=== PATIENT | female | born 1940 | race Caucasian/White ===

== ENCOUNTER 2016-07-30 11:33 | Inpatient (IN) | payer OTHER ==
--- NOTE | 2016-07-30 12:12 | PDOC ---
History of Present Illness - General History Source: Patient Exam Limitations: No Limitations - History of Present Illness Initial Comments: 07/30/16 12:20 The patient is a 76 year old female, who lives at home with grandson, with a significant past history of depression, hypertension, hyperlipidemia, AFib (on coumadin), CHF, COPD(on 3 L of O2 at home), breast cancer (s/p lumpectomy), who presents to the emergency department sent from urgent care for evaluation of shortness of breath and hypoxia for several days. However, as per patient, the shortness of breath is part of her baseline. Patient reports she is increasingly short of breath recently due to worsening depression. Patient reports she has been depressed due to concerns with her health. She states increasingly worries about and what it would mean for her children. Patient reports she has had suicidal ideations in the past, but no recent suicidal or homicidal ideations. The patient reports she is not taking any medications for her depression. She reports decreased appetite and sleep secondary to depression and SOB. The patient reports she has had shortness of breath with exertion, especially when she goes to sit in the bathroom. The patient reports chronic discoloration in the lower extremities, but denies any new swelling, chest pain, diaphoresis, or palpitations. She denies any fever, chills, cough, headache, or dizziness. Allergies: None reported Past Surgical History: Mitral Valve replacement, Cholecystectomy Social History: Non smoker. No ETOH or drug use. PCP: Dr. Wilfred Juarez <Nina Scott - Last Filed: 07/30/16 14:59> <Madian Jackson - Last Filed: 07/30/16 15:29> - General Chief Complaint: Shortness of Breath Stated Complaint: SOB Time Seen by Provider: 07/30/16 11:37 Past History <Nina Scott - Last Filed: 07/30/16 14:59> - Past Medical History Cardiac Disorders: Yes (a fib, mechanical mitral valve replacement) COPD: Yes CHF: Yes HTN: Yes Thyroid Disease: Yes - Surgical History Cardiac Surgery: Yes Cholecystectomy: Yes - Immunization History Immunization Up to Date: Yes - Psycho/Social/Smoking Cessation Hx Anxiety: No Suicidal Ideation: No Smoking Status: No Smoking History: Former smoker Have you smoked in the past 12 months: No Number of Cigarettes Smoked Daily: 0 Hx Alcohol Use: No Drug/Substance Use Hx: No Substance Use Type: None Hx Substance Use Treatment: No <Madina Jackson - Last Filed: 07/30/16 15:29> - Past Medical History Allergies/Adverse Reactions: Allergies Allergy/AdvReac Type Severity Reaction Status Date / Time No Known Allergies Allergy Verified 09/12/15 16:14 Home Medications: Ambulatory Orders Escitalopram Oxalate [Lexapro -] 5 mg PO DAILY #30 tablet 02/09/15 Anastrozole [Arimidex -] 1 mg PO DAILY 08/02/15 Calcium Carbonate/Vitamin D3 [Oyster Shell 500-Vit D3 200 Tb] 1 each PO DAILY Furosemide [Lasix -] 40 mg PO BID@0600,1400 08/02/15 Potassium Chloride [K-Dur -] 20 meq PO DAILY 08/02/15 Acetaminophen [Tylenol .Regular Strength -] 650 mg PO Q4H PRN #0 tablet Aspirin Coated [Ecotrin -] 81 mg PO DAILY tablet.ec 08/08/15 Digoxin [Lanoxin -] 0.125 mg PO Q2D@1000 #30 tablet 08/08/15 Levothyroxine [Synthroid -] 75 mcg PO DAILY@0700 #30 tablet 08/08/15 Quetiapine Fumarate [Seroquel -] 25 mg PO HS #30 tablet 08/08/15 Salmeterol Xinafoate [Serevent Diskus] 50 mcg IH ASDIR #1 disk.w.dev 08/08/15 Warfarin Na [Coumadin -] 4 mg PO DAILY@1800 tablet 08/09/15 Cephalexin [Keflex] 500 mg PO Q6H #32 capsule 09/18/15 Silver Sulfadiazine 1% Top Cr [Silvadene -] 1 applic TP BID #1 jar 09/18/15 Review of Systems - Review of Systems Comments:: 07/30/16 12:20 GENERAL/CONSTITUTIONAL: Yes: +decreased sleep. No fever or chills. No weakness. HEAD, EYES, EARS, NOSE AND THROAT: No change in vision. No ear pain or discharge. No sore throat. CARDIOVASCULAR: Yes: +shortness of breath. No chest pain. RESPIRATORY: Yes: +dyspnea, +dyspnea on exertion. No cough, wheezing, or hemoptysis. GASTROINTESTINAL: No nausea, vomiting, diarrhea or constipation. GENITOURINARY: No dysuria, frequency, or change in urination. MUSCULOSKELETAL: No joint or muscle swelling or pain. No neck or back pain. SKIN: No rash NEUROLOGIC: No headache, vertigo, loss of consciousness, or change in strength/ sensation. ENDOCRINE: Yes: +decreased appetite. No increased thirst. No abnormal weight change. HEMATOLOGIC/LYMPHATIC: No anemia, easy bleeding, or history of blood clots. ALLERGIC/IMMUNOLOGIC: No hives or skin allergy. PSYCHIATRIC:Yes: +Anxiety, +depression <Nina Scott - Last Filed: 07/30/16 14:59> *Physical Exam - Vital Signs Last Vital Signs Temp Pulse Resp BP Pulse Ox 98.1 F 76 18 128/67 100 07/30/16 12:01 07/30/16 12:01 07/30/16 12:01 07/30/16 12:01 07/30/16 12:01 - Physical Exam Comments: 07/30/16 12:20 GENERAL: Awake, alert, and fully oriented, in no acute distress HEAD: No signs of trauma EYES: PERRLA, EOMI, sclera anicteric, conjunctiva clear ENT: Auricles normal inspection, hearing grossly normal, nares patent. Moist mucosa NECK: Normal ROM, supple, no lymphadenopathy, JVD, or masses LUNGS: Crackles bilaterally and faint wheezes at the bases. HEART: Irregularly irregular, but no tachycardia. Normal S1 and S2, no murmurs, rubs or gallops ABDOMEN: Soft, nontender, normoactive bowel sounds. No guarding, no rebound. No masses EXTREMITIES: No pitting edema at the legs bilaterally. Normal range of motion. No clubbing or cyanosis. No cords, erythema, or tenderness. DP/PT pulses 2+ and symmetric. NEUROLOGICAL: Moves all extremities. Normal speech, normal gait SKIN: Warm, Dry, normal turgor, no rashes or lesions noted. PSYCH: Depressed affect. Normal speech. <Nina Scott - Last Filed: 07/30/16 14:59> Heart Score/ECG Review - ECG Intrepretation Comment:: 07/30/16 12:26 comparison to old EKG 09/13/15 no acute changes <Madina Jackson - Last Filed: 07/30/16 15:29> ED Treatment Course - LABORATORY CBC & Chemistry Diagram: 07/30/16 12:12 07/30/16 12:12 - RADIOLOGY Radiograph Interpretation: 07/30/16 14:59 EXAM: CXR INTERPRETED BY: Dr. Brock REVIEWED BY: Dr. Jackson IMPRESSION: Cardiomegaly with congestive heart failure and right pleural effusion. Status post mitral valvular replacement. Continuing clinical and radiographic evaluation suggested. <Nina Scott - Last Filed: 07/30/16 14:59> - LABORATORY CBC & Chemistry Diagram: 07/30/16 12:12 07/30/16 12:12 - RADIOLOGY Radiology Studies Ordered: Category Date Time Status CXRPORT [CHEST X-RAY PORTABLE*] [RAD] Stat Radiology 07/30/16 11:40 Ordered <Madina Jackson - Last Filed: 07/30/16 15:29> Medical Decision Making - Medical Decision Making 07/30/16 13:40 First call placed to Dr. Juarez at 13:40. Case discussed at this time. First call placed to Dr. Morales at 14:07. Awaiting call back. Second call placed to Dr. Morales at 14:41. Awaiting call back. <Nina Scott - Last Filed: 07/30/16 14:59> - Medical Decision Making 07/30/16 12:05 76 yo F with h/o breast ca ( s/p lumpectomy), chf copd pulm htn, afib on coumadin hLD, on home oxygen 3L, Htn , HLD and depression here today from urgent care for concerns for sob and hypoxia. but per patient, shes states her sob is baseline. has been having worsening depression . states she lives with her grandson, who is always busy working and studying. she cant identify any triggers. states she had suicidal ideation in the past, recently has been having thoughts about , no specific plan. not currently taking any medication for her depression. no f/c no cough. no new swelling, chronic discoloration and swelling to bilat lower ext. no f/c no ingestions, decreased appetitie and sleep from her constant anxiety and depression. only eating small bits. pcp dr juarez on exam awake alert lungs crackles bilaterally and faint wheezing at the base, heart irreg no tachy no murmurs. legs bilat nonpitting edema. wwp. psych: depressed affect, speech clear. . plan: r/o causes sob worsening chf, effusion, infection such as pna, labs ekg and ekg, psych consult for depression. 07/30/16 12:22 07/30/16 13:52 psychiatry called, awaiting call back from DR Elise. d/w dr. juarez states pt was hypoxic in his office. would like to observe. pt given duoneb in ed and lasix 40 mg. will observe on tele for chf, copd and depression pending psychiatry evaluation. req admit to dr. morales, and Andrea Galvan <Madina Jackson - Last Filed: 07/30/16 15:29> *DC/Admit/Observation/Transfer - Attestations Scribe Attestion: 07/30/16 12:21 Documentation prepared by Nina Scott, acting as medical staff services coordinator for Madina Jackson MD. <Nina Scott - Last Filed: 07/30/16 14:59> - Discharge Dispostion Admit: Yes <Madina Jackson - Last Filed: 07/30/16 15:29> Diagnosis at time of Disposition: CHF exacerbation, COPD (chronic obstructive pulmonary disease) - Referrals Referrals: Wilfred Juarez MD [Primary Care Provider] -
[2016-07-30 12:33] LABS: BASOPHIL 0.3 % (0-2.0); EOSINOPHIL 0.6 % (0-4.5); MCH 31.7 pg (25.7-33.7); MCHC 32.9 g/dl (32.0-36.0); MEAN CELL VOLUME 96.2 fl (80-96); MEAN PLT VOLUME 8.7 fl (7.5-11.1); NEUTROPHILS 79.8 % (42.8-82.8); PLATELET COUNT 158 K/MM3 (134-434); RDW 14.4 % (11.6-15.6); WHITE BLOOD COUNT 7.7 K/mm3 (4.0-10.0)
[2016-07-30 13:02] LABS: ALBUMIN 3.7 g/dl (3.4-5.0); BILIRUBIN,TOTAL 1.1 mg/dL (0.2-1.0); CALCIUM 8.8 mg/dL (8.5-10.1); CREATININE 0.7 mg/dL (0.55-1.02); GLUCOSE,RANDOM 101 mg/dL (74-106); SGOT/AST 30 U/L (15-37); SGPT/ALT 26 U/L (12-78)
[2016-07-30 13:05] LABS: ALK PHOS 206 U/L (45-117); TOT PROT 7.6 g/dl (6.4-8.2); TROPONIN I < 0.02 ng/ml (0.00-0.05)
[2016-07-30 13:22] LABS: ANION GAP -2 (8-16); CO2 52 mmol/L (21-32)
[2016-07-30] MEDS ORDERED: ALBUTEROL SO4 2.5/IPRATROPIUM 0.5 INH SOL 3 ML VIAL.NEB. NEB ONE ×2 (13:39→13:43)
[2016-07-30] MEDS ORDERED: FUROSEMIDE 40 MG/4 ML INJECTABLE VIAL IVPUSH ONE (13:45)
[2016-07-30 14:19] LABS: THYROID STIMULATING HORMONE 1.99 uIU/ml (0.358-3.74)
[2016-07-30] MEDS ORDERED: FUROSEMIDE 40 MG/4 ML INJECTABLE VIAL ONE (15:18)
[2016-07-30] MEDS ORDERED: PATIENT'S OWN MEDICATION (NON-FORMULARY) (Salmeterol Xinafoate [Serevent Diskus] 50 MCG) IH SCH (20:15)
[2016-07-30] MEDS: QUEtiapine FUMARATE 25 MG TABLET (FP) PO SCH (22:48)
[2016-07-30 23:05] VITALS: BMI 25.8
[2016-07-31] MEDS: LEVOTHYROXINE NA 75 MCG TABLET (FP) PO SCH (06:28)
[2016-07-31 07:25] LABS: BASOPHIL 0.2 % (0-2.0); EOSINOPHIL 0.7 % (0-4.5); MCH 31.3 pg (25.7-33.7); MCHC 32.4 g/dl (32.0-36.0); MEAN CELL VOLUME 96.6 fl (80-96); MEAN PLT VOLUME 9.2 fl (7.5-11.1); NEUTROPHILS 78.5 % (42.8-82.8); PLATELET COUNT 160 K/MM3 (134-434); RDW 14.1 % (11.6-15.6); WHITE BLOOD COUNT 7.2 K/mm3 (4.0-10.0)
[2016-07-31 07:53] LABS: INR 1.69 (0.82-1.09); PROTHROMBIN TIME (PATIENT) 18.8 SEC (9.98-11.88)
[2016-07-31 07:58] LABS: ALBUMIN 3.4 g/dl (3.4-5.0); ALK PHOS 193 U/L (45-117); BILIRUBIN,TOTAL 1.5 mg/dL (0.2-1.0); CREATININE 0.7 mg/dL (0.55-1.02); GLUCOSE,RANDOM 96 mg/dL (74-106); SGOT/AST 29 U/L (15-37); SGPT/ALT 27 U/L (12-78); TOT PROT 7.1 g/dl (6.4-8.2)
[2016-07-31 08:58] LABS: TROPONIN I < 0.02 ng/ml (0.00-0.05)
--- NOTE | 2016-07-31 09:22 | PN ---
Progress Note, Physician Chief Complaint: SOB and hypoxia History of Present Illness: Well known to our group: Permanent AF Mechanical MVR Chronic diastolic CHF PHTN COPD Breast CA Depression Sent to ER by PMD for increased SOB and hypoxia in office. CXR shows congestion, effusions and changes c/w decompensated diastolic CHF She denies CP. + Increased b/l LE edema over the last 7 days. No fevers or chills. No palps. Of note, INR was subtherapeutic. - Current Medication List Current Medications: Active Medications Anastrozole (Arimidex -) 1 mg PO DAILY [facility] Aspirin (Ecotrin -) 81 mg PO DAILY [facility] Calcium Carbonate/Cholecalciferol (Os-Nura 500+D -) 1 tab PO DAILY [facility] Digoxin (Lanoxin -) 0.125 mg PO Q2D@1000 [facility] Escitalopram Oxalate (Lexapro -) 5 mg PO DAILY [facility] Furosemide (Lasix Injection -) 40 mg IVPUSH DAILY [facility] Levothyroxine Sodium (Synthroid -) 75 mcg PO DAILY@0700 [facility] Last Admin: 07/31/16 06:28 Dose: 75 mcg Non-Formulary Medication (Salmeterol Xinafoate [Serevent Diskus]) 50 mcg IH ASDIR [facility] Potassium Chloride (K-Dur -) 20 meq PO DAILY [facility] Quetiapine Fumarate (Seroquel -) 25 mg PO HS [facility] Last Admin: 07/30/16 22:48 Dose: Not Given Warfarin Sodium (Coumadin -) 4 mg PO DAILY@1800 [facility] - Objective Vital Signs: Vital Signs Temperature 98.1 F 07/31/16 06:00 Pulse Rate 69 07/31/16 06:00 Respiratory Rate 18 07/31/16 06:00 Blood Pressure 132/61 07/31/16 06:00 O2 Sat by Pulse Oximetry (%) 96 07/30/16 22:53 Constitutional: Yes: No Distress Cardiovascular: Yes: Pulse Irregular Respiratory: Yes: Other (decreased basilar breath sounds) Gastrointestinal: Yes: Soft Edema: Yes Edema: LLE: 2+ (venous stasis), RLE: 2+ (venous stasis) Neurological: Yes: Alert, Oriented Labs: CBC, BMP 07/31/16 06:00 07/31/16 06:00 INR, PTT INR 1.69 (0.82-1.09) H D 07/31/16 06:00 Laboratory Tests 07/30/16 07/31/16 07/31/16 12:12 06:00 06:00 WBC 7.2 Hgb 11.2 Plt Count 160 INR Sodium 146 H Potassium 4.2 Creatinine 0.7 Troponin I < 0.02 < 0.02 B-Natriuretic Peptide 1570.60 H 07/31/16 06:00 WBC Hgb Plt Count INR 1.69 H D Sodium Potassium Creatinine Troponin I B-Natriuretic Peptide - ....Imaging EKG: Pending (today) Problem List - Problems (1) Acute CHF Code(s): I50.9 - HEART FAILURE, UNSPECIFIED Qualifiers: Congestive heart failure type: diastolic Qualified Code(s): I50.31 - Acute diastolic (congestive) heart failure (2) History of mitral valve replacement with mechanical valve Code(s): Z95.2 - PRESENCE OF PROSTHETIC HEART VALVE (3) Chronic diastolic (congestive) heart failure Code(s): I50.32 - CHRONIC DIASTOLIC (CONGESTIVE) HEART FAILURE (4) Afib Code(s): I48.91 - UNSPECIFIED ATRIAL FIBRILLATION (5) Pulmonary HTN Code(s): I27.2 - OTHER SECONDARY PULMONARY HYPERTENSION (6) Breast cancer Code(s): C50.919 - MALIGNANT NEOPLASM OF UNSP SITE OF UNSPECIFIED FEMALE BREAST Qualifiers: Laterality: unspecified laterality (7) COPD (chronic obstructive pulmonary disease) with chronic bronchitis Code(s): J44.9 - CHRONIC OBSTRUCTIVE PULMONARY DISEASE, UNSPECIFIED (8) Depression determined by examination Code(s): F32.9 - MAJOR DEPRESSIVE DISORDER, SINGLE EPISODE, UNSPECIFIED Assessment/Plan IMP: Permanent AF Mechanical MVR with subtherapeutic INR Acute on chronic diastolic CHF PHTN COPD, chronic Breast CA REC: 1. IV Lasix with daily electrolytes 2. Start UFH gtts as bridge until INR > 2.5, continue and adjust coumadin 3. F/U Echo 4. Supplimental O2 5. ECG today 6. Continue home rate control meds
[2016-07-31 09:23] LABS: ANION GAP 5 (8-16); CO2 46 mmol/L (21-32)
[2016-07-31] MEDS ORDERED: HEPARIN NA (PORCINE) 5,000 UNITS/ML 1ML VIAL IVPUSH PRN ×2 (09:23)
--- NOTE | 2016-07-31 10:31 | CON.PULM ---
Consult Consult Specialty:: PULMONARY Referred by:: Dr. Morales Reason for Consultation:: shortness of breath - History of Present Illness Chief Complaint: shortness of breath History of Present Illness: 76yo female with h/o HTN, hyperlipidemia, atrial fibrillation on anticoagulation , LV diastolic dysfunction, severe pulmonary HTN, s/p mechanical mitral valve replacement, COPD, chronic hypoxic respiratory failure on home O2, depression who presents with worsening shortness of breath. Denies chest pain or palpitations. No fevers, chills or sweats. +nonproductive cough without wheezing. CXR showing increasing congestion, given lasix with mild improvement in symptoms but still feels very nervous/anxious. - History Source History Provided By: Patient, Medical Record Limitations to Obtaining History: Language Barrier - Past Medical History Cardio/Vascular: Yes: AFIB, Pulmonary Hypertension, CHF, HTN, Hyperlipdemia, Other Pulmonary: Yes: COPD, O2 Dependent, Other (pulmonary hypertension on O-2) Psych: Yes: Depression Endocrine: Yes: Hypothyroidism - Past Surgical History Past Surgical History: Yes: Cholecystectomy, Valve Replacement (mechanical mitral) - Alcohol/Substance Use Hx Alcohol Use: No - Smoking History Smoking history: Former smoker Have you smoked in the past 12 months: No Aproximately how many cigarettes per day: 0 - Social History Usual Living Arrangement: Alone ADL: Independent History of Recent Travel: No Home Medications - Allergies Allergies/Adverse Reactions: Allergies Allergy/AdvReac Type Severity Reaction Status Date / Time No Known Allergies Allergy Verified 09/12/15 16:14 - Home Medications Home Medications: Ambulatory Orders Escitalopram Oxalate [Lexapro -] 5 mg PO DAILY #30 tablet 02/09/15 Anastrozole [Arimidex -] 1 mg PO DAILY 08/02/15 Calcium Carbonate/Vitamin D3 [Oyster Shell 500-Vit D3 200 Tb] 1 each PO DAILY Furosemide [Lasix -] 40 mg PO BID@0600,1400 08/02/15 Acetaminophen [Tylenol .Regular Strength -] 650 mg PO Q4H PRN #0 tablet Digoxin [Lanoxin -] 0.125 mg PO Q2D@1000 #30 tablet 08/08/15 Levothyroxine [Synthroid -] 75 mcg PO DAILY@0700 #30 tablet 08/08/15 Quetiapine Fumarate [Seroquel -] 25 mg PO HS #30 tablet 08/08/15 Warfarin Na [Coumadin -] 4 mg PO DAILY@1800 tablet 08/09/15 Family Disease History - Family Disease History Family Disease History: Other: Father (HTN, HLD) Review of Systems - Review of Systems Constitutional: denies: Chills, Fever Eyes: denies: Recent Change in Vision HENT: denies: Nasal Congestion, Throat Pain Neck: denies: Stiffness, Tenderness Cardiovascular: reports: Edema, Shortness of Breath. denies: Chest Pain, Palpitations Respiratory: reports: Cough, SOB, SOB on Exertion. denies: Hemoptysis, Wheezing Gastrointestinal: denies: Abdominal Pain, Nausea, Vomiting Genitourinary: denies: Dysuria, Hematuria Neurological: denies: Dizziness, Headache Physical Exam Vital Sings: Vital Signs Temperature 98.1 F 07/31/16 06:00 Pulse Rate 69 07/31/16 06:00 Respiratory Rate 18 07/31/16 06:00 Blood Pressure 132/61 07/31/16 06:00 O2 Sat by Pulse Oximetry (%) 96 07/30/16 22:53 Constitutional: Yes: Anxious Eyes: Yes: Conjunctiva Clear, EOM Intact HENT: Yes: Atraumatic, Normocephalic Neck: Yes: Supple, Trachea Midline Cardiovascular: Yes: Pulse Irregular, Murmur (systolic), Other (mechanical click ) Respiratory: Yes: Rales (bibasilar), Rhonchi ...Clubbing: No Gastrointestinal: Yes: Normal Bowel Sounds, Soft. No: Tenderness Edema: Yes Neurological: Yes: Alert, Oriented Labs: CBC, BMP 07/31/16 06:00 07/31/16 06:00 Imaging - Results Chest X-ray: Report Reviewed, Image Reviewed (cardiomegaly, pulmonary vascular congestion, bilateral effusions) Problem List - Problems (1) Acute on chronic diastolic (congestive) heart failure Code(s): I50.33 - ACUTE ON CHRONIC DIASTOLIC (CONGESTIVE) HEART FAILURE (2) Afib Code(s): I48.91 - UNSPECIFIED ATRIAL FIBRILLATION (3) COPD (chronic obstructive pulmonary disease) Code(s): J44.9 - CHRONIC OBSTRUCTIVE PULMONARY DISEASE, UNSPECIFIED (4) Pulmonary HTN Code(s): I27.2 - OTHER SECONDARY PULMONARY HYPERTENSION (5) History of mitral valve replacement with mechanical valve Code(s): Z95.2 - PRESENCE OF PROSTHETIC HEART VALVE (6) Chronic respiratory failure with hypoxia Code(s): J96.11 - CHRONIC RESPIRATORY FAILURE WITH HYPOXIA Assessment/Plan Acute on Chronic Diastolic Heart Failure Atrial Fibrillation s/p mechanical MVR Severe Pulmonary HTN Pleural Effusions COPD Chronic Hypoxic Respiratory Failure HTN - IV lasix - monitor urine output, creatinine - daily weights, I/Os - echocardiogram - monitor CXR with diuresis - rate controlled - continue anticoagulation - O2 to keep Spo2 >90% - inhaled bronchodilators Thank you for this consult Asher Hicks MD
[2016-07-31] MEDS ORDERED: PT OWN MED DRAWER 7, Y5N ONE ×2 (11:06→11:39)
[2016-07-31] MEDS: CALCIUM 500MG/VIT-D 200 UNITS COMBO TABLET (FP) PO SCH (11:32)
[2016-07-31] MEDS: ASPIRIN COATED 81 MG TABLET.EC PO SCH (11:32)
[2016-07-31] MEDS: FUROSEMIDE 40 MG/4 ML INJECTABLE VIAL IVPUSH SCH (11:32)
[2016-07-31] MEDS: ESCITALOPRAM OXALATE 10 MG TABLET (FP) PO SCH (11:32)
[2016-07-31] MEDS: POTASSIUM CHLORIDE TABS 20 MEQ TABLET.ER (FP) PO SCH (11:53)
[2016-07-31] MEDS ORDERED: INSULIN (NOVOLOG) ASPART 100 UNITS/ML 10ML VIAL ONE (12:19)
[2016-07-31] MEDS: ANASTROZOLE 1 MG TABLET PO SCH (12:22)
--- NOTE | 2016-07-31 12:23 | EKG ---
Test Reason : Blood Pressure : / mmHG Vent. Rate : 075 BPM Atrial Rate : 416 BPM P-R Int : 000 ms QRS Dur : 080 ms QT Int : 372 ms P-R-T Axes : 000 117 -39 degrees QTc Int : 415 ms ATRIAL FIBRILLATION RIGHT AXIS DEVIATION ABNORMAL ECG WHEN COMPARED WITH ECG OF 30-JUL-2016 12:14, NO SIGNIFICANT CHANGE WAS FOUND Confirmed by ROSA ELENA HERNANDEZ MD ([id number]) on 07/31/2016 12:23:16 PM Referred By: NAIDA ALSTON Confirmed By:ROSA ELENA HERNANDEZ MD
--- NOTE | 2016-07-31 12:28 | EKG ---
Test Reason : Blood Pressure : / mmHG Vent. Rate : 067 BPM Atrial Rate : 052 BPM P-R Int : 000 ms QRS Dur : 078 ms QT Int : 378 ms P-R-T Axes : 000 113 003 degrees QTc Int : 399 ms POOR DATA QUALITY, INTERPRETATION MAY BE ADVERSELY AFFECTED ATRIAL FIBRILLATION RIGHT AXIS DEVIATION ABNORMAL ECG WHEN COMPARED WITH ECG OF 13-SEP-2015 09:11, NONSPECIFIC T WAVE ABNORMALITY HAS REPLACED INVERTED T WAVES IN LATERAL LEADS Confirmed by ROSA ELENA HERNANDEZ MD ([id number]) on 07/31/2016 12:28:42 PM Referred By: Confirmed By:ROSA ELENA HERNANDEZ MD
[2016-07-31] MEDS: HEPARIN - 25,000 UNIT in SODIUM CHLORIDE 495 ML IV SCH (12:49)
--- NOTE | 2016-07-31 15:24 | HP ---
Admitting History and Physical - Admission History of Present Illness: The patient is a 76 year old female, who lives at home with grandson, with a significant past history of depression, hypertension, hyperlipidemia, AFib (on coumadin), CHF, COPD(on 3 L of O2 at home), breast cancer (s/p lumpectomy), who presents to the emergency department sent from urgent care for evaluation of shortness of breath and hypoxia for several days. However, as per patient, the shortness of breath is part of her baseline. Patient reports she is increasingly short of breath recently due to worsening depression. Patient reports she has been depressed due to concerns with her health. She states increasingly worries about and what it would mean for her children. Patient reports she has had suicidal ideations in the past, but no recent suicidal or homicidal ideations. The patient reports she is not taking any medications for her depression. She reports decreased appetite and sleep secondary to depression and SOB. The patient reports she has had shortness of breath with exertion, especially when she goes to sit in the bathroom. The patient reports chronic discoloration in the lower extremities, but denies any new swelling, chest pain, diaphoresis, or palpitations. She denies any fever, chills, cough, headache, or dizziness. History Source: Patient, Medical Record - Past Medical History Cardiovascular: Yes: AFIB, Pulmonary Hypertension, CHF, HTN, Hyperlipdemia, Other Pulmonary: Yes: COPD, O2 Dependent, Other (pulmonary hypertension on O-2) Heme/Onc: Yes: Cancer (breast) Psych: Yes: Depression Endocrine: Yes: Hypothyroidism - Past Surgical History Past Surgical History: Yes: Cholecystectomy, Valve Replacement (mechanical mitral) - Smoking History Smoking history: Former smoker Have you smoked in the past 12 months: No Aproximately how many cigarettes per day: 0 - Alcohol/Substance Use Hx Alcohol Use: No - Social History ADL: Independent History of Recent Travel: No Home Medications - Allergies Allergies/Adverse Reactions: Allergies Allergy/AdvReac Type Severity Reaction Status Date / Time No Known Allergies Allergy Verified 09/12/15 16:14 - Home Medications Home Medications: Ambulatory Orders Escitalopram Oxalate [Lexapro -] 5 mg PO DAILY #30 tablet 02/09/15 Anastrozole [Arimidex -] 1 mg PO DAILY 08/02/15 Calcium Carbonate/Vitamin D3 [Oyster Shell 500-Vit D3 200 Tb] 1 each PO DAILY Furosemide [Lasix -] 40 mg PO BID@0600,1400 08/02/15 Acetaminophen [Tylenol .Regular Strength -] 650 mg PO Q4H PRN #0 tablet Digoxin [Lanoxin -] 0.125 mg PO Q2D@1000 #30 tablet 08/08/15 Levothyroxine [Synthroid -] 75 mcg PO DAILY@0700 #30 tablet 08/08/15 Quetiapine Fumarate [Seroquel -] 25 mg PO HS #30 tablet 08/08/15 Warfarin Na [Coumadin -] 4 mg PO DAILY@1800 tablet 08/09/15 Family Disease History - Family Disease History Family History: Unremarkable Family Disease History: Other: Father (HTN, HLD) Review of Systems - Review of Systems Constitutional: reports: Lethargy, Weakness Eyes: reports: No Symptoms HENT: reports: No Symptoms Neck: reports: No Symptoms Cardiovascular: reports: Shortness of Breath Respiratory: reports: SOB Gastrointestinal: reports: No Symptoms Genitourinary: reports: No Symptoms Physical Examination Vital Signs: Vital Signs Temperature 98.1 F 07/31/16 06:00 Pulse Rate 69 07/31/16 06:00 Respiratory Rate 18 07/31/16 06:00 Blood Pressure 132/61 07/31/16 06:00 O2 Sat by Pulse Oximetry (%) 96 07/30/16 22:53 Constitutional: Yes: No Distress Eyes: Yes: WNL HENT: Yes: WNL Neck: Yes: WNL, Supple Cardiovascular: Yes: Pulse Irregular Respiratory: Yes: Rales Gastrointestinal: Yes: WNL, Normal Bowel Sounds, Soft ...Rectal Exam: No: Guaiac Negative Musculoskeletal: Yes: WNL Edema: LLE: 1+, RLE: 1+ Neurological: Yes: WNL, Alert, Oriented ...Motor Strength: WNL Labs: CBC, BMP 07/31/16 06:00 07/31/16 06:00 Problem List - Problems (1) Acute on chronic diastolic (congestive) heart failure Assessment/Plan: Cont IV lasix CXR showed congestion Monitor electrolytes Code(s): I50.33 - ACUTE ON CHRONIC DIASTOLIC (CONGESTIVE) HEART FAILURE (2) COPD (chronic obstructive pulmonary disease) Assessment/Plan: Stable Code(s): J44.9 - CHRONIC OBSTRUCTIVE PULMONARY DISEASE, UNSPECIFIED (3) Hypertension Code(s): I10 - ESSENTIAL (PRIMARY) HYPERTENSION (4) Afib Assessment/Plan: Bridge coumadin w/ IV heparin drip Monitor pt/inr Code(s): I48.91 - UNSPECIFIED ATRIAL FIBRILLATION (5) Depression Code(s): F32.9 - MAJOR DEPRESSIVE DISORDER, SINGLE EPISODE, UNSPECIFIED (6) Hypothyroid Code(s): E03.9 - HYPOTHYROIDISM, UNSPECIFIED Qualifiers: Hypothyroidism type: acquired Qualified Code(s): E03.9 - Hypothyroidism, unspecified (7) Mitral valve replaced Code(s): Z95.2 - PRESENCE OF PROSTHETIC HEART VALVE
[2016-07-31 17:03] LABS: TROPONIN I 0.02 ng/ml (0.00-0.05)
[2016-07-31] MEDS: WARFARIN NA 2 MG TABLET (UD) PO SCH (17:21)
[2016-07-31] MEDS: QUEtiapine FUMARATE 25 MG TABLET (FP) PO SCH (21:47)
[2016-07-31 23:36] LABS: TROPONIN I 0.02 ng/ml (0.00-0.05)
[2016-08-01] MEDS: LEVOTHYROXINE NA 75 MCG TABLET (FP) PO SCH (06:27)
[2016-08-01 07:59] LABS: BASOPHIL 0.3 % (0-2.0); EOSINOPHIL 1.5 % (0-4.5); MCH 31.6 pg (25.7-33.7); MCHC 32.9 g/dl (32.0-36.0); MEAN CELL VOLUME 96.2 fl (80-96); MEAN PLT VOLUME 9.2 fl (7.5-11.1); NEUTROPHILS 74.8 % (42.8-82.8); PLATELET COUNT 150 K/MM3 (134-434); RDW 14.4 % (11.6-15.6); WHITE BLOOD COUNT 6.5 K/mm3 (4.0-10.0)
[2016-08-01 08:08] LABS: INR 1.6 (0.82-1.09); PROTHROMBIN TIME (PATIENT) 17.8 SEC (9.98-11.88)
[2016-08-01 08:44] LABS: ANION GAP 3 (8-16); CALCIUM 8.6 mg/dL (8.5-10.1); CO2 44 mmol/L (21-32); GLUCOSE,RANDOM 98 mg/dL (74-106)
[2016-08-01 08:48] LABS: CREATININE 0.9 mg/dL (0.55-1.02)
[2016-08-01 09:01] LABS: DIGOXIN LEVEL 0.7026 ng/ml (0.8-2.0)
--- NOTE | 2016-08-01 09:34 | PN ---
Progress Note, Physician History of Present Illness: seen and examined today in nad. no overnight events. no new complaints. states she is feeling slightly better today. - Current Medication List Current Medications: Active Medications Anastrozole (Arimidex -) 1 mg PO DAILY [facility] Last Admin: 07/31/16 12:22 Dose: 1 mg Aspirin (Ecotrin -) 81 mg PO DAILY [facility] Last Admin: 07/31/16 11:32 Dose: 81 mg Calcium Carbonate/Cholecalciferol (Os-Nura 500+D -) 1 tab PO DAILY [facility] Last Admin: 07/31/16 11:32 Dose: 1 tab Digoxin (Lanoxin -) 0.125 mg PO Q2D@1000 [facility] Escitalopram Oxalate (Lexapro -) 5 mg PO DAILY [facility] Last Admin: 07/31/16 11:32 Dose: 5 mg Furosemide (Lasix Injection -) 40 mg IVPUSH DAILY [facility] Last Admin: 07/31/16 11:32 Dose: 40 mg Heparin Sodium (Porcine) (Heparin -) 1,000 unit IVPUSH PRN PRN PRN Reason: Heparin Heparin Sodium (Porcine) (Heparin -) 5,000 unit IVPUSH PRN PRN PRN Reason: Heparin Heparin Sodium (Porcine) 25, (000 unit/ Sodium Chloride) 500 mls @ 16 mls/hr IV TITR MIA; 800 UNIT/HR PRN Reason: Protocol Last Admin: 07/31/16 12:49 Dose: 16 mls/hr Levothyroxine Sodium (Synthroid -) 75 mcg PO DAILY@0700 [facility] Last Admin: 08/01/16 06:27 Dose: 75 mcg Non-Formulary Medication (Salmeterol Xinafoate [Serevent Diskus]) 50 mcg IH ASDIR [facility] Potassium Chloride (K-Dur -) 20 meq PO DAILY [facility] Last Admin: 07/31/16 11:53 Dose: 20 meq Quetiapine Fumarate (Seroquel -) 25 mg PO HS [facility] Last Admin: 07/31/16 21:47 Dose: 25 mg Warfarin Sodium (Coumadin -) 4 mg PO DAILY@1800 [facility] Last Admin: 07/31/16 17:21 Dose: 4 mg - Objective Vital Signs: Vital Signs Temperature 97.8 F 08/01/16 06:00 Pulse Rate 83 08/01/16 06:00 Respiratory Rate 20 08/01/16 06:00 Blood Pressure 122/89 08/01/16 06:00 O2 Sat by Pulse Oximetry (%) 98 07/31/16 21:00 Constitutional: Yes: No Distress, Calm Eyes: Yes: Conjunctiva Clear, EOM Intact, PERRL HENT: Yes: Atraumatic, Normocephalic Neck: Yes: Supple, Trachea Midline Cardiovascular: Yes: Pulse Irregular, Murmur, S1, S2. No: Bradycardia, Tachycardia, Bruit, JVD, Gallop, Rub, S3, S4, Varicosities Respiratory: Yes: Regular, Diminished, On Nasal O2, Rales. No: Rhonchi, SOB, Wheezes Gastrointestinal: Yes: Normal Bowel Sounds, Soft. No: Distention, Tenderness Musculoskeletal: Yes: Muscle Weakness Edema: Yes Edema: LLE: 2+, RLE: 2+ Peripheral Pulses WNL: Yes Peripheral Pulses: Left Doralis Pedis: 2+, Right Dorsalis Pedis: 2+ Neurological: Yes: Alert, Oriented Psychiatric: Yes: Alert, Oriented Labs: CBC, BMP 08/01/16 06:00 08/01/16 06:00 INR, PTT INR 1.60 (0.82-1.09) H 08/01/16 06:00 - ....Imaging Chest X-ray: Report Reviewed, Image Reviewed EKG: Report Reviewed, Image Reviewed Other: Report Reviewed, Image Reviewed Assessment/Plan IMP: Afib Mechanical MVR with subtherapeutic INR Acute on chronic diastolic CHF PHTN COPD, chronic Breast CA Pleural effusion REC: Cont IV Lasix at current dose Monitor daily labs, bun/creat, electrolytes and replete as needed Cont hep gtt bridge to coumadin for goal INR 2.5-3.5 (mechanical MVR) Echo showed normal LV and RV systolic function, normal functioning MVR, Mod-sev PAH, TR, no pericardial effusion HR adequately controlled, cont Digoxin Pt with chronic/recurrent pleural effusions, not clearly all due to CHF, will ask pulmonary to review results of past Thoracentesis, given h/o breast CA, confirm this is not malignant pleural effusions
[2016-08-01] MEDS: ANASTROZOLE 1 MG TABLET PO SCH (12:01)
[2016-08-01] MEDS: ASPIRIN COATED 81 MG TABLET.EC PO SCH (12:02)
[2016-08-01] MEDS: POTASSIUM CHLORIDE TABS 20 MEQ TABLET.ER (FP) PO SCH (12:03)
[2016-08-01] MEDS: DIGOXIN 0.125 MG TABLET (FP) PO SCH (12:03)
[2016-08-01] MEDS: FUROSEMIDE 40 MG/4 ML INJECTABLE VIAL IVPUSH SCH (12:03)
[2016-08-01] MEDS: CALCIUM 500MG/VIT-D 200 UNITS COMBO TABLET (FP) PO SCH (12:04)
[2016-08-01] MEDS: ESCITALOPRAM OXALATE 10 MG TABLET (FP) PO SCH (12:04)
[2016-08-01] MEDS: HEPARIN - 25,000 UNIT in SODIUM CHLORIDE 495 ML IV SCH (13:02)
--- NOTE | 2016-08-01 15:08 | PN ---
Progress Note (short form) - Note Progress Note: PULMONARY KNOWN BY OUR SERVICE FROM PREVIOUS CONSULTATIVE OPPORTUNITIES OOB TO CHAIR SUBJECTIVE IMPROVEMENT ANICTERIC DISTANT BUT CLEAR S1S2 MECHANICAL VALVE BS+ LESS EDEMA LABS/MEDS/NOTES/IMAGING/ECHO/REVIEWED Acute on Chronic Diastolic Heart Failure Atrial Fibrillation s/p mechanical MVR Severe Pulmonary HTN Pleural Effusions COPD Chronic Hypoxic Respiratory Failure HTN - IV lasix - monitor urine output, creatinine - daily weights, I/Os - rate controlled - continue anticoagulation - O2 to keep Spo2 >90% - inhaled bronchodilators Alis SAUL MD
[2016-08-01] MEDS: WARFARIN NA 2 MG TABLET (UD) PO SCH (18:34)
[2016-08-01] MEDS: QUEtiapine FUMARATE 25 MG TABLET (FP) PO SCH (21:54)
--- NOTE | 2016-08-01 23:49 | PN ---
Progress Note, Physician History of Present Illness: Pt w/ SOB - Current Medication List Current Medications: Active Medications Anastrozole (Arimidex -) 1 mg PO DAILY [facility] Last Admin: 08/01/16 12:01 Dose: 1 mg Aspirin (Ecotrin -) 81 mg PO DAILY [facility] Last Admin: 08/01/16 12:02 Dose: 81 mg Calcium Carbonate/Cholecalciferol (Os-Nura 500+D -) 1 tab PO DAILY [facility] Last Admin: 08/01/16 12:04 Dose: 1 tab Digoxin (Lanoxin -) 0.125 mg PO Q2D@1000 [facility] Last Admin: 08/01/16 12:03 Dose: 0.125 mg Escitalopram Oxalate (Lexapro -) 5 mg PO DAILY [facility] Last Admin: 08/01/16 12:04 Dose: 5 mg Furosemide (Lasix Injection -) 40 mg IVPUSH DAILY [facility] Last Admin: 08/01/16 12:03 Dose: 40 mg Heparin Sodium (Porcine) (Heparin -) 1,000 unit IVPUSH PRN PRN PRN Reason: Heparin Heparin Sodium (Porcine) (Heparin -) 5,000 unit IVPUSH PRN PRN PRN Reason: Heparin Heparin Sodium (Porcine) 25, (000 unit/ Sodium Chloride) 500 mls @ 16 mls/hr IV TITR MIA; 800 UNIT/HR PRN Reason: Protocol Last Titration: 08/01/16 21:58 Dose: 500 unit/hr Levothyroxine Sodium (Synthroid -) 75 mcg PO DAILY@0700 [facility] Last Admin: 08/01/16 06:27 Dose: 75 mcg Non-Formulary Medication (Salmeterol Xinafoate [Serevent Diskus]) 50 mcg [facility] Potassium Chloride (K-Dur -) 20 meq PO DAILY [facility] Last Admin: 08/01/16 12:03 Dose: 20 meq Quetiapine Fumarate (Seroquel -) 25 mg PO HS [facility] Last Admin: 08/01/16 21:54 Dose: 25 mg Warfarin Sodium (Coumadin -) 4 mg PO DAILY@1800 [facility] Last Admin: 08/01/16 18:34 Dose: 4 mg - Objective Vital Signs: Vital Signs Temperature 98.9 F 08/01/16 21:44 Pulse Rate 93 H 08/01/16 21:44 Respiratory Rate 20 08/01/16 21:44 Blood Pressure 135/55 08/01/16 21:44 O2 Sat by Pulse Oximetry (%) 98 08/01/16 13:00 Constitutional: Yes: No Distress Eyes: Yes: WNL HENT: Yes: WNL Neck: Yes: WNL, Supple Cardiovascular: Yes: Pulse Irregular Respiratory: Yes: Rales Gastrointestinal: Yes: WNL, Normal Bowel Sounds, Soft Labs: INR, PTT INR 1.60 (0.82-1.09) H 08/01/16 06:00 Problem List - Problems (1) Acute CHF Code(s): I50.9 - HEART FAILURE, UNSPECIFIED Qualifiers: Congestive heart failure type: diastolic Qualified Code(s): I50.31 - Acute diastolic (congestive) heart failure (2) COPD (chronic obstructive pulmonary disease) Code(s): J44.9 - CHRONIC OBSTRUCTIVE PULMONARY DISEASE, UNSPECIFIED (3) Hypertension Code(s): I10 - ESSENTIAL (PRIMARY) HYPERTENSION (4) Breast cancer Code(s): C50.919 - MALIGNANT NEOPLASM OF UNSP SITE OF UNSPECIFIED FEMALE BREAST Qualifiers: Laterality: unspecified laterality (5) Depression Code(s): F32.9 - MAJOR DEPRESSIVE DISORDER, SINGLE EPISODE, UNSPECIFIED (6) History of mitral valve replacement with mechanical valve Code(s): Z95.2 - PRESENCE OF PROSTHETIC HEART VALVE
[2016-08-02] MEDS: LEVOTHYROXINE NA 75 MCG TABLET (FP) PO SCH (06:24)
[2016-08-02 07:26] LABS: MCH 31.8 pg (25.7-33.7); MCHC 32.8 g/dl (32.0-36.0); MEAN CELL VOLUME 96.9 fl (80-96); MEAN PLT VOLUME 9.3 fl (7.5-11.1); PLATELET COUNT 150 K/MM3 (134-434); RDW 14.5 % (11.6-15.6); WHITE BLOOD COUNT 6.2 K/mm3 (4.0-10.0)
[2016-08-02 09:07] LABS: INR 1.66 (0.82-1.09); PROTHROMBIN TIME (PATIENT) 18.4 SEC (9.98-11.88)
[2016-08-02] MEDS: FUROSEMIDE 40 MG/4 ML INJECTABLE VIAL IVPUSH SCH (10:20)
[2016-08-02] MEDS: ESCITALOPRAM OXALATE 10 MG TABLET (FP) PO SCH (10:20)
[2016-08-02] MEDS: CALCIUM 500MG/VIT-D 200 UNITS COMBO TABLET (FP) PO SCH (10:20)
[2016-08-02] MEDS: ASPIRIN COATED 81 MG TABLET.EC PO SCH (10:20)
[2016-08-02] MEDS: POTASSIUM CHLORIDE TABS 20 MEQ TABLET.ER (FP) PO SCH (10:21)
[2016-08-02] MEDS ORDERED: PT OWN MED DRAWER 7, Y5N ONE (10:23)
[2016-08-02] MEDS: ANASTROZOLE 1 MG TABLET PO SCH (10:24)
--- NOTE | 2016-08-02 11:45 | PN ---
Progress Note (short form) - Note Progress Note: OOB to chair. Reports breathing is better today. Less SOB. Intake & Output 07/30/16 07/31/16 08/01/16 08/02/16 23:59 23:59 23:59 23:59 Intake Total 0 450 1420 332 Balance 0 450 1420 332 Weight 141 lb 7 oz 140 lb 6.4 oz 140 lb 141 lb 8 oz Last Vital Signs Temp Pulse Resp BP Pulse Ox 98.3 F 74 18 133/55 98 08/02/16 10:32 08/02/16 10:32 08/02/16 10:32 08/02/16 10:32 08/01/16 13:00 Active Medications Anastrozole (Arimidex -) 1 mg PO DAILY [facility] Last Admin: 08/02/16 10:24 Dose: 1 mg Aspirin (Ecotrin -) 81 mg PO DAILY [facility] Last Admin: 08/02/16 10:20 Dose: 81 mg Calcium Carbonate/Cholecalciferol (Os-Nura 500+D -) 1 tab PO DAILY [facility] Last Admin: 08/02/16 10:20 Dose: 1 tab Digoxin (Lanoxin -) 0.125 mg PO Q2D@1000 [facility] Last Admin: 08/01/16 12:03 Dose: 0.125 mg Escitalopram Oxalate (Lexapro -) 5 mg PO DAILY [facility] Last Admin: 08/02/16 10:20 Dose: 5 mg Furosemide (Lasix Injection -) 40 mg IVPUSH DAILY [facility] Last Admin: 08/02/16 10:20 Dose: 40 mg Heparin Sodium (Porcine) (Heparin -) 1,000 unit IVPUSH PRN PRN PRN Reason: Heparin Heparin Sodium (Porcine) (Heparin -) 5,000 unit IVPUSH PRN PRN PRN Reason: Heparin Heparin Sodium (Porcine) 25, (000 unit/ Sodium Chloride) 500 mls @ 16 mls/hr IV TITR MIA; 800 UNIT/HR PRN Reason: Protocol Last Titration: 08/02/16 09:20 Dose: 350 unit/hr Levothyroxine Sodium (Synthroid -) 75 mcg PO DAILY@0700 [facility] Last Admin: 08/02/16 06:24 Dose: 75 mcg Non-Formulary Medication (Salmeterol Xinafoate [Serevent Diskus]) 50 mcg IH ASDIR [facility] Potassium Chloride (K-Dur -) 20 meq PO DAILY [facility] Last Admin: 08/02/16 10:21 Dose: 20 meq Quetiapine Fumarate (Seroquel -) 25 mg PO HS [facility] Last Admin: 08/01/16 21:54 Dose: 25 mg Warfarin Sodium (Coumadin -) 4 mg PO DAILY@1800 [facility] Last Admin: 08/01/16 18:34 Dose: 4 mg Constitutional: Yes: NAD Eyes: Yes: Conjunctiva Clear, EOM Intact HENT: Yes: Atraumatic, Normocephalic Neck: Yes: Supple, Trachea Midline Cardiovascular: Yes: Pulse Irregular, Murmur (systolic), Other (mechanical click ) Respiratory: Yes: Bibasilar Rales / Rhonchi ...Clubbing: No Gastrointestinal: Yes: Normal Bowel Sounds, Soft. No: Tenderness Edema: Yes Neurological: Yes: Alert, Oriented Labs: Laboratory Results - last 24 hr 08/01/16 08/02/16 08/02/16 18:30 06:00 06:00 WBC 6.2 RBC 3.47 L Hgb 11.0 Hct 33.6 MCV 96.9 H MCHC 32.8 RDW 14.5 Plt Count 150 MPV 9.3 INR PTT (Actin FS) 74.1 H D 137.6 H D 08/02/16 08:54 WBC RBC Hgb Hct MCV MCHC RDW Plt Count MPV INR 1.66 H PTT (Actin FS) Problem List - Problems (1) Acute on chronic diastolic (congestive) heart failure Code(s): I50.33 - ACUTE ON CHRONIC DIASTOLIC (CONGESTIVE) HEART FAILURE (2) Afib Code(s): I48.91 - UNSPECIFIED ATRIAL FIBRILLATION (3) COPD (chronic obstructive pulmonary disease) Code(s): J44.9 - CHRONIC OBSTRUCTIVE PULMONARY DISEASE, UNSPECIFIED (4) Pulmonary HTN Code(s): I27.2 - OTHER SECONDARY PULMONARY HYPERTENSION (5) History of mitral valve replacement with mechanical valve Code(s): Z95.2 - PRESENCE OF PROSTHETIC HEART VALVE (6) Chronic respiratory failure with hypoxia Code(s): J96.11 - CHRONIC RESPIRATORY FAILURE WITH HYPOXIA Assessment/Plan Acute on Chronic Diastolic Heart Failure Atrial Fibrillation s/p mechanical MVR Severe Pulmonary HTN Pleural Effusions COPD Chronic Hypoxic Respiratory Failure HTN - IV lasix - monitor urine output, creatinine - daily weights, I/Os - rate controlled - AC - O2 to keep Spo2 >90% - inhaled bronchodilators Dr Gill
[2016-08-02] MEDS: HEPARIN - 25,000 UNIT in SODIUM CHLORIDE 495 ML IV SCH (17:01)
[2016-08-02] MEDS: WARFARIN NA 2 MG TABLET (UD) PO SCH (17:59)
[2016-08-02] MEDS: QUEtiapine FUMARATE 25 MG TABLET (FP) PO SCH (21:36)
--- NOTE | 2016-08-03 01:24 | PN ---
Progress Note, Physician History of Present Illness: Pt seen and examined 08/02/16 however note was entered late - Current Medication List Current Medications: Active Medications Anastrozole (Arimidex -) 1 mg PO DAILY [facility] Last Admin: 08/02/16 10:24 Dose: 1 mg Aspirin (Ecotrin -) 81 mg PO DAILY [facility] Last Admin: 08/02/16 10:20 Dose: 81 mg Calcium Carbonate/Cholecalciferol (Os-Nura 500+D -) 1 tab PO DAILY [facility] Last Admin: 08/02/16 10:20 Dose: 1 tab Digoxin (Lanoxin -) 0.125 mg PO Q2D@1000 [facility] Last Admin: 08/01/16 12:03 Dose: 0.125 mg Escitalopram Oxalate (Lexapro -) 5 mg PO DAILY [facility] Last Admin: 08/02/16 10:20 Dose: 5 mg Furosemide (Lasix Injection -) 40 mg IVPUSH DAILY [facility] Last Admin: 08/02/16 10:20 Dose: 40 mg Heparin Sodium (Porcine) (Heparin -) 1,000 unit IVPUSH PRN PRN PRN Reason: Heparin Last Admin: 08/02/16 18:00 Dose: 1,000 unit Heparin Sodium (Porcine) (Heparin -) 5,000 unit IVPUSH PRN PRN PRN Reason: Heparin Heparin Sodium (Porcine) 25, (000 unit/ Sodium Chloride) 500 mls @ 16 mls/hr IV TITR MIA; 800 UNIT/HR PRN Reason: Protocol Last Titration: 08/02/16 17:02 Dose: 450 unit/hr Levothyroxine Sodium (Synthroid -) 75 mcg PO DAILY@0700 [facility] Last Admin: 08/02/16 06:24 Dose: 75 mcg Non-Formulary Medication (Salmeterol Xinafoate [Serevent Diskus]) 50 mcg IH ASDIR [facility] Potassium Chloride (K-Dur -) 20 meq PO DAILY [facility] Last Admin: 08/02/16 10:21 Dose: 20 meq Quetiapine Fumarate (Seroquel -) 25 mg PO HS [facility] Last Admin: 08/02/16 21:36 Dose: 25 mg Warfarin Sodium (Coumadin -) 4 mg PO DAILY@1800 [facility] Last Admin: 08/02/16 17:59 Dose: 4 mg - Objective Vital Signs: Vital Signs Temperature 98.4 F 08/02/16 22:00 Pulse Rate 74 08/02/16 22:00 Respiratory Rate 18 08/02/16 22:00 Blood Pressure 118/58 08/02/16 22:00 O2 Sat by Pulse Oximetry (%) 99 08/02/16 21:00 Constitutional: Yes: No Distress Eyes: Yes: WNL HENT: Yes: WNL Neck: Yes: WNL, Supple Cardiovascular: Yes: Pulse Irregular Respiratory: Yes: Rales Gastrointestinal: Yes: WNL, Normal Bowel Sounds, Soft Labs: CBC, BMP 08/02/16 06:00 INR, PTT INR 1.66 (0.82-1.09) H 08/02/16 08:54 Problem List - Problems (1) COPD (chronic obstructive pulmonary disease) Code(s): J44.9 - CHRONIC OBSTRUCTIVE PULMONARY DISEASE, UNSPECIFIED (2) Hypertension Code(s): I10 - ESSENTIAL (PRIMARY) HYPERTENSION (3) Pleural effusion Code(s): J90 - PLEURAL EFFUSION, NOT ELSEWHERE CLASSIFIED (4) Acute on chronic diastolic (congestive) heart failure Code(s): I50.33 - ACUTE ON CHRONIC DIASTOLIC (CONGESTIVE) HEART FAILURE (5) Afib Code(s): I48.91 - UNSPECIFIED ATRIAL FIBRILLATION (6) Breast cancer Code(s): C50.919 - MALIGNANT NEOPLASM OF UNSP SITE OF UNSPECIFIED FEMALE BREAST Qualifiers: Laterality: unspecified laterality (7) Depression Code(s): F32.9 - MAJOR DEPRESSIVE DISORDER, SINGLE EPISODE, UNSPECIFIED (8) History of mitral valve replacement with mechanical valve Code(s): Z95.2 - PRESENCE OF PROSTHETIC HEART VALVE
[2016-08-03] MEDS: LEVOTHYROXINE NA 75 MCG TABLET (FP) PO SCH (06:22)
[2016-08-03 08:06] LABS: MCH 31.4 pg (25.7-33.7); MCHC 32.6 g/dl (32.0-36.0); MEAN CELL VOLUME 96.2 fl (80-96); MEAN PLT VOLUME 9.3 fl (7.5-11.1); PLATELET COUNT 173 K/MM3 (134-434); RDW 14.3 % (11.6-15.6)
[2016-08-03] MEDS ORDERED: PT OWN MED DRAWER 7, Y5N ONE (09:01)
[2016-08-03] MEDS: ANASTROZOLE 1 MG TABLET PO SCH (10:53)
[2016-08-03] MEDS: POTASSIUM CHLORIDE TABS 20 MEQ TABLET.ER (FP) PO SCH (10:53)
[2016-08-03] MEDS: DIGOXIN 0.125 MG TABLET (FP) PO SCH (10:53)
[2016-08-03] MEDS: ESCITALOPRAM OXALATE 10 MG TABLET (FP) PO SCH (10:53)
[2016-08-03] MEDS: FUROSEMIDE 40 MG/4 ML INJECTABLE VIAL IVPUSH SCH (10:53)
[2016-08-03] MEDS: CALCIUM 500MG/VIT-D 200 UNITS COMBO TABLET (FP) PO SCH (10:53)
[2016-08-03] MEDS: ASPIRIN COATED 81 MG TABLET.EC PO SCH (10:53)
[2016-08-03] MEDS: HEPARIN - 25,000 UNIT in SODIUM CHLORIDE 495 ML IV SCH (10:54)
--- NOTE | 2016-08-03 12:44 | PN ---
Progress Note (short form) - Note Progress Note: OOB to chair. Reports breathing is much better today. Less SOB. Intake & Output 07/31/16 08/01/16 08/02/16 08/03/16 23:59 23:59 23:59 23:59 Intake Total 450 1420 552 Balance 450 1420 552 Weight 140 lb 6.4 oz 140 lb 141 lb 8 oz 141 lb 3.2 oz Last Vital Signs Temp Pulse Resp BP Pulse Ox 99 F 81 20 101/78 97 08/03/16 10:00 08/03/16 10:53 08/03/16 10:00 08/03/16 10:00 08/03/16 09:00 Active Medications Anastrozole (Arimidex -) 1 mg PO DAILY [facility] Last Admin: 08/03/16 10:53 Dose: 1 mg Aspirin (Ecotrin -) 81 mg PO DAILY [facility] Last Admin: 08/03/16 10:53 Dose: 81 mg Calcium Carbonate/Cholecalciferol (Os-Nura 500+D -) 1 tab PO DAILY [facility] Last Admin: 08/03/16 10:53 Dose: 1 tab Digoxin (Lanoxin -) 0.125 mg PO Q2D@1000 [facility] Last Admin: 08/03/16 10:53 Dose: 0.125 mg Escitalopram Oxalate (Lexapro -) 5 mg PO DAILY [facility] Last Admin: 08/03/16 10:53 Dose: 5 mg Furosemide (Lasix Injection -) 40 mg IVPUSH DAILY [facility] Last Admin: 08/03/16 10:53 Dose: 40 mg Heparin Sodium (Porcine) (Heparin -) 1,000 unit IVPUSH PRN PRN PRN Reason: Heparin Last Admin: 08/02/16 18:00 Dose: 1,000 unit Heparin Sodium (Porcine) (Heparin -) 5,000 unit IVPUSH PRN PRN PRN Reason: Heparin Heparin Sodium (Porcine) 25, (000 unit/ Sodium Chloride) 500 mls @ 16 mls/hr IV TITR MIA; 800 UNIT/HR PRN Reason: Protocol Last Titration: 08/03/16 10:55 Dose: 450 unit/hr Levothyroxine Sodium (Synthroid -) 75 mcg PO DAILY@0700 [facility] Last Admin: 08/03/16 06:22 Dose: 75 mcg Non-Formulary Medication (Salmeterol Xinafoate [Serevent Diskus]) 50 mcg IH ASDIR [facility] Potassium Chloride (K-Dur -) 20 meq PO DAILY [facility] Last Admin: 08/03/16 10:53 Dose: 20 meq Quetiapine Fumarate (Seroquel -) 25 mg PO HS [facility] Last Admin: 08/02/16 21:36 Dose: 25 mg Warfarin Sodium (Coumadin -) 4 mg PO DAILY@1800 [facility] Last Admin: 08/02/16 17:59 Dose: 4 mg Constitutional: Yes: NAD Eyes: Yes: Conjunctiva Clear, EOM Intact HENT: Yes: Atraumatic, Normocephalic Neck: Yes: Supple, Trachea Midline Cardiovascular: Yes: Pulse Irregular, Murmur (systolic), Other (mechanical click ) Respiratory: Yes: Bibasilar Rales / Rhonchi ...Clubbing: No Gastrointestinal: Yes: Normal Bowel Sounds, Soft. No: Tenderness Edema: Yes Neurological: Yes: Alert, Oriented Labs: Laboratory Results - last 24 hr 08/02/16 08/03/16 08/03/16 15:10 00:01 01:28 WBC RBC Hgb Hct MCV MCHC RDW Plt Count MPV PTT (Actin FS) 49.5 H D Cancelled 60.0 H 08/03/16 08/03/16 07:00 07:00 WBC 8.0 RBC 3.75 Hgb 11.8 Hct 36.1 MCV 96.2 H MCHC 32.6 RDW 14.3 Plt Count 173 MPV 9.3 PTT (Actin FS) 59.8 H Problem List - Problems (1) Acute on chronic diastolic (congestive) heart failure Code(s): I50.33 - ACUTE ON CHRONIC DIASTOLIC (CONGESTIVE) HEART FAILURE (2) Afib Code(s): I48.91 - UNSPECIFIED ATRIAL FIBRILLATION (3) COPD (chronic obstructive pulmonary disease) Code(s): J44.9 - CHRONIC OBSTRUCTIVE PULMONARY DISEASE, UNSPECIFIED (4) Pulmonary HTN Code(s): I27.2 - OTHER SECONDARY PULMONARY HYPERTENSION (5) History of mitral valve replacement with mechanical valve Code(s): Z95.2 - PRESENCE OF PROSTHETIC HEART VALVE (6) Chronic respiratory failure with hypoxia Code(s): J96.11 - CHRONIC RESPIRATORY FAILURE WITH HYPOXIA Assessment/Plan Acute on Chronic Diastolic Heart Failure Atrial Fibrillation s/p mechanical MVR Severe Pulmonary HTN Pleural Effusions COPD Chronic Hypoxic Respiratory Failure HTN - IV lasix - monitor urine output, creatinine - daily weights, I/Os - rate controlled - AC - O2 to keep Spo2 >90% - inhaled bronchodilators Dr Gill
[2016-08-03] MEDS: WARFARIN NA 2 MG TABLET (UD) PO SCH (18:04)
[2016-08-03] MEDS: QUEtiapine FUMARATE 25 MG TABLET (FP) PO SCH (21:42)
--- NOTE | 2016-08-03 22:12 | PN ---
Progress Note, Physician History of Present Illness: Pt still w/ SOB - Current Medication List Current Medications: Active Medications Anastrozole (Arimidex -) 1 mg PO DAILY [facility] Last Admin: 08/03/16 10:53 Dose: 1 mg Aspirin (Ecotrin -) 81 mg PO DAILY [facility] Last Admin: 08/03/16 10:53 Dose: 81 mg Calcium Carbonate/Cholecalciferol (Os-Nura 500+D -) 1 tab PO DAILY [facility] Last Admin: 08/03/16 10:53 Dose: 1 tab Digoxin (Lanoxin -) 0.125 mg PO Q2D@1000 [facility] Last Admin: 08/03/16 10:53 Dose: 0.125 mg Escitalopram Oxalate (Lexapro -) 5 mg PO DAILY [facility] Last Admin: 08/03/16 10:53 Dose: 5 mg Furosemide (Lasix Injection -) 40 mg IVPUSH DAILY [facility] Last Admin: 08/03/16 10:53 Dose: 40 mg Heparin Sodium (Porcine) (Heparin -) 1,000 unit IVPUSH PRN PRN PRN Reason: Heparin Last Admin: 08/02/16 18:00 Dose: 1,000 unit Heparin Sodium (Porcine) (Heparin -) 5,000 unit IVPUSH PRN PRN PRN Reason: Heparin Heparin Sodium (Porcine) 25, (000 unit/ Sodium Chloride) 500 mls @ 16 mls/hr IV TITR MIA; 800 UNIT/HR PRN Reason: Protocol Last Titration: 08/03/16 21:42 Dose: 450 unit/hr Levothyroxine Sodium (Synthroid -) 75 mcg PO DAILY@0700 [facility] Last Admin: 08/03/16 06:22 Dose: 75 mcg Non-Formulary Medication (Salmeterol Xinafoate [Serevent Diskus]) 50 mcg [facility] Potassium Chloride (K-Dur -) 20 meq PO DAILY [facility] Last Admin: 08/03/16 10:53 Dose: 20 meq Quetiapine Fumarate (Seroquel -) 25 mg PO HS [facility] Last Admin: 08/03/16 21:42 Dose: Not Given Warfarin Sodium (Coumadin -) 4 mg PO DAILY@1800 [facility] Last Admin: 08/03/16 18:04 Dose: 4 mg - Objective Vital Signs: Vital Signs Temperature 99.0 F 08/03/16 18:21 Pulse Rate 75 08/03/16 18:21 Respiratory Rate 16 08/03/16 18:21 Blood Pressure 122/69 08/03/16 18:21 O2 Sat by Pulse Oximetry (%) 97 08/03/16 09:00 Constitutional: Yes: No Distress Eyes: Yes: WNL HENT: Yes: WNL Neck: Yes: WNL, Supple Cardiovascular: Yes: Pulse Irregular Respiratory: Yes: Dullness Gastrointestinal: Yes: WNL, Normal Bowel Sounds, Soft Edema: LLE: Trace, RLE: Trace Labs: CBC, BMP 08/03/16 07:00 INR, PTT INR 1.66 (0.82-1.09) H 08/02/16 08:54 Problem List - Problems (1) Acute on chronic diastolic (congestive) heart failure Assessment/Plan: Cont IV lasix CXR showed congestion Monitor electrolytes Code(s): I50.33 - ACUTE ON CHRONIC DIASTOLIC (CONGESTIVE) HEART FAILURE (2) Afib Assessment/Plan: Heart rate controlled Cont dig Bridge coumadin w/ IV heparin drip Monitor pt/inr Code(s): I48.91 - UNSPECIFIED ATRIAL FIBRILLATION (3) COPD (chronic obstructive pulmonary disease) Assessment/Plan: Will check ct scan chest due to h/o pleural effusions and breast cancer Code(s): J44.9 - CHRONIC OBSTRUCTIVE PULMONARY DISEASE, UNSPECIFIED (4) Hypertension Assessment/Plan: BP stable Code(s): I10 - ESSENTIAL (PRIMARY) HYPERTENSION (5) Depression Assessment/Plan: Cont lexapro Code(s): F32.9 - MAJOR DEPRESSIVE DISORDER, SINGLE EPISODE, UNSPECIFIED (6) Hypothyroid Assessment/Plan: Cont levothyroxine Code(s): E03.9 - HYPOTHYROIDISM, UNSPECIFIED Qualifiers: Hypothyroidism type: acquired Qualified Code(s): E03.9 - Hypothyroidism, unspecified (7) Mitral valve replaced Code(s): Z95.2 - PRESENCE OF PROSTHETIC HEART VALVE (8) Breast cancer Assessment/Plan: Cont arimidex Code(s): C50.919 - MALIGNANT NEOPLASM OF UNSP SITE OF UNSPECIFIED FEMALE BREAST Qualifiers: Laterality: unspecified laterality
[2016-08-03 23:20] LABS: INR 2.07 (0.82-1.09); PROTHROMBIN TIME (PATIENT) 23.1 SEC (9.98-11.88)
[2016-08-04] MEDS: LEVOTHYROXINE NA 75 MCG TABLET (FP) PO SCH (06:33)
[2016-08-04 07:30] LABS: BASOPHIL 0.3 % (0-2.0); EOSINOPHIL 1.3 % (0-4.5); MCH 31.9 pg (25.7-33.7); MCHC 33.1 g/dl (32.0-36.0); MEAN CELL VOLUME 96.2 fl (80-96); MEAN PLT VOLUME 9.6 fl (7.5-11.1); NEUTROPHILS 75.4 % (42.8-82.8); PLATELET COUNT 149 K/MM3 (134-434); RDW 14.5 % (11.6-15.6); WHITE BLOOD COUNT 6.5 K/mm3 (4.0-10.0)
[2016-08-04 08:06] LABS: INR 2.17 (0.82-1.09); PROTHROMBIN TIME (PATIENT) 24.3 SEC (9.98-11.88)
[2016-08-04] MEDS ORDERED: PT OWN MED DRAWER 7, Y5N ONE (09:42)
[2016-08-04] MEDS: ANASTROZOLE 1 MG TABLET PO SCH (09:49)
[2016-08-04] MEDS: CALCIUM 500MG/VIT-D 200 UNITS COMBO TABLET (FP) PO SCH (09:49)
[2016-08-04] MEDS: FUROSEMIDE 40 MG/4 ML INJECTABLE VIAL IVPUSH SCH (09:51)
[2016-08-04] MEDS: ESCITALOPRAM OXALATE 10 MG TABLET (FP) PO SCH (09:52)
[2016-08-04] MEDS: ASPIRIN COATED 81 MG TABLET.EC PO SCH (09:53)
[2016-08-04] MEDS: POTASSIUM CHLORIDE TABS 20 MEQ TABLET.ER (FP) PO SCH (09:53)
[2016-08-04 11:04] LABS: ALBUMIN 3.2 g/dl (3.4-5.0); ALK PHOS 173 U/L (45-117); CALCIUM 8.7 mg/dL (8.5-10.1); CREATININE 0.8 mg/dL (0.55-1.02); GLUCOSE,RANDOM 95 mg/dL (74-106); SGOT/AST 28 U/L (15-37); SGPT/ALT 26 U/L (12-78); TOT PROT 6.9 g/dl (6.4-8.2)
[2016-08-04] MEDS: HEPARIN - 25,000 UNIT in SODIUM CHLORIDE 495 ML IV SCH (11:15)
--- NOTE | 2016-08-04 11:21 | PN ---
Progress Note (short form) - Note Progress Note: OOB to chair. Reports breathing continues to improve. Less SOB. Intake & Output 08/01/16 08/02/16 08/03/16 08/04/16 23:59 23:59 23:59 23:59 Intake Total 1420 552 364 Balance 1420 552 364 Weight 140 lb 141 lb 8 oz 141 lb 3.2 oz 141 lb 4.8 oz Last Vital Signs Temp Pulse Resp BP Pulse Ox 98.9 F 67 20 116/54 95 08/04/16 05:38 08/04/16 05:38 08/04/16 05:38 08/04/16 05:38 08/03/16 21:00 Active Medications Anastrozole (Arimidex -) 1 mg PO DAILY [facility] Last Admin: 08/04/16 09:49 Dose: 1 mg Aspirin (Ecotrin -) 81 mg PO DAILY [facility] Last Admin: 08/04/16 09:53 Dose: 81 mg Calcium Carbonate/Cholecalciferol (Os-Nura 500+D -) 1 tab PO DAILY [facility] Last Admin: 08/04/16 09:49 Dose: 1 tab Digoxin (Lanoxin -) 0.125 mg PO Q2D@1000 [facility] Last Admin: 08/03/16 10:53 Dose: 0.125 mg Escitalopram Oxalate (Lexapro -) 5 mg PO DAILY [facility] Last Admin: 08/04/16 09:52 Dose: 5 mg Furosemide (Lasix Injection -) 40 mg IVPUSH DAILY [facility] Last Admin: 08/04/16 09:51 Dose: 40 mg Heparin Sodium (Porcine) (Heparin -) 1,000 unit IVPUSH PRN PRN PRN Reason: Heparin Last Admin: 08/02/16 18:00 Dose: 1,000 unit Heparin Sodium (Porcine) (Heparin -) 5,000 unit IVPUSH PRN PRN PRN Reason: Heparin Heparin Sodium (Porcine) 25, (000 unit/ Sodium Chloride) 500 mls @ 16 mls/hr IV TITR MIA; 800 UNIT/HR PRN Reason: Protocol Last Titration: 08/03/16 21:42 Dose: 450 unit/hr Levothyroxine Sodium (Synthroid -) 75 mcg PO DAILY@0700 [facility] Last Admin: 08/04/16 06:33 Dose: 75 mcg Non-Formulary Medication (Salmeterol Xinafoate [Serevent Diskus]) 50 mcg IH ASDIR [facility] Potassium Chloride (K-Dur -) 20 meq PO DAILY [facility] Last Admin: 08/04/16 09:53 Dose: 20 meq Quetiapine Fumarate (Seroquel -) 25 mg PO HS [facility] Last Admin: 08/03/16 21:42 Dose: Not Given Warfarin Sodium (Coumadin -) 4 mg PO DAILY@1800 [facility] Last Admin: 08/03/16 18:04 Dose: 4 mg Constitutional: Yes: NAD Eyes: Yes: Conjunctiva Clear, EOM Intact HENT: Yes: Atraumatic, Normocephalic Neck: Yes: Supple, Trachea Midline Cardiovascular: Yes: Pulse Irregular, Murmur (systolic), Other (mechanical click ) Respiratory: Yes: Bibasilar Rales / Rhonchi ...Clubbing: No Gastrointestinal: Yes: Normal Bowel Sounds, Soft. No: Tenderness Edema: Yes Neurological: Yes: Alert, Oriented Labs: Laboratory Results - last 24 hr 08/03/16 08/04/16 08/04/16 22:40 06:00 06:00 WBC 6.5 RBC 3.35 L Hgb 10.7 Hct 32.2 L MCV 96.2 H MCHC 33.1 RDW 14.5 Plt Count 149 MPV 9.6 Neutrophils % 75.4 Lymphocytes % 12.5 Monocytes % 10.5 H Eosinophils % 1.3 Basophils % 0.3 INR 2.07 H PTT (Actin FS) 89.4 H D Sodium Potassium Chloride BUN Creatinine Creat Clearance w eGFR Random Glucose Calcium Total Bilirubin AST ALT Alkaline Phosphatase Total Protein Albumin 08/04/16 08/04/16 06:00 06:00 WBC RBC Hgb Hct MCV MCHC RDW Plt Count MPV Neutrophils % Lymphocytes % Monocytes % Eosinophils % Basophils % INR 2.17 H PTT (Actin FS) Sodium 144 Potassium 3.9 Chloride 94 L BUN 26 H Creatinine 0.8 Creat Clearance w eGFR > 60 Random Glucose 95 Calcium 8.7 Total Bilirubin 1.0 D AST 28 ALT 26 Alkaline Phosphatase 173 H Total Protein 6.9 Albumin 3.2 L Problem List - Problems (1) Acute on chronic diastolic (congestive) heart failure Code(s): I50.33 - ACUTE ON CHRONIC DIASTOLIC (CONGESTIVE) HEART FAILURE (2) Afib Code(s): I48.91 - UNSPECIFIED ATRIAL FIBRILLATION (3) COPD (chronic obstructive pulmonary disease) Code(s): J44.9 - CHRONIC OBSTRUCTIVE PULMONARY DISEASE, UNSPECIFIED (4) Pulmonary HTN Code(s): I27.2 - OTHER SECONDARY PULMONARY HYPERTENSION (5) History of mitral valve replacement with mechanical valve Code(s): Z95.2 - PRESENCE OF PROSTHETIC HEART VALVE (6) Chronic respiratory failure with hypoxia Code(s): J96.11 - CHRONIC RESPIRATORY FAILURE WITH HYPOXIA Assessment/Plan Acute on Chronic Diastolic Heart Failure Atrial Fibrillation s/p mechanical MVR Severe Pulmonary HTN Pleural Effusions COPD Chronic Hypoxic Respiratory Failure HTN - IV lasix - monitor urine output, creatinine - daily weights, I/Os - rate controlled - AC - O2 to keep Spo2 >90% - inhaled bronchodilators Dr Gill
[2016-08-04 12:14] LABS: ANION GAP 0 (8-16); CO2 50 mmol/L (21-32)
[2016-08-04] MEDS ORDERED: FUROSEMIDE 40 MG/4 ML INJECTABLE VIAL IVPUSH ONE (14:17)
--- NOTE | 2016-08-04 14:19 | PN ---
Progress Note, Physician History of Present Illness: seen and examined today in nad. states she is feeling better. no new complaints. - Current Medication List Current Medications: Active Medications Anastrozole (Arimidex -) 1 mg PO DAILY [facility] Last Admin: 08/04/16 09:49 Dose: 1 mg Aspirin (Ecotrin -) 81 mg PO DAILY [facility] Last Admin: 08/04/16 09:53 Dose: 81 mg Calcium Carbonate/Cholecalciferol (Os-Nura 500+D -) 1 tab PO DAILY [facility] Last Admin: 08/04/16 09:49 Dose: 1 tab Digoxin (Lanoxin -) 0.125 mg PO Q2D@1000 [facility] Last Admin: 08/03/16 10:53 Dose: 0.125 mg Escitalopram Oxalate (Lexapro -) 5 mg PO DAILY [facility] Last Admin: 08/04/16 09:52 Dose: 5 mg Furosemide (Lasix Injection -) 60 mg IVPUSH BID [facility] Heparin Sodium (Porcine) (Heparin -) 1,000 unit IVPUSH PRN PRN PRN Reason: Heparin Last Admin: 08/02/16 18:00 Dose: 1,000 unit Heparin Sodium (Porcine) (Heparin -) 5,000 unit IVPUSH PRN PRN PRN Reason: Heparin Heparin Sodium (Porcine) 25, (000 unit/ Sodium Chloride) 500 mls @ 16 mls/hr IV TITR MIA; 800 UNIT/HR PRN Reason: Protocol Last Titration: 08/03/16 21:42 Dose: 450 unit/hr Levothyroxine Sodium (Synthroid -) 75 mcg PO DAILY@0700 [facility] Last Admin: 08/04/16 06:33 Dose: 75 mcg Non-Formulary Medication (Salmeterol Xinafoate [Serevent Diskus]) 50 mcg IH ASDIR [facility] Potassium Chloride (K-Dur -) 20 meq PO DAILY [facility] Last Admin: 08/04/16 09:53 Dose: 20 meq Quetiapine Fumarate (Seroquel -) 25 mg PO HS [facility] Last Admin: 08/03/16 21:42 Dose: Not Given Warfarin Sodium (Coumadin -) 4 mg PO DAILY@1800 [facility] Last Admin: 08/03/16 18:04 Dose: 4 mg - Objective Vital Signs: Vital Signs Temperature 98.9 F 08/04/16 05:38 Pulse Rate 67 08/04/16 05:38 Respiratory Rate 20 08/04/16 05:38 Blood Pressure 116/54 08/04/16 05:38 O2 Sat by Pulse Oximetry (%) 95 08/03/16 21:00 Constitutional: Yes: No Distress, Calm Eyes: Yes: Conjunctiva Clear, EOM Intact, PERRL HENT: Yes: Atraumatic, Normocephalic Neck: Yes: Supple, Trachea Midline Cardiovascular: Yes: Pulse Irregular, Murmur, S1, S2, Other (mechanical MVR heard). No: Bradycardia, Tachycardia, Bruit, JVD, Gallop, Rub, S3, S4, Varicosities Respiratory: Yes: Regular, Diminished, Rales, Rhonchi. No: SOB, Wheezes Gastrointestinal: Yes: Normal Bowel Sounds, Soft. No: Distention, Tenderness Edema: Yes Edema: LLE: 2+, RLE: 2+ Peripheral Pulses WNL: Yes Peripheral Pulses: Left Doralis Pedis: 2+, Right Dorsalis Pedis: 2+ Neurological: Yes: Alert, Oriented Psychiatric: Yes: Alert, Oriented Labs: CBC, BMP 08/04/16 06:00 08/04/16 06:00 INR, PTT INR 2.17 (0.82-1.09) H 08/04/16 06:00 - ....Imaging Chest X-ray: Report Reviewed, Image Reviewed EKG: Report Reviewed, Image Reviewed Other: Report Reviewed, Image Reviewed Assessment/Plan IMP: Afib Mechanical MVR with subtherapeutic INR Acute on chronic diastolic CHF PHTN COPD, chronic Breast CA Pleural effusion REC: Still volume overloaded, not significantly improved Increase Lasix to 60mg IV BID Monitor daily labs, bun/creat, electrolytes and replete as needed Cont hep gtt bridge to coumadin for goal INR 2.5-3.5 (mechanical MVR) Echo showed normal LV and RV systolic function, normal functioning MVR, Mod-sev PAH, TR, no pericardial effusion HR adequately controlled, cont Digoxin Pt with chronic/recurrent pleural effusions, not clearly all due to CHF, pulmonary f/up
[2016-08-04 16:01] LABS: INR 2.13 (0.82-1.09); PROTHROMBIN TIME (PATIENT) 23.8 SEC (9.98-11.88)
[2016-08-04 16:03] LABS: ACTIVATED PTT 53.4 SECONDS (26.9-34.4)
[2016-08-04] MEDS: WARFARIN NA 2 MG TABLET (UD) PO SCH (17:50)
--- NOTE | 2016-08-04 18:08 | CON.PSY ---
Psychiatry Consult Chief Complaint: Spoke to patient thru her daughter. Symptoms: reports: Depressed Mood, Anxiety - Previous Psychiatric Treatment Outpatient: None Inpatient: None - Previous Substance Abuse Treatment Outpatient: None Inpatient: None - Reason for Previous Treatment Reason for Previous Treatment: Major Depression - Current Medications Current Medications: Active Medications Anastrozole (Arimidex -) 1 mg PO DAILY [facility] Last Admin: 08/04/16 09:49 Dose: 1 mg Aspirin (Ecotrin -) 81 mg PO DAILY [facility] Last Admin: 08/04/16 09:53 Dose: 81 mg Calcium Carbonate/Cholecalciferol (Os-Nura 500+D -) 1 tab PO DAILY [facility] Last Admin: 08/04/16 09:49 Dose: 1 tab Digoxin (Lanoxin -) 0.125 mg PO Q2D@1000 [facility] Last Admin: 08/03/16 10:53 Dose: 0.125 mg Furosemide (Lasix Injection -) 60 mg IVPUSH BIDLASIX [facility] Heparin Sodium (Porcine) (Heparin -) 1,000 unit IVPUSH PRN PRN PRN Reason: Heparin Last Admin: 08/02/16 18:00 Dose: 1,000 unit Heparin Sodium (Porcine) (Heparin -) 5,000 unit IVPUSH PRN PRN PRN Reason: Heparin Heparin Sodium (Porcine) 25, (000 unit/ Sodium Chloride) 500 mls @ 16 mls/hr IV TITR MIA; 800 UNIT/HR PRN Reason: Protocol Last Admin: 08/04/16 11:15 Dose: 9 mls/hr Levothyroxine Sodium (Synthroid -) 75 mcg PO DAILY@0700 [facility] Last Admin: 08/04/16 06:33 Dose: 75 mcg Non-Formulary Medication (Salmeterol Xinafoate [Serevent Diskus]) 50 mcg IH ASDIR [facility] Potassium Chloride (K-Dur -) 20 meq PO DAILY [facility] Last Admin: 08/04/16 09:53 Dose: 20 meq Quetiapine Fumarate (Seroquel -) 25 mg PO HS [facility] Last Admin: 08/03/16 21:42 Dose: Not Given Warfarin Sodium (Coumadin -) 4 mg PO DAILY@1800 [facility] Last Admin: 08/04/16 17:50 Dose: 4 mg - Allergies Allergies: Allergies Allergy/AdvReac Type Severity Reaction Status Date / Time No Known Allergies Allergy Verified 09/12/15 16:14 - Current Living Status Usual Living Arrangement: With Significant Other - Current Mental Status Evaluation Appearance: Well Groomed Attitude: Guarded - Affect Affect: Constrictive Appropriateness: Appropriate to Content - Mood Mood: Depressed - Speech/Language Expressive: Coherent Receptive: Age Appropriate Comprehension of Spoken Words - Psychomotor Activity Psychomotor Activity: Normal - Thought Process Thought Process: Intact - Thought Content Hallucinations: Absent Delusions: Absent - Self Perception Self Perception: No Impairment - Cognition Attention: Alert Orientation: Time Memory, Short Term: 2/3 Memory, Remote with Promptin/3 - Concentration Serial Sevens Intact: No Simple Calculations Intact: No - Abstraction Proverb Interpretation: Intact Judgement: Intact - Insight Insight: Intact - Impulse Control Impulse Control: Good Control - Suicidal Ideation Suicidal Ideation: No - Homicidal Ideation Homicidal Ideation: No Assessment/Plan 1) increase Lexapro to 10mg po od.
--- NOTE | 2016-08-04 20:43 | PN ---
Progress Note, Physician History of Present Illness: Pt w/ anxiety - Current Medication List Current Medications: Active Medications Anastrozole (Arimidex -) 1 mg PO DAILY [facility] Last Admin: 08/04/16 09:49 Dose: 1 mg Aspirin (Ecotrin -) 81 mg PO DAILY [facility] Last Admin: 08/04/16 09:53 Dose: 81 mg Calcium Carbonate/Cholecalciferol (Os-Nura 500+D -) 1 tab PO DAILY [facility] Last Admin: 08/04/16 09:49 Dose: 1 tab Digoxin (Lanoxin -) 0.125 mg PO Q2D@1000 [facility] Last Admin: 08/03/16 10:53 Dose: 0.125 mg Escitalopram Oxalate (Lexapro -) 10 mg PO DAILY [facility] Furosemide (Lasix Injection -) 60 mg IVPUSH BIDLASIX [facility] Heparin Sodium (Porcine) (Heparin -) 1,000 unit IVPUSH PRN PRN PRN Reason: Heparin Last Admin: 08/02/16 18:00 Dose: 1,000 unit Heparin Sodium (Porcine) (Heparin -) 5,000 unit IVPUSH PRN PRN PRN Reason: Heparin Heparin Sodium (Porcine) 25, (000 unit/ Sodium Chloride) 500 mls @ 16 mls/hr IV TITR MIA; 800 UNIT/HR PRN Reason: Protocol Last Admin: 08/04/16 11:15 Dose: 9 mls/hr Levothyroxine Sodium (Synthroid -) 75 mcg PO DAILY@0700 [facility] Last Admin: 08/04/16 06:33 Dose: 75 mcg Non-Formulary Medication (Salmeterol Xinafoate [Serevent Diskus]) 50 mcg IH ASDIR [facility] Potassium Chloride (K-Dur -) 20 meq PO DAILY [facility] Last Admin: 08/04/16 09:53 Dose: 20 meq Quetiapine Fumarate (Seroquel -) 25 mg PO HS [facility] Last Admin: 08/03/16 21:42 Dose: Not Given Warfarin Sodium (Coumadin -) 4 mg PO DAILY@1800 [facility] Last Admin: 08/04/16 17:50 Dose: 4 mg - Objective Vital Signs: Vital Signs Temperature 98.2 F 08/04/16 14:37 Pulse Rate 75 08/04/16 14:37 Respiratory Rate 20 08/04/16 14:37 Blood Pressure 142/59 08/04/16 14:37 O2 Sat by Pulse Oximetry (%) 95 06/26/17 09:00 Constitutional: Yes: No Distress Eyes: Yes: WNL HENT: Yes: WNL Neck: Yes: WNL, Supple Cardiovascular: Yes: Pulse Irregular Respiratory: Yes: Rales Gastrointestinal: Yes: WNL, Normal Bowel Sounds, Soft Edema: LLE: 1+, RLE: 1+ Labs: CBC, BMP 08/04/16 06:00 08/04/16 06:00 INR, PTT INR 2.13 (0.82-1.09) H 08/04/16 14:45 Problem List - Problems (1) Acute CHF Assessment/Plan: Acute on chronic diastolc heart failure Cont IV lasix Monitor electrolytes CT scan chest showed vascular congestion Code(s): I50.9 - HEART FAILURE, UNSPECIFIED Qualifiers: Congestive heart failure type: diastolic Qualified Code(s): I50.31 - Acute diastolic (congestive) heart failure (2) Afib Assessment/Plan: Heart rate controlled Cont dig Bridge coumadin w/ IV heparin drip Monitor pt/inr Code(s): I48.91 - UNSPECIFIED ATRIAL FIBRILLATION (3) Pleural effusion Assessment/Plan: CT scan chest showed moderate rt pleural effusion/vascular congestion/b/l flank subcutaneous edema Code(s): J90 - PLEURAL EFFUSION, NOT ELSEWHERE CLASSIFIED (4) Hypothyroid Assessment/Plan: Cont levothyroxine TSH within normal range Code(s): E03.9 - HYPOTHYROIDISM, UNSPECIFIED Qualifiers: Hypothyroidism type: acquired Qualified Code(s): E03.9 - Hypothyroidism, unspecified (5) Hypertension Assessment/Plan: BP stable Code(s): I10 - ESSENTIAL (PRIMARY) HYPERTENSION (6) COPD (chronic obstructive pulmonary disease) Assessment/Plan: Cont inhaler Code(s): J44.9 - CHRONIC OBSTRUCTIVE PULMONARY DISEASE, UNSPECIFIED (7) Breast cancer Assessment/Plan: Cont arimidex Code(s): C50.919 - MALIGNANT NEOPLASM OF UNSP SITE OF UNSPECIFIED FEMALE BREAST Qualifiers: Laterality: unspecified laterality (8) Depression Assessment/Plan: Cont lexapro As per psych Code(s): F32.9 - MAJOR DEPRESSIVE DISORDER, SINGLE EPISODE, UNSPECIFIED (9) History of mitral valve replacement with mechanical valve Code(s): Z95.2 - PRESENCE OF PROSTHETIC HEART VALVE
[2016-08-04] MEDS ORDERED: ALPRAZolam 0.25 MG TABLET PO ONE (20:45)
[2016-08-04] MEDS: QUEtiapine FUMARATE 25 MG TABLET (FP) PO SCH (21:52)
[2016-08-05] MEDS ORDERED: LORAZEPAM CARPU-JECT 2 MG/ML DISP.SYRIN ONE (01:31)
[2016-08-05] MEDS ORDERED: LORAZEPAM CARPU-JECT 2 MG/ML DISP.SYRIN IVPUSH ONE (01:36)
--- NOTE | 2016-08-05 01:43 | RAPID ---
Physical Examination Vital Signs: Vital Signs Temperature 98.9 F 08/04/16 22:00 Pulse Rate 82 08/04/16 22:00 Respiratory Rate 22 08/04/16 22:00 Blood Pressure 139/81 08/04/16 22:00 O2 Sat by Pulse Oximetry (%) 95 08/04/16 09:00 Findings/Remarks: Rapid Response Called for hypoxia Pt. was sitting outside of room and 02 tank had ran out 02 sat dropped to 80's as per nurse Pt. yelling in Wallisian upon arrival in [facility] placed on NRB 100% Bp 144/81, rr 20 GEN: Elderly lady in [facility] HEENT: NCAT, PERRL CARD: RRR S1, S2 RESP: Decreased BS EXT: +2 Pitting edema, bilateral and equal CBCD WBC 6.5 K/mm3 (4.0-10.0) 08/04/16 06:00 RBC 3.35 M/mm3 (3.60-5.2) L 08/04/16 06:00 Hgb 10.7 GM/dL (10.7-15.3) 08/04/16 06:00 Hct 32.2 % (32.4-45.2) L 08/04/16 06:00 MCV 96.2 fl (80-96) H 08/04/16 06:00 MCHC 33.1 g/dl (32.0-36.0) 08/04/16 06:00 RDW 14.5 % (11.6-15.6) 08/04/16 06:00 Plt Count 149 K/MM3 (134-434) 08/04/16 06:00 MPV 9.6 fl (7.5-11.1) 08/04/16 06:00 CMP Sodium 144 mmol/L (136-145) 08/04/16 06:00 Potassium 3.9 mmol/L (3.5-5.1) 08/04/16 06:00 Chloride 94 mmol/L (98-107) L 08/04/16 06:00 Carbon Dioxide 50 mmol/L (21-32) H 08/04/16 06:00 Anion Gap 0 (8-16) L 08/04/16 06:00 BUN 26 mg/dL (7-18) H 08/04/16 06:00 Creatinine 0.8 mg/dL (0.55-1.02) 08/04/16 06:00 Creat Clearance w eGFR > 60 (>60) 08/04/16 06:00 Random Glucose 95 mg/dL (74-106) 08/04/16 06:00 Calcium 8.7 mg/dL (8.5-10.1) 08/04/16 06:00 Total Bilirubin 1.0 mg/dL (0.2-1.0) D 08/04/16 06:00 AST 28 U/L (15-37) 08/04/16 06:00 ALT 26 U/L (12-78) 08/04/16 06:00 Alkaline Phosphatase 173 U/L (45-117) H 08/04/16 06:00 Total Protein 6.9 g/dl (6.4-8.2) 08/04/16 06:00 Albumin 3.2 g/dl (3.4-5.0) L 08/04/16 06:00 CARDIAC ENZYMES Creatine Kinase 112 IU/L (26-192) 07/31/16 22:45 Troponin I 0.02 ng/ml (0.00-0.05) 07/31/16 22:45 A/P.) Hypoxia - Resolved once pt. placed back on 02 - c/w 3L 02 - Kepp 02 88-93% - Anxiety - Ativan Labs: CBC, BMP 08/04/16 06:00 08/04/16 06:00
[2016-08-05] MEDS ORDERED: ALPRAZolam 0.25 MG TABLET PO ONE (05:15)
[2016-08-05] MEDS: FUROSEMIDE 40 MG/4 ML INJECTABLE VIAL IVPUSH SCH ×2 (06:39→14:52)
[2016-08-05] MEDS: LEVOTHYROXINE NA 75 MCG TABLET (FP) PO SCH (06:49)
[2016-08-05 07:37] LABS: MCH 31.7 pg (25.7-33.7); MEAN CELL VOLUME 96.2 fl (80-96); PLATELET COUNT 145 K/MM3 (134-434); RDW 14.6 % (11.6-15.6); WHITE BLOOD COUNT 5.9 K/mm3 (4.0-10.0)
[2016-08-05 07:46] LABS: CALCIUM 8.6 mg/dL (8.5-10.1); GLUCOSE,RANDOM 90 mg/dL (74-106)
[2016-08-05 07:49] LABS: CREATININE 0.8 mg/dL (0.55-1.02)
[2016-08-05] MEDS ORDERED: WARFARIN NA 2 MG TABLET (UD) PO SCH (08:38)
[2016-08-05 09:34] LABS: ANION GAP -5 (8-16); CO2 60 mmol/L (21-32)
[2016-08-05] MEDS ORDERED: PT OWN MED DRAWER 7, Y5N ONE ×2 (09:56→17:47)
--- NOTE | 2016-08-05 10:24 | PN ---
Progress Note (short form) - Note Progress Note: Sleeping in NAD. Noted that a [employer] CL[employer] was called overnight as she took her O2 off and desaturated to the 80's. Stabilized once she was placed back on [place] O2. CT : Pulmonary vascular congestion / decrease in size of a partially loculated right effusion / decrease in size in enlarged lymph nodes / no nodules or masses Intake & Output 08/02/16 08/03/16 08/04/16 08/05/16 23:59 23:59 23:59 23:59 Intake Total 552 364 535 49 Balance 552 364 535 49 Weight 141 lb 8 oz 141 lb 3.2 oz 141 lb 4.8 oz 138 lb 12.8 oz Last Vital Signs Temp Pulse Resp BP Pulse Ox 98.5 F 73 22 116/68 96 08/05/16 05:46 08/05/16 05:46 08/05/16 05:46 08/05/16 05:46 08/04/16 21:00 Active Medications Anastrozole (Arimidex -) 1 mg PO DAILY [facility] Last Admin: 08/04/16 09:49 Dose: 1 mg Aspirin (Ecotrin -) 81 mg PO DAILY [facility] Last Admin: 08/04/16 09:53 Dose: 81 mg Calcium Carbonate/Cholecalciferol (Os-Nura 500+D -) 1 tab PO DAILY [facility] Last Admin: 08/04/16 09:49 Dose: 1 tab Digoxin (Lanoxin -) 0.125 mg PO Q2D@1000 [facility] Last Admin: 08/03/16 10:53 Dose: 0.125 mg Escitalopram Oxalate (Lexapro -) 10 mg PO DAILY [facility] Furosemide (Lasix Injection -) 60 mg IVPUSH BIDLASIX [facility] Last Admin: 08/05/16 06:39 Dose: 60 mg Heparin Sodium (Porcine) (Heparin -) 1,000 unit IVPUSH PRN PRN PRN Reason: Heparin Last Admin: 08/02/16 18:00 Dose: 1,000 unit Heparin Sodium (Porcine) (Heparin -) 5,000 unit IVPUSH PRN PRN PRN Reason: Heparin Heparin Sodium (Porcine) 25, (000 unit/ Sodium Chloride) 500 mls @ 16 mls/hr IV TITR [facility]; 800 UNIT/HR PRN Reason: Protocol Last Admin: 08/04/16 11:15 Dose: 9 mls/hr Levothyroxine Sodium (Synthroid -) 75 mcg PO DAILY@0700 [facility] Last Admin: 08/05/16 06:49 Dose: 75 mcg Non-Formulary Medication (Salmeterol Xinafoate [Serevent Diskus]) 50 mcg ASDIR [facility] Potassium Chloride (K-Dur -) 20 meq PO DAILY [facility] Last Admin: 08/04/16 09:53 Dose: 20 meq Quetiapine Fumarate (Seroquel -) 25 mg PO HS [facility] Last Admin: 08/04/16 21:52 Dose: 25 mg Warfarin Sodium 2.5 mg/ (Warfarin Sodium 2 mg) 4.5 mg PO DAILY@1800 [facility] Constitutional: Yes: NAD Eyes: Yes: Conjunctiva Clear, EOM Intact HENT: Yes: Atraumatic, Normocephalic Neck: Yes: Supple, Trachea Midline Cardiovascular: Yes: Pulse Irregular, Murmur (systolic), Other (mechanical click ) Respiratory: Yes: Bibasilar Rales / Rhonchi ...Clubbing: No Gastrointestinal: Yes: Normal Bowel Sounds, Soft. No: Tenderness Edema: Yes Neurological: Yes: Alert, Oriented Labs: Laboratory Results - last 24 hr 08/04/16 08/04/16 08/05/16 06:00 14:45 06:00 WBC 5.9 RBC 3.38 L Hgb 10.7 Hct 32.5 MCV 96.2 H MCHC 33.0 RDW 14.6 Plt Count 145 MPV 9.0 INR 2.13 H PTT (Actin FS) 53.4 H D Sodium 144 Potassium 3.9 Chloride 94 L Carbon Dioxide 50 H Anion Gap 0 L BUN 26 H Creatinine 0.8 Creat Clearance w eGFR > 60 Random Glucose 95 Calcium 8.7 Total Bilirubin 1.0 D AST 28 ALT 26 Alkaline Phosphatase 173 H Total Protein 6.9 Albumin 3.2 L 08/05/16 08/05/16 08/05/16 06:00 06:00 06:00 WBC RBC Hgb Hct MCV MCHC RDW Plt Count MPV INR PTT (Actin FS) 53.3 H Sodium 144 Cancelled Potassium 3.6 Cancelled Chloride 89 L Cancelled Carbon Dioxide 60 H Cancelled Anion Gap -5 L Cancelled BUN 31 H Cancelled Creatinine 0.8 Cancelled Creat Clearance w eGFR Cancelled Random Glucose 90 Cancelled Calcium 8.6 Cancelled Total Bilirubin Cancelled AST Cancelled ALT Cancelled Alkaline Phosphatase Cancelled Total Protein Cancelled Albumin Cancelled Problem List - Problems (1) Acute on chronic diastolic (congestive) heart failure Code(s): I50.33 - ACUTE ON CHRONIC DIASTOLIC (CONGESTIVE) HEART FAILURE (2) Afib Code(s): I48.91 - UNSPECIFIED ATRIAL FIBRILLATION (3) COPD (chronic obstructive pulmonary disease) Code(s): J44.9 - CHRONIC OBSTRUCTIVE PULMONARY DISEASE, UNSPECIFIED (4) Pulmonary HTN Code(s): I27.2 - OTHER SECONDARY PULMONARY HYPERTENSION (5) History of mitral valve replacement with mechanical valve Code(s): Z95.2 - PRESENCE OF PROSTHETIC HEART VALVE (6) Chronic respiratory failure with hypoxia Code(s): J96.11 - CHRONIC RESPIRATORY FAILURE WITH HYPOXIA Assessment/Plan Acute on Chronic Diastolic Heart Failure Atrial Fibrillation s/p mechanical MVR Severe Pulmonary HTN Pleural Effusions COPD Chronic Hypoxic Respiratory Failure HTN - IV lasix - monitor urine output, creatinine - daily weights, I/Os - rate controlled - AC - O2 to keep Spo2 >90% - inhaled bronchodilators Dr Glil
[2016-08-05] MEDS: ANASTROZOLE 1 MG TABLET PO SCH (10:58)
[2016-08-05] MEDS: DIGOXIN 0.125 MG TABLET (FP) PO SCH (10:58)
[2016-08-05] MEDS: ESCITALOPRAM OXALATE 10 MG TABLET (FP) PO SCH (10:58)
[2016-08-05] MEDS: POTASSIUM CHLORIDE TABS 20 MEQ TABLET.ER (FP) PO SCH (10:58)
[2016-08-05] MEDS: CALCIUM 500MG/VIT-D 200 UNITS COMBO TABLET (FP) PO SCH (10:58)
[2016-08-05] MEDS: ASPIRIN COATED 81 MG TABLET.EC PO SCH (10:58)
[2016-08-05 11:46] LABS: ALBUMIN 3.3 g/dl (3.4-5.0); ALK PHOS 172 U/L (45-117); BILIRUBIN,DIRECT 0.4 mg/dL (0.0-0.2); SGOT/AST 28 U/L (15-37); SGPT/ALT 28 U/L (12-78)
[2016-08-05 11:48] LABS: TOT PROT 6.9 g/dl (6.4-8.2)
--- NOTE | 2016-08-05 14:08 | PN ---
Progress Note, Physician History of Present Illness: seen and examined today in nad. states she is feeling better today. again states she wishes to go home. no overnight events. no new complaints. - Current Medication List Current Medications: Active Medications Anastrozole (Arimidex -) 1 mg PO DAILY [facility] Last Admin: 08/05/16 10:58 Dose: 1 mg Aspirin (Ecotrin -) 81 mg PO DAILY [facility] Last Admin: 08/05/16 10:58 Dose: 81 mg Calcium Carbonate/Cholecalciferol (Os-Nura 500+D -) 1 tab PO DAILY [facility] Last Admin: 08/05/16 10:58 Dose: 1 tab Digoxin (Lanoxin -) 0.125 mg PO Q2D@1000 [facility] Last Admin: 08/05/16 10:58 Dose: 0.125 mg Escitalopram Oxalate (Lexapro -) 10 mg PO DAILY [facility] Last Admin: 08/05/16 10:58 Dose: 10 mg Furosemide (Lasix Injection -) 60 mg IVPUSH BIDLASIX [facility] Last Admin: 08/05/16 06:39 Dose: 60 mg Heparin Sodium (Porcine) (Heparin -) 1,000 unit IVPUSH PRN PRN PRN Reason: Heparin Last Admin: 08/02/16 18:00 Dose: 1,000 unit Heparin Sodium (Porcine) (Heparin -) 5,000 unit IVPUSH PRN PRN PRN Reason: Heparin Heparin Sodium (Porcine) 25, (000 unit/ Sodium Chloride) 500 mls @ 16 mls/hr IV TITR MIA; 800 UNIT/HR PRN Reason: Protocol Last Admin: 08/04/16 11:15 Dose: 9 mls/hr Levothyroxine Sodium (Synthroid -) 75 mcg PO DAILY@0700 [facility] Last Admin: 08/05/16 06:49 Dose: 75 mcg Non-Formulary Medication (Salmeterol Xinafoate [Serevent Diskus]) 50 mcg IH ASDIR [facility] Potassium Chloride (K-Dur -) 20 meq PO DAILY [facility] Last Admin: 08/05/16 10:58 Dose: 20 meq Quetiapine Fumarate (Seroquel -) 25 mg PO HS [facility] Last Admin: 08/04/16 21:52 Dose: 25 mg Warfarin Sodium 2.5 mg/ (Warfarin Sodium 2 mg) 4.5 mg PO DAILY@1800 [facility] - Objective Vital Signs: Vital Signs Temperature 98.5 F 08/05/16 05:46 Pulse Rate 84 08/05/16 10:58 Respiratory Rate 22 08/05/16 05:46 Blood Pressure 116/68 08/05/16 05:46 O2 Sat by Pulse Oximetry (%) 96 08/04/16 21:00 Constitutional: Yes: No Distress, Calm Eyes: Yes: Conjunctiva Clear, EOM Intact, PERRL HENT: Yes: Atraumatic, Normocephalic Neck: Yes: Supple, Trachea Midline Cardiovascular: Yes: Pulse Irregular, Murmur, S1, S2, Other (mechanical MVR heard). No: Regular Rate and Rhythm, Bradycardia, Tachycardia, Bruit, JVD, Gallop, Rub, S3, S4, Varicosities Respiratory: Yes: Regular, Diminished, On Nasal O2, Rales. No: Rhonchi, SOB, Wheezes Gastrointestinal: Yes: Normal Bowel Sounds, Soft. No: Distention, Tenderness Edema: Yes Edema: LLE: 2+, RLE: 2+ Peripheral Pulses WNL: Yes Peripheral Pulses: Left Doralis Pedis: 2+, Right Dorsalis Pedis: 2+ Neurological: Yes: Alert, Oriented Psychiatric: Yes: Alert, Oriented Labs: CBC, BMP 08/05/16 06:00 08/05/16 06:00 INR, PTT INR 2.13 (0.82-1.09) H 08/04/16 14:45 - ....Imaging Chest X-ray: Report Reviewed, Image Reviewed EKG: Report Reviewed, Image Reviewed Other: Report Reviewed, Image Reviewed Assessment/Plan IMP: Afib Mechanical MVR with subtherapeutic INR Acute on chronic diastolic CHF PHTN COPD, chronic Breast CA Pleural effusion REC: Still volume overloaded, slightly improved since yesterday Cont Lasix 60mg IV BID Monitor daily labs, bun/creat, electrolytes and replete as needed Cont hep gtt bridge to coumadin for goal INR 2.5-3.5 (mechanical MVR) Will increase coumadin to 4.5mg daily Echo showed normal LV and RV systolic function, normal functioning MVR, Mod-sev PAH, TR, no pericardial effusion HR adequately controlled, cont Digoxin Pt with chronic/recurrent pleural effusions, not clearly all due to CHF, pulmonary following
[2016-08-05] MEDS ORDERED: WARFARIN NA 2 MG TABLET (UD) ONE (17:25)
[2016-08-05] MEDS ORDERED: WARFARIN NA 2.5 MG TABLET (FP) ONE (17:25)
[2016-08-05] MEDS: WARFARIN NA 2.5 MG, WARFARIN NA 2 MG PO SCH (17:33)
[2016-08-05] MEDS: HEPARIN - 25,000 UNIT in SODIUM CHLORIDE 495 ML IV SCH (17:51)
[2016-08-05] MEDS: QUEtiapine FUMARATE 25 MG TABLET (FP) PO SCH (21:49)
--- NOTE | 2016-08-05 22:51 | PN ---
Progress Note, Physician History of Present Illness: Pt w/ sundowning Pt getting confused at night - Current Medication List Current Medications: Active Medications Anastrozole (Arimidex -) 1 mg PO DAILY [facility] Last Admin: 08/05/16 10:58 Dose: 1 mg Aspirin (Ecotrin -) 81 mg PO DAILY [facility] Last Admin: 08/05/16 10:58 Dose: 81 mg Calcium Carbonate/Cholecalciferol (Os-Nura 500+D -) 1 tab PO DAILY [facility] Last Admin: 08/05/16 10:58 Dose: 1 tab Digoxin (Lanoxin -) 0.125 mg PO Q2D@1000 [facility] Last Admin: 08/05/16 10:58 Dose: 0.125 mg Escitalopram Oxalate (Lexapro -) 10 mg PO DAILY [facility] Last Admin: 08/05/16 10:58 Dose: 10 mg Furosemide (Lasix Injection -) 60 mg IVPUSH BIDLASIX [facility] Last Admin: 08/05/16 14:52 Dose: 60 mg Heparin Sodium (Porcine) (Heparin -) 1,000 unit IVPUSH PRN PRN PRN Reason: Heparin Last Admin: 08/02/16 18:00 Dose: 1,000 unit Heparin Sodium (Porcine) (Heparin -) 5,000 unit IVPUSH PRN PRN PRN Reason: Heparin Heparin Sodium (Porcine) 25, (000 unit/ Sodium Chloride) 500 mls @ 16 mls/hr IV TITR MIA; 800 UNIT/HR PRN Reason: Protocol Last Admin: 08/05/16 17:51 Dose: 7 mls/hr Levothyroxine Sodium (Synthroid -) 75 mcg PO DAILY@0700 [facility] Last Admin: 08/05/16 06:49 Dose: 75 mcg Non-Formulary Medication (Salmeterol Xinafoate [Serevent Diskus]) 50 mcg IH ASDIR [facility] Potassium Chloride (K-Dur -) 20 meq PO DAILY [facility] Last Admin: 08/05/16 10:58 Dose: 20 meq Quetiapine Fumarate (Seroquel -) 25 mg PO HS [facility] Last Admin: 08/05/16 21:49 Dose: 25 mg Warfarin Sodium 2.5 mg/ (Warfarin Sodium 2 mg) 4.5 mg PO DAILY@1800 [facility] Last Admin: 08/05/16 17:33 Dose: 4.5 mg - Objective Vital Signs: Vital Signs Temperature 98.4 F 08/05/16 19:01 Pulse Rate 81 08/05/16 19:01 Respiratory Rate 20 08/05/16 19:01 Blood Pressure 136/61 08/05/16 19:01 O2 Sat by Pulse Oximetry (%) 97 08/05/16 09:00 Constitutional: Yes: No Distress Eyes: Yes: WNL HENT: Yes: WNL Neck: Yes: WNL, Supple Cardiovascular: Yes: Pulse Irregular Respiratory: Yes: Diminished Gastrointestinal: Yes: WNL, Normal Bowel Sounds, Soft Labs: CBC, BMP 08/05/16 06:00 08/05/16 06:00 INR, PTT INR 2.13 (0.82-1.09) H 08/04/16 14:45 Problem List - Problems (1) Acute CHF Assessment/Plan: Acute on chronic diastolc heart failure Cont IV lasix Monitor electrolytes CT scan chest showed vascular congestion/pleural effusions Code(s): I50.9 - HEART FAILURE, UNSPECIFIED Qualifiers: Congestive heart failure type: diastolic Qualified Code(s): I50.31 - Acute diastolic (congestive) heart failure (2) Pleural effusion Assessment/Plan: CT scan chest showed moderate rt pleural effusion/vascular congestion/b/l flank subcutaneous edema Unclear if this is all cardiac ?diagnostic thoracentesis Will d/w pulmonary due to h/o breast cancer Code(s): J90 - PLEURAL EFFUSION, NOT ELSEWHERE CLASSIFIED (3) Afib Assessment/Plan: Heart rate controlled Cont dig Coumadin dose increased Bridge coumadin w/ IV heparin drip Monitor pt/inr Code(s): I48.91 - UNSPECIFIED ATRIAL FIBRILLATION (4) Dementia Assessment/Plan: Cont seroquel Neuro consult Code(s): F03.90 - UNSPECIFIED DEMENTIA WITHOUT BEHAVIORAL DISTURBANCE (5) Hypothyroid Assessment/Plan: Cont levothyroxine TSH within normal range Code(s): E03.9 - HYPOTHYROIDISM, UNSPECIFIED Qualifiers: Hypothyroidism type: acquired Qualified Code(s): E03.9 - Hypothyroidism, unspecified (6) Hypertension Assessment/Plan: BP stable Code(s): I10 - ESSENTIAL (PRIMARY) HYPERTENSION (7) COPD (chronic obstructive pulmonary disease) Code(s): J44.9 - CHRONIC OBSTRUCTIVE PULMONARY DISEASE, UNSPECIFIED (8) Breast cancer Assessment/Plan: Cont arimidex Code(s): C50.919 - MALIGNANT NEOPLASM OF UNSP SITE OF UNSPECIFIED FEMALE BREAST Qualifiers: Laterality: unspecified laterality (9) Depression Assessment/Plan: Cont lexapro As per psych Code(s): F32.9 - MAJOR DEPRESSIVE DISORDER, SINGLE EPISODE, UNSPECIFIED (10) History of mitral valve replacement with mechanical valve Code(s): Z95.2 - PRESENCE OF PROSTHETIC HEART VALVE
[2016-08-05] MEDS ORDERED: QUEtiapine FUMARATE 25 MG TABLET (FP) PO ONE (23:00)
[2016-08-06] MEDS: FUROSEMIDE 40 MG/4 ML INJECTABLE VIAL IVPUSH SCH ×2 (05:44→15:29)
[2016-08-06] MEDS: LEVOTHYROXINE NA 75 MCG TABLET (FP) PO SCH (06:01)
[2016-08-06 07:33] LABS: MCH 31.5 pg (25.7-33.7); MCHC 32.7 g/dl (32.0-36.0); MEAN CELL VOLUME 96.3 fl (80-96); MEAN PLT VOLUME 9.1 fl (7.5-11.1); PLATELET COUNT 159 K/MM3 (134-434); RDW 14.5 % (11.6-15.6); WHITE BLOOD COUNT 6.5 K/mm3 (4.0-10.0)
[2016-08-06 07:53] LABS: INR 2.04 (0.82-1.09); PROTHROMBIN TIME (PATIENT) 22.8 SEC (9.98-11.88)
[2016-08-06 08:09] LABS: ALBUMIN 3.5 g/dl (3.4-5.0); ALK PHOS 190 U/L (45-117); BILIRUBIN,TOTAL 1.1 mg/dL (0.2-1.0); CALCIUM 8.8 mg/dL (8.5-10.1); CREATININE 0.9 mg/dL (0.55-1.02); GLUCOSE,RANDOM 96 mg/dL (74-106); SGOT/AST 29 U/L (15-37); SGPT/ALT 30 U/L (12-78); TOT PROT 7.7 g/dl (6.4-8.2)
--- NOTE | 2016-08-06 08:16 | PN ---
Progress Note, Physician History of Present Illness: seen and examined today in nad. awake, alert, oriented. pt states she is feeling much better today and again states she wants to go home. - Current Medication List Current Medications: Active Medications Anastrozole (Arimidex -) 1 mg PO DAILY [facility] Last Admin: 08/05/16 10:58 Dose: 1 mg Aspirin (Ecotrin -) 81 mg PO DAILY [facility] Last Admin: 08/05/16 10:58 Dose: 81 mg Calcium Carbonate/Cholecalciferol (Os-Nura 500+D -) 1 tab PO DAILY [facility] Last Admin: 08/05/16 10:58 Dose: 1 tab Digoxin (Lanoxin -) 0.125 mg PO Q2D@1000 [facility] Last Admin: 08/05/16 10:58 Dose: 0.125 mg Escitalopram Oxalate (Lexapro -) 10 mg PO DAILY [facility] Last Admin: 08/05/16 10:58 Dose: 10 mg Furosemide (Lasix Injection -) 60 mg IVPUSH BIDLASIX [facility] Last Admin: 08/06/16 05:44 Dose: 60 mg Heparin Sodium (Porcine) (Heparin -) 1,000 unit IVPUSH PRN PRN PRN Reason: Heparin Last Admin: 08/02/16 18:00 Dose: 1,000 unit Heparin Sodium (Porcine) (Heparin -) 5,000 unit IVPUSH PRN PRN PRN Reason: Heparin Heparin Sodium (Porcine) 25, (000 unit/ Sodium Chloride) 500 mls @ 16 mls/hr IV TITR MIA; 800 UNIT/HR PRN Reason: Protocol Last Admin: 08/05/16 17:51 Dose: 7 mls/hr Levothyroxine Sodium (Synthroid -) 75 mcg PO DAILY@0700 [facility] Last Admin: 08/06/16 06:01 Dose: 75 mcg Non-Formulary Medication (Salmeterol Xinafoate [Serevent Diskus]) 50 mcg IH ASDIR [facility] Potassium Chloride (K-Dur -) 20 meq PO DAILY [facility] Last Admin: 08/05/16 10:58 Dose: 20 meq Quetiapine Fumarate (Seroquel -) 25 mg PO HS [facility] Last Admin: 08/05/16 21:49 Dose: 25 mg Warfarin Sodium 2.5 mg/ (Warfarin Sodium 2 mg) 4.5 mg PO DAILY@1800 [facility] Last Admin: 08/05/16 17:33 Dose: 4.5 mg - Objective Vital Signs: Vital Signs Temperature 97.9 F 08/06/16 07:06 Pulse Rate 79 08/06/16 07:06 Respiratory Rate 20 08/06/16 07:06 Blood Pressure 126/63 08/06/16 07:06 O2 Sat by Pulse Oximetry (%) 94 L 08/05/16 21:00 Constitutional: Yes: No Distress, Calm Eyes: Yes: Conjunctiva Clear, EOM Intact, PERRL HENT: Yes: Atraumatic, Normocephalic Neck: Yes: Supple, Trachea Midline Cardiovascular: Yes: Pulse Irregular, Murmur, S1, S2, Other (mechanical MVR heard). No: Regular Rate and Rhythm, Bradycardia, Tachycardia, Bruit, JVD, Gallop, Rub, S3, S4, Varicosities Respiratory: Yes: Regular, Diminished (b/l to mid lung cantu), On Nasal O2, Rales. No: Rhonchi, SOB, Wheezes Gastrointestinal: Yes: Normal Bowel Sounds, Soft. No: Distention, Tenderness Edema: Yes Edema: LLE: 2+, RLE: 2+ Peripheral Pulses WNL: Yes Peripheral Pulses: Left Doralis Pedis: 2+, Right Dorsalis Pedis: 2+ Neurological: Yes: Alert, Oriented Psychiatric: Yes: Alert, Oriented Labs: CBC, BMP 08/06/16 06:00 INR, PTT INR 2.13 (0.82-1.09) H 08/04/16 14:45 - ....Imaging Chest X-ray: Report Reviewed, Image Reviewed EKG: Report Reviewed, Image Reviewed Other: Report Reviewed, Image Reviewed Assessment/Plan IMP: Afib Mechanical MVR with subtherapeutic INR Acute on chronic diastolic CHF PHTN COPD, chronic Breast CA Pleural effusion REC: Again volume status slightly improved since yesterday I/Os not recorded Weight same as yesterday Cont Lasix 60mg IV BID Monitor daily labs, bun/creat, electrolytes and replete as needed, labs pending today Cont hep gtt bridge to coumadin for goal INR 2.5-3.5 (mechanical MVR) Cont coumadin 4.5mg daily and slowly uptitrate as needed Echo showed normal LV and RV systolic function, normal functioning MVR, Mod-sev PAH, TR, no pericardial effusion HR adequately controlled, cont Digoxin
[2016-08-06 09:54] LABS: ANION GAP -3 (8-16); CO2 58 mmol/L (21-32)
[2016-08-06] MEDS: ASPIRIN COATED 81 MG TABLET.EC PO SCH (10:21)
[2016-08-06] MEDS: ESCITALOPRAM OXALATE 10 MG TABLET (FP) PO SCH (10:21)
[2016-08-06] MEDS: POTASSIUM CHLORIDE TABS 20 MEQ TABLET.ER (FP) PO SCH (10:21)
[2016-08-06] MEDS: CALCIUM 500MG/VIT-D 200 UNITS COMBO TABLET (FP) PO SCH (10:21)
[2016-08-06] MEDS: ANASTROZOLE 1 MG TABLET PO SCH (10:22)
[2016-08-06] MEDS: HEPARIN - 25,000 UNIT in SODIUM CHLORIDE 495 ML IV SCH (13:59)
--- NOTE | 2016-08-06 14:38 | PN ---
Progress Note (short form) - Note Progress Note: PULMONARY spo2 98% on o2 4L/M OOB TO CHAIR SUBJECTIVE IMPROVEMENT ANICTERIC DISTANT BUT CLEAR S1S2 MECHANICAL VALVE BS+ LESS EDEMA LABS/MEDS/NOTES/IMAGING/ECHO/REVIEWED Acute on Chronic Diastolic Heart Failure Atrial Fibrillation s/p mechanical MVR Severe Pulmonary HTN Pleural Effusions COPD Chronic Hypoxic Respiratory Failure HTN - IV lasix - monitor urine output, creatinine - daily weights, I/Os - rate controlled - continue anticoagulation - O2 to keep Spo2 >90% - inhaled bronchodilators Alis SAUL MD
[2016-08-06] MEDS ORDERED: WARFARIN NA 2.5 MG TABLET (FP) ONE (18:18)
[2016-08-06] MEDS ORDERED: WARFARIN NA 2 MG TABLET (UD) ONE (18:18)
[2016-08-06] MEDS: WARFARIN NA 2.5 MG, WARFARIN NA 2 MG PO SCH (18:19)
[2016-08-06] MEDS: QUEtiapine FUMARATE 25 MG TABLET (FP) PO SCH (21:49)
--- NOTE | 2016-08-06 22:30 | PN ---
Progress Note, Physician - Current Medication List Current Medications: Active Medications Anastrozole (Arimidex -) 1 mg PO DAILY [facility] Last Admin: 08/06/16 10:22 Dose: 1 mg Aspirin (Ecotrin -) 81 mg PO DAILY [facility] Last Admin: 08/06/16 10:21 Dose: 81 mg Calcium Carbonate/Cholecalciferol (Os-Nura 500+D -) 1 tab PO DAILY [facility] Last Admin: 08/06/16 10:21 Dose: 1 tab Digoxin (Lanoxin -) 0.125 mg PO Q2D@1000 [facility] Last Admin: 08/05/16 10:58 Dose: 0.125 mg Escitalopram Oxalate (Lexapro -) 10 mg PO DAILY [facility] Last Admin: 08/06/16 10:21 Dose: 10 mg Furosemide (Lasix Injection -) 60 mg IVPUSH BIDLASIX [facility] Last Admin: 08/06/16 15:29 Dose: 60 mg Heparin Sodium (Porcine) (Heparin -) 1,000 unit IVPUSH PRN PRN PRN Reason: Heparin Last Admin: 08/02/16 18:00 Dose: 1,000 unit Heparin Sodium (Porcine) (Heparin -) 5,000 unit IVPUSH PRN PRN PRN Reason: Heparin Heparin Sodium (Porcine) 25, (000 unit/ Sodium Chloride) 500 mls @ 16 mls/hr IV TITR MIA; 800 UNIT/HR PRN Reason: Protocol Last Admin: 08/06/16 13:59 Dose: 7 mls/hr Levothyroxine Sodium (Synthroid -) 75 mcg PO DAILY@0700 [facility] Last Admin: 08/06/16 06:01 Dose: 75 mcg Non-Formulary Medication (Salmeterol Xinafoate [Serevent Diskus]) 50 mcg IH ASDIR [facility] Potassium Chloride (K-Dur -) 20 meq PO DAILY [facility] Last Admin: 08/06/16 10:21 Dose: 20 meq Quetiapine Fumarate (Seroquel -) 25 mg PO HS [facility] Last Admin: 08/06/16 21:49 Dose: 25 mg Warfarin Sodium 2.5 mg/ (Warfarin Sodium 2 mg) 4.5 mg PO DAILY@1800 [facility] Last Admin: 08/06/16 18:19 Dose: 4.5 mg - Objective Vital Signs: Vital Signs Temperature 99.1 F 08/06/16 22:00 Pulse Rate 83 08/06/16 22:00 Respiratory Rate 20 06/28/17 22:00 Blood Pressure 119/76 08/06/16 22:00 O2 Sat by Pulse Oximetry (%) 99 08/06/16 21:00 Labs: CBC, BMP 08/06/16 06:00 08/06/16 06:00 INR, PTT INR 2.04 (0.82-1.09) H 08/06/16 06:00 Problem List - Problems (1) Acute CHF Code(s): I50.9 - HEART FAILURE, UNSPECIFIED Qualifiers: Congestive heart failure type: diastolic Qualified Code(s): I50.31 - Acute diastolic (congestive) heart failure (2) Pleural effusion Code(s): J90 - PLEURAL EFFUSION, NOT ELSEWHERE CLASSIFIED (3) Afib Code(s): I48.91 - UNSPECIFIED ATRIAL FIBRILLATION (4) Dementia Code(s): F03.90 - UNSPECIFIED DEMENTIA WITHOUT BEHAVIORAL DISTURBANCE (5) Hypothyroid Code(s): E03.9 - HYPOTHYROIDISM, UNSPECIFIED Qualifiers: Hypothyroidism type: acquired Qualified Code(s): E03.9 - Hypothyroidism, unspecified (6) Hypertension Code(s): I10 - ESSENTIAL (PRIMARY) HYPERTENSION (7) COPD (chronic obstructive pulmonary disease) Code(s): J44.9 - CHRONIC OBSTRUCTIVE PULMONARY DISEASE, UNSPECIFIED (8) Breast cancer Code(s): C50.919 - MALIGNANT NEOPLASM OF UNSP SITE OF UNSPECIFIED FEMALE BREAST Qualifiers: Laterality: unspecified laterality (9) Depression Code(s): F32.9 - MAJOR DEPRESSIVE DISORDER, SINGLE EPISODE, UNSPECIFIED (10) History of mitral valve replacement with mechanical valve Code(s): Z95.2 - PRESENCE OF PROSTHETIC HEART VALVE
[2016-08-07] MEDS: FUROSEMIDE 40 MG/4 ML INJECTABLE VIAL IVPUSH SCH ×2 (06:36→14:18)
[2016-08-07] MEDS: LEVOTHYROXINE NA 75 MCG TABLET (FP) PO SCH (06:37)
[2016-08-07 08:42] LABS: INR 1.98 (0.82-1.09); PROTHROMBIN TIME (PATIENT) 22.1 SEC (9.98-11.88)
[2016-08-07 09:21] LABS: THYROID STIMULATING HORMONE 0.87 uIU/ml (0.358-3.74); THYROXINE (T4) 12.1 ug/dl (4.8-13.9)
--- NOTE | 2016-08-07 09:28 | PN ---
Progress Note (short form) - Note Progress Note: Resting in NAD. Overall feels better. No CP or SOB. Intake & Output 08/04/16 08/05/16 08/06/16 08/07/16 23:59 23:59 23:59 23:59 Intake Total 535 133 188 324 Balance 535 133 188 324 Weight 141 lb 4.8 oz 138 lb 12.8 oz 138 lb 14.4 oz 138 lb 14.4 oz Last Vital Signs Temp Pulse Resp BP Pulse Ox 97.9 F 73 20 116/64 99 08/07/16 06:00 08/07/16 06:00 08/07/16 06:00 08/07/16 06:00 08/06/16 21:00 Active Medications Anastrozole (Arimidex -) 1 mg PO DAILY [facility] Last Admin: 08/06/16 10:22 Dose: 1 mg Aspirin (Ecotrin -) 81 mg PO DAILY [facility] Last Admin: 08/06/16 10:21 Dose: 81 mg Calcium Carbonate/Cholecalciferol (Os-Nura 500+D -) 1 tab PO DAILY [facility] Last Admin: 08/06/16 10:21 Dose: 1 tab Digoxin (Lanoxin -) 0.125 mg PO Q2D@1000 [facility] Last Admin: 08/05/16 10:58 Dose: 0.125 mg Escitalopram Oxalate (Lexapro -) 10 mg PO DAILY [facility] Last Admin: 08/06/16 10:21 Dose: 10 mg Furosemide (Lasix Injection -) 60 mg IVPUSH BIDLASIX [facility] Last Admin: 08/07/16 06:36 Dose: 60 mg Heparin Sodium (Porcine) (Heparin -) 1,000 unit IVPUSH PRN PRN PRN Reason: Heparin Last Admin: 08/02/16 18:00 Dose: 1,000 unit Heparin Sodium (Porcine) (Heparin -) 5,000 unit IVPUSH PRN PRN PRN Reason: Heparin Heparin Sodium (Porcine) 25, (000 unit/ Sodium Chloride) 500 mls @ 16 mls/hr IV TITR MAI; 800 UNIT/HR PRN Reason: Protocol Last Admin: 08/06/16 13:59 Dose: 7 mls/hr Levothyroxine Sodium (Synthroid -) 75 mcg PO DAILY@0700 [facility] Last Admin: 08/07/16 06:37 Dose: 75 mcg Non-Formulary Medication (Salmeterol Xinafoate [Serevent Diskus]) 50 mcg IH ASDIR [facility] Potassium Chloride (K-Dur -) 20 meq PO DAILY [facility] Last Admin: 08/06/16 10:21 Dose: 20 meq Quetiapine Fumarate (Seroquel -) 25 mg PO HS [facility] Last Admin: 08/06/16 21:49 Dose: 25 mg Warfarin Sodium 2.5 mg/ (Warfarin Sodium 2 mg) 4.5 mg PO DAILY@1800 [facility] Last Admin: 08/06/16 18:19 Dose: 4.5 mg Constitutional: Yes: NAD Eyes: Yes: Conjunctiva Clear, EOM Intact HENT: Yes: Atraumatic, Normocephalic Neck: Yes: Supple, Trachea Midline Cardiovascular: Yes: Pulse Irregular, Murmur (systolic), Other (mechanical click ) Respiratory: Yes: Decrease in Bibasilar Rales / Rhonchi ...Clubbing: No Gastrointestinal: Yes: Normal Bowel Sounds, Soft. No: Tenderness Edema: Yes Neurological: Yes: Alert, Oriented Labs: Laboratory Results - last 24 hr 08/06/16 08/07/16 08/07/16 06:00 07:59 07:59 INR 1.98 H PTT (Actin FS) 66.0 H Sodium 141 Potassium 3.6 Chloride 86 L Carbon Dioxide 58 H Anion Gap -3 L BUN 33 H Creatinine 0.9 Creat Clearance w eGFR > 60 Random Glucose 96 Calcium 8.8 Total Bilirubin 1.1 H AST 29 ALT 30 Alkaline Phosphatase 190 H Total Protein 7.7 Albumin 3.5 TSH 0.87 D Problem List - Problems (1) Acute on chronic diastolic (congestive) heart failure Code(s): I50.33 - ACUTE ON CHRONIC DIASTOLIC (CONGESTIVE) HEART FAILURE (2) Afib Code(s): I48.91 - UNSPECIFIED ATRIAL FIBRILLATION (3) COPD (chronic obstructive pulmonary disease) Code(s): J44.9 - CHRONIC OBSTRUCTIVE PULMONARY DISEASE, UNSPECIFIED (4) Pulmonary HTN Code(s): I27.2 - OTHER SECONDARY PULMONARY HYPERTENSION (5) History of mitral valve replacement with mechanical valve Code(s): Z95.2 - PRESENCE OF PROSTHETIC HEART VALVE (6) Chronic respiratory failure with hypoxia Code(s): J96.11 - CHRONIC RESPIRATORY FAILURE WITH HYPOXIA Assessment/Plan Acute on Chronic Diastolic Heart Failure Atrial Fibrillation s/p mechanical MVR Severe Pulmonary HTN Pleural Effusions COPD Chronic Hypoxic Respiratory Failure HTN - Lasix - monitor urine output, creatinine - daily weights, I/Os - rate controlled - AC - O2 to keep Spo2 >90% - inhaled bronchodilators - No Pulmonary contraindication for D/C planning Dr Gill
[2016-08-07] MEDS ORDERED: PT OWN MED DRAWER 7, Y5N ONE (09:46)
[2016-08-07] MEDS: ASPIRIN COATED 81 MG TABLET.EC PO SCH (10:07)
[2016-08-07] MEDS: POTASSIUM CHLORIDE TABS 20 MEQ TABLET.ER (FP) PO SCH (10:07)
[2016-08-07] MEDS: ANASTROZOLE 1 MG TABLET PO SCH (10:07)
[2016-08-07] MEDS: ESCITALOPRAM OXALATE 10 MG TABLET (FP) PO SCH (10:07)
[2016-08-07] MEDS: DIGOXIN 0.125 MG TABLET (FP) PO SCH (10:07)
[2016-08-07] MEDS: CALCIUM 500MG/VIT-D 200 UNITS COMBO TABLET (FP) PO SCH (10:08)
[2016-08-07] MEDS: HEPARIN - 25,000 UNIT in SODIUM CHLORIDE 495 ML IV SCH (11:15)
--- NOTE | 2016-08-07 12:41 | PN ---
Progress Note, Physician History of Present Illness: seen and examined today in nad. states she is feeling much better today. no overnight events. no new complaints. - Current Medication List Current Medications: Active Medications Anastrozole (Arimidex -) 1 mg PO DAILY [facility] Last Admin: 08/07/16 10:07 Dose: 1 mg Aspirin (Ecotrin -) 81 mg PO DAILY [facility] Last Admin: 08/07/16 10:07 Dose: 81 mg Calcium Carbonate/Cholecalciferol (Os-Nura 500+D -) 1 tab PO DAILY [facility] Last Admin: 08/07/16 10:08 Dose: 1 tab Digoxin (Lanoxin -) 0.125 mg PO Q2D@1000 [facility] Last Admin: 08/07/16 10:07 Dose: 0.125 mg Escitalopram Oxalate (Lexapro -) 10 mg PO DAILY [facility] Last Admin: 08/07/16 10:07 Dose: 10 mg Furosemide (Lasix Injection -) 60 mg IVPUSH BIDLASIX [facility] Last Admin: 08/07/16 06:36 Dose: 60 mg Heparin Sodium (Porcine) (Heparin -) 1,000 unit IVPUSH PRN PRN PRN Reason: Heparin Last Admin: 08/02/16 18:00 Dose: 1,000 unit Heparin Sodium (Porcine) (Heparin -) 5,000 unit IVPUSH PRN PRN PRN Reason: Heparin Heparin Sodium (Porcine) 25, (000 unit/ Sodium Chloride) 500 mls @ 16 mls/hr IV TITR MIA; 800 UNIT/HR PRN Reason: Protocol Last Admin: 08/06/16 13:59 Dose: 7 mls/hr Levothyroxine Sodium (Synthroid -) 75 mcg PO DAILY@0700 [facility] Last Admin: 08/07/16 06:37 Dose: 75 mcg Non-Formulary Medication (Salmeterol Xinafoate [Serevent Diskus]) 50 mcg IH ASDIR [facility] Potassium Chloride (K-Dur -) 20 meq PO DAILY [facility] Last Admin: 08/07/16 10:07 Dose: 20 meq Quetiapine Fumarate (Seroquel -) 25 mg PO HS [facility] Last Admin: 08/06/16 21:49 Dose: 25 mg Warfarin Sodium (Coumadin -) 5 mg PO DAILY@1800 [facility] - Objective Vital Signs: Vital Signs Temperature 99.1 F 08/07/16 10:00 Pulse Rate 81 08/07/16 10:07 Respiratory Rate 20 08/07/16 10:00 Blood Pressure 116/52 08/07/16 10:00 O2 Sat by Pulse Oximetry (%) 97 08/07/16 09:00 Constitutional: Yes: No Distress, Calm Eyes: Yes: Conjunctiva Clear, EOM Intact, PERRL HENT: Yes: Atraumatic, Normocephalic Neck: Yes: Supple, Trachea Midline Cardiovascular: Yes: Pulse Irregular, Murmur, S1, S2, Other (mechanical MVR heard). No: Regular Rate and Rhythm, Bradycardia, Tachycardia, Bruit, JVD, Gallop, Rub, S3, S4, Varicosities Respiratory: Yes: Regular, Diminished, On Nasal O2, Rales. No: Rhonchi, SOB, Wheezes Gastrointestinal: Yes: Normal Bowel Sounds, Soft. No: Distention, Tenderness Edema: Yes Edema: LLE: 2+, RLE: 2+ Peripheral Pulses WNL: Yes Peripheral Pulses: Left Doralis Pedis: 2+, Right Dorsalis Pedis: 2+ Integumentary: Yes: Venous Stasis Changes Neurological: Yes: Alert, Oriented Psychiatric: Yes: Alert, Oriented Labs: CBC, BMP 08/06/16 06:00 08/06/16 06:00 INR, PTT INR 1.98 (0.82-1.09) H 08/07/16 07:59 - ....Imaging Chest X-ray: Report Reviewed, Image Reviewed EKG: Report Reviewed, Image Reviewed Other: Report Reviewed, Image Reviewed Assessment/Plan IMP: Afib Mechanical MVR with subtherapeutic INR Acute on chronic diastolic CHF PHTN COPD, chronic Breast CA Pleural effusion REC: Volume status slowly improving I/Os not recorded Weight same as yesterday Cont Lasix 60mg IV BID Monitor daily labs, bun/creat, electrolytes and replete as needed, labs pending today Cont hep gtt bridge to coumadin for goal INR 2.5-3.5 (mechanical MVR) Increase coumadin to 5mg daily with an extra dose now (in addition to 5mg she will receive tonight) Echo showed normal LV and RV systolic function, normal functioning MVR, Mod-sev PAH, TR, no pericardial effusion HR adequately controlled, cont Digoxin
[2016-08-07] MEDS ORDERED: WARFARIN NA 5 MG TABLET (UD) PO ONE (13:15)
[2016-08-07] MEDS: WARFARIN NA 5 MG TABLET (UD) PO SCH (17:43)
--- NOTE | 2016-08-07 21:13 | CONSULT ---
Consult - text type - Consultation Consultation Note: NEUROLOGY CONSULTATION is greatly appreciated: This 76 yo RH woman lives with her grandson. PMH sig for HTN, Chol, hypothyroidism, ASHD, CHF, AFib, COPD, S/P MVR, Breast CA s/p lumpectomy, depression. On Arimidex, coumadin, lexapro (5mg), lasix, digoxin, synthroid, seroquel (25 hs ). Admitted with SOB, leg swelling and deterioration of gait. Soon found to be confused. B12, RPR, TSH are normal or negative. TANJA: No bruits. s/p sternotomy. No external head trauma. 2 + Pretibial edema with brawny, atrophic changes NEURO: [facility]. No month, no year. Recall 1 of 3 @ 3 mins. Speech fluent in Vietnamese and Senegalese. +Glabella, snout and grasps. CN II-XII: Normal Motor: Intermittent tremor on Right. No drift. +Cogwheeling on Right with reinforcement. Brisk reflexes except absent AJ's. Toes downgoing Coord: No FTN dystaxia Sensory: Decreased vib both feet Gait: Unsteady, shuffling. Marche a petit pas. Retropulsive. IMP: 1. Moderately severe B/L cerebral dysfunction (OMS, Chronic features). Alzheimer's Disease (AD) vs. Multiinfarct. 2. Extrapyramidal features (R>L). 3. Peripheral neuropathy +/- LS spinal stenosis. SUGGEST: CT of head (C-) PT for gait with walker. Donepezil 5 mg PO after breakfast. Social service consultation. Neuro f/u as out patient. Thank you very much, Juan C Bee MD
[2016-08-07] MEDS: QUEtiapine FUMARATE 25 MG TABLET (FP) PO SCH (21:56)
--- NOTE | 2016-08-07 23:41 | PN ---
Progress Note, Physician - Current Medication List Current Medications: Active Medications Anastrozole (Arimidex -) 1 mg PO DAILY [facility] Last Admin: 08/07/16 10:07 Dose: 1 mg Aspirin (Ecotrin -) 81 mg PO DAILY [facility] Last Admin: 08/07/16 10:07 Dose: 81 mg Calcium Carbonate/Cholecalciferol (Os-Nura 500+D -) 1 tab PO DAILY [facility] Last Admin: 08/07/16 10:08 Dose: 1 tab Digoxin (Lanoxin -) 0.125 mg PO Q2D@1000 [facility] Last Admin: 08/07/16 10:07 Dose: 0.125 mg Donepezil HCl (Aricept -) 5 mg PO DAILY [facility] Escitalopram Oxalate (Lexapro -) 10 mg PO DAILY [facility] Last Admin: 08/07/16 10:07 Dose: 10 mg Furosemide (Lasix Injection -) 60 mg IVPUSH BIDLASIX [facility] Last Admin: 08/07/16 14:18 Dose: 60 mg Heparin Sodium (Porcine) (Heparin -) 1,000 unit IVPUSH PRN PRN PRN Reason: Heparin Last Admin: 08/02/16 18:00 Dose: 1,000 unit Heparin Sodium (Porcine) (Heparin -) 5,000 unit IVPUSH PRN PRN PRN Reason: Heparin Heparin Sodium (Porcine) 25, (000 unit/ Sodium Chloride) 500 mls @ 16 mls/hr IV TITR MIA; 800 UNIT/HR PRN Reason: Protocol Last Admin: 08/07/16 11:15 Dose: 7 mls/hr Levothyroxine Sodium (Synthroid -) 75 mcg PO DAILY@0700 [facility] Last Admin: 08/07/16 06:37 Dose: 75 mcg Non-Formulary Medication (Salmeterol Xinafoate [Serevent Diskus]) 50 mcg IH ASDIR [facility] Potassium Chloride (K-Dur -) 20 meq PO DAILY [facility] Last Admin: 08/07/16 10:07 Dose: 20 meq Quetiapine Fumarate (Seroquel -) 25 mg PO HS [facility] Last Admin: 08/07/16 21:56 Dose: 25 mg Warfarin Sodium (Coumadin -) 5 mg PO DAILY@1800 [facility] Last Admin: 08/07/16 17:43 Dose: 5 mg - Objective Vital Signs: Vital Signs Temperature 98.2 F 08/07/16 16:00 Pulse Rate 81 08/07/16 16:00 Respiratory Rate 20 08/07/16 16:00 Blood Pressure 113/55 08/07/16 16:00 O2 Sat by Pulse Oximetry (%) 97 08/07/16 09:00 Labs: CBC, BMP 08/06/16 06:00 08/06/16 06:00 INR, PTT INR 1.98 (0.82-1.09) H 08/07/16 07:59 Problem List - Problems (1) Acute CHF Code(s): I50.9 - HEART FAILURE, UNSPECIFIED Qualifiers: Congestive heart failure type: diastolic Qualified Code(s): I50.31 - Acute diastolic (congestive) heart failure (2) Pleural effusion Code(s): J90 - PLEURAL EFFUSION, NOT ELSEWHERE CLASSIFIED (3) Afib Code(s): I48.91 - UNSPECIFIED ATRIAL FIBRILLATION (4) Dementia Code(s): F03.90 - UNSPECIFIED DEMENTIA WITHOUT BEHAVIORAL DISTURBANCE (5) Hypothyroid Code(s): E03.9 - HYPOTHYROIDISM, UNSPECIFIED Qualifiers: Hypothyroidism type: acquired Qualified Code(s): E03.9 - Hypothyroidism, unspecified (6) Hypertension Code(s): I10 - ESSENTIAL (PRIMARY) HYPERTENSION (7) COPD (chronic obstructive pulmonary disease) Code(s): J44.9 - CHRONIC OBSTRUCTIVE PULMONARY DISEASE, UNSPECIFIED (8) Breast cancer Code(s): C50.919 - MALIGNANT NEOPLASM OF UNSP SITE OF UNSPECIFIED FEMALE BREAST Qualifiers: Laterality: unspecified laterality (9) Depression Code(s): F32.9 - MAJOR DEPRESSIVE DISORDER, SINGLE EPISODE, UNSPECIFIED (10) History of mitral valve replacement with mechanical valve Code(s): Z95.2 - PRESENCE OF PROSTHETIC HEART VALVE
[2016-08-08] MEDS: LEVOTHYROXINE NA 75 MCG TABLET (FP) PO SCH (06:04)
[2016-08-08] MEDS: FUROSEMIDE 40 MG/4 ML INJECTABLE VIAL IVPUSH SCH ×4 (06:05→20:10)
[2016-08-08 07:41] LABS: INR 2.42 (0.82-1.09); PROTHROMBIN TIME (PATIENT) 27.1 SEC (9.98-11.88)
[2016-08-08 07:43] LABS: ACTIVATED PTT 54.1 SECONDS (26.9-34.4)
[2016-08-08 07:45] LABS: MCH 31.9 pg (25.7-33.7); MCHC 33.2 g/dl (32.0-36.0); MEAN CELL VOLUME 96.3 fl (80-96); MEAN PLT VOLUME 9.3 fl (7.5-11.1); PLATELET COUNT 151 K/MM3 (134-434); RDW 14.6 % (11.6-15.6); WHITE BLOOD COUNT 6.3 K/mm3 (4.0-10.0)
[2016-08-08] MEDS ORDERED: PT OWN MED DRAWER 7, Y5N ONE (09:12)
--- NOTE | 2016-08-08 09:19 | PN ---
Progress Note, Physician History of Present Illness: seen and examined today in nad. states she is feeling much better, again states she wants to go home. no overnight events. no new complaints. - Current Medication List Current Medications: Active Medications Anastrozole (Arimidex -) 1 mg PO DAILY [facility] Last Admin: 08/07/16 10:07 Dose: 1 mg Aspirin (Ecotrin -) 81 mg PO DAILY [facility] Last Admin: 08/07/16 10:07 Dose: 81 mg Calcium Carbonate/Cholecalciferol (Os-Nura 500+D -) 1 tab PO DAILY [facility] Last Admin: 08/07/16 10:08 Dose: 1 tab Digoxin (Lanoxin -) 0.125 mg PO Q2D@1000 [facility] Last Admin: 08/07/16 10:07 Dose: 0.125 mg Donepezil HCl (Aricept -) 5 mg PO DAILY [facility] Escitalopram Oxalate (Lexapro -) 10 mg PO DAILY [facility] Last Admin: 08/07/16 10:07 Dose: 10 mg Furosemide (Lasix Injection -) 60 mg IVPUSH BIDLASIX [facility] Last Admin: 08/08/16 06:05 Dose: 60 mg Heparin Sodium (Porcine) (Heparin -) 1,000 unit IVPUSH PRN PRN PRN Reason: Heparin Last Admin: 08/02/16 18:00 Dose: 1,000 unit Heparin Sodium (Porcine) (Heparin -) 5,000 unit IVPUSH PRN PRN PRN Reason: Heparin Heparin Sodium (Porcine) 25, (000 unit/ Sodium Chloride) 500 mls @ 16 mls/hr IV TITR MIA; 800 UNIT/HR PRN Reason: Protocol Last Admin: 08/07/16 11:15 Dose: 7 mls/hr Levothyroxine Sodium (Synthroid -) 75 mcg PO DAILY@0700 [facility] Last Admin: 08/08/16 06:04 Dose: 75 mcg Non-Formulary Medication (Salmeterol Xinafoate [Serevent Diskus]) 50 mcg ASDIR [facility] Potassium Chloride (K-Dur -) 20 meq PO DAILY [facility] Last Admin: 08/07/16 10:07 Dose: 20 meq Quetiapine Fumarate (Seroquel -) 25 mg PO HS [facility] Last Admin: 08/07/16 21:56 Dose: 25 mg Warfarin Sodium (Coumadin -) 5 mg PO DAILY@1800 [facility] Last Admin: 08/07/16 17:43 Dose: 5 mg - Objective Vital Signs: Vital Signs Temperature 98.4 F 08/08/16 06:00 Pulse Rate 76 08/08/16 06:00 Respiratory Rate 20 08/08/16 06:00 Blood Pressure 131/61 08/08/16 06:00 O2 Sat by Pulse Oximetry (%) 98 08/07/16 21:00 Constitutional: Yes: No Distress, Calm Eyes: Yes: Conjunctiva Clear, EOM Intact, PERRL HENT: Yes: Atraumatic, Normocephalic Neck: Yes: Supple, Trachea Midline Cardiovascular: Yes: Pulse Irregular, Murmur, S1, S2, Other (mechanical MVR heard). No: Regular Rate and Rhythm, Bradycardia, Tachycardia, Bruit, JVD, Gallop, Rub, S3, S4, Varicosities Respiratory: Yes: Regular, Diminished, On Nasal O2, Rales. No: Rhonchi, SOB, Wheezes Gastrointestinal: Yes: Normal Bowel Sounds, Soft. No: Distention, Tenderness Musculoskeletal: Yes: Muscle Weakness Edema: Yes Edema: LLE: 1+, RLE: 1+ Peripheral Pulses WNL: Yes Peripheral Pulses: Left Doralis Pedis: 2+, Right Dorsalis Pedis: 2+ Integumentary: Yes: Venous Stasis Changes Neurological: Yes: Alert, Oriented Psychiatric: Yes: Alert, Oriented Labs: CBC, BMP 08/08/16 06:10 08/06/16 06:00 INR, PTT INR 2.42 (0.82-1.09) H 08/08/16 06:10 - ....Imaging Chest X-ray: Report Reviewed, Image Reviewed EKG: Report Reviewed, Image Reviewed Other: Report Reviewed, Image Reviewed Assessment/Plan IMP: Afib Mechanical MVR with subtherapeutic INR Acute on chronic diastolic CHF PHTN COPD, chronic Breast CA Pleural effusion REC: Volume status slowly improving, still volume overloaded but close to her baseline, unlikely to achieve complete euvolemic state during admission without risk of intravascular depletion I/Os not recorded Weight not recorded yet today Cont Lasix 60mg IV BID Monitor daily labs, bun/creat, electrolytes and replete as needed Cont hep gtt bridge to coumadin for goal INR 2.5-3.5 (mechanical MVR). INR finally increasing, slightly below target today Cont coumadin 5mg daily Echo showed normal LV and RV systolic function, normal functioning MVR, Mod-sev PAH, TR, no pericardial effusion HR adequately controlled, cont Digoxin From a cardiac standpoint can start discharge planning, ideally INR would be 2.5 -3.5 prior to discharge and volume status would improve a bit more with a plan for further diuresis as outpatient
[2016-08-08] MEDS: CALCIUM 500MG/VIT-D 200 UNITS COMBO TABLET (FP) PO SCH (09:23)
[2016-08-08] MEDS: POTASSIUM CHLORIDE TABS 20 MEQ TABLET.ER (FP) PO SCH (09:23)
[2016-08-08] MEDS: ESCITALOPRAM OXALATE 10 MG TABLET (FP) PO SCH (09:23)
[2016-08-08] MEDS: ANASTROZOLE 1 MG TABLET PO SCH (09:24)
[2016-08-08] MEDS: ASPIRIN COATED 81 MG TABLET.EC PO SCH (09:24)
[2016-08-08] MEDS: DONEPEZIL HCL 5 MG TABLET (FP) PO SCH (09:24)
[2016-08-08] MEDS: HEPARIN - 25,000 UNIT in SODIUM CHLORIDE 495 ML IV SCH ×2 (10:57→20:10)
--- NOTE | 2016-08-08 12:38 | PN ---
Progress Note (short form) - Note Progress Note: PULMONARY spo2 98% on o2 3L/M OOB TO CHAIR SUBJECTIVE IMPROVEMENT ANICTERIC DISTANT BUT CLEAR S1S2 MECHANICAL VALVE BS+ LESS EDEMA LABS/MEDS/NOTES/IMAGING/ECHO/REVIEWED Acute on Chronic Diastolic Heart Failure Atrial Fibrillation s/p mechanical MVR Severe Pulmonary HTN Pleural Effusions COPD Chronic Hypoxic Respiratory Failure HTN - diuretics - daily weights - rate controlled - continue anticoagulation - O2 to keep Spo2 >90% - inhaled bronchodilators - discharge planning Alis ASUL MD
[2016-08-08] MEDS ORDERED: QUEtiapine FUMARATE 25 MG TABLET (FP) PO ONE (16:00)
[2016-08-08] MEDS ORDERED: HALOPERIDOL LACTATE 5 MG/ML IM ONE (17:30)
[2016-08-08] MEDS ORDERED: HALOPERIDOL LACTATE 5 MG/ML ONE (17:32)
[2016-08-08] MEDS: WARFARIN NA 5 MG TABLET (UD) PO SCH ×2 (17:36→19:55)
[2016-08-08] MEDS: QUEtiapine FUMARATE 25 MG TABLET (FP) PO SCH ×2 (19:56→23:23)
--- NOTE | 2016-08-08 19:59 | PN ---
Progress Note, Physician - Current Medication List Current Medications: Active Medications Anastrozole (Arimidex -) 1 mg PO DAILY [facility] Last Admin: 08/08/16 09:24 Dose: 1 mg Aspirin (Ecotrin -) 81 mg PO DAILY [facility] Last Admin: 08/08/16 09:24 Dose: 81 mg Calcium Carbonate/Cholecalciferol (Os-Nura 500+D -) 1 tab PO DAILY [facility] Last Admin: 08/08/16 09:23 Dose: 1 tab Digoxin (Lanoxin -) 0.125 mg PO Q2D@1000 [facility] Last Admin: 08/07/16 10:07 Dose: 0.125 mg Donepezil HCl (Aricept -) 5 mg PO DAILY [facility] Last Admin: 08/08/16 09:24 Dose: 5 mg Escitalopram Oxalate (Lexapro -) 10 mg PO DAILY [facility] Last Admin: 08/08/16 09:23 Dose: 10 mg Furosemide (Lasix Injection -) 60 mg IVPUSH BIDLASIX [facility] Last Admin: 08/08/16 19:55 Dose: Not Given Heparin Sodium (Porcine) (Heparin -) 1,000 unit IVPUSH PRN PRN PRN Reason: Heparin Last Admin: 08/02/16 18:00 Dose: 1,000 unit Heparin Sodium (Porcine) (Heparin -) 5,000 unit IVPUSH PRN PRN PRN Reason: Heparin Heparin Sodium (Porcine) 25, (000 unit/ Sodium Chloride) 500 mls @ 16 mls/hr IV TITR MIA; 800 UNIT/HR PRN Reason: Protocol Last Admin: 08/08/16 10:57 Dose: 7 mls/hr Levothyroxine Sodium (Synthroid -) 75 mcg PO DAILY@0700 [facility] Last Admin: 08/08/16 06:04 Dose: 75 mcg Potassium Chloride (K-Dur -) 20 meq PO DAILY [facility] Last Admin: 08/08/16 09:23 Dose: 20 meq Quetiapine Fumarate (Seroquel -) 25 mg PO HS [facility] Last Admin: 08/07/16 21:56 Dose: 25 mg Warfarin Sodium (Coumadin -) 5 mg PO DAILY@1800 [facility] Last Admin: 08/08/16 17:36 Dose: Not Given - Objective Vital Signs: Vital Signs Temperature 98.3 F 08/08/16 18:00 Pulse Rate 88 08/08/16 18:00 Respiratory Rate 20 08/08/16 18:00 Blood Pressure 125/59 08/08/16 18:00 O2 Sat by Pulse Oximetry (%) 98 08/08/16 09:00 Labs: CBC, BMP 08/08/16 06:10 08/06/16 06:00 INR, PTT INR 2.42 (0.82-1.09) H 08/08/16 06:10 Problem List - Problems (1) Acute CHF Code(s): I50.9 - HEART FAILURE, UNSPECIFIED Qualifiers: Congestive heart failure type: diastolic Qualified Code(s): I50.31 - Acute diastolic (congestive) heart failure (2) Pleural effusion Code(s): J90 - PLEURAL EFFUSION, NOT ELSEWHERE CLASSIFIED (3) Afib Code(s): I48.91 - UNSPECIFIED ATRIAL FIBRILLATION (4) Dementia Code(s): F03.90 - UNSPECIFIED DEMENTIA WITHOUT BEHAVIORAL DISTURBANCE (5) Hypothyroid Code(s): E03.9 - HYPOTHYROIDISM, UNSPECIFIED Qualifiers: Hypothyroidism type: acquired Qualified Code(s): E03.9 - Hypothyroidism, unspecified (6) Hypertension Code(s): I10 - ESSENTIAL (PRIMARY) HYPERTENSION (7) COPD (chronic obstructive pulmonary disease) Code(s): J44.9 - CHRONIC OBSTRUCTIVE PULMONARY DISEASE, UNSPECIFIED (8) Breast cancer Code(s): C50.919 - MALIGNANT NEOPLASM OF UNSP SITE OF UNSPECIFIED FEMALE BREAST Qualifiers: Laterality: unspecified laterality (9) Depression Code(s): F32.9 - MAJOR DEPRESSIVE DISORDER, SINGLE EPISODE, UNSPECIFIED (10) History of mitral valve replacement with mechanical valve Code(s): Z95.2 - PRESENCE OF PROSTHETIC HEART VALVE
[2016-08-09] MEDS: LEVOTHYROXINE NA 75 MCG TABLET (FP) PO SCH (06:06)
[2016-08-09] MEDS: FUROSEMIDE 40 MG/4 ML INJECTABLE VIAL IVPUSH SCH ×2 (06:06→16:46)
[2016-08-09 08:04] LABS: INR 2.6 (0.82-1.09); PROTHROMBIN TIME (PATIENT) 29.2 SEC (9.98-11.88)
[2016-08-09 08:07] LABS: ACTIVATED PTT 57.4 SECONDS (26.9-34.4)
[2016-08-09] MEDS: DIGOXIN 0.125 MG TABLET (FP) PO SCH (10:54)
[2016-08-09] MEDS: DONEPEZIL HCL 5 MG TABLET (FP) PO SCH (10:54)
[2016-08-09] MEDS: ESCITALOPRAM OXALATE 10 MG TABLET (FP) PO SCH (10:55)
[2016-08-09] MEDS: ANASTROZOLE 1 MG TABLET PO SCH (10:56)
[2016-08-09] MEDS ORDERED: PT OWN MED DRAWER 7, Y5N ONE (11:03)
--- NOTE | 2016-08-09 11:25 | PN ---
Progress Note (short form) - Note Progress Note: PULMONARY OOB TO CHAIR AGITATED AND REFUSING MEDS AFEBRILE/VSS/SPO2 96% ON NASAL O2 ANICTERIC DISTANT BUT CLEAR S1S2 MECHANICAL VALVE BS+ LESS EDEMA LABS/MEDS/NOTES/IMAGING/ECHO/REVIEWED Acute on Chronic Diastolic Heart Failure Agitation etiology? Atrial Fibrillation s/p mechanical MVR Severe Pulmonary HTN Pleural Effusions COPD Chronic Hypoxic Respiratory Failure HTN - diuretics - daily weights - rate controlled - continue anticoagulation - O2 to keep Spo2 >90% - inhaled bronchodilators - check official report ct brain Alis SAUL MD
--- NOTE | 2016-08-09 12:41 | CON.PSY ---
Psychiatry Consult Chief Complaint: Patient spoken thru her daughter.Patient according to daughter she is very upset being here. Daughterv reports thst her mom's mental status has been ok. - Current Medications Current Medications: Active Medications Anastrozole (Arimidex -) 1 mg PO DAILY [facility] Last Admin: 08/08/16 09:24 Dose: 1 mg Aspirin (Ecotrin -) 81 mg PO DAILY [facility] Last Admin: 08/08/16 09:24 Dose: 81 mg Calcium Carbonate/Cholecalciferol (Os-Nura 500+D -) 1 tab PO DAILY [facility] Last Admin: 08/08/16 09:23 Dose: 1 tab Digoxin (Lanoxin -) 0.125 mg PO Q2D@1000 [facility] Last Admin: 08/07/16 10:07 Dose: 0.125 mg Donepezil HCl (Aricept -) 5 mg PO DAILY [facility] Last Admin: 08/08/16 09:24 Dose: 5 mg Escitalopram Oxalate (Lexapro -) 10 mg PO DAILY [facility] Last Admin: 08/08/16 09:23 Dose: 10 mg Furosemide (Lasix Injection -) 60 mg IVPUSH BIDLASIX [facility] Last Admin: 08/09/16 06:06 Dose: 60 mg Heparin Sodium (Porcine) (Heparin -) 1,000 unit IVPUSH PRN PRN PRN Reason: Heparin Last Admin: 08/02/16 18:00 Dose: 1,000 unit Heparin Sodium (Porcine) (Heparin -) 5,000 unit IVPUSH PRN PRN PRN Reason: Heparin Heparin Sodium (Porcine) 25, (000 unit/ Sodium Chloride) 500 mls @ 16 mls/hr IV TITR MIA; 800 UNIT/HR PRN Reason: Protocol Last Admin: 08/08/16 20:10 Dose: 7 mls/hr Levothyroxine Sodium (Synthroid -) 75 mcg PO DAILY@0700 [facility] Last Admin: 08/09/16 06:06 Dose: 75 mcg Potassium Chloride (K-Dur -) 20 meq PO DAILY [facility] Last Admin: 08/08/16 09:23 Dose: 20 meq Quetiapine Fumarate (Seroquel -) 25 mg PO HS [facility] Last Admin: 08/08/16 23:23 Dose: Not Given Warfarin Sodium (Coumadin -) 5 mg PO DAILY@1800 [facility] Last Admin: 08/08/16 19:55 Dose: 5 mg - Allergies Allergies: Allergies Allergy/AdvReac Type Severity Reaction Status Date / Time No Known Allergies Allergy Verified 09/12/15 16:14
--- NOTE | 2016-08-09 14:17 | PN ---
Progress Note, Physician - Current Medication List Current Medications: Active Medications Anastrozole (Arimidex -) 1 mg PO DAILY [facility] Last Admin: 08/08/16 09:24 Dose: 1 mg Aspirin (Ecotrin -) 81 mg PO DAILY [facility] Last Admin: 08/08/16 09:24 Dose: 81 mg Calcium Carbonate/Cholecalciferol (Os-Nura 500+D -) 1 tab PO DAILY [facility] Last Admin: 08/08/16 09:23 Dose: 1 tab Digoxin (Lanoxin -) 0.125 mg PO Q2D@1000 [facility] Last Admin: 08/07/16 10:07 Dose: 0.125 mg Donepezil HCl (Aricept -) 5 mg PO DAILY [facility] Last Admin: 08/08/16 09:24 Dose: 5 mg Escitalopram Oxalate (Lexapro -) 10 mg PO DAILY [facility] Last Admin: 08/08/16 09:23 Dose: 10 mg Furosemide (Lasix Injection -) 60 mg IVPUSH BIDLASIX [facility] Last Admin: 08/09/16 06:06 Dose: 60 mg Heparin Sodium (Porcine) (Heparin -) 1,000 unit IVPUSH PRN PRN PRN Reason: Heparin Last Admin: 08/02/16 18:00 Dose: 1,000 unit Heparin Sodium (Porcine) (Heparin -) 5,000 unit IVPUSH PRN PRN PRN Reason: Heparin Heparin Sodium (Porcine) 25, (000 unit/ Sodium Chloride) 500 mls @ 16 mls/hr IV TITR MIA; 800 UNIT/HR PRN Reason: Protocol Last Admin: 08/08/16 20:10 Dose: 7 mls/hr Levothyroxine Sodium (Synthroid -) 75 mcg PO DAILY@0700 [facility] Last Admin: 08/09/16 06:06 Dose: 75 mcg Potassium Chloride (K-Dur -) 20 meq PO DAILY [facility] Last Admin: 08/08/16 09:23 Dose: 20 meq Quetiapine Fumarate (Seroquel -) 25 mg PO HS [facility] Last Admin: 08/08/16 23:23 Dose: Not Given Warfarin Sodium (Coumadin -) 5 mg PO DAILY@1800 [facility] Last Admin: 08/08/16 19:55 Dose: 5 mg - Objective Vital Signs: Vital Signs Temperature 98.4 F 08/09/16 05:46 Pulse Rate 78 08/09/16 05:46 Respiratory Rate 20 08/09/16 05:46 Blood Pressure 115/65 08/09/16 05:46 O2 Sat by Pulse Oximetry (%) 96 08/08/16 21:00 Eyes: Yes: WNL, Conjunctiva Clear, EOM Intact HENT: Yes: WNL, Atraumatic, Normocephalic Neck: Yes: WNL, Supple, Trachea Midline Cardiovascular: Yes: WNL, Regular Rate and Rhythm Respiratory: Yes: WNL, Regular, CTA Bilaterally Gastrointestinal: Yes: WNL, Normal Bowel Sounds Genitourinary: Yes: WNL Musculoskeletal: Yes: WNL Extremities: Yes: WNL Edema: No Integumentary: Yes: WNL Neurological: Yes: WNL, Alert, Oriented ...Motor Strength: WNL Psychiatric: Yes: WNL Labs: CBC, BMP 08/08/16 06:10 08/06/16 06:00 INR, PTT INR 2.60 (0.82-1.09) H 08/09/16 06:00 Assessment/Plan (1) Lactic acid acidosis Code(s): E87.2 - ACIDOSIS (2) Pulmonary embolism Assessment/Plan: s/p TPa; AV thrombectomy. Changed IV heparin to PO apixaban. Normal LVEF; severely dilated RV, with severely reduced RVEF (f/u ECHO in 3-6 months as outpatient). Avoid dehydration. Code(s): I26.99 - OTHER PULMONARY EMBOLISM WITHOUT ACUTE COR PULMONALE (3) Sepsis Assessment/Plan: On antibiotics; f/u C/s. Dementia: on namenda and SSRI. Code(s): A41.9 - SEPSIS, UNSPECIFIED ORGANISM Qualifiers: Qualified Code(s): A41.9 - Sepsis, unspecified organism (4) Elevated LFTs Code(s): R79.89 - OTHER SPECIFIED ABNORMAL FINDINGS OF BLOOD CHEMISTRY (5) Elevated troponin Assessment/Plan: EKG: sinus tachycrdia; no acute ST-T changes. demand ischemia, with acute PE, CHF, and sepsis contributing factors to increase in TNI. f/u lipids. hypothyroid: f/u Free T3 and free T4. Code(s): R74.8 - ABNORMAL LEVELS OF OTHER SERUM ENZYMES (6) Diastolic CHF Assessment/Plan: CXR: RLL consolidation. Acute PE. F/u BNP. Code(s): I50.30 - UNSPECIFIED DIASTOLIC (CONGESTIVE) HEART FAILURE
[2016-08-09] MEDS: HEPARIN - 25,000 UNIT in SODIUM CHLORIDE 495 ML IV SCH (15:55)
[2016-08-09] MEDS: POTASSIUM CHLORIDE TABS 20 MEQ TABLET.ER (FP) PO SCH (15:56)
[2016-08-09] MEDS: ASPIRIN COATED 81 MG TABLET.EC PO SCH (15:56)
[2016-08-09] MEDS: CALCIUM 500MG/VIT-D 200 UNITS COMBO TABLET (FP) PO SCH (15:56)
[2016-08-09] MEDS ORDERED: FUROSEMIDE 100 MG/10 ML INJECTABLE VIAL ONE (15:58)
[2016-08-09] MEDS: WARFARIN NA 5 MG TABLET (UD) PO SCH (17:12)
--- NOTE | 2016-08-09 19:44 | PN ---
Progress Note, Physician - Current Medication List Current Medications: Active Medications Anastrozole (Arimidex -) 1 mg PO DAILY [facility] Last Admin: 08/09/16 10:56 Dose: 1 mg Aspirin (Ecotrin -) 81 mg PO DAILY [facility] Last Admin: 08/09/16 15:56 Dose: Not Given Calcium Carbonate/Cholecalciferol (Os-Nura 500+D -) 1 tab PO DAILY [facility] Last Admin: 08/09/16 15:56 Dose: Not Given Digoxin (Lanoxin -) 0.125 mg PO Q2D@1000 [facility] Last Admin: 08/09/16 10:54 Dose: 0.125 mg Donepezil HCl (Aricept -) 5 mg PO DAILY [facility] Last Admin: 08/09/16 10:54 Dose: 5 mg Escitalopram Oxalate (Lexapro -) 10 mg PO DAILY [facility] Last Admin: 08/09/16 10:55 Dose: 10 mg Furosemide (Lasix Injection -) 60 mg IVPUSH BIDLASIX [facility] Last Admin: 08/09/16 16:46 Dose: 60 mg Heparin Sodium (Porcine) (Heparin -) 1,000 unit IVPUSH PRN PRN PRN Reason: Heparin Last Admin: 08/02/16 18:00 Dose: 1,000 unit Heparin Sodium (Porcine) (Heparin -) 5,000 unit IVPUSH PRN PRN PRN Reason: Heparin Heparin Sodium (Porcine) 25, (000 unit/ Sodium Chloride) 500 mls @ 16 mls/hr IV TITR [facility]; 800 UNIT/HR PRN Reason: Protocol Last Admin: 08/09/16 15:55 Dose: Not Given Levothyroxine Sodium (Synthroid -) 75 mcg PO DAILY@0700 [facility] Last Admin: 08/09/16 06:06 Dose: 75 mcg Potassium Chloride (K-Dur -) 20 meq PO DAILY [facility] Last Admin: 08/09/16 15:56 Dose: Not Given Quetiapine Fumarate (Seroquel -) 25 mg PO HS [facility] Last Admin: 08/08/16 23:23 Dose: Not Given Warfarin Sodium (Coumadin -) 5 mg PO DAILY@1800 [facility] Last Admin: 08/09/16 17:12 Dose: 5 mg - Objective Vital Signs: Vital Signs Temperature 99.2 F 08/09/16 18:00 Pulse Rate 92 H 08/09/16 18:00 Respiratory Rate 20 08/09/16 18:00 Blood Pressure 125/64 08/09/16 18:00 O2 Sat by Pulse Oximetry (%) 97 08/09/16 09:00 Labs: CBC, BMP 08/08/16 06:10 08/06/16 06:00 INR, PTT INR 2.60 (0.82-1.09) H 08/09/16 06:00 Problem List - Problems (1) Acute CHF Code(s): I50.9 - HEART FAILURE, UNSPECIFIED Qualifiers: Congestive heart failure type: diastolic Qualified Code(s): I50.31 - Acute diastolic (congestive) heart failure (2) Pleural effusion Code(s): J90 - PLEURAL EFFUSION, NOT ELSEWHERE CLASSIFIED (3) Afib Code(s): I48.91 - UNSPECIFIED ATRIAL FIBRILLATION (4) Dementia Code(s): F03.90 - UNSPECIFIED DEMENTIA WITHOUT BEHAVIORAL DISTURBANCE (5) Hypothyroid Code(s): E03.9 - HYPOTHYROIDISM, UNSPECIFIED Qualifiers: Hypothyroidism type: acquired Qualified Code(s): E03.9 - Hypothyroidism, unspecified (6) Hypertension Code(s): I10 - ESSENTIAL (PRIMARY) HYPERTENSION (7) COPD (chronic obstructive pulmonary disease) Code(s): J44.9 - CHRONIC OBSTRUCTIVE PULMONARY DISEASE, UNSPECIFIED (8) Breast cancer Code(s): C50.919 - MALIGNANT NEOPLASM OF UNSP SITE OF UNSPECIFIED FEMALE BREAST Qualifiers: Laterality: unspecified laterality (9) Depression Code(s): F32.9 - MAJOR DEPRESSIVE DISORDER, SINGLE EPISODE, UNSPECIFIED (10) History of mitral valve replacement with mechanical valve Code(s): Z95.2 - PRESENCE OF PROSTHETIC HEART VALVE
[2016-08-09] MEDS: QUEtiapine FUMARATE 25 MG TABLET (FP) PO SCH (23:13)
[2016-08-10] MEDS: LEVOTHYROXINE NA 75 MCG TABLET (FP) PO SCH (06:34)
[2016-08-10] MEDS: FUROSEMIDE 40 MG/4 ML INJECTABLE VIAL IVPUSH SCH ×2 (06:34→16:34)
--- NOTE | 2016-08-10 10:48 | PN ---
Progress Note (short form) - Note Progress Note: PULMONARY OOB TO CHAIR SUBJECTIVE IMPROVEMENT/SMILING/COOPERATIVE AFEBRILE/VSS/SPO2 96% ON NASAL O2 ANICTERIC DISTANT BUT CLEAR S1S2 MECHANICAL VALVE BS+ LESS EDEMA LABS/MEDS/NOTES/IMAGING/ECHO/REVIEWED C5 BRAIN- Acute on Chronic Diastolic Heart Failure Agitation etiology? Atrial Fibrillation s/p mechanical MVR Severe Pulmonary HTN Pleural Effusions COPD Chronic Hypoxic Respiratory Failure HTN - diuretics - daily weights - rate controlled - continue anticoagulation - O2 to keep Spo2 >90% - inhaled bronchodilators Alis SAUL MD
[2016-08-10] MEDS: DONEPEZIL HCL 5 MG TABLET (FP) PO SCH (11:29)
[2016-08-10] MEDS: CALCIUM 500MG/VIT-D 200 UNITS COMBO TABLET (FP) PO SCH (11:30)
[2016-08-10] MEDS: POTASSIUM CHLORIDE TABS 20 MEQ TABLET.ER (FP) PO SCH (11:30)
[2016-08-10] MEDS: ESCITALOPRAM OXALATE 10 MG TABLET (FP) PO SCH (11:30)
[2016-08-10] MEDS: ANASTROZOLE 1 MG TABLET PO SCH (11:30)
[2016-08-10] MEDS: ASPIRIN COATED 81 MG TABLET.EC PO SCH (11:30)
--- NOTE | 2016-08-10 12:06 | PN ---
Progress Note, Physician - Current Medication List Current Medications: Active Medications Anastrozole (Arimidex -) 1 mg PO DAILY [facility] Last Admin: 08/10/16 11:30 Dose: 1 mg Aspirin (Ecotrin -) 81 mg PO DAILY [facility] Last Admin: 08/10/16 11:30 Dose: 81 mg Calcium Carbonate/Cholecalciferol (Os-Nura 500+D -) 1 tab PO DAILY [facility] Last Admin: 08/10/16 11:30 Dose: 1 tab Digoxin (Lanoxin -) 0.125 mg PO Q2D@1000 [facility] Last Admin: 08/09/16 10:54 Dose: 0.125 mg Donepezil HCl (Aricept -) 5 mg PO DAILY [facility] Last Admin: 08/10/16 11:29 Dose: 5 mg Escitalopram Oxalate (Lexapro -) 10 mg PO DAILY [facility] Last Admin: 08/10/16 11:30 Dose: 10 mg Furosemide (Lasix Injection -) 60 mg IVPUSH BIDLASIX [facility] Last Admin: 08/10/16 06:34 Dose: 60 mg Heparin Sodium (Porcine) (Heparin -) 1,000 unit IVPUSH PRN PRN PRN Reason: Heparin Last Admin: 08/02/16 18:00 Dose: 1,000 unit Heparin Sodium (Porcine) (Heparin -) 5,000 unit IVPUSH PRN PRN PRN Reason: Heparin Heparin Sodium (Porcine) 25, (000 unit/ Sodium Chloride) 500 mls @ 16 mls/hr IV TITR [facility]; 800 UNIT/HR PRN Reason: Protocol Last Admin: 08/09/16 15:55 Dose: Not Given Levothyroxine Sodium (Synthroid -) 75 mcg PO DAILY@0700 [facility] Last Admin: 08/10/16 06:34 Dose: 75 mcg Potassium Chloride (K-Dur -) 20 meq PO DAILY [facility] Last Admin: 08/10/16 11:30 Dose: 20 meq Quetiapine Fumarate (Seroquel -) 25 mg PO HS [facility] Last Admin: 08/09/16 23:13 Dose: 25 mg Warfarin Sodium (Coumadin -) 5 mg PO DAILY@1800 [facility] Last Admin: 08/09/16 17:12 Dose: 5 mg - Objective Vital Signs: Vital Signs Temperature 98.8 F 08/10/16 06:00 Pulse Rate 87 08/10/16 06:00 Respiratory Rate 20 08/10/16 06:00 Blood Pressure 133/72 08/10/16 06:00 O2 Sat by Pulse Oximetry (%) 97 08/09/16 21:00 Eyes: Yes: WNL, Conjunctiva Clear, EOM Intact HENT: Yes: WNL, Atraumatic, Normocephalic Neck: Yes: WNL, Supple, Trachea Midline Cardiovascular: Yes: WNL, Regular Rate and Rhythm Respiratory: Yes: WNL, Regular, CTA Bilaterally Gastrointestinal: Yes: WNL, Normal Bowel Sounds Genitourinary: Yes: WNL Musculoskeletal: Yes: WNL Extremities: Yes: WNL Edema: No Integumentary: Yes: WNL Neurological: Yes: WNL, Alert, Oriented ...Motor Strength: WNL Psychiatric: Yes: WNL Labs: CBC, BMP 08/08/16 06:10 08/06/16 06:00 INR, PTT INR 2.60 (0.82-1.09) H 08/09/16 06:00 Assessment/Plan (1) Lactic acid acidosis Code(s): E87.2 - ACIDOSIS (2) Pulmonary embolism Assessment/Plan: s/p TPa; AV thrombectomy. Changed IV heparin to PO apixaban. Normal LVEF; severely dilated RV, with severely reduced RVEF (f/u ECHO in 3-6 months as outpatient). Avoid dehydration. Code(s): I26.99 - OTHER PULMONARY EMBOLISM WITHOUT ACUTE COR PULMONALE (3) Sepsis Assessment/Plan: On antibiotics; f/u C/s. Dementia: on namenda and SSRI. Code(s): A41.9 - SEPSIS, UNSPECIFIED ORGANISM Qualifiers: Qualified Code(s): A41.9 - Sepsis, unspecified organism (4) Elevated LFTs Code(s): R79.89 - OTHER SPECIFIED ABNORMAL FINDINGS OF BLOOD CHEMISTRY (5) Elevated troponin Assessment/Plan: EKG: sinus tachycrdia; no acute ST-T changes. demand ischemia, with acute PE, CHF, and sepsis contributing factors to increase in TNI. f/u lipids. hypothyroid: f/u Free T3 and free T4. Code(s): R74.8 - ABNORMAL LEVELS OF OTHER SERUM ENZYMES (6) Diastolic CHF Assessment/Plan: CXR: RLL consolidation. Acute PE. F/u BNP. Code(s): I50.30 - UNSPECIFIED DIASTOLIC (CONGESTIVE) HEART FAILURE
[2016-08-10 15:25] LABS: BASOPHIL 0.3 % (0-2.0); EOSINOPHIL 0.9 % (0-4.5); MCH 30.7 pg (25.7-33.7); MCHC 32.2 g/dl (32.0-36.0); MEAN CELL VOLUME 95.6 fl (80-96); MEAN PLT VOLUME 9.3 fl (7.5-11.1); NEUTROPHILS 79.7 % (42.8-82.8); PLATELET COUNT 172 K/MM3 (134-434); RDW 14.3 % (11.6-15.6); WHITE BLOOD COUNT 8.2 K/mm3 (4.0-10.0)
[2016-08-10 15:47] LABS: ALBUMIN 3.8 g/dl (3.4-5.0); BILIRUBIN,TOTAL 0.9 mg/dL (0.2-1.0); CALCIUM 9.3 mg/dL (8.5-10.1); GLUCOSE,RANDOM 102 mg/dL (74-106); SGOT/AST 36 U/L (15-37); SGPT/ALT 34 U/L (12-78); TOT PROT 8.2 g/dl (6.4-8.2)
[2016-08-10 15:48] LABS: ALK PHOS 196 U/L (45-117)
[2016-08-10 15:55] LABS: INR 2.74 (0.82-1.09); PROTHROMBIN TIME (PATIENT) 30.8 SEC (9.98-11.88)
[2016-08-10 16:08] LABS: ANION GAP 2 (8-16); CO2 55 mmol/L (21-32)
[2016-08-10] MEDS ORDERED: FUROSEMIDE 100 MG/10 ML INJECTABLE VIAL ONE (16:25)
[2016-08-10] MEDS: WARFARIN NA 5 MG TABLET (UD) PO SCH (18:12)
--- NOTE | 2016-08-10 20:05 | PN ---
Progress Note, Physician History of Present Illness: No new complaints - Current Medication List Current Medications: Active Medications Anastrozole (Arimidex -) 1 mg PO DAILY [facility] Last Admin: 08/10/16 11:30 Dose: 1 mg Aspirin (Ecotrin -) 81 mg PO DAILY [facility] Last Admin: 08/10/16 11:30 Dose: 81 mg Calcium Carbonate/Cholecalciferol (Os-Nuar 500+D -) 1 tab PO DAILY [facility] Last Admin: 08/10/16 11:30 Dose: 1 tab Digoxin (Lanoxin -) 0.125 mg PO Q2D@1000 [facility] Last Admin: 08/09/16 10:54 Dose: 0.125 mg Donepezil HCl (Aricept -) 5 mg PO DAILY [facility] Last Admin: 08/10/16 11:29 Dose: 5 mg Escitalopram Oxalate (Lexapro -) 10 mg PO DAILY [facility] Last Admin: 08/10/16 11:30 Dose: 10 mg Furosemide (Lasix Injection -) 60 mg IVPUSH BIDLASIX [facility] Last Admin: 08/10/16 16:34 Dose: 60 mg Heparin Sodium (Porcine) (Heparin -) 5,000 unit IVPUSH PRN PRN PRN Reason: Heparin Levothyroxine Sodium (Synthroid -) 75 mcg PO DAILY@0700 [facility] Last Admin: 08/10/16 06:34 Dose: 75 mcg Potassium Chloride (K-Dur -) 20 meq PO DAILY [facility] Last Admin: 08/10/16 11:30 Dose: 20 meq Quetiapine Fumarate (Seroquel -) 25 mg PO HS [facility] Last Admin: 08/09/16 23:13 Dose: 25 mg Warfarin Sodium (Coumadin -) 5 mg PO DAILY@1800 [facility] Last Admin: 08/10/16 18:12 Dose: 5 mg - Objective Vital Signs: Vital Signs Temperature 98.9 F 08/10/16 15:13 Pulse Rate 77 08/10/16 15:13 Respiratory Rate 22 08/10/16 15:13 Blood Pressure 132/76 08/10/16 10:00 O2 Sat by Pulse Oximetry (%) 97 08/09/16 21:00 Constitutional: Yes: No Distress Eyes: Yes: WNL HENT: Yes: WNL Neck: Yes: WNL, Supple Cardiovascular: Yes: Pulse Irregular Respiratory: Yes: WNL, Other (defreased bs (+)) Gastrointestinal: Yes: WNL, Normal Bowel Sounds, Soft Edema: LLE: Trace, RLE: Trace Labs: CBC, BMP 08/10/16 15:15 08/10/16 15:15 INR, PTT INR 2.74 (0.82-1.09) H 08/10/16 15:15 Problem List - Problems (1) Acute CHF Assessment/Plan: Acute on chronic diastolc heart failure Pt still requiring IV lasix BID Monitor electrolytes CT scan chest showed vascular congestion/pleural effusions Code(s): I50.9 - HEART FAILURE, UNSPECIFIED Qualifiers: Congestive heart failure type: diastolic Qualified Code(s): I50.31 - Acute diastolic (congestive) heart failure (2) Afib Assessment/Plan: Heart rate controlled Cont dig Coumadin dose increased and pt/inr therapeutic therefore will dc iv heparin Monitor pt/inr Code(s): I48.91 - UNSPECIFIED ATRIAL FIBRILLATION (3) Hypertension Assessment/Plan: BP stable Code(s): I10 - ESSENTIAL (PRIMARY) HYPERTENSION (4) Pleural effusion Assessment/Plan: CT scan chest showed moderate rt pleural effusion/vascular congestion/b/l flank subcutaneous edema Unclear if this is all cardiac Code(s): J90 - PLEURAL EFFUSION, NOT ELSEWHERE CLASSIFIED (5) Dementia Assessment/Plan: Cont seroquel/aricept Code(s): F03.90 - UNSPECIFIED DEMENTIA WITHOUT BEHAVIORAL DISTURBANCE (6) Hypothyroid Assessment/Plan: Cont levothyroxine TSH within normal range Code(s): E03.9 - HYPOTHYROIDISM, UNSPECIFIED Qualifiers: Hypothyroidism type: acquired Qualified Code(s): E03.9 - Hypothyroidism, unspecified (7) COPD (chronic obstructive pulmonary disease) Code(s): J44.9 - CHRONIC OBSTRUCTIVE PULMONARY DISEASE, UNSPECIFIED (8) Breast cancer Code(s): C50.919 - MALIGNANT NEOPLASM OF UNSP SITE OF UNSPECIFIED FEMALE BREAST Qualifiers: Laterality: unspecified laterality (9) Depression Code(s): F32.9 - MAJOR DEPRESSIVE DISORDER, SINGLE EPISODE, UNSPECIFIED (10) History of mitral valve replacement with mechanical valve Code(s): Z95.2 - PRESENCE OF PROSTHETIC HEART VALVE
[2016-08-10] MEDS: QUEtiapine FUMARATE 25 MG TABLET (FP) PO SCH (21:40)
[2016-08-11] MEDS: LEVOTHYROXINE NA 75 MCG TABLET (FP) PO SCH (06:31)
[2016-08-11] MEDS: FUROSEMIDE 40 MG/4 ML INJECTABLE VIAL IVPUSH SCH (06:32)
[2016-08-11 08:32] LABS: INR 2.68 (0.82-1.09); PROTHROMBIN TIME (PATIENT) 30.1 SEC (9.98-11.88)
--- NOTE | 2016-08-11 09:55 | PN ---
Progress Note, Physician History of Present Illness: seen and examined today in nad. states she is feeling much better. wants to go home. - Current Medication List Current Medications: Active Medications Anastrozole (Arimidex -) 1 mg PO DAILY [facility] Last Admin: 08/10/16 11:30 Dose: 1 mg Aspirin (Ecotrin -) 81 mg PO DAILY [facility] Last Admin: 08/10/16 11:30 Dose: 81 mg Calcium Carbonate/Cholecalciferol (Os-Nura 500+D -) 1 tab PO DAILY [facility] Last Admin: 08/10/16 11:30 Dose: 1 tab Digoxin (Lanoxin -) 0.125 mg PO Q2D@1000 [facility] Last Admin: 08/09/16 10:54 Dose: 0.125 mg Donepezil HCl (Aricept -) 5 mg PO DAILY [facility] Last Admin: 08/10/16 11:29 Dose: 5 mg Escitalopram Oxalate (Lexapro -) 10 mg PO DAILY [facility] Last Admin: 08/10/16 11:30 Dose: 10 mg Furosemide (Lasix -) 60 mg PO BID@1000,1400 [facility] Heparin Sodium (Porcine) (Heparin -) 5,000 unit IVPUSH PRN PRN PRN Reason: Heparin Levothyroxine Sodium (Synthroid -) 75 mcg PO DAILY@0700 [facility] Last Admin: 08/11/16 06:31 Dose: 75 mcg Potassium Chloride (K-Dur -) 20 meq PO DAILY [facility] Last Admin: 08/10/16 11:30 Dose: 20 meq Quetiapine Fumarate (Seroquel -) 25 mg PO HS [facility] Last Admin: 08/10/16 21:40 Dose: 25 mg Warfarin Sodium (Coumadin -) 5 mg PO DAILY@1800 [facility] Last Admin: 08/10/16 18:12 Dose: 5 mg - Objective Vital Signs: Vital Signs Temperature 98.9 F 08/11/16 06:00 Pulse Rate 82 08/11/16 06:00 Respiratory Rate 20 08/11/16 06:00 Blood Pressure 127/60 08/11/16 06:00 O2 Sat by Pulse Oximetry (%) 98 08/10/16 21:00 Constitutional: Yes: No Distress, Calm Eyes: Yes: Conjunctiva Clear, EOM Intact, PERRL HENT: Yes: Atraumatic, Normocephalic Neck: Yes: Supple, Trachea Midline Cardiovascular: Yes: Pulse Irregular, Murmur, S1, S2, Other (mechanical MVR sound heard). No: Bradycardia, Tachycardia, Bruit, JVD, Gallop, Rub, S3, S4, Varicosities Respiratory: Yes: Regular, Diminished, On Nasal O2, Rales. No: Rhonchi, SOB, Wheezes Gastrointestinal: Yes: Normal Bowel Sounds, Soft. No: Distention, Tenderness Edema: Yes Edema: LLE: Trace, RLE: Trace Peripheral Pulses WNL: Yes Peripheral Pulses: Left Doralis Pedis: 2+, Right Dorsalis Pedis: 2+ Neurological: Yes: Alert, Oriented Psychiatric: Yes: Alert, Oriented Labs: CBC, BMP 08/10/16 15:15 08/10/16 15:15 INR, PTT INR 2.68 (0.82-1.09) H 08/11/16 06:30 - ....Imaging Chest X-ray: Report Reviewed, Image Reviewed EKG: Report Reviewed, Image Reviewed Other: Report Reviewed, Image Reviewed Assessment/Plan IMP: Afib Mechanical MVR with subtherapeutic INR Acute on chronic diastolic CHF PHTN COPD, chronic Breast CA Pleural effusion REC: Volume status improved, close to baseline, recorded weights are down Change IV lasix to po INR at goal (2.5-3.5 for mechanical MVR) Cont coumadin 5mg daily Echo showed normal LV and RV systolic function, normal functioning MVR, Mod-sev PAH, TR, no pericardial effusion HR adequately controlled, cont Digoxin Ok from a cardiac standpoint for discharge home with a plan for close outpatient follow up
--- NOTE | 2016-08-11 10:10 | PN ---
Progress Note (short form) - Note Progress Note: PULMONARY OOB TO CHAIR SUBJECTIVE IMPROVEMENT/SMILING/COOPERATIVE AFEBRILE/VSS/SPO2 96% ON NASAL O2 ANICTERIC DISTANT BUT CLEAR S1S2 MECHANICAL VALVE BS+ LESS EDEMA LABS/MEDS/NOTES/IMAGING/ECHO/REVIEWED C5 BRAIN- Acute on Chronic Diastolic Heart Failure Agitation etiology? Atrial Fibrillation s/p mechanical MVR Severe Pulmonary HTN Pleural Effusions COPD Chronic Hypoxic Respiratory Failure HTN - diuretics - daily weights - rate controlled - continue anticoagulation - O2 to keep Spo2 >90% - inhaled bronchodilators - discharge planning Alis SAUL MD
[2016-08-11] MEDS: POTASSIUM CHLORIDE TABS 20 MEQ TABLET.ER (FP) PO SCH (10:30)
[2016-08-11] MEDS: FUROSEMIDE 40 MG TABLET (FP) PO SCH ×2 (10:30→14:51)
[2016-08-11] MEDS: DONEPEZIL HCL 5 MG TABLET (FP) PO SCH (10:30)
[2016-08-11] MEDS: CALCIUM 500MG/VIT-D 200 UNITS COMBO TABLET (FP) PO SCH (10:31)
[2016-08-11] MEDS: DIGOXIN 0.125 MG TABLET (FP) PO SCH (10:31)
[2016-08-11] MEDS: ESCITALOPRAM OXALATE 10 MG TABLET (FP) PO SCH (10:31)
[2016-08-11] MEDS: ASPIRIN COATED 81 MG TABLET.EC PO SCH (10:31)
[2016-08-11] MEDS: ANASTROZOLE 1 MG TABLET PO SCH (10:33)
[2016-08-11] MEDS ORDERED: PT OWN MED DRAWER 7, Y5N ONE (10:33)
[2016-08-11] MEDS: WARFARIN NA 5 MG TABLET (UD) PO SCH (18:17)
[2016-08-11 18:46] VITALS: BP 126/46; PULSE 72; TEMP 98.2
== END 2016-08-11 19:23 | disposition home or self-care (01) | DRG 194 ==
LOC: JER 11:33 → JERBED 15:29 → J7W 22:44 → OBSVTOIN 08-01 09:50
PROVIDERS: ADMIT Internal Medicine; ATTEND Internal Medicine
DX: I11.0 Hypertensive heart disease with heart failure (principal); I50.33 Acute on chronic diastolic (congestive) heart failure; E03.9 Hypothyroidism, unspecified; F32.9 Major depressive disorder, single episode, unspecified; I27.2 Other secondary pulmonary hypertension; J44.9 Chronic obstructive pulmonary disease, unspecified; J96.11 Chronic respiratory failure with hypoxia; F03.90 Unspecified dementia, unspecified severity, without behavioral disturbance, psychotic disturbance, mood disturbance, and anxiety; Z95.2 Presence of prosthetic heart valve; E87.2 Acidosis; Z85.3 Personal history of malignant neoplasm of breast; G62.9 Polyneuropathy, unspecified; M48.06 Spinal stenosis, lumbar region; E78.5 Hyperlipidemia, unspecified; I48.2 Chronic atrial fibrillation; E87.70 Fluid overload, unspecified
CPT/HCPCS: 36415; 70450-TC; 71010-TC; 71260-TC; 80048; 80053; 80076; 80162; 82550; 82607; 83880; 84436; 84443; 84484; 85025; 85027; 85610; 85730; 86593; 87086; 93005; 93010; 93306-TC; 97116-GP; 97162-GP; 99283-25; G0378; J1644

== ENCOUNTER 2017-10-03 02:50 | Emergency (ER) | payer OTHER ==
[2017-10-03 03:26] VITALS: BP 159/77; PULSE 79; TEMP 98.3; BMI 23.3
--- NOTE | 2017-10-03 03:40 | PDOC ---
History of Present Illness <GeDaniela - Last Filed: 10/03/17 05:53> - General History Source: Patient, Other (grandson) Exam Limitations: No Limitations - History of Present Illness Initial Comments: 10/03/17 04:52 Best Contact: (son) [phone]/ (grandson) [phone] PCP:Dr. Juarez Pmhx: COPD, dementia, depression, heart condition, breast CVA, Anxiety Pshx: Open-heart surgery 30 years ago Allergies:NKDA as per grandson FH:0 Social Hx: Cigarettes/ 0 Alcohol/ 0 Drugs/0 LMP:N/A 77-year-old female presents to the ER with her grandson who states patient slipped and fell evening onto her left side. Witnessed by patient's son who denied any LOC. Patient denies headache, dizziness, lightheadedness, nausea/ vomiting, fever/chills, facial pains, pain, chest pain, shortness of breath, abdominal pains, urinary symptoms, bladder or bowel dysfunction. Patient states her low back hurts but she is able to ambulate. Patient's grandson states the patient is extremely anxious. <Eric Max - Last Filed: 10/03/17 06:13> - General Chief Complaint: Injury Stated Complaint: FALL Time Seen by Provider: 10/03/17 03:07 Past History <GeDaniela - Last Filed: 10/03/17 05:53> - Past Medical History Cardiac Disorders: Yes (a fib, mechanical mitral valve replacement) COPD: Yes (3L) CHF: Yes HTN: Yes Thyroid Disease: Yes - Surgical History Cardiac Surgery: Yes Cholecystectomy: Yes - Immunization History Immunization Up to Date: Yes - Suicide/Smoking/Psychosocial Hx Smoking Status: No Smoking History: Never smoked Have you smoked in the past 12 months: No Number of Cigarettes Smoked Daily: 0 If you are a former smoker, when did you quit?: 15YR Information on smoking cessation initiated: No Hx Alcohol Use: No Drug/Substance Use Hx: No Substance Use Type: None Hx Substance Use Treatment: No <Eric Max - Last Filed: 10/03/17 06:13> - Past Medical History Allergies/Adverse Reactions: Allergies Allergy/AdvReac Type Severity Reaction Status Date / Time No Known Allergies Allergy Verified 10/03/17 03:27 Home Medications: Ambulatory Orders Anastrozole [Arimidex -] 1 mg PO DAILY 08/02/15 Digoxin [Lanoxin -] 0.125 mg PO Q2D@1000 #30 tablet 08/08/15 Donepezil HCl [Aricept -] 5 mg PO DAILY #30 tablet 08/11/16 Escitalopram Oxalate [Lexapro -] 10 mg PO DAILY #30 tablet 08/11/16 Furosemide [Lasix -] 60 mg PO DAILY 08/06/17 Levothyroxine [Synthroid -] 50 mcg PO DAILY@0700 08/06/17 Potassium Chloride [K-Dur -] 20 meq PO BID 08/06/17 Warfarin Na [Coumadin -] 4 mg PO DAILY@1800 08/06/17 Digoxin [Lanoxin -] 0.125 mg PO DAILY #30 tablet 08/24/17 Furosemide [Lasix -] 40 mg PO BID@0600,1400 #60 tablet 08/24/17 Warfarin Na [Coumadin -] 5 mg PO DAILY@1800 #30 tablet 08/24/17 Review of Systems - Review of Systems Able to Perform ROS?: Yes Comments:: 10/03/17 04:53 CONSTITUTIONAL: Absent: fever, chills, diaphoresis, generalized weakness, malaise, loss of appetite HEENT: Absent: rhinorrhea, nasal congestion, throat pain, throat swelling, difficulty swallowing, mouth swelling, ear pain, eye pain, visual Changes CARDIOVASCULAR: Absent: chest pain, loss of consciousness, palpitations, irregular heart rate, peripheral edema RESPIRATORY: Absent: cough, shortness of breath, dyspnea with exertion, orthopnea, wheezing, stridor, hemoptysis GASTROINTESTINAL: Absent: abdominal pain, abdominal distension, nausea, vomiting, diarrhea, constipation, melena, hematochezia GENITOURINARY: Absent: dysuria, frequency, urgency, hesitancy, hematuria, flank pain, genital pain MUSCULOSKELETAL: +LS spine pain Absent: myalgia, arthralgia, joint swelling SKIN: Absent: rash, itching, pallor HEMATOLOGIC/IMMUNOLOGIC: Absent: easy bleeding, easy bruising, lymphadenopathy, frequent infections ENDOCRINE: Absent: unexplained weight gain, unexplained weight loss, heat intolerance, cold intolerance NEUROLOGIC: Absent: headache, focal weakness or paresthesias, dizziness, unsteady gait, seizure, mental status changes, bladder or bowel incontinence PSYCHIATRIC: Absent: anxiety, depression, suicidal or homicidal ideation, hallucinations. Is the patient limited Iranian proficient: No <Eric Max - Last Filed: 10/03/17 06:13> *Physical Exam - Vital Signs Last Vital Signs Temp Pulse Resp BP Pulse Ox 98.3 F 79 19 159/77 96 10/03/17 02:50 10/03/17 02:50 10/03/17 02:50 10/03/17 02:50 10/03/17 02:50 <GeDaniela - Last Filed: 10/03/17 05:53> - Vital Signs Last Vital Signs Temp Pulse Resp BP Pulse Ox 98.3 F 79 19 159/77 96 10/03/17 02:50 10/03/17 02:50 10/03/17 02:50 10/03/17 02:50 10/03/17 02:50 - Physical Exam Comments: 10/03/17 04:54 GENERAL: Well developed, well nourished. Awake and alert. No acute distress. HEENT: Normocephalic, atraumatic. PERRLA, EOMI. No conjunctival pallor. Sclera are non- icteric. Moist mucous membranes. Oropharynx is clear. NECK: Supple. Full ROM. No JVD. Carotid pulses 2+ and symmetric, without bruits. No thyromegaly. No lymphadenopathy. CARDIOVASCULAR: Regular rate and rhythm. No murmurs, rubs, or gallops. Distal pulses are 2+ and symmetric. PULMONARY: No evidence of respiratory distress. Lungs clear to auscultation bilaterally. No wheezing, rales or rhonchi. ABDOMINAL: Soft. Non-tender. Non-distended. No rebound or guarding. No organomegaly. Normoactive bowel sounds. MUSCULOSKELETAL Neg pain on percussion to emtire spine Normal range of motion at all joints. No bony deformities or tenderness. No CVA tenderness. EXTREMITIES: No cyanosis. No clubbing. No edema. No calf tenderness. SKIN: Warm and dry. Normal capillary refill. No rashes. No jaundice. NEUROLOGICAL: Alert, awake, appropriate. Cranial nerves 2-12 intact. No deficits to light touch and temperature in face, upper extremities and lower extremities. No motor deficits in the in face, upper extremities and lower extremities. Normoreflexic in the upper and lower extremities. Normal speech. Toes are down- going bilaterally. Gait is normal without ataxia. PSYCHIATRIC: Cooperative. Good eye contact. Appropriate mood and affect. <Eric Max - Last Filed: 10/03/17 06:13> ED Treatment Course - RADIOLOGY Radiograph Interpretation: 10/03/17 05:50 CAT scan thoracic spine: No acute fracture, alignment. Minimal spondylosis Lumbar spine without CAT scan: Acute compression fracture L1 vertebral body with intense 20% height loss. <Eric Max - Last Filed: 10/03/17 06:13> Medical Decision Making - Medical Decision Making 10/03/17 05:53 Patient Name: IVON JAIN THIS IS A PRELIMINARY REPORT FROM [facility] DATE OF SERVICE: 2017-10-03 04:33:00 IMAGES: 1100 EXAM: CT THORACIC SPINE WITHOUT CONTRAST and CT LUMBAR SPINE WITHOUT CONTRAST THORACIC No acute fracture or malalignment. Minimal spondylosis. No substantial canal or neural foraminal stenosis. Median sternotomy for mitral valve replacement. Enlarged main pulmonary artery, which can be seen with pulmonary hypertension. Small right pleural effusion. Blebs right greater than left lung bases. LUMBAR Acute compression fracture L1 vertebral body with 10-20% height loss. No substantial canal or neural foraminal stenosis. Individualized dose optimization techniques were used for this CT. THIS DOCUMENT HAS BEEN ELECTRONICALLY SIGNED <Daniela Ge - Last Filed: 10/03/17 05:53> *DC/Admit/Observation/Transfer <Daniela Ge - Last Filed: 10/03/17 05:53> - Discharge Dispostion Decision to Admit order: No <Eric Max - Last Filed: 10/03/17 06:13> Diagnosis at time of Disposition: Lumbar compression fracture Qualifiers: Encounter type: initial encounter Lumbar vertebra fracture level: L1 Fracture type: closed Qualified Code(s): S32.010A - Wedge compression fracture of first lumbar vertebra, initial encounter for closed fracture - Discharge Dispostion Disposition: HOME Condition at time of disposition: Fair - Referrals Referrals: Wilfred Juarez MD [Primary Care Provider] - Juan C Bee MD [Staff Physician] - - Patient Instructions Printed Discharge Instructions: Vertebral Compression Fracture, DI for Vertebral Fracture Additional Instructions: Tylenol alternating with Motrin every 6 hours as needed for pain Follow with your physician and a neurologist listed on your discharge Return back to the ER for severe/persistent or worsening symptoms Print Language: TURKMEN - Post Discharge Activity
== END 2017-10-03 06:20 | disposition home or self-care (01) ==
LOC: JER 02:50
DX: S32.010A Wedge compression fracture of first lumbar vertebra, initial encounter for closed fracture (principal); W01.0XXA Fall on same level from slipping, tripping and stumbling without subsequent striking against object, initial encounter; Y93.89 Activity, other specified; Y92.038 Other place in apartment as the place of occurrence of the external cause; Y99.8 Other external cause status; I10 Essential (primary) hypertension; I50.9 Heart failure, unspecified; I48.91 Unspecified atrial fibrillation; Z79.01 Long term (current) use of anticoagulants; Z95.2 Presence of prosthetic heart valve; F03.90 Unspecified dementia, unspecified severity, without behavioral disturbance, psychotic disturbance, mood disturbance, and anxiety; F41.9 Anxiety disorder, unspecified; F32.9 Major depressive disorder, single episode, unspecified; J44.9 Chronic obstructive pulmonary disease, unspecified
CPT/HCPCS: 72128-TC; 72131-TC; 99281-25

== ENCOUNTER 2018-07-28 06:56 | Day surgery (SDC) | payer OTHER ==
[2018-07-27 11:43] VITALS: BMI 24.1
[2018-07-28] MEDS ORDERED: CHONDROITIN SU A/HYALUR SOD 1 KIT ONE (07:17)
[2018-07-28] MEDS ORDERED: LIDOCAINE HCL/PF 1% SDV 5ML VIAL ONE (07:26)
[2018-07-28] MEDS ORDERED: WATER FOR INJ,STERILE 10 ML ONE (07:27)
[2018-07-28] MEDS ORDERED: TETRACAINE 0.5% OPHTH SOLN 2 ML BOTTLE ONE (07:27)
[2018-07-28] MEDS ORDERED: OFLOXACIN 0.3% OPHTHALMIC SOLUTION 5 ML BOTTLE ONE (07:44)
[2018-07-28] MEDS ORDERED: CYCLOPENTOLATE HCL 1% OPHTH SOLN 2 ML BOTTLE ONE (07:44)
[2018-07-28] MEDS ORDERED: PHENYLEPHRINE 2.5% OPHTH SOLN 15 ML BOTTLE ONE (07:45)
[2018-07-28] MEDS ORDERED: TROPICAMIDE 1% OPHTH SOLN 15 ML BOTTLE ONE (07:45)
[2018-07-28] MEDS ORDERED: KETOROLAC TROMETHAMINE 0.5% EYE DROP 1 DROP DROPS ONE (07:45)
[2018-07-28] MEDS: TROPICAMIDE 1% OPHTH SOLN 15 ML BOTTLE OP SCH ×3 (07:50→08:30)
[2018-07-28] MEDS: PHENYLEPHRINE 2.5% OPHTH SOLN 15 ML BOTTLE OP SCH ×3 (07:50→08:30)
[2018-07-28] MEDS: CYCLOPENTOLATE HCL 1% OPHTH SOLN 2 ML BOTTLE OP SCH ×3 (07:50→08:30)
[2018-07-28] MEDS: OFLOXACIN 0.3% OPHTHALMIC SOLUTION 5 ML BOTTLE OP SCH ×3 (07:50→08:30)
[2018-07-28] MEDS: KETOROLAC TROMETHAMINE 0.5% EYE DROP 1 DROP DROPS OP SCH ×3 (07:50→08:30)
[2018-07-28] MEDS ORDERED: ACETAMINOPHEN 325 MG TABLET (FP) PO PRN (08:22)
[2018-07-28] MEDS ORDERED: TETRACAINE 0.5% OPHTH SOLN 2 ML BOTTLE OS ONE (09:18)
[2018-07-28] MEDS ORDERED: MIDAZOLAM HCL 2 MG/2 ML SINGLE DOSE VIAL ONE (09:18)
[2018-07-28] MEDS ORDERED: POVIDONE-IODINE 5% OPHTHALMIC PREP 30 ML SOLUTION OS ONE (09:21)
[2018-07-28] MEDS ORDERED: BSS (NA/CA/MG/K) BALANCED SALT SOLUTION OPHTH SOLN 15 ML BOTTLE OS ONE (09:29)
[2018-07-28] MEDS ORDERED: CHONDROITIN SU A/HYALUR SOD 1 KIT IO ONE (09:29)
[2018-07-28] MEDS ORDERED: LIDOCAINE HCL 1% PRESERVATIVE FREE - 30ML VIAL IO ONE (09:29)
[2018-07-28] MEDS ORDERED: EPINEPHrine/PF 1 MG/1 ML (1:1,000) AMPULE SQ ONE (09:35)
[2018-07-28 12:17] VITALS: BP 136/66; PULSE 74; TEMP 97.9
--- NOTE | 2018-07-28 12:28 | SPEC ---
DATE OF OPERATION: DATE OF DICTATION: 07/28/2018 PREOPERATIVE DIAGNOSIS: Cataract, left eye. POSTOPERATIVE DIAGNOSIS: Cataract, left eye. PROCEDURE: Phacoemulsification of left eye with posterior chamber intraocular lens implantation. The lens used [id number], 24.0-diopter power, serial number [id number]. SURGEON: Carmencita Stokes MD ANESTHESIA: Topical MAC. COMPLICATIONS: None. PROCEDURE: The patient was brought to the operating room and correctly identified along with the operative site and the correct intraocular lens beaver. The patient was then prepped and draped in the usual sterile fashion including 5% Betadine solution in the conjunctival sac and an eyelid drape. An eyelid speculum was then placed in the eye. A paracentesis port was created and approximately 0.5 mL of preservative-free lidocaine was then injected into the eye. Viscoelastic was then injected to inflate the anterior chamber. A temporal clear corneal wound was created. A continuous circular capsulorrhexis was performed. The nucleus was then hydrodissected with BSS and removed with phacoemulsification. The remaining cortical material was irrigated and aspirated. Viscoelastic was injected to inflate the capsular bag and the intraocular lens was then implanted into the capsular bag. The remaining Viscoelastic was irrigated and aspirated from the eye. The IOL was noted to be well centered and completely covered by the anterior capsulorrhexis. Topical vancomycin was placed and the eye patched and shielded. All wounds were tested and found to be watertight. No suture was placed. The eye was then shielded. The patient was then discharged from the operating room in stable condition. CARMENCITA STOKES M.D. [id number]
== END 2018-07-28 11:30 | disposition home or self-care (01) ==
LOC: JASU-SURG 06:56
PROVIDERS: ATTEND Ophthalmology
PROC: 08RK3JZ Replacement of Left Lens with Synthetic Substitute, Percutaneous Approach (ICD-10-PCS; principal; 2018-07-28 09:00)
DX: H26.9 Unspecified cataract (principal); I10 Essential (primary) hypertension; J44.9 Chronic obstructive pulmonary disease, unspecified; I48.91 Unspecified atrial fibrillation; Z79.01 Long term (current) use of anticoagulants

== ENCOUNTER 2018-12-02 18:37 | Inpatient (IN) | payer OTHER ==
--- NOTE | 2018-12-02 21:25 | PDOC ---
Attending Attestation - Resident Resident Name: JessieJesus - ED Attending Attestation I have performed the following: I have examined & evaluated the patient, The case was reviewed & discussed with the resident, I agree w/resident's findings & plan, Exceptions are as noted - HPI HPI: 12/03/18 03:45 78F pmh CHF, CAD, MVR, COPD on home O2, dementia here with progressive SOB over the past week with an acute worsening today. Family at bedside notes no change in mental status. - Physicial Exam PE: 12/03/18 03:54 Agree with exam as documented by resident - Medical Decision Making 12/03/18 03:54 Worsening CHF? PNA? 1. CHF exacerbation/Hypercarbic respiratory failure - f/u labs, cxr hypercarbic CXR with RLL pna trial bipap, abx admit for definitive care
[2018-12-02 21:59] LABS: BASO % 0.1 % (0-2.0); EOS % 0.5 % (0-4.5); HEMATOCRIT 34.9 % (32.4-45.2); HEMOGLOBIN 11.1 GM/dL (10.7-15.3); LYMPH % 9.8 % (8-40); MCH 31.3 pg (25.7-33.7); MCHC 31.8 g/dl (32.0-36.0); MEAN CELL VOLUME 98.6 fl (80-96); MONO % 9.9 % (3.8-10.2); NEUT % 79.7 % (42.8-82.8); PLATELET COUNT 166 K/MM3 (134-434); RBC 3.54 M/mm3 (3.60-5.2); RDW 14.4 % (11.6-15.6); WHITE BLOOD COUNT 8.5 K/mm3 (4.0-10.0)
[2018-12-02 22:02] LABS: INR 3.75 (0.83-1.09); PROTHROMBIN TIME (PATIENT) 44.9 SEC (9.7-13.0)
--- NOTE | 2018-12-02 22:18 | PDOC ---
History of Present Illness - General Chief Complaint: Altered Mental Status Stated Complaint: ALTERED MENTAL STATUS History Source: Patient Exam Limitations: No Limitations - History of Present Illness Initial Comments: 12/03/18 01:31 78 yo F with a hx of CHF, CAD, MVR (bovine vs metal?) COPD (4 L of at home O2) and dementia presents to the emergency department with SOB over the past week with acute worsening today. She was referred to the emergency department by her physician Dr. Wilfred Juarez. Per the patient, she has been having worsening dyspnea on exertion with intolerance to laying supine. Per the niece at bedside , the patient was initially told to present to the ED by her PMD last week for dyspnea but refused. In addition, she has had cyanosis appearing on her lips. Allergies: Past History - Past Medical History Allergies/Adverse Reactions: Allergies Allergy/AdvReac Type Severity Reaction Status Date / Time No Known Allergies Allergy Verified 12/02/18 18:55 Home Medications: Ambulatory Orders Anastrozole [Arimidex -] 1 mg PO DAILY 08/02/15 Levothyroxine [Synthroid -] 50 mcg PO DAILY@0700 08/06/17 Potassium Chloride [K-Dur -] 20 meq PO BID 08/06/17 Digoxin [Lanoxin -] 0.125 mg PO DAILY #30 tablet 08/24/17 Acetaminophen [Tylenol] 325 mg PO PRN 07/27/18 Donepezil HCl [Aricept -] 5 mg PO HS 07/27/18 Escitalopram Oxalate [Lexapro -] 10 mg PO DAILY 07/27/18 Ferrous Sulfate [Iron] 325 mg PO TID 07/27/18 Pantoprazole Sodium [Protonix] 40 mg PO BID 07/27/18 Zolpidem Tartrate [Ambien] 5 mg PO HS 07/27/18 Dronabinol [Marinol -] 5 mg PO BID 12/03/18 Furosemide [Lasix -] 60 mg PO DAILY 12/03/18 Prednisolone 1% Ophthalmic [Pred Forte 1% -] 1 drop OS QID 12/03/18 Umeclidinium [place] [Incruse Ellipta] 1 puff IH BID 12/03/18 Warfarin Na [Coumadin] 5 mg PO DAILY 12/03/18 Cancer: Yes Cardiac Disorders: Yes (a fib, mechanical mitral valve replacement) COPD: Yes (3L) CHF: Yes GI Disorders: Yes (COLON SX) HTN: Yes Thyroid Disease: Yes - Surgical History Cardiac Surgery: Yes Cholecystectomy: Yes - Immunization History Immunization Up to Date: Yes - Psycho Social/Smoking Cessation Hx Smoking Status: No Smoking History: Never smoked Have you smoked in the past 12 months: No Number of Cigarettes Smoked Daily: 0 If you are a former smoker, when did you quit?: 15YR Hx Alcohol Use: No Drug/Substance Use Hx: No Substance Use Type: None Hx Substance Use Treatment: No Review of Systems - Review of Systems Able to Perform ROS?: Yes Is the patient limited Belarusian proficient: No Constitutional: Yes: Weakness. No: Chills, Diaphoresis, Fever HEENTM: No: Eye Pain, Ear Pain, Nose Pain, Throat Pain, Mouth Pain Respiratory: Yes: Cough, Shortness of Breath, SOB with Exertion, SOB at Rest. No: Hemoptysis Cardiac (ROS): No: Chest Pain, Edema, Lightheadedness, Palpitations, Syncope, Chest Tightness ABD/GI: No: Constipated, Diarrhea, Nausea, Rectal Bleeding, Vomiting, Tarry Stools : No: Burning, Dysuria, Hematuria, Incontinence Musculoskeletal: No: Back Pain, Joint Pain, Neck Pain Integumentary: No: Bruising, Erythema, Rash Neurological: No: Headache, Numbness, Tingling, Tremors Psychiatric: No: Change in Appetite Endocrine: No: Unexplained Weight Gain Hematologic/Lymphatic: No: Anemia *Physical Exam - Vital Signs Last Vital Signs Temp Pulse Resp BP Pulse Ox 97.8 F 81 18 135/62 95 12/02/18 18:52 12/02/18 18:52 12/02/18 18:52 12/02/18 18:52 12/02/18 18:52 - Physical Exam General Appearance: Yes: Nourished, Appropriately Dressed. No: Apparent Distress, Intoxicated HEENT: positive: EOMI, MICHAEL, Normal Voice, Symmetrical, Pharynx Normal, Hearing Grossly Normal. negative: Pale Conjunctivae, Scleral Icterus (R), Scleral Icterus (L), Muffled/Hoarse voice, Pharyngeal Erythema, Tonsillar Exudate, Tonsillar Erythema, Nasal Congestion, Rhinorrhea, Sinus Tenderness, Excessive drooling Neck: positive: Trachea midline, Supple. negative: Tender, Lymphadenopathy (R) , Lymphadenopathy (L), Tender lateral, Tender midline Respiratory/Chest: positive: Lungs Clear, Decreased Breath Sounds, Other ( surgical scar noted on sternum). negative: Chest Tender, Respiratory Distress, Accessory Muscle Use Cardiovascular: positive: Regular Rhythm, Regular Rate, S1, S2. negative: Systolic Murmur Gastrointestinal/Abdominal: positive: Normal Bowel Sounds, Flat, Soft. negative : Tender, Distended, Guarding, Rebound Lymphatic: negative: Adenopathy Musculoskeletal: positive: Normal Inspection. negative: CVA Tenderness, Vertebral Tenderness Extremity: positive: Normal Capillary Refill, Normal Inspection, Normal Range of Motion, Swelling (trace edema bilaterally. left leg shows stasis dermatitis on the anterior portion). negative: Tender, Calf Tenderness Integumentary: positive: Normal Color, Dry, Warm Neurologic: positive: internal corrosion specialist II-XII NML intact, Alert, Normal Mood/Affect, Normal Response, Motor Strength 5/5. negative: Fully Oriented (oriented to self and place), EOM Palsy, Facial Droop, Numbness, Sensory Deficit ED Treatment Course - LABORATORY CBC & Chemistry Diagram: 12/05/18 05:58 12/05/18 05:58 - ADDITIONAL ORDERS Additional order review: Laboratory Results 12/02/18 21:35 PT with INR 44.90 H INR 3.75 H 12/02/18 21:35 RBC 3.54 L MCV 98.6 H MCHC 31.8 L RDW 14.4 D MPV 10.0 D Neutrophils % 79.7 Lymphocytes % 9.8 Monocytes % 9.9 Eosinophils % 0.5 Basophils % 0.1 - RADIOLOGY Radiology Studies Ordered: Category Date Time Status CHEST X-RAY PORTABLE* [RAD] Stat Radiology 12/02/18 20:12 Completed Medical Decision Making - Medical Decision Making 78 yo F with a hx of CHF, CAD, MVR (bovine vs metal?) COPD (4 L of at home O2) and dementia presents to the emergency department with SOB over the past week with acute worsening today. Initial vitals: Initial Vital Signs Temp Pulse Resp BP Pulse Ox 97.8 F 81 18 135/62 95 12/02/18 18:52 12/02/18 18:52 12/02/18 18:52 12/02/18 18:52 12/02/18 18:52 Work up: ddx: patient presents to the emergency department with SOB. per the patient's family (including the niece who lives with the patient) she states she is currently at her baseline and has not had AMS. ddx includes COPD vs CHF exacerbation Laboratory Tests 12/02/18 12/02/18 12/02/18 21:35 21:35 21:35 WBC RBC Hgb Hct MCV MCH MCHC RDW Plt Count MPV Absolute Neuts (auto) Neutrophils % Lymphocytes % Monocytes % Eosinophils % Basophils % Nucleated RBC % PT with INR INR Anticoagulation Therapy Puncture Site ABG pH ABG pCO2 at Pt Temp ABG pO2 at Pt Temp ABG HCO3 ABG O2 Sat (Measured) ABG O2 Content ABG Base Excess Clyde Test Carboxyhemoglobin Methemoglobin O2 Delivery Device Oxygen Flow Rate Vent Mode Vent Rate Mechanical Rate Pressure Support Vent Sodium Potassium Chloride Carbon Dioxide Anion Gap BUN Creatinine Est GFR (CKD-EPI)AfAm Est GFR (CKD-EPI)NonAf Random Glucose Calcium Total Bilirubin AST ALT Alkaline Phosphatase Ammonia 17.30 Creatine Kinase 67 Troponin I 0.03 B-Natriuretic Peptide Total Protein Albumin TSH Free T4 Free T3 2.6 Digoxin 12/02/18 12/02/18 12/02/18 21:35 21:35 21:35 WBC 8.5 RBC 3.54 L Hgb 11.1 Hct 34.9 MCV 98.6 H MCH 31.3 D MCHC 31.8 L RDW 14.4 D Plt Count 166 D MPV 10.0 D Absolute Neuts (auto) 6.8 Neutrophils % 79.7 Lymphocytes % 9.8 Monocytes % 9.9 Eosinophils % 0.5 Basophils % 0.1 Nucleated RBC % 0 PT with INR INR Anticoagulation Therapy Puncture Site ABG pH ABG pCO2 at Pt Temp ABG pO2 at Pt Temp ABG HCO3 ABG O2 Sat (Measured) ABG O2 Content ABG Base Excess Clyde Test Carboxyhemoglobin Methemoglobin O2 Delivery Device Oxygen Flow Rate Vent Mode Vent Rate Mechanical Rate Pressure Support Vent Sodium 146 H Potassium 4.6 Chloride 94 L Carbon Dioxide > 45 H Anion Gap 7 L BUN 23.5 H Creatinine 0.9 Est GFR (CKD-EPI)AfAm 70.48 Est GFR (CKD-EPI)NonAf 60.81 Random Glucose 96 Calcium 9.2 Total Bilirubin 1.1 H AST 29 ALT 25 Alkaline Phosphatase 139 H Ammonia Creatine Kinase Troponin I B-Natriuretic Peptide 2676.6 H Total Protein 7.5 Albumin 3.9 TSH 3.25 Free T4 1.21 Free T3 Digoxin 12/02/18 12/02/18 12/02/18 21:35 21:35 23:37 WBC RBC Hgb Hct MCV MCH MCHC RDW Plt Count MPV Absolute Neuts (auto) Neutrophils % Lymphocytes % Monocytes % Eosinophils % Basophils % Nucleated RBC % PT with INR 44.90 H INR 3.75 H Anticoagulation Therapy No Result Required. Puncture Site No Result Required. ABG pH 7.38 ABG pCO2 at Pt Temp 81.4 H* ABG pO2 at Pt Temp 117 H ABG HCO3 47.4 H ABG O2 Sat (Measured) 98.2 H ABG O2 Content 14.8 ABG Base Excess 18.9 H Clyde Test Positive Carboxyhemoglobin 1.2 Methemoglobin < 1.0 O2 Delivery Device No Result Required. Oxygen Flow Rate Yes Vent Mode No Result Required. Vent Rate No Result Required. Mechanical Rate No Result Required. Pressure Support Vent No Result Required. Sodium Potassium Chloride Carbon Dioxide Anion Gap BUN Creatinine Est GFR (CKD-EPI)AfAm Est GFR (CKD-EPI)NonAf Random Glucose Calcium Total Bilirubin AST ALT Alkaline Phosphatase Ammonia Creatine Kinase Troponin I B-Natriuretic Peptide Total Protein Albumin TSH Free T4 Free T3 Digoxin 1.29 patient is currently on digoxin with levels at therapeutic. INR is supratherapeutic; will need a dose of warfarin held ABG shows hypercarbia in the setting of SOB; likely showing acute hypercarbic respiratory failure in the setting of BNP elevation. patient likely having CHF exacerbation CXR shows lower right lung pathology (pleural effusion loculated vs atelectasis/ pna). PCOUS shows non dynamic air bronchograms consistent with atelectasis with pleural effusion on the right side. CTA performed showing vascular congestin and pulmonary HTN. pleural fluid. no PNA noted. Abx withheld as this appears to be more in line of CHF exacerbaton vs worsening respiratory status likely secondary to right heart failure and is currently afebrile without leukocytosis. patient to be admitted due to CHF exacerbation requiring bipap. EKG shows atrial fibrillation with no ST elevation or depression. Dispo: Admit Discharge - Discharge Information Problems reviewed: Yes Clinical Impression/Diagnosis: Mitral valve replaced, COPD (chronic obstructive pulmonary disease), SOB ( shortness of breath) - Follow up/Referral - Patient Discharge Instructions - Post Discharge Activity
[2018-12-02 22:32] LABS: ALBUMIN 3.9 g/dl (3.4-5.0); ALK PHOS 139 U/L (45-117); ANION GAP 7 MMOL/L (8-16); BILIRUBIN,TOTAL 1.1 mg/dL (0.2-1); BLOOD UREA NITROGEN 23.5 mg/dL (7-18); CALCIUM 9.2 mg/dL (8.5-10.1); CHLORIDE 94 mmol/L (98-107); CO2 > 45 mmol/L (21-32); CREATININE 0.9 mg/dL (0.55-1.3); GLUCOSE,RANDOM 96 mg/dL (74-106); POTASSIUM 4.6 mmol/L (3.5-5.1); SGOT/AST 29 U/L (15-37); SGPT/ALT 25 U/L (13-61); SODIUM 146 mmol/L (136-145); TOT PROT 7.5 g/dl (6.4-8.2)
[2018-12-02 23:42] LABS: ARTERIAL BLD GAS O2 SATURATION 98.2 % (95-98); ARTERIAL BLOOD GAS BASE EXCESS 18.9 meq/l (-2-2); ARTERIAL BLOOD GAS PO2 117 mmHg (80-100); ARTERIAL BLOOD GAS pH 7.38 (7.35-7.45); CARBOXYHEMOGLOBIN 1.2 % (0-2)
[2018-12-02 23:43] LABS: ALLENS TEST POSITIVE
[2018-12-02 23:44] LABS: ARTERIAL BLOOD GAS PCO2 81.4 mmHg (35-45)
[2018-12-03 01:12] LABS: N-TERMINAL BNP 2676.6 pg/ml (5-450)
--- NOTE | 2018-12-03 02:01 | PN ---
Teaching Attending Note Name of Resident: Clarisse Del Angel ATTENDING PHYSICIAN STATEMENT I saw and evaluated the patient. I reviewed the resident's note and discussed the case with the resident. I agree with the resident's findings and plan as documented. SUBJECTIVE: Patient is a 78 woman with PMH of CHF, CAD, MVR, COPD (4 L of at home O2), Depression, Anxiety, Afib (on coumadin), Pulmonary hypertension and Dementia who presents to the ER with SOB over the past week with acute worsening today. She was referred to the ER by her physician Dr. Wilfred Juarez. Per the patient, she has been having worsening dyspnea on exertion with intolerance to laying supine. Per the niece at bedside, the patient was initially told to present to the ER by her PMD last week for dyspnea but refused. In addition, she has had cyanosis appearing on her lips. Denies fever, chills, headache, abdominal pain, vomiting, diarrhea, dysuria or frequency. Has FH of lung, breast and ovarian cancer. Denies tobacco, alcohol or illicit drug use. No recent travels or obvious sick contacts. OBJECTIVE: Alert on BiPAP Vital Signs Period Temp Pulse Resp BP Sys/Garza Pulse Ox Last 24 Hr 97.8 F 81 18 135/62 95-95 HEENT: No Jaundice, eye redness or discharge, PERRLA, EOMI. Normocephalic, atraumatic. External ears are normal and hearing is grossly intact. No nasal discharge. Neck: Supple, nontender. No palpable adenopathy or thyromegaly. No JVD Chest: Good effort. Bibasilar crackles. Clear to percussion. Heart: Regular. No S3 or rub; 3/6 HSM Abdomen: Not distended, soft, nontender and no HSM. No rebound or guarding. Normal bowel sounds. Ext: Peripheral pulses intact. Leg edema. Skin: Warm and dry. No petechiae, rash or ecchymosis. Neuro: Alert. Oriented x3. CN 2-12 grossly intact. Sensation grossly intact in all four extremities and DTR are symmetric. Psych: Appropriate mood and affect. Good insight. Home Medications Medication Instructions Recorded Anastrozole [Arimidex -] 1 mg PO DAILY 08/02/15 Levothyroxine [Synthroid -] 50 mcg PO DAILY@0700 08/06/17 Potassium Chloride [K-Dur -] 20 meq PO BID 08/06/17 Digoxin [Lanoxin -] 0.125 mg PO DAILY #30 tablet 08/24/17 Acetaminophen [Tylenol] 325 mg PO PRN 07/27/18 Donepezil HCl [Aricept -] 5 mg PO HS 07/27/18 Escitalopram Oxalate [Lexapro -] 10 mg PO DAILY 07/27/18 Ferrous Sulfate [Iron] 325 mg PO TID 07/27/18 Pantoprazole Sodium [Protonix] 40 mg PO BID 07/27/18 Zolpidem Tartrate [Ambien] 5 mg PO HS 07/27/18 Dronabinol [Marinol -] 5 mg PO BID 12/03/18 Furosemide [Lasix -] 40 mg PO DAILY 12/03/18 Warfarin Na [Coumadin] 5 mg PO DAILY 12/03/18 Abnormal Lab Results 12/02/18 12/02/18 12/02/18 21:35 21:35 21:35 RBC 3.54 L MCV 98.6 H MCHC 31.8 L PT with INR 44.90 H INR 3.75 H ABG pCO2 at Pt Temp ABG pO2 at Pt Temp ABG HCO3 ABG O2 Sat (Measured) ABG Base Excess Sodium 146 H Chloride 94 L Carbon Dioxide > 45 H Anion Gap 7 L BUN 23.5 H Total Bilirubin 1.1 H Alkaline Phosphatase 139 H B-Natriuretic Peptide 2676.6 H 12/02/18 23:37 RBC MCV MCHC PT with INR INR ABG pCO2 at Pt Temp 81.4 H* ABG pO2 at Pt Temp 117 H ABG HCO3 47.4 H ABG O2 Sat (Measured) 98.2 H ABG Base Excess 18.9 H Sodium Chloride Carbon Dioxide Anion Gap BUN Total Bilirubin Alkaline Phosphatase B-Natriuretic Peptide ASSESSMENT AND PLAN: 1. Hypercarbic respiratory failure - Likely due to the effects of CHF exacerbation and COPD exacerbation. Lasix dose was recently reduced. CXR showed cardiomegaly, pulmonary vascular congestion, RLL infiltrate/atelectasis and obscured left costophrenic angle. CTA of chest and thorax right pleural effusion , but no pulmonary embolism. ABG showed mixed acid-base abnormalities including respiratory acidosis and metabolic alkalosis. ECHO from 08/07/17 showed normal LV systolic function, mildly dilated RV and mildly reduced RV function. EKG shows afib with a rate of 61, and diffuse T wave flattening. Initial troponin is negative. Will admit to telemetry to rule out ACS. Will treat escalating doses of IV lasix to achieve diuresis, do diagnostic/ therapeutic thoracentesis, restrict dietary salt intake and get daily standing weight. Treat COPD with solumedrol, symbicort, xopenex and azithromycin. Consult pulmonary and cardiology - rao question is what are the relative contributions of COPD and CHF to her current condition. Will hold coumadin for supratherapeutic INR and monitor INR daily. Will continue comprehensive care for all of patients comorbid conditions. 2. Hypertension - Restart suitable outpatient antihypertensive drugs when clinically appropriate. Revise regimen to ensure [id number] excellent BP control and general counsel patient on the injurious effects of uncontrolled hypertension. Nonpharmacologic measures to control hypertension like weight loss , salt restriction and exercise discussed. Importance of adherence to treatment regimen and attainment of normotension emphasized. 3. DVT prophylaxis -On coumadin 4. Advance directives - Full code
[2018-12-03] MEDS ORDERED: AZITHROMYCIN 250 MG TABLET PO ONE (04:29)
--- NOTE | 2018-12-03 04:39 | HP ---
CHIEF COMPLAINT: Shortness of breath PCP: Dr. 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 She was referred to the emergency department by her physician Dr. Wilfred Juarez. Per the patient, she saw Dr. Juarez last week who recommended she come to the ED because he noticed her lips looked cyanotic, the patient refused at that time but came in today because she has been having worsening dyspnea while performing her ADLs at home. The patient denied chest pains, heart palpitations, worsening orthopnea (she has orthopnea at baseline), worsening edema, nausea, vomiting, diarrhea, or feeling feverish. The patient states she had a cold 2 weeks ago with a nonproductive cough that resolved on its own after taking cough suppressant. 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 and dimentia PAST SURGICAL HISTORY: lumpectomy, MV replacement, colon surgery for dieulafoy lesion, L eye cataract Social History: Smoking: denies Alcohol: denies Drugs: denies Allergies No Known Allergies Allergy (Verified 12/02/18 18:55) HOME MEDICATIONS: Home Medications Medication Instructions Recorded Anastrozole [Arimidex -] 1 mg PO DAILY 08/02/15 Levothyroxine [Synthroid -] 50 mcg PO DAILY@0700 08/06/17 Potassium Chloride [K-Dur -] 20 meq PO BID 08/06/17 Digoxin [Lanoxin -] 0.125 mg PO DAILY #30 tablet 08/24/17 Acetaminophen [Tylenol] 325 mg PO PRN 07/27/18 Donepezil HCl [Aricept -] 5 mg PO HS 07/27/18 Escitalopram Oxalate [Lexapro -] 10 mg PO DAILY 07/27/18 Ferrous Sulfate [Iron] 325 mg PO TID 07/27/18 Pantoprazole Sodium [Protonix] 40 mg PO BID 07/27/18 Zolpidem Tartrate [Ambien] 5 mg PO HS 07/27/18 Dronabinol [Marinol -] 5 mg PO BID 12/03/18 Furosemide [Lasix -] 40 mg PO DAILY 12/03/18 Warfarin Na [Coumadin] 5 mg PO DAILY 12/03/18 REVIEW OF SYSTEMS CONSTITUTIONAL: Absent: fever, chills, diaphoresis, generalized weakness, malaise, loss of appetite, weight change HEENT: Absent: rhinorrhea, nasal congestion, throat pain, throat swelling, difficulty swallowing, mouth swelling, ear pain, eye pain, visual changes CARDIOVASCULAR: Absent: chest pain, syncope, palpitations, irregular heart rate, lightheadedness , peripheral edema RESPIRATORY: cough (2 weeks ago), shortness of breath, dyspnea with exertion, Absent: orthopnea, wheezing, stridor, hemoptysis GASTROINTESTINAL: Absent: abdominal pain, abdominal distension, nausea, vomiting, diarrhea, constipation, melena, hematochezia GENITOURINARY: Absent: dysuria, frequency, urgency, hesitancy, hematuria, flank pain, genital pain MUSCULOSKELETAL: Absent: myalgia, arthralgia, joint swelling, back pain, neck pain SKIN: Absent: rash, itching, pallor HEMATOLOGIC/IMMUNOLOGIC: Absent: easy bleeding, easy bruising, lymphadenopathy, frequent infections ENDOCRINE: Absent: unexplained weight gain, unexplained weight loss, heat intolerance, cold intolerance NEUROLOGIC: Absent: headache, focal weakness or paresthesias, dizziness, unsteady gait, seizure, mental status changes, bladder or bowel incontinence PSYCHIATRIC: Absent: anxiety, depression, suicidal or homicidal ideation, hallucinations. PHYSICAL EXAMINATION Vital Signs - 24 hr 12/02/18 12/03/18 18:52 00:41 Temperature 97.8 F Pulse Rate 81 Respiratory 18 Rate Blood Pressure 135/62 O2 Sat by Pulse 95 95 Oximetry (%) GENERAL: Awake, alert, and fully oriented, in no acute distress, breathing comfortably on BiPAP HEAD: Normal with no signs of trauma. EYES: Pupils equal, round and reactive to light, extraocular movements intact, sclera anicteric, conjunctiva clear. No lid lag. EARS, NOSE, THROAT: Ears normal, nares patent, oropharynx clear without exudates. Moist mucous membranes. No cyanosis noted. NECK: Normal range of motion, supple without lymphadenopathy, JVD, or masses. LUNGS: Breath sounds equal, clear to auscultation bilaterally in all cantu except for RLL base where crackles were heard, no crackles heard elsewhere. No wheezes. No accessory muscle use. HEART: Regular rate and rhythm, normal S1 and S2 without 4/6 holosystolic murumur ABDOMEN: Soft, nontender, not distended, normoactive bowel sounds, no guarding, no rebound, no masses. No hepatomegaly or splenomegaly. MUSCULOSKELETAL: Normal range of motion at all joints. No bony deformities or tenderness. No CVA tenderness. UPPER EXTREMITIES: 2+ pulses, warm, well-perfused. No cyanosis. No clubbing. No peripheral edema. LOWER EXTREMITIES: 2+ pulses, warm, well-perfused. No calf tenderness.1+ pitting edema. NEUROLOGICAL: Cranial nerves II-XII intact. Normal speech. PSYCHIATRIC: Cooperative. Good eye contact. Appropriate mood and affect. SKIN: Warm, dry, normal turgor, no rashes or lesions noted, normal capillary refill. Laboratory Results - last 24 hr 12/02/18 12/02/18 12/02/18 21:35 21:35 21:35 WBC 8.5 RBC 3.54 L Hgb 11.1 Hct 34.9 MCV 98.6 H MCH 31.3 D MCHC 31.8 L RDW 14.4 D Plt Count 166 D MPV 10.0 D Absolute Neuts (auto) 6.8 Neutrophils % 79.7 Lymphocytes % 9.8 Monocytes % 9.9 Eosinophils % 0.5 Basophils % 0.1 Nucleated RBC % 0 PT with INR INR Anticoagulation Therapy Puncture Site ABG pH ABG pCO2 at Pt Temp ABG pO2 at Pt Temp ABG HCO3 ABG O2 Sat (Measured) ABG O2 Content ABG Base Excess [place] Test Carboxyhemoglobin Methemoglobin O2 Delivery Device Oxygen Flow Rate Vent Mode Vent Rate Mechanical Rate Pressure Support Vent Sodium Potassium Chloride Carbon Dioxide Anion Gap BUN Creatinine Est GFR (CKD-EPI)AfAm Est GFR (CKD-EPI)NonAf Random Glucose Calcium Total Bilirubin AST ALT Alkaline Phosphatase Ammonia 17.30 Creatine Kinase 67 Troponin I 0.03 B-Natriuretic Peptide Total Protein Albumin TSH Free T4 Digoxin 12/02/18 12/02/18 12/02/18 21:35 21:35 21:35 WBC RBC Hgb Hct MCV MCH MCHC RDW Plt Count MPV Absolute Neuts (auto) Neutrophils % Lymphocytes % Monocytes % Eosinophils % Basophils % Nucleated RBC % PT with INR 44.90 H INR 3.75 H Anticoagulation Therapy Puncture Site ABG pH ABG pCO2 at Pt Temp ABG pO2 at Pt Temp ABG HCO3 ABG O2 Sat (Measured) ABG O2 Content ABG Base Excess [place] Test Carboxyhemoglobin Methemoglobin O2 Delivery Device Oxygen Flow Rate Vent Mode Vent Rate Mechanical Rate Pressure Support Vent Sodium 146 H Potassium 4.6 Chloride 94 L Carbon Dioxide > 45 H Anion Gap 7 L BUN 23.5 H Creatinine 0.9 Est GFR (CKD-EPI)AfAm 70.48 Est GFR (CKD-EPI)NonAf 60.81 Random Glucose 96 Calcium 9.2 Total Bilirubin 1.1 H AST 29 ALT 25 Alkaline Phosphatase 139 H Ammonia Creatine Kinase Troponin I B-Natriuretic Peptide 2676.6 H Total Protein 7.5 Albumin 3.9 TSH 3.25 Free T4 1.21 Digoxin 12/02/18 12/02/18 21:35 23:37 WBC RBC Hgb Hct MCV MCH MCHC RDW Plt Count MPV Absolute Neuts (auto) Neutrophils % Lymphocytes % Monocytes % Eosinophils % Basophils % Nucleated RBC % PT with INR INR Anticoagulation Therapy No Result Required. Puncture Site No Result Required. ABG pH 7.38 ABG pCO2 at Pt Temp 81.4 H* ABG pO2 at Pt Temp 117 H ABG HCO3 47.4 H ABG O2 Sat (Measured) 98.2 H ABG O2 Content 14.8 ABG Base Excess 18.9 H Clyde Test Positive Carboxyhemoglobin 1.2 Methemoglobin < 1.0 O2 Delivery Device No Result Required. Oxygen Flow Rate Yes Vent Mode No Result Required. Vent Rate No Result Required. Mechanical Rate No Result Required. Pressure Support Vent No Result Required. 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 She is being admitted for treatment of acute CHF exacerbation/ COPD. # Hypercarbic respiratory failure- Likely 2/2 CHF and COPD exacerbation. Patient 's lasix dose was recently reduced. CXR showed cardiomegaly, pulmonary vascular congestion. CTA of chest and thorax right pleural effusion without pulmonary embolism. ABG show mixed acid-base abnormalities including respiratory acidosis and metabolic alkalosis. ECHO from 18 showed normal LV systolic function and mildly reduced RV function. . Initial troponin is negative. Will admit to med- surg for management of her COPD/ CHF exacerbation. - Lasix IV 40, titrate up PRN to achieve adequate diuresis - diagnostic/ therapeutic thoracentesis - daily weights - salt restricted diet - strict Is/Os For COPD - Solumedrol 60 mg IVPUSH Q8H-IV - Symbicort 2 puff IH BID - Xopenex 0.63 mg IH RTID MIA, rather than duonebs to avoid reflex sinus tachycardia - Azithro 500mg once then 250 mg PO DAILY - consider consulting pulmonology and cardiology - Holding coumadin for supratherapeutic INR and monitor INR daily. #HTN - Resume home meds once clinically appropriate. #FEN no standing fluids, active diuresis replete PRN NPO while on BiPAP otherwise Na restricted diet #PPx - Holding coumadin due to supratherapeutic INR, SCDs for now #Dispo- admit to medsurg, full code Visit type - Emergency Visit Emergency Visit: Yes ED Registration Date: 12/03/18 Care time: The patient presented to the Emergency Department on the above date and was hospitalized for further evaluation of their emergent condition. - New Patient This patient is new to me today: Yes Date on this admission: 12/03/18 - Critical Care Critical Care patient: No ATTENDING PHYSICIAN STATEMENT I saw and evaluated the patient. I reviewed the resident's note and discussed the case with the resident. I agree with the resident's findings and plan as documented. SUBJECTIVE: OBJECTIVE: ASSESSMENT AND PLAN:
[2018-12-03 05:35] LABS: BASO % 0.4 % (0-2.0); EOS % 1.1 % (0-4.5); HEMATOCRIT 32.9 % (32.4-45.2); HEMOGLOBIN 10.8 GM/dL (10.7-15.3); LYMPH % 10.4 % (8-40); MCHC 32.9 g/dl (32.0-36.0); MEAN CELL VOLUME 97.3 fl (80-96); MEAN PLT VOLUME 9.8 fl (7.5-11.1); MONO % 9.3 % (3.8-10.2); NEUT % 78.8 % (42.8-82.8); PLATELET COUNT 159 K/MM3 (134-434); RBC 3.38 M/mm3 (3.60-5.2); RDW 14.6 % (11.6-15.6); WHITE BLOOD COUNT 6.7 K/mm3 (4.0-10.0)
[2018-12-03 06:42] LABS: ALBUMIN 3.7 g/dl (3.4-5.0); ALK PHOS 131 U/L (45-117); BILIRUBIN,TOTAL 1.2 mg/dL (0.2-1); BLOOD UREA NITROGEN 20.3 mg/dL (7-18); CHLORIDE 94 mmol/L (98-107); CO2 > 45 mmol/L (21-32); CREATININE 0.9 mg/dL (0.55-1.3); GLUCOSE,RANDOM 105 mg/dL (74-106); MAGNESIUM 2.4 mg/dL (1.8-2.4); POTASSIUM 4.3 mmol/L (3.5-5.1); SGOT/AST 27 U/L (15-37); SGPT/ALT 23 U/L (13-61); SODIUM 144 mmol/L (136-145)
[2018-12-03 06:43] LABS: ANION GAP 5 MMOL/L (8-16)
[2018-12-03] MEDS ORDERED: methylPREDNISolone NA SUCC 125 MG/2 ML VIAL ONE (06:50)
[2018-12-03] MEDS ORDERED: AZITHROMYCIN 250 MG TABLET ONE (06:50)
[2018-12-03] MEDS: methylPREDNISolone NA SUCC 40 MG/1 ML VIAL IVPUSH SCH ×2 (07:00→10:55)
[2018-12-03] MEDS ORDERED: LEVALBUTEROL HCL 0.63 MG/3 ML VIAL.NEB. IH SCH (08:00)
[2018-12-03] MEDS: FUROSEMIDE 40 MG/4 ML INJECTABLE VIAL IVPUSH SCH (10:55)
[2018-12-03] MEDS: BUDESONIDE/FORMETEROL FUMARATE 160/4.5 mcg INHALER IH SCH ×2 (10:57→22:37)
--- NOTE | 2018-12-03 11:41 | CON.PULM ---
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 Admitted via the ER due to progressive SOB over the past few days. Her PMD recommended ER evaluation after she was seen in the office but she refused. Decided to come to the ER the following day due to progressive symptoms. No travel history or sick contacts. No fever or chills. No night sweats or hemoptysis. She does have a history of chronic bronchitis, with daily cough and scant sputum production. There is no specific history consistent withe OSAS. CTA: no PE / pulmonary vascular congestion / large partially loculated pleural effusion - History Source History Provided By: Patient, Medical Record Limitations to Obtaining History: Language Barrier - Past Medical History Cardio/Vascular: Yes: AFIB, Pulmonary Hypertension, CHF, HTN, Hyperlipdemia, Other Pulmonary: Yes: Bronchitis, COPD, O2 Dependent, Pneumonia, Other (pulmonary hypertension on O-2). No: Asthma, Previously Intubated, Pulmonary Embolus, Pulmonary Fibrosis Psych: Yes: Depression Endocrine: Yes: Hypothyroidism - Past Surgical History Past Surgical History: Yes: Cholecystectomy, Valve Replacement (mechanical mitral) - Alcohol/Substance Use Hx Alcohol Use: No - Smoking History Smoking history: Never smoked Have you smoked in the past 12 months: No Aproximately how many cigarettes per day: 0 If you are a former smoker, when did you quit?: 15YR - Social History Usual Living Arrangement: With Significant Other ADL: Independent History of Recent Travel: No Home Medications - Allergies Allergies/Adverse Reactions: Allergies Allergy/AdvReac Type Severity Reaction Status Date / Time No Known Allergies Allergy Verified 12/02/18 18:55 - Home Medications Home Medications: Ambulatory Orders Anastrozole [Arimidex -] 1 mg PO DAILY 08/02/15 Levothyroxine [Synthroid -] 50 mcg PO DAILY@0700 08/06/17 Potassium Chloride [K-Dur -] 20 meq PO BID 08/06/17 Digoxin [Lanoxin -] 0.125 mg PO DAILY #30 tablet 08/24/17 Acetaminophen [Tylenol] 325 mg PO PRN 07/27/18 Donepezil HCl [Aricept -] 5 mg PO HS 07/27/18 Escitalopram Oxalate [Lexapro -] 10 mg PO DAILY 07/27/18 Ferrous Sulfate [Iron] 325 mg PO TID 07/27/18 Pantoprazole Sodium [Protonix] 40 mg PO BID 07/27/18 Zolpidem Tartrate [Ambien] 5 mg PO HS 07/27/18 Dronabinol [Marinol -] 5 mg PO BID 12/03/18 Furosemide [Lasix -] 40 mg PO DAILY 12/03/18 Prednisolone 1% Ophthalmic [Pred Forte 1% -] 1 drop OS QID 12/03/18 Umeclidinium [place] [Incruse Ellipta] 1 puff IH BID 12/03/18 Warfarin Na [Coumadin] 5 mg PO DAILY 12/03/18 Review of Systems - Review of Systems Constitutional: reports: Malaise. denies: Chills, Fever, Night Sweats Eyes: reports: No Symptoms HENT: reports: No Symptoms Neck: reports: No Symptoms Cardiovascular: reports: Edema, Shortness of Breath. denies: Chest Pain, Palpitations Respiratory: reports: Cough, Orthopnea, SOB, SOB on Exertion, Wheezing. denies : Hemoptysis, Snoring Gastrointestinal: reports: No Symptoms Genitourinary: reports: No Symptoms Breasts: reports: No Symptoms Reported Musculoskeletal: reports: No Symptoms Integumentary: reports: No Symptoms Neurological: reports: No Symptoms Endocrine: reports: No Symptoms Hematology/Lymphatic: reports: No Symptoms Psychiatric: reports: No Symptoms Physical Exam Vital Sings: Vital Signs Temperature 97.8 F 12/02/18 18:52 Pulse Rate 62 12/03/18 07:00 Respiratory Rate 20 12/03/18 07:00 Blood Pressure 136/67 12/03/18 07:00 O2 Sat by Pulse Oximetry (%) 97 12/03/18 09:32 Constitutional: Yes: No Distress, Anxious, Thin Eyes: Yes: Conjunctiva Clear, EOM Intact HENT: Yes: Atraumatic, Normocephalic Neck: Yes: Supple, Trachea Midline Cardiovascular: Yes: Pulse Irregular Respiratory: Yes: Cough, Diminished, On BiPap, Rales, Rhonchi. No: Accessory Muscle Use, SOB, SOB on Exertion, Stridor, Tachypnea, Wheezes ...Inspection: Yes: WNL ...Clubbing: No Gastrointestinal: Yes: Normal Bowel Sounds, Soft Renal/: Yes: WNL Musculoskeletal: Yes: WNL Extremities: Yes: WNL Edema: Yes Peripheral Pulses WNL: Yes Integumentary: Yes: WNL Neurological: Yes: WNL, Alert, Oriented ...Motor Strength: WNL Psychiatric: Yes: WNL, Alert, Oriented Labs: CBC, BMP 12/03/18 05:16 12/03/18 05:16 ABG Results ABG pH 7.38 (7.35-7.45) 12/02/18 23:37 ABG pCO2 at Pt Temp 81.4 mmHg (35-45) H* 12/02/18 23:37 ABG pO2 at Pt Temp 117 mmHg (80-100) H 12/02/18 23:37 ABG HCO3 47.4 mmol/L (22-27) H 12/02/18 23:37 ABG O2 Sat (Measured) 98.2 % (95-98) H 12/02/18 23:37 ABG O2 Content 14.8 % vol 12/02/18 23:37 ABG Base Excess 18.9 meq/l (-2-2) H 12/02/18 23:37 Imaging - Results Chest X-ray: Report Reviewed, Image Reviewed Cat Scan: Report Reviewed, Image Reviewed Problem List - Problems (1) COPD (chronic obstructive pulmonary disease) Code(s): J44.9 - CHRONIC OBSTRUCTIVE PULMONARY DISEASE, UNSPECIFIED (2) Mitral valve replaced Code(s): Z95.2 - PRESENCE OF PROSTHETIC HEART VALVE (3) SOB (shortness of breath) Code(s): R06.02 - SHORTNESS OF BREATH (4) Acute CHF Code(s): I50.9 - HEART FAILURE, UNSPECIFIED (5) Acute on chronic diastolic (congestive) heart failure Code(s): I50.33 - ACUTE ON CHRONIC DIASTOLIC (CONGESTIVE) HEART FAILURE (6) Afib Code(s): I48.91 - UNSPECIFIED ATRIAL FIBRILLATION (7) Breast cancer Code(s): C50.919 - MALIGNANT NEOPLASM OF UNSP SITE OF UNSPECIFIED FEMALE BREAST Qualifiers: Laterality: unspecified laterality (8) CHF exacerbation Code(s): I50.9 - HEART FAILURE, UNSPECIFIED (9) COPD (chronic obstructive pulmonary disease) with chronic bronchitis Code(s): J44.9 - CHRONIC OBSTRUCTIVE PULMONARY DISEASE, UNSPECIFIED (10) Dementia Code(s): F03.90 - UNSPECIFIED DEMENTIA WITHOUT BEHAVIORAL DISTURBANCE (11) Dieulafoy lesion of large intestine Code(s): K63.81 - DIEULAFOY LESION OF INTESTINE (12) Edema Code(s): R60.9 - EDEMA, UNSPECIFIED (13) History of mitral valve replacement with mechanical valve Code(s): Z95.2 - PRESENCE OF PROSTHETIC HEART VALVE (14) Hypertension Code(s): I10 - ESSENTIAL (PRIMARY) HYPERTENSION (15) Hypothyroid Code(s): E03.9 - HYPOTHYROIDISM, UNSPECIFIED Qualifiers: Hypothyroidism type: acquired Qualified Code(s): E03.9 - Hypothyroidism, unspecified (16) Pleural effusion Code(s): J90 - PLEURAL EFFUSION, NOT ELSEWHERE CLASSIFIED Assessment/Plan IMP: Do not suspect an AE of her COPD Monitor off systemic steroids Monitor off ABX BD TX PRN Transition to NC O2 Daily weights Follow I & O No smoking discussed NIPPV as needed Lasix and follow diuresis response Will follow Thank you. Dr Gill
[2018-12-03] MEDS ORDERED: ALBUTEROL SO4 2.5/IPRATROPIUM 0.5 INH SOL 3 ML VIAL.NEB. NEB PRN (11:50)
--- NOTE | 2018-12-03 13:07 | ECHO ---
Name: IVON JAIN Exam:Adult Echocardiogram Study Date: 12/03/2018 10:58 AM Age: 78 yrs Reason For Study: CHF Height: 62 in Weight: 128 lb BSA: 1.6 m2 MMode/2D Measurements & Calculations IVSd: 0.94 cm Ao root diam: 2.6 cm LVIDd: 3.4 cm LA dimension: 3.5 cm LVIDs: 2.6 cm LVPWd: 1.2 cm EDV(Teich): 48.2 ml LVOT diam: 2.0 cm ESV(Teich): 23.8 ml Doppler Measurements & Calculations MV E max mehdi: 237.0 cm/sec MVA(VTI): 1.4 cm2 MV dec time: 0.23 sec MV V2 max: 250.6 cm/sec MV max P.1 mmHg MV V2 mean: 132.2 cm/sec MV mean P.7 mmHg MV V2 VTI: 61.9 cm Ao V2 max: 286.5 cm/sec AI max mehdi: 242.2 cm/sec Ao max P.9 mmHg AI max P.5 mmHg Ao V2 mean: 190.9 cm/sec AI dec slope: 537.4 cm/sec2 Ao mean P.8 mmHg Ao V2 VTI: 56.6 cm DEREK(I,D): 1.5 cm2 AI P1/2t: 132.0 msec DEREK(V,D): 1.3 cm2 LV V1 max P.5 mmHg SV(LVOT): 85.9 ml LV V1 mean P.8 mmHg LV V1 max: 116.9 cm/sec LV V1 mean: 95.5 cm/sec LV V1 VTI: 27.6 cm TR max mehdi: 397.2 cm/sec PA V2 max: 165.4 cm/sec TR max P.7 mmHg PA max P.9 mmHg Med Peak E' Mehdi: 5.8 cm/sec PI Vmax: 240.6 cm/sec Med E/e': 41.1 Lat Peak E' Mehdi: 9.5 cm/sec Lat E/e': 25.0 Left Ventricle Left ventricular systolic function is normal. Ejection Fraction = 50-55%. Septal motion is consistent with post-operative state. Flattened septum is consistent with RV pressure overload. Right Ventricle The right ventricle is severely dilated. The right ventricular systolic function is moderately reduce d. Atria The left atrium is moderately dilated. The right atrium is moderately dilated. Mitral Valve There is a mechanical mitral valve. There is trace to mild mitral regurgitation. Tricuspid Valve Poor coaptation of tricuspid valve leaflets. There is moderate to severe tricuspid regurgitation. Rig ht ventricular systolic pressure is elevated at >60mmHg. There is severe pulmonary hypertension. Aortic Valve Mild to moderate valvular aortic stenosis. At least mild aortic regurgitation. Pulmonic Valve The pulmonic valve is not well visualized. There is no pulmonic valvular stenosis. Mild to moderate p ulmonic valvular regurgitation. Great Vessels The aortic root is normal size. Pericardium/Pleura There is no pericardial effusion. Dilated IVC indicative of elevated right sided pressure. Interpretation Summary Septal motion is consistent with post-operative state. Flattened septum is consistent with RV pressure overload. Left ventricular systolic function is normal. Ejection Fraction = 50-55%. The right ventricle is severely dilated. The right ventricular systolic function is moderately reduced. The left atrium is moderately dilated. There is a mechanical mitral valve. Poor coaptation of tricuspid valve leaflets. There is moderate to severe tricuspid regurgitation. Right ventricular systolic pressure is elevated at >60mmHg. There is severe pulmonary hypertension. Mild to moderate valvular aortic stenosis. At least mild aortic regurgitation. Dilated IVC indicative of elevated right sided pressure. MD Rosenberg *Linda 12/03/2018 01:07 PM
--- NOTE | 2018-12-03 13:28 | EKG ---
Test Reason : Blood Pressure : / mmHG Vent. Rate : 061 BPM Atrial Rate : 101 BPM P-R Int : 000 ms QRS Dur : 082 ms QT Int : 402 ms P-R-T Axes : 000 115 -41 degrees QTc Int : 404 ms ATRIAL FIBRILLATION ("REGULAR" Atrial fibrillation) RIGHT AXIS DEVIATION NONSPECIFIC ST ABNORMALITY POSSIBLE DIGOXIN EFFECT CLINICAL CORRELATION IS RECOMMENDED Confirmed by NAIDA ALSTON MD [id number]) on 12/03/2018 1:27:49 PM Referred By: Confirmed By:NAIDA ALSTON MD
[2018-12-03 15:30] VITALS: BMI 24.0
--- NOTE | 2018-12-03 16:54 | PN ---
Teaching Attending Note Name of Resident: Jewel Minaya ATTENDING PHYSICIAN STATEMENT I saw and evaluated the patient. I reviewed the resident's note and discussed the case with the resident. I agree with the resident's findings and plan as documented. SUBJECTIVE: SOB improved on BiPAP. No fever/chills. No cough/sputum OBJECTIVE: Afebrile, Hemodynamically Stable. SpO2 95 on BiPAP. Last Vital Signs Temp Pulse Resp BP Pulse Ox 98.5 F 81 17 122/56 L 95 12/03/18 15:03 12/03/18 15:03 12/03/18 16:00 12/03/18 15:03 12/03/18 16:00 HEENT - Atraumatic, Normocephalic. Heart - S1, S2, SM Lungs - basal crackles Abdomen - soft, non-tender. Bowel Sounds normal. Extremities - no calf tenderness. Laboratory Results - last 24 hr 12/02/18 12/02/18 12/02/18 21:35 21:35 21:35 WBC 8.5 RBC 3.54 L Hgb 11.1 Hct 34.9 MCV 98.6 H MCH 31.3 D MCHC 31.8 L RDW 14.4 D Plt Count 166 D MPV 10.0 D Absolute Neuts (auto) 6.8 Neutrophils % 79.7 Lymphocytes % 9.8 Monocytes % 9.9 Eosinophils % 0.5 Basophils % 0.1 Nucleated RBC % 0 PT with INR INR Anticoagulation Therapy Puncture Site ABG pH ABG pCO2 at Pt Temp ABG pO2 at Pt Temp ABG HCO3 ABG O2 Sat (Measured) ABG O2 Content ABG Base Excess [place] Test Carboxyhemoglobin Methemoglobin O2 Delivery Device Oxygen Flow Rate Vent Mode Vent Rate Mechanical Rate Pressure Support Vent Sodium Potassium Chloride Carbon Dioxide Anion Gap BUN Creatinine Est GFR (CKD-EPI)AfAm Est GFR (CKD-EPI)NonAf Random Glucose Calcium Phosphorus Magnesium Total Bilirubin AST ALT Alkaline Phosphatase Ammonia 17.30 Creatine Kinase 67 Troponin I 0.03 B-Natriuretic Peptide Total Protein Albumin TSH Free T4 Digoxin 12/02/18 12/02/18 12/02/18 21:35 21:35 21:35 WBC RBC Hgb Hct MCV MCH MCHC RDW Plt Count MPV Absolute Neuts (auto) Neutrophils % Lymphocytes % Monocytes % Eosinophils % Basophils % Nucleated RBC % PT with INR 44.90 H INR 3.75 H Anticoagulation Therapy Puncture Site ABG pH ABG pCO2 at Pt Temp ABG pO2 at Pt Temp ABG HCO3 ABG O2 Sat (Measured) ABG O2 Content ABG Base Excess [place] Test Carboxyhemoglobin Methemoglobin O2 Delivery Device Oxygen Flow Rate Vent Mode Vent Rate Mechanical Rate Pressure Support Vent Sodium 146 H Potassium 4.6 Chloride 94 L Carbon Dioxide > 45 H Anion Gap 7 L BUN 23.5 H Creatinine 0.9 Est GFR (CKD-EPI)AfAm 70.48 Est GFR (CKD-EPI)NonAf 60.81 Random Glucose 96 Calcium 9.2 Phosphorus Magnesium Total Bilirubin 1.1 H AST 29 ALT 25 Alkaline Phosphatase 139 H Ammonia Creatine Kinase Troponin I B-Natriuretic Peptide 2676.6 H Total Protein 7.5 Albumin 3.9 TSH 3.25 Free T4 1.21 Digoxin 12/02/18 12/02/18 12/03/18 21:35 23:37 05:16 WBC 6.7 RBC 3.38 L Hgb 10.8 Hct 32.9 MCV 97.3 H MCH 32.0 MCHC 32.9 RDW 14.6 Plt Count 159 MPV 9.8 Absolute Neuts (auto) 5.3 Neutrophils % 78.8 Lymphocytes % 10.4 Monocytes % 9.3 Eosinophils % 1.1 D Basophils % 0.4 D Nucleated RBC % 0 PT with INR INR Anticoagulation Therapy No Result Required. Puncture Site No Result Required. ABG pH 7.38 ABG pCO2 at Pt Temp 81.4 H* ABG pO2 at Pt Temp 117 H ABG HCO3 47.4 H ABG O2 Sat (Measured) 98.2 H ABG O2 Content 14.8 ABG Base Excess 18.9 H [place]de Test Positive Carboxyhemoglobin 1.2 Methemoglobin < 1.0 O2 Delivery Device No Result Required. Oxygen Flow Rate Yes Vent Mode No Result Required. Vent Rate No Result Required. Mechanical Rate No Result Required. Pressure Support Vent No Result Required. Sodium Potassium Chloride Carbon Dioxide Anion Gap BUN Creatinine Est GFR (CKD-EPI)AfAm Est GFR (CKD-EPI)NonAf Random Glucose Calcium Phosphorus Magnesium Total Bilirubin AST ALT Alkaline Phosphatase Ammonia Creatine Kinase Troponin I B-Natriuretic Peptide Total Protein Albumin TSH Free T4 Digoxin 1.29 12/03/18 05:16 WBC RBC Hgb Hct MCV MCH MCHC RDW Plt Count MPV Absolute Neuts (auto) Neutrophils % Lymphocytes % Monocytes % Eosinophils % Basophils % Nucleated RBC % PT with INR INR Anticoagulation Therapy Puncture Site ABG pH ABG pCO2 at Pt Temp ABG pO2 at Pt Temp ABG HCO3 ABG O2 Sat (Measured) ABG O2 Content ABG Base Excess [place] Test Carboxyhemoglobin Methemoglobin O2 Delivery Device Oxygen Flow Rate Vent Mode Vent Rate Mechanical Rate Pressure Support Vent Sodium 144 Potassium 4.3 Chloride 94 L Carbon Dioxide > 45 H Anion Gap 5 L BUN 20.3 H Creatinine 0.9 Est GFR (CKD-EPI)AfAm 70.48 Est GFR (CKD-EPI)NonAf 60.81 Random Glucose 105 Calcium 9.0 Phosphorus 3.0 Magnesium 2.4 Total Bilirubin 1.2 H AST 27 ALT 23 Alkaline Phosphatase 131 H Ammonia Creatine Kinase Troponin I B-Natriuretic Peptide Total Protein 7.0 Albumin 3.7 TSH Free T4 Digoxin Current Medications Generic Name Dose Route Start Last Admin Trade Name Freq PRN Reason Stop Dose Admin Albuterol/Ipratropium 1 amp 12/03/18 11:50 Duoneb - NEB Q4H PRN SHORTNESS OF BREATH Budesonide/Formoterol Fumarate 2 puff 12/03/18 10:00 12/03/18 10:57 Symbicort 160/4.5mcg - IH Not Given BID MIA Furosemide 40 mg 12/03/18 10:00 12/03/18 10:55 Lasix Injection - IVPUSH 40 mg DAILY [facility] Administration Home Medications Medication Instructions Recorded Anastrozole [Arimidex -] 1 mg PO DAILY 08/02/15 Levothyroxine [Synthroid -] 50 mcg PO DAILY@0700 08/06/17 Potassium Chloride [K-Dur -] 20 meq PO BID 08/06/17 Digoxin [Lanoxin -] 0.125 mg PO DAILY #30 tablet 08/24/17 Acetaminophen [Tylenol] 325 mg PO PRN 07/27/18 Donepezil HCl [Aricept -] 5 mg PO HS 07/27/18 Escitalopram Oxalate [Lexapro -] 10 mg PO DAILY 07/27/18 Ferrous Sulfate [Iron] 325 mg PO TID 07/27/18 Pantoprazole Sodium [Protonix] 40 mg PO BID 07/27/18 Zolpidem Tartrate [Ambien] 5 mg PO HS 07/27/18 Dronabinol [Marinol -] 5 mg PO BID 12/03/18 Furosemide [Lasix -] 60 mg PO DAILY 12/03/18 Prednisolone 1% Ophthalmic [Pred 1 drop OS QID 12/03/18 Forte 1% -] Umeclidinium [place] [Incruse 1 puff IH BID 12/03/18 Ellipta] Warfarin Na [Coumadin] 5 mg PO DAILY 12/03/18 ASSESSMENT AND PLAN: 77 year old female with history of Dementia, Depression, hypothyroidism, hyperlipidemia, Atrial Fibrillation (on coumadin), Chronic Diastolic CHF, CAD, s /p MVR (metallic), CRF sec to COPD(on 4 L of O2 at home), Breast cancer (s/p lumpectomy), Hx of Lower GI bleed from from Dieulafoy's lesion in the colon, presents with 1 week history of worsening SOB. In ED, she was found to be hypercapneic requiring BiPAP, with elevated 2676.6. 1. Acute Hypercapneic Respiratory Failure secondary to Acute on Chronic Diastolic CHF Responding well to BiPAP and Lasix diuresis No evidence of COPD exacerbation at this time - Solumedrol and Azithromycin disocntinued. Echo - Mod , Mechanical MV, Mod/Severe TR with RV systolic pressure > 60mmHg, normal EF 50-55% CXR - loculated R pleural Effusion CTA: no PE / pulmonary vascular congestion / large partially loculated pleural effusion IR consulted for diagnostic/therapeutic thoracentesis Continue IV Lasix diuresis. Thorne weights, I/Os. Pulmonary consulted. 2. Mechanical MVR, on Coumadin INR supratherapeutic Coumadin held, INR check tomorrow. 3. CRF sec to COPD - on home 4LO2. No evidence of acute exacerbation. Pulmonary consulted. 4. Hx Breast Ca s/p lumpectomy - on Arimidex 5. Hypothyroidism - continue Levothyroxine 6. Atrial Fibrillation - Continue Digoxin 7. Dementia/Depression - continue Aricept, Lexapro DVT Px - on Coumadin
--- NOTE | 2018-12-03 17:02 | PN ---
Physical Exam: SUBJECTIVE: Patient seen and examined Endorses improvement of breathing. OBJECTIVE: Vital Signs Period Temp Pulse Resp BP Sys/Garza Pulse Ox Last 24 Hr 97.8 F-98.5 F 62-84 17-22 122-136/56-75 94-100 GENERAL: NAD. HEAD: NC/AT EYES: sclera anicteric, conjunctiva clear. No ptosis. ENT: moist mucosal membranes NECK: Trachea midline, full range of motion, supple. LUNGS: On BiPAP. Mildly coarse b/l BS, no wheezes, no crackles, no accessory muscle use. HEART: Regular rate and rhythm, S1, S2 without murmur, rub or gallop. ABDOMEN: Soft, nontender, nondistended, no guarding, no rebound. EXTREMITIES: 1+ DP warm, well-perfused, non-pitting edema to BLE. NEUROLOGICAL: Normal speech, gait not observed. PSYCH: agitated SKIN: Warm, dry, normal turgor, no rashes or lesions noted Laboratory Results - last 24 hr 12/02/18 12/02/18 12/02/18 21:35 21:35 21:35 WBC 8.5 RBC 3.54 L Hgb 11.1 Hct 34.9 MCV 98.6 H MCH 31.3 D MCHC 31.8 L RDW 14.4 D Plt Count 166 D MPV 10.0 D Absolute Neuts (auto) 6.8 Neutrophils % 79.7 Lymphocytes % 9.8 Monocytes % 9.9 Eosinophils % 0.5 Basophils % 0.1 Nucleated RBC % 0 PT with INR INR Anticoagulation Therapy Puncture Site ABG pH ABG pCO2 at Pt Temp ABG pO2 at Pt Temp ABG HCO3 ABG O2 Sat (Measured) ABG O2 Content ABG Base Excess [place] Test Carboxyhemoglobin Methemoglobin O2 Delivery Device Oxygen Flow Rate Vent Mode Vent Rate Mechanical Rate Pressure Support Vent Sodium Potassium Chloride Carbon Dioxide Anion Gap BUN Creatinine Est GFR (CKD-EPI)AfAm Est GFR (CKD-EPI)NonAf POC Glucometer Random Glucose Calcium Phosphorus Magnesium Total Bilirubin AST ALT Alkaline Phosphatase Ammonia 17.30 Creatine Kinase 67 Troponin I 0.03 B-Natriuretic Peptide Total Protein Albumin TSH Free T4 Digoxin 12/02/18 12/02/18 12/02/18 21:35 21:35 21:35 WBC RBC Hgb Hct MCV MCH MCHC RDW Plt Count MPV Absolute Neuts (auto) Neutrophils % Lymphocytes % Monocytes % Eosinophils % Basophils % Nucleated RBC % PT with INR 44.90 H INR 3.75 H Anticoagulation Therapy Puncture Site ABG pH ABG pCO2 at Pt Temp ABG pO2 at Pt Temp ABG HCO3 ABG O2 Sat (Measured) ABG O2 Content ABG Base Excess [place] Test Carboxyhemoglobin Methemoglobin O2 Delivery Device Oxygen Flow Rate Vent Mode Vent Rate Mechanical Rate Pressure Support Vent Sodium 146 H Potassium 4.6 Chloride 94 L Carbon Dioxide > 45 H Anion Gap 7 L BUN 23.5 H Creatinine 0.9 Est GFR (CKD-EPI)AfAm 70.48 Est GFR (CKD-EPI)NonAf 60.81 POC Glucometer Random Glucose 96 Calcium 9.2 Phosphorus Magnesium Total Bilirubin 1.1 H AST 29 ALT 25 Alkaline Phosphatase 139 H Ammonia Creatine Kinase Troponin I B-Natriuretic Peptide 2676.6 H Total Protein 7.5 Albumin 3.9 TSH 3.25 Free T4 1.21 Digoxin 12/02/18 12/02/18 12/03/18 21:35 23:37 05:16 WBC 6.7 RBC 3.38 L Hgb 10.8 Hct 32.9 MCV 97.3 H MCH 32.0 MCHC 32.9 RDW 14.6 Plt Count 159 MPV 9.8 Absolute Neuts (auto) 5.3 Neutrophils % 78.8 Lymphocytes % 10.4 Monocytes % 9.3 Eosinophils % 1.1 D Basophils % 0.4 D Nucleated RBC % 0 PT with INR INR Anticoagulation Therapy No Result Required. Puncture Site No Result Required. ABG pH 7.38 ABG pCO2 at Pt Temp 81.4 H* ABG pO2 at Pt Temp 117 H ABG HCO3 47.4 H ABG O2 Sat (Measured) 98.2 H ABG O2 Content 14.8 ABG Base Excess 18.9 H [place] Test Positive Carboxyhemoglobin 1.2 Methemoglobin < 1.0 O2 Delivery Device No Result Required. Oxygen Flow Rate Yes Vent Mode No Result Required. Vent Rate No Result Required. Mechanical Rate No Result Required. Pressure Support Vent No Result Required. Sodium Potassium Chloride Carbon Dioxide Anion Gap BUN Creatinine Est GFR (CKD-EPI)AfAm Est GFR (CKD-EPI)NonAf POC Glucometer Random Glucose Calcium Phosphorus Magnesium Total Bilirubin AST ALT Alkaline Phosphatase Ammonia Creatine Kinase Troponin I B-Natriuretic Peptide Total Protein Albumin TSH Free T4 Digoxin 1.29 12/03/18 12/03/18 05:16 16:55 WBC RBC Hgb Hct MCV MCH MCHC RDW Plt Count MPV Absolute Neuts (auto) Neutrophils % Lymphocytes % Monocytes % Eosinophils % Basophils % Nucleated RBC % PT with INR INR Anticoagulation Therapy Puncture Site ABG pH ABG pCO2 at Pt Temp ABG pO2 at Pt Temp ABG HCO3 ABG O2 Sat (Measured) ABG O2 Content ABG Base Excess [place] Test Carboxyhemoglobin Methemoglobin O2 Delivery Device Oxygen Flow Rate Vent Mode Vent Rate Mechanical Rate Pressure Support Vent Sodium 144 Potassium 4.3 Chloride 94 L Carbon Dioxide > 45 H Anion Gap 5 L BUN 20.3 H Creatinine 0.9 Est GFR (CKD-EPI)AfAm 70.48 Est GFR (CKD-EPI)NonAf 60.81 POC Glucometer 159 Random Glucose 105 Calcium 9.0 Phosphorus 3.0 Magnesium 2.4 Total Bilirubin 1.2 H AST 27 ALT 23 Alkaline Phosphatase 131 H Ammonia Creatine Kinase Troponin I B-Natriuretic Peptide Total Protein 7.0 Albumin 3.7 TSH Free T4 Digoxin Active Medications Generic Name Dose Route Start Last Admin Trade Name Freq PRN Reason Stop Dose Admin Albuterol/Ipratropium 1 amp 12/03/18 11:50 Duoneb - NEB Q4H PRN SHORTNESS OF BREATH Budesonide/Formoterol Fumarate 2 puff 12/03/18 10:00 12/03/18 10:57 Symbicort 160/4.5mcg - IH Not Given BID MIA Furosemide 40 mg 12/03/18 10:00 12/03/18 10:55 Lasix Injection - IVPUSH 40 mg DAILY MIA Administration ASSESSMENT/PLAN: 77F w/ PMH of depression, hypertension, hyperlipidemia, A-fib (on coumadin), CHF , CAD, MVR (bovine vs metal?) , COPD (on 4 L of O2 at home), breast cancer (s/p lumpectomy), lower GI bleed from from dieulafoy's lesion in the colon and dimentia who presents to the ED with SOB over the past week with acute worsening today. She is being admitted for treatment of acute CHF exacerbation/ COPD. # Hypercarbic respiratory failure- Likely 2/2 CHF exacerbation. > ABG(12/02/18): 7.38/81.4/117/47.4 --respiratory acidosis and metabolic alkalosis > CXR(12/02/18): cardiomegaly, pulmonary vascular congestion > CTA chest(12/02/18): right pleural effusion without pulmonary embolism > echo from 2018 showed normal LV systolic function and mildly reduced RV function. > echo(12/03/18): LVEF 50-55%, dilated RV, mod-severe TR, RVSP> 60mmHg, mild- mod , mild AR, dilated IVC > troponin 0.03 - Lasix IV 40, titrate up PRN to achieve adequate diuresis - IR consult: diagnostic/ therapeutic thoracentesis --need wait until warfarin cleared - daily weights - salt restricted diet - strict Is/Os - cardiology consult # COPD --less likely - Solumedrol 60 mg IVPUSH Q8H-IV --dc'd by Pulm - Symbicort 2 puff IH BID - Xopenex 0.63 mg IH RTID MIA, rather than duonebs to avoid reflex sinus tachycardia --dc'd by Pulm -- duonebs q4h PRN - Azithro 500mg once then 250 mg PO DAILY - consult pulmonology: --Monitor off systemic steroids, off ABX --BD TX PRN --Transition to NC O2 --No smoking discussed --NIPPV as needed --Lasix and follow diuresis response #Afib - Holding coumadin for supratherapeutic INR, IR thoracentesis for 12/06 possibly - daily INR #HTN - furosemide IV for now #Depression - home lexapro 10mg #Breast Ca - home anastrozole 1mg #Hypothyroidism - home levothyroxine 50mcg #FEN no standing fluids, active diuresis replete PRN NPO while on BiPAP otherwise Na restricted diet #PPx - Holding coumadin due to supratherapeutic INR, SCDs for now #Dispo- admit to [facility], full code Visit type - Emergency Visit Emergency Visit: No - New Patient This patient is new to me today: No - Critical Care Critical Care patient: No ATTENDING PHYSICIAN STATEMENT I saw and evaluated the patient. I reviewed the resident's note and discussed the case with the resident. I agree with the resident's findings and plan as documented. SUBJECTIVE: OBJECTIVE: ASSESSMENT AND PLAN:
[2018-12-03] MEDS ORDERED: ALPRAZolam 0.25 MG TABLET PO ONE (21:33)
[2018-12-03] MEDS: DONEPEZIL HCL 5 MG TABLET (FP) PO SCH (22:15)
[2018-12-03] MEDS: PANTOPRAZOLE 40 MG TABLET (FP) PO SCH (22:15)
[2018-12-04] MEDS: LEVOTHYROXINE NA 50 MCG TABLET (FP) PO SCH (06:11)
[2018-12-04 06:41] LABS: HEMATOCRIT 33.7 % (32.4-45.2); MCH 31.8 pg (25.7-33.7); MCHC 32.6 g/dl (32.0-36.0); MEAN CELL VOLUME 97.4 fl (80-96); MEAN PLT VOLUME 9.8 fl (7.5-11.1); PLATELET COUNT 157 K/MM3 (134-434); RBC 3.46 M/mm3 (3.60-5.2); RDW 14.7 % (11.6-15.6); WHITE BLOOD COUNT 4.8 K/mm3 (4.0-10.0)
[2018-12-04 06:51] LABS: INR 3.64 (0.83-1.09); PROTHROMBIN TIME (PATIENT) 43.5 SEC (9.7-13.0)
[2018-12-04 07:24] LABS: ANION GAP 7 MMOL/L (8-16); BLOOD UREA NITROGEN 34.5 mg/dL (7-18); CALCIUM 8.8 mg/dL (8.5-10.1); CHLORIDE 93 mmol/L (98-107); CO2 > 45 mmol/L (21-32); CREATININE 1.1 mg/dL (0.55-1.3); GLUCOSE,RANDOM 89 mg/dL (74-106); MAGNESIUM 2.7 mg/dL (1.8-2.4); PHOSPHOROUS 5.4 mg/dL (2.5-4.9); SODIUM 145 mmol/L (136-145)
--- NOTE | 2018-12-04 08:43 | CON.CARD ---
Consult Consult Specialty:: cardio - History of Present Illness Chief Complaint: sob History of Present Illness: 77 F here with respiratory distress/sob at home. known history of O2-dependent COPD (4 L NC), chronic hypercapneic respiratory failure, diastolic CHF with chronic R pleural effusion, pulmonary HTN (? severity). Admitted via the ER due to progressive SOB over the past few days. Her PMD recommended ER evaluation after she was seen in the office but she refused. Decided to come to the ER the following day due to progressive symptoms. seen by pulmonary consult: no signif change in chronic bronchitis sx's: with daily cough and scant sputum production. CTA done: no PE / pulmonary vascular congestion / large partially loculated pleural effusion no suspicion of A.E. of copd in their opinion. treated with lasix (40 IV) presently: limited history (taken in chinese) sec to dementia. admits to sob at home--now "much better". cannot say when sob began. states she felt sob "when someone spoke to her badly here". 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 No: Asthma, Previously Intubated, Pulmonary Embolus, Pulmonary Fibrosis ...: No Psych: Yes: Depression Endocrine: Yes: Hypothyroidism - Past Surgical History Past Surgical History: Yes: Cholecystectomy, Valve Replacement (mechanical mitral) - Alcohol/Substance Use Hx Alcohol Use: No - Smoking History Smoking history: Never smoked Have you smoked in the past 12 months: No Aproximately how many cigarettes per day: 0 If you are a former smoker, when did you quit?: 15YR - Social History Usual Living Arrangement: With Significant Other ADL: Independent History of Recent Travel: No Home Medications - Allergies Allergies/Adverse Reactions: Allergies Allergy/AdvReac Type Severity Reaction Status Date / Time No Known Allergies Allergy Verified 12/02/18 18:55 - Home Medications Home Medications: Ambulatory Orders Anastrozole [Arimidex -] 1 mg PO DAILY 08/02/15 Levothyroxine [Synthroid -] 50 mcg PO DAILY@0700 08/06/17 Potassium Chloride [K-Dur -] 20 meq PO BID 08/06/17 Digoxin [Lanoxin -] 0.125 mg PO DAILY #30 tablet 08/24/17 Acetaminophen [Tylenol] 325 mg PO PRN 07/27/18 Donepezil HCl [Aricept -] 5 mg PO HS 07/27/18 Escitalopram Oxalate [Lexapro -] 10 mg PO DAILY 07/27/18 Ferrous Sulfate [Iron] 325 mg PO TID 07/27/18 Pantoprazole Sodium [Protonix] 40 mg PO BID 07/27/18 Zolpidem Tartrate [Ambien] 5 mg PO HS 07/27/18 Dronabinol [Marinol -] 5 mg PO BID 12/03/18 Furosemide [Lasix -] 60 mg PO DAILY 12/03/18 Prednisolone 1% Ophthalmic [Pred Forte 1% -] 1 drop OS QID 12/03/18 Umeclidinium [place] [Incruse Ellipta] 1 puff IH BID 12/03/18 Warfarin Na [Coumadin] 5 mg PO DAILY 12/03/18 Family Medical History Family History: Unable to Obtain Review of Systems - Review of Systems Constitutional: denies: Chills, Fever Eyes: denies: Eye Pain HENT: denies: Nasal Congestion Neck: denies: Stiffness Cardiovascular: denies: Palpitations Respiratory: denies: Orthopnea, PND Gastrointestinal: denies: Diarrhea, Rectal Bleeding Genitourinary: denies: Burning, Hematuria Musculoskeletal: denies: Muscle Pain Integumentary: denies: Rash Neurological: denies: Numbness, Seizure, Syncope Endocrine: denies: Excessive Sweating Hematology/Lymphatic: denies: Excessive Bleeding Vital Signs: Vital Signs Temperature 98.2 F 12/04/18 06:00 Pulse Rate 65 12/04/18 06:00 Respiratory Rate 20 12/04/18 06:00 Blood Pressure 133/68 12/04/18 06:00 O2 Sat by Pulse Oximetry (%) 99 12/04/18 08:34 Constitutional: Yes: Well Nourished, No Distress Eyes: No: Sclera Icterus HENT: No: Nasal Congestion Neck: No: Decreased ROM Respiratory: Yes: CTA Bilaterally (anteriorly (kamilla vest restraint on)). No: Accessory Muscle Use, Rales, Wheezes Gastrointestinal: Yes: Normal Bowel Sounds. No: Distention, Hepatomegaly, Palpable Mass, Tenderness Cardiovascular: Yes: Pulse Irregular JVD: Yes Carotid Bruit: No PMI: Non-Displaced Heart Sounds: Yes: S1, S2 (mechanical click). No: Gallop Murmur: Yes: Systolic Murmur (2/6 early CLARIBEL LUSB). No: Diastolic Murmur Musculoskeletal: Yes: Other (No kyphosis) Extremities: No: Cool, Cyanosis Edema: No Peripheral Pulses: 2+ Left Carotid, 2+ Right Carotid, 2+ Left Doralis Pedis, 2+ Right Dorsalis Pedis Integumentary: No: Jaundice Neurological: Yes: Alert. No: Seizure Psychiatric: No: Agitated - Other Data Labs, Other Data: CBC, BMP 12/04/18 06:15 12/04/18 06:15 INR, PTT INR 3.64 (0.83-1.09) H 12/04/18 06:15 Assessment/Plan ECG: AFib, R qrs axis. diffuse ST-T changes--no change vs 09/2017 CTA chest: no PE. dilated PA c/w pulm HTN. vascular congestion. large, partially -loculated R pleural effusion. Echo 11/27: postop septal motion, flattened septum in pattern c/w RV pressure overload. nl LVEF (50-55%). severe RV dilation, moderate RV hypokinesis. mild- mod , mild AI. mech MVR present. poor TV leaflet coaptation with mod-severe TR. severe pulm HTN (RVSP > 60). Echo 07/2017: nl LVSF, postop septal motion. mild RV dilation, mild RV hypo. ball -in-cage mechanical MVR, mild MR. mod-severe TR, RVSP > 60. tele: AF, HRs good acute on chronic HFpEF, known chronic R pleural effusion, severe pulm HTN with severe RV failure: -BNP 2600 (prior range 900-1500), congestion on CXR -cont IV diuresis (lasix 40 qd for now)--sob has resolved -etiology of PH is likely combination of WHO 2 and WHO 3--cont oxygen therapy per pulm -repeat CXR (+/- CT) for effusion imaging after 3 days of diuresis--? thoracentesis if remains large given risk of recurrent resp decompensation at home O2-dept COPD: -suppl O2 -no a.e. suspected, per pulm [facility] MVR: -cont AC (warfarin). INR goal 2.5-3.5 ([id number] mechanical MVR + Afib)-- would slightly reduce home dose for inr today 3.6 permanent AF: -cont AC
[2018-12-04] MEDS ORDERED: PT OWN MED DRAWER 7, Y5N ONE (09:47)
[2018-12-04] MEDS: FUROSEMIDE 40 MG/4 ML INJECTABLE VIAL IVPUSH SCH (09:48)
[2018-12-04] MEDS: BUDESONIDE/FORMETEROL FUMARATE 160/4.5 mcg INHALER IH SCH ×2 (09:48→22:35)
[2018-12-04] MEDS: ANASTROZOLE 1 MG TABLET PO SCH (09:48)
[2018-12-04] MEDS: ESCITALOPRAM OXALATE 10 MG TABLET (FP) PO SCH (09:48)
[2018-12-04] MEDS: DIGOXIN 0.125 MG TABLET (FP) PO SCH (09:48)
[2018-12-04] MEDS: PANTOPRAZOLE 40 MG TABLET (FP) PO SCH ×2 (09:48→22:35)
[2018-12-04] MEDS ORDERED: FUROSEMIDE 40 MG TABLET (FP) PO SCH (10:00)
[2018-12-04] MEDS ORDERED: AZITHROMYCIN 250 MG TABLET PO SCH (10:00)
--- NOTE | 2018-12-04 11:38 | PN ---
Teaching Attending Note Name of Resident: Mihaela Johnson ATTENDING PHYSICIAN STATEMENT I saw and evaluated the patient. I reviewed the resident's note and discussed the case with the resident. I agree with the resident's findings and plan as documented. SUBJECTIVE: SOB improved, now off on BiPAP. No fever/chills. No cough/sputum OBJECTIVE: Afebrile, Hemodynamically Stable. SpO2 99% on 4 L via NC Last Vital Signs Temp Pulse Resp BP Pulse Ox 98.2 F 74 20 133/68 99 12/04/18 06:00 12/04/18 09:48 12/04/18 06:00 12/04/18 06:00 12/04/18 08:34 Heart - S1, S2, SM Lungs - few basal crackles Abdomen - soft, non-tender. Bowel Sounds normal. Extremities - no calf tenderness. Mild edema/venous stasis skin changes. Laboratory Results - last 24 hr 12/02/18 12/03/18 12/04/18 21:35 16:55 06:15 WBC RBC Hgb Hct MCV MCH MCHC RDW Plt Count MPV PT with INR INR Sodium Potassium Chloride Carbon Dioxide Anion Gap BUN Creatinine Est GFR (CKD-EPI)AfAm Est GFR (CKD-EPI)NonAf POC Glucometer 159 Random Glucose Calcium Phosphorus Magnesium Free T3 2.6 Digoxin 1.41 12/04/18 12/04/18 12/04/18 06:15 06:15 06:15 WBC 4.8 RBC 3.46 L Hgb 11.0 Hct 33.7 MCV 97.4 H MCH 31.8 MCHC 32.6 RDW 14.7 Plt Count 157 MPV 9.8 PT with INR 43.50 H INR 3.64 H Sodium 145 Potassium 4.0 Chloride 93 L Carbon Dioxide > 45 H Anion Gap 7 L BUN 34.5 H Creatinine 1.1 Est GFR (CKD-EPI)AfAm 55.30 Est GFR (CKD-EPI)NonAf 47.71 POC Glucometer Random Glucose 89 Calcium 8.8 Phosphorus 5.4 H Magnesium 2.7 H Free T3 Digoxin Current Medications Generic Name Dose Route Start Last Admin Trade Name Freq PRN Reason Stop Dose Admin Albuterol/Ipratropium 1 amp 12/03/18 11:50 Duoneb - NEB Q4H PRN SHORTNESS OF BREATH Anastrozole 1 mg 12/04/18 10:00 12/04/18 09:48 Arimidex - PO 1 mg DAILY MIA Administration Budesonide/Formoterol Fumarate 2 puff 12/03/18 10:00 12/04/18 09:48 Symbicort 160/4.5mcg - IH 2 puff BID MIA Administration Digoxin 0.125 mg 12/04/18 10:00 12/04/18 09:48 Lanoxin - PO 0.125 mg DAILY MIA Administration Donepezil HCl 5 mg 12/03/18 22:00 12/03/18 22:15 Aricept - PO 5 mg HS MIA Administration Escitalopram Oxalate 10 mg 12/04/18 10:00 12/04/18 09:48 Lexapro - PO 10 mg DAILY MIA Administration Furosemide 40 mg 12/03/18 10:00 12/04/18 09:48 Lasix Injection - IVPUSH 40 mg DAILY MIA Administration Furosemide 60 mg 12/04/18 10:00 Lasix - PO DAILY MIA Levothyroxine Sodium 50 mcg 12/04/18 07:00 12/04/18 06:11 Synthroid - PO 50 mcg DAILY@0700 MIA Administration Pantoprazole Sodium 40 mg 12/03/18 22:00 12/04/18 09:48 Protonix - PO 40 mg BID MIA Administration Zolpidem Tartrate 5 mg 12/03/18 22:00 Ambien - PO HS PRN INSOMNIA Home Medications Medication Instructions Recorded Anastrozole [Arimidex -] 1 mg PO DAILY 08/02/15 Levothyroxine [Synthroid -] 50 mcg PO DAILY@0700 08/06/17 Potassium Chloride [K-Dur -] 20 meq PO BID 08/06/17 Digoxin [Lanoxin -] 0.125 mg PO DAILY #30 tablet 08/24/17 Acetaminophen [Tylenol] 325 mg PO PRN 07/27/18 Donepezil HCl [Aricept -] 5 mg PO HS 07/27/18 Escitalopram Oxalate [Lexapro -] 10 mg PO DAILY 07/27/18 Ferrous Sulfate [Iron] 325 mg PO TID 07/27/18 Pantoprazole Sodium [Protonix] 40 mg PO BID 07/27/18 Zolpidem Tartrate [Ambien] 5 mg PO HS 07/27/18 Dronabinol [Marinol -] 5 mg PO BID 12/03/18 Furosemide [Lasix -] 60 mg PO DAILY 12/03/18 Prednisolone 1% Ophthalmic [Pred 1 drop OS QID 12/03/18 Forte 1% -] Umeclidinium [place] [Incruse 1 puff IH BID 12/03/18 Ellipta] Warfarin Na [Coumadin] 5 mg PO DAILY 12/03/18 ASSESSMENT AND PLAN: 77 year old female with history of Dementia, Depression, hypothyroidism, hyperlipidemia, Atrial Fibrillation (on coumadin), Chronic Diastolic CHF, CAD, s /p MVR (metallic), CRF sec to COPD(on 4 L of O2 at home), Breast cancer (s/p lumpectomy), Hx of Lower GI bleed from from Dieulafoy's lesion in the colon, presents with 1 week history of worsening SOB. In ED, she was found to be hypercapneic requiring BiPAP, with elevated 2676.6. 1. Acute Hypercapneic Respiratory Failure secondary to Acute on Chronic Diastolic CHF Responded well to BiPAP and Lasix diuresis No evidence of COPD exacerbation at this time - Solumedrol and Azithromycin discontinued. Echo - Mod , Mechanical MV, Mod/Severe TR with RV systolic pressure > 60mmHg, normal EF 50-55% CXR - loculated R pleural Effusion CTA: no PE / pulmonary vascular congestion / large partially loculated pleural effusion Continue IV Lasix diuresis. Thorne weights, I/Os.Cardiology following. if no improvement in effusion on CXR, will consider diagnostic/therapeutic thoracentesis. IR consulted. 2. Mechanical MVR, on Coumadin INR mildly supratherapeutic 3.64 Coumadin held 12/03, will resume at lower dose today. 3. CRF sec to COPD - on home 4LO2. No evidence of acute exacerbation. Patient back at baseline O2 requirements. Pulmonary following. 4. Hx Breast Ca s/p lumpectomy - on Arimidex 5. Hypothyroidism - continue Levothyroxine 6. Atrial Fibrillation - Continue Digoxin and Coumadin. Digoxin level 1.41 7. Dementia/Depression - continue Aricept, Lexapro 8. Pulmonar HTN - on Home O2. Pulm following. DVT Px - on Coumadin
--- NOTE | 2018-12-04 12:02 | PN ---
Physical Exam: SUBJECTIVE: Patient seen and examined. No acute events overnight. Pt slept well on BiPAP. OBJECTIVE: Vital Signs Period Temp Pulse Resp BP Sys/Garza Pulse Ox Last 24 Hr 98.2 F-98.5 F 65-84 17-22 122-139/56-75 94-100 GENERAL: The patient is awake, alert, not well oriented as patient is demented. No acute distress HEAD: Normal with no signs of trauma. EYES: PERRL, extraocular movements intact, sclera anicteric, conjunctiva clear. No ptosis. ENT: Ears normal, nares patent, oropharynx clear without exudates, moist mucous membranes. NECK: Trachea midline, full range of motion, supple. LUNGS: Coarse breath sounds equal, no wheezes, no crackles, no accessory muscle use. HEART: Regular rate and rhythm, S1, S2 without murmur, rub or gallop. ABDOMEN: Soft, nontender, nondistended, normoactive bowel sounds, no guarding, no rebound, no hepatosplenomegaly, no masses. EXTREMITIES: 2+ pulses, warm, well-perfused, non-pitting edema. NEUROLOGICAL: Cranial nerves II through XII grossly intact. Normal speech, gait not observed. PSYCH: Normal mood, normal affect. SKIN: Warm, dry, normal turgor, no rashes or lesions noted Laboratory Results - last 24 hr 12/02/18 12/03/18 12/04/18 21:35 16:55 06:15 WBC RBC Hgb Hct MCV MCH MCHC RDW Plt Count MPV PT with INR INR Sodium Potassium Chloride Carbon Dioxide Anion Gap BUN Creatinine Est GFR (CKD-EPI)AfAm Est GFR (CKD-EPI)NonAf POC Glucometer 159 Random Glucose Calcium Phosphorus Magnesium Free T3 2.6 Digoxin 1.41 12/04/18 12/04/18 12/04/18 06:15 06:15 06:15 WBC 4.8 RBC 3.46 L Hgb 11.0 Hct 33.7 MCV 97.4 H MCH 31.8 MCHC 32.6 RDW 14.7 Plt Count 157 MPV 9.8 PT with INR 43.50 H INR 3.64 H Sodium 145 Potassium 4.0 Chloride 93 L Carbon Dioxide > 45 H Anion Gap 7 L BUN 34.5 H Creatinine 1.1 Est GFR (CKD-EPI)AfAm 55.30 Est GFR (CKD-EPI)NonAf 47.71 POC Glucometer Random Glucose 89 Calcium 8.8 Phosphorus 5.4 H Magnesium 2.7 H Free T3 Digoxin Active Medications Current Medications Albuterol/Ipratropium (Duoneb -) 1 amp NEB Q4H PRN PRN Reason: SHORTNESS OF BREATH Anastrozole (Arimidex -) 1 mg PO DAILY [facility] Last Admin: 12/04/18 09:48 Dose: 1 mg Budesonide/Formoterol Fumarate (Symbicort 160/4.5mcg -) 2 puff IH BID [facility] Last Admin: 12/04/18 09:48 Dose: 2 puff Digoxin (Lanoxin -) 0.125 mg PO DAILY [facility] Last Admin: 12/04/18 09:48 Dose: 0.125 mg Donepezil HCl (Aricept -) 5 mg PO HS [facility] Last Admin: 12/03/18 22:15 Dose: 5 mg Escitalopram Oxalate (Lexapro -) 10 mg PO DAILY [facility] Last Admin: 12/04/18 09:48 Dose: 10 mg Furosemide (Lasix Injection -) 40 mg IVPUSH DAILY [facility] Last Admin: 12/04/18 09:48 Dose: 40 mg Furosemide (Lasix -) 60 mg PO DAILY [facility] Levothyroxine Sodium (Synthroid -) 50 mcg PO DAILY@0700 [facility] Last Admin: 12/04/18 06:11 Dose: 50 mcg Pantoprazole Sodium (Protonix -) 40 mg PO BID [facility] Last Admin: 12/04/18 09:48 Dose: 40 mg Zolpidem Tartrate (Ambien -) 5 mg PO HS PRN PRN Reason: INSOMNIA ASSESSMENT/PLAN: 77F w/ PMH of depression, hypertension, hyperlipidemia, A-fib (on coumadin), CHF , CAD, MVR (bovine vs metal?) , COPD (on 4 L of O2 at home), breast cancer (s/p lumpectomy), lower GI bleed from from dieulafoy's lesion in the colon and dimentia who presents to the ED with SOB over the past week with acute worsening today. She is being admitted for treatment of acute CHF exacerbation/ COPD. #Hypercarbic respiratory failure- Likely 2/2 CHF exacerbation. ABG(12/02/18): 7.38/81.4/117/47.4 --respiratory acidosis and metabolic alkalosis CXR(12/02/18): cardiomegaly, pulmonary vascular congestion CTA chest(12/02/18): right pleural effusion without pulmonary embolism Echo(12/03/18): LVEF 50-55%, dilated RV, mod-severe TR, RVSP> 60mmHg, mild- mod , mild AR, dilated IVC Troponin 0.03 Improved on bipap and IV Lasix. Will cont Lasix IV 40mg qd, titrate up PRN to achieve adequate diuresis Cardio following: if no improvement in effusion on CXR after 3 days diuresis , will consider diagnostic/therapeutic thoracentesis. F/u CXR tomorrow #COPD -- less likely Solumedrol 60 mg IVPUSH Q8H-IV --dc'd by Pulm Azithromycin 250mg -- dc'ed by pulm Symbicort 2 puff IH BID Xopenex 0.63 mg IH RTID MIA, rather than duonebs to avoid reflex sinus tachycardia --dc'd by Pulm duonebs q4h PRN #Afib, mechanical MVR Supratherapeutic INR: 3.64 Warfarin held on 12/03. Will resume at lower dose (2.5mg) today. #HTN Furosemide IV for now #Depression Home lexapro 10mg #Breast Ca Home anastrozole 1mg #Hypothyroidism Home levothyroxine 50mcg #FEN No standing fluids, active diuresis Replete PRN NPO while on BiPAP otherwise Na restricted diet #PPx Resume warfarin at lower dose, 2.5mg #Dispo Monitor on medsurg, full code Visit type - Emergency Visit Emergency Visit: No - New Patient This patient is new to me today: No - Critical Care Critical Care patient: No ATTENDING PHYSICIAN STATEMENT I saw and evaluated the patient. I reviewed the resident's note and discussed the case with the resident. I agree with the resident's findings and plan as documented. SUBJECTIVE: OBJECTIVE: ASSESSMENT AND PLAN:
--- NOTE | 2018-12-04 12:30 | PN ---
Progress Note (short form) - Note Progress Note: PULMONARY States breathing is better. No cough or chest pain. Vital Signs Period Temp Pulse Resp BP Sys/Garza Pulse Ox Last 24 Hr 97.8 F-98.5 F 65-84 17-22 122-139/55-75 94-100 Gen: NAD at rest Heart: RRR Lung: decreased breath sounds at the bases Abd: soft, nontender Ext: no edema CBC, BMP 12/04/18 06:15 12/04/18 06:15 Active Medications Albuterol/Ipratropium (Duoneb -) 1 amp NEB Q4H PRN PRN Reason: SHORTNESS OF BREATH Anastrozole (Arimidex -) 1 mg PO DAILY [facility] Last Admin: 12/04/18 09:48 Dose: 1 mg Budesonide/Formoterol Fumarate (Symbicort 160/4.5mcg -) 2 puff IH BID [facility] Last Admin: 12/04/18 09:48 Dose: 2 puff Digoxin (Lanoxin -) 0.125 mg PO DAILY [facility] Last Admin: 12/04/18 09:48 Dose: 0.125 mg Donepezil HCl (Aricept -) 5 mg PO HS [facility] Last Admin: 12/03/18 22:15 Dose: 5 mg Escitalopram Oxalate (Lexapro -) 10 mg PO DAILY [facility] Last Admin: 12/04/18 09:48 Dose: 10 mg Furosemide (Lasix Injection -) 40 mg IVPUSH DAILY [facility] Last Admin: 12/04/18 09:48 Dose: 40 mg Furosemide (Lasix -) 60 mg PO DAILY [facility] Levothyroxine Sodium (Synthroid -) 50 mcg PO DAILY@0700 [facility] Last Admin: 12/04/18 06:11 Dose: 50 mcg Pantoprazole Sodium (Protonix -) 40 mg PO BID [facility] Last Admin: 12/04/18 09:48 Dose: 40 mg Warfarin Sodium (Coumadin -) 2.5 mg PO DAILY@1800 [facility] Zolpidem Tartrate (Ambien -) 5 mg PO HS PRN PRN Reason: INSOMNIA A/P Acute on Chronic Diastolic Heart Failure Pulmonary HTN Chronic Pleural Effusion Chronic Hypoxic Respiratory Failure Atrial Fibrillation Mechanical MVR COPD - continue lasix - monitor urine output, creatinine - O2 to keep SpO2 >90% - inhaled bronchodilators - rate controlled - continue anticoagulation
[2018-12-04] MEDS ORDERED: WARFARIN NA 2.5 MG TABLET (FP) PO SCH (18:00)
[2018-12-04] MEDS: ZOLPIDEM TARTRATE 5 MG TABLET PO PRN (22:35)
[2018-12-04] MEDS: DONEPEZIL HCL 5 MG TABLET (FP) PO SCH (22:35)
[2018-12-05] MEDS: LEVOTHYROXINE NA 50 MCG TABLET (FP) PO SCH (06:28)
[2018-12-05 06:31] LABS: HEMOGLOBIN 10.7 GM/dL (10.7-15.3); MCH 31.3 pg (25.7-33.7); MCHC 32.3 g/dl (32.0-36.0); MEAN CELL VOLUME 96.8 fl (80-96); PLATELET COUNT 145 K/MM3 (134-434); RBC 3.41 M/mm3 (3.60-5.2); RDW 14.7 % (11.6-15.6); WHITE BLOOD COUNT 6.2 K/mm3 (4.0-10.0)
[2018-12-05 06:45] LABS: INR 2.6 (0.83-1.09)
[2018-12-05 07:27] LABS: ANION GAP 5 MMOL/L (8-16); BLOOD UREA NITROGEN 37.6 mg/dL (7-18); CALCIUM 8.4 mg/dL (8.5-10.1); CHLORIDE 94 mmol/L (98-107); CO2 > 45 mmol/L (21-32); CREATININE 1.2 mg/dL (0.55-1.3); GLUCOSE,RANDOM 107 mg/dL (74-106); POTASSIUM 3.7 mmol/L (3.5-5.1); SODIUM 144 mmol/L (136-145)
[2018-12-05] MEDS ORDERED: PT OWN MED DRAWER 7, Y5N ONE (09:36)
--- NOTE | 2018-12-05 09:48 | PN ---
Progress Note, Physician Chief Complaint: sob History of Present Illness: calm. denies sob. no cp, leg swelling, palp - Current Medication List Current Medications: Active Medications Albuterol/Ipratropium (Duoneb -) 1 amp NEB Q4H PRN PRN Reason: SHORTNESS OF BREATH Last Admin: 12/04/18 21:30 Dose: 1 amp Anastrozole (Arimidex -) 1 mg PO DAILY [facility] Last Admin: 12/04/18 09:48 Dose: 1 mg Budesonide/Formoterol Fumarate (Symbicort 160/4.5mcg -) 2 puff IH BID [facility] Last Admin: 12/04/18 22:35 Dose: 2 puff Digoxin (Lanoxin -) 0.125 mg PO DAILY [facility] Last Admin: 12/04/18 09:48 Dose: 0.125 mg Donepezil HCl (Aricept -) 5 mg PO HS [facility] Last Admin: 12/04/18 22:35 Dose: 5 mg Escitalopram Oxalate (Lexapro -) 10 mg PO DAILY [facility] Last Admin: 12/04/18 09:48 Dose: 10 mg Furosemide (Lasix Injection -) 40 mg IVPUSH DAILY [facility] Last Admin: 12/04/18 09:48 Dose: 40 mg Furosemide (Lasix -) 60 mg PO DAILY [facility] Levothyroxine Sodium (Synthroid -) 50 mcg PO DAILY@0700 [facility] Last Admin: 12/05/18 06:28 Dose: 50 mcg Pantoprazole Sodium (Protonix -) 40 mg PO BID [facility] Last Admin: 12/04/18 22:35 Dose: 40 mg Warfarin Sodium (Coumadin -) 5 mg PO DAILY@1800 [facility] Zolpidem Tartrate (Ambien -) 5 mg PO HS PRN PRN Reason: INSOMNIA Last Admin: 12/04/18 22:35 Dose: 5 mg - Objective Vital Signs: Vital Signs Temperature 98.2 F 12/05/18 06:00 Pulse Rate 70 12/05/18 06:00 Respiratory Rate 18 12/05/18 06:00 Blood Pressure 133/52 L 12/05/18 06:00 O2 Sat by Pulse Oximetry (%) 96 12/04/18 21:00 Constitutional: Yes: Well Nourished, No Distress, Calm Cardiovascular: Yes: Pulse Irregular (mech click), Murmur (2/6 CLARIBEL lusb), S1, S2. No: Gallop Respiratory: Yes: Regular, CTA Bilaterally, Diminished (R lower half). No: Accessory Muscle Use Extremities: No: Cold Edema: No Neurological: Yes: Alert. No: Seizure Psychiatric: No: Agitated Labs: CBC, BMP 12/05/18 05:58 12/05/18 05:58 INR, PTT INR 2.60 (0.83-1.09) H 12/05/18 05:58 Assessment/Plan ECG: AFib, R qrs axis. diffuse ST-T changes--no change vs 09/2017 CTA chest: no PE. dilated PA c/w pulm HTN. vascular congestion. large, partially -loculated R pleural effusion. Echo 11/27: postop septal motion, flattened septum in pattern c/w RV pressure overload. nl LVEF (50-55%). severe RV dilation, moderate RV hypokinesis. mild- mod , mild AI. mech MVR present. poor TV leaflet coaptation with mod-severe TR. severe pulm HTN (RVSP > 60). Echo 07/2017: nl LVSF, postop septal motion. mild RV dilation, mild RV hypo. ball -in-cage mechanical MVR, mild MR. mod-severe TR, RVSP > 60. tele: AF, HRs good acute on chronic HFpEF, known chronic R pleural effusion, severe pulm HTN with severe RV failure: -BNP 2600 (prior range 900-1500), congestion on CXR - BUN/creat rising slightly -cont IV diuresis (lasix 40 qd for now). rpt CXR and BMP in am--may need to dial back lasix tomorrow. 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 suspected, [facility] M[facility]: -cont AC (warfarin). INR goal 2.5-3.5 ([id number] mechanical MVR + Afib)-- would slightly reduce home dose for inr today 3.6 permanent AF: -cont AC
[2018-12-05] MEDS: ESCITALOPRAM OXALATE 10 MG TABLET (FP) PO SCH (09:52)
[2018-12-05] MEDS: DIGOXIN 0.125 MG TABLET (FP) PO SCH (09:52)
[2018-12-05] MEDS: ANASTROZOLE 1 MG TABLET PO SCH (09:52)
[2018-12-05] MEDS: PANTOPRAZOLE 40 MG TABLET (FP) PO SCH ×2 (09:52→21:31)
[2018-12-05] MEDS: FUROSEMIDE 40 MG/4 ML INJECTABLE VIAL IVPUSH SCH (09:53)
[2018-12-05] MEDS: BUDESONIDE/FORMETEROL FUMARATE 160/4.5 mcg INHALER IH SCH ×2 (09:53→21:31)
--- NOTE | 2018-12-05 11:05 | PN ---
Progress Note (short form) - Note Progress Note: SUBJECTIVE: SOB improved, off BiPAP. No fever/chills. No cough/sputum. confused , emotionaly labile. OBJECTIVE: Afebrile, Hemodynamically Stable. SpO2 96% on 3 L via NC. confused, emotionally labile. Last Vital Signs Temp Pulse Resp BP Pulse Ox 98.4 F 73 18 136/76 96 12/05/18 09:50 12/05/18 09:52 12/05/18 09:50 12/05/18 09:50 12/04/18 21:00 Heart - S1, S2, SM Lungs - decreased air entry bibasally, crackles resolved. Abdomen - soft, non-tender. Bowel Sounds normal. Extremities - no calf tenderness. Mild edema/venous stasis skin changes. Laboratory Results - last 24 hr 12/05/18 12/05/18 12/05/18 05:58 05:58 05:58 WBC 6.2 RBC 3.41 L Hgb 10.7 Hct 33.0 MCV 96.8 H MCH 31.3 MCHC 32.3 RDW 14.7 Plt Count 145 MPV 10.0 PT with INR 31.00 H INR 2.60 H Sodium 144 Potassium 3.7 Chloride 94 L Carbon Dioxide > 45 H Anion Gap 5 L BUN 37.6 H Creatinine 1.2 Est GFR (CKD-EPI)AfAm 49.78 Est GFR (CKD-EPI)NonAf 42.95 Random Glucose 107 H Calcium 8.4 L Current Medications Generic Name Dose Route Start Last Admin Trade Name Freq PRN Reason Stop Dose Admin Albuterol/Ipratropium 1 amp 12/03/18 11:50 12/04/18 21:30 Duoneb - NEB 1 amp Q4H PRN Administration SHORTNESS OF BREATH Anastrozole 1 mg 12/04/18 10:00 12/05/18 09:52 Arimidex - PO 1 mg DAILY MIA Administration Budesonide/Formoterol Fumarate 2 puff 12/03/18 10:00 12/05/18 09:53 Symbicort 160/4.5mcg - IH 2 puff BID MIA Administration Digoxin 0.125 mg 12/04/18 10:00 12/05/18 09:52 Lanoxin - PO 0.125 mg DAILY MIA Administration Donepezil HCl 5 mg 12/03/18 22:00 12/04/18 22:35 Aricept - PO 5 mg HS MIA Administration Escitalopram Oxalate 10 mg 12/04/18 10:00 12/05/18 09:52 Lexapro - PO 10 mg DAILY MIA Administration Furosemide 40 mg 12/03/18 10:00 12/05/18 09:53 Lasix Injection - IVPUSH 40 mg DAILY MIA Administration Furosemide 60 mg 12/04/18 10:00 Lasix - PO DAILY MIA Levothyroxine Sodium 50 mcg 12/04/18 07:00 12/05/18 06:28 Synthroid - PO 50 mcg DAILY@0700 MIA Administration Pantoprazole Sodium 40 mg 12/03/18 22:00 12/05/18 09:52 Protonix - PO 40 mg BID MIA Administration Risperidone 0.25 mg 12/05/18 11:00 Risperdal - PO DAILY MIA Warfarin Sodium 5 mg 12/05/18 18:00 Coumadin - PO DAILY@1800 MIA Zolpidem Tartrate 5 mg 12/03/18 22:00 12/04/18 22:35 Ambien - PO 5 mg HS PRN Administration INSOMNIA Home Medications Medication Instructions Recorded Anastrozole [Arimidex -] 1 mg PO DAILY 08/02/15 Levothyroxine [Synthroid -] 50 mcg PO DAILY@0700 08/06/17 Potassium Chloride [K-Dur -] 20 meq PO BID 08/06/17 Digoxin [Lanoxin -] 0.125 mg PO DAILY #30 tablet 08/24/17 Acetaminophen [Tylenol] 325 mg PO PRN 07/27/18 Donepezil HCl [Aricept -] 5 mg PO HS 07/27/18 Escitalopram Oxalate [Lexapro -] 10 mg PO DAILY 07/27/18 Ferrous Sulfate [Iron] 325 mg PO TID 07/27/18 Pantoprazole Sodium [Protonix] 40 mg PO BID 07/27/18 Zolpidem Tartrate [Ambien] 5 mg PO HS 07/27/18 Dronabinol [Marinol -] 5 mg PO BID 12/03/18 Furosemide [Lasix -] 60 mg PO DAILY 12/03/18 Prednisolone 1% Ophthalmic [Pred 1 drop OS QID 12/03/18 Forte 1% -] Umeclidinium [place] [Incruse 1 puff IH BID 12/03/18 Ellipta] Warfarin Na [Coumadin] 5 mg PO DAILY 12/03/18 ASSESSMENT AND PLAN: 77 year old female with history of Dementia, Depression, hypothyroidism, hyperlipidemia, Atrial Fibrillation (on coumadin), Chronic Diastolic CHF, CAD, s /p MVR (metallic), CRF sec to COPD(on 4 L of O2 at home), Breast cancer (s/p lumpectomy), Hx of Lower GI bleed from from Dieulafoy's lesion in the colon, presents with 1 week history of worsening SOB. In ED, she was found to be hypercapneic requiring BiPAP, with elevated 2676.6. 1. Acute Hypercapneic Respiratory Failure secondary to Acute on Chronic Diastolic CHF Responded well to BiPAP and Lasix diuresis No evidence of COPD exacerbation at this time - Solumedrol and Azithromycin discontinued. Echo - Mod , Mechanical MV, Mod/Severe TR with RV systolic pressure > 60mmHg, normal EF 50-55% CXR - loculated R pleural Effusion CTA: no PE / pulmonary vascular congestion / large partially loculated pleural effusion Continue IV Lasix diuresis. Daily weights, I/Os.Cardiology following. If no improvement in effusion on CXR, will consider diagnostic/therapeutic thoracentesis. IR consulted. Repeat CXR in AM. 2. Mechanical MVR, on Coumadin INR today 2.6. Resume Coumadin at home dose of 5mg. 3. CRF sec to COPD - on home O2 via [place] 3-4L. No evidence of acute exacerbation. Patient back at baseline O2 requirements. Pulmonary following. 4. Hx Breast Ca s/p lumpectomy - on Arimidex 5. Hypothyroidism - continue Levothyroxine 6. Atrial Fibrillation - Continue Digoxin and Coumadin. Digoxin level 1.41 7. Dementia/Depression/Behavioral Disturbance - continue Aricept, Lexapro. Mild agitation, emotionally labile, restless -will try low dose Risperidone. 8. Pulmonary HTN - on Home O2. Pulm following. DVT Px - on Coumadin Visit type - Emergency Visit Emergency Visit: Yes ED Registration Date: 12/03/18 Care time: The patient presented to the Emergency Department on the above date and was hospitalized for further evaluation of their emergent condition. - New Patient This patient is new to me today: No - Critical Care Critical Care patient: No - Discharge Referral Referred to [facility] Med P.C.: No
[2018-12-05] MEDS: risperiDONE 0.25 MG TABLET (FP) PO SCH (11:48)
--- NOTE | 2018-12-05 13:08 | PN ---
Progress Note (short form) - Note Progress Note: PULMONARY States breathing is improving. No cough or chest pain. Vital Signs Period Temp Pulse Resp BP Sys/Garza Pulse Ox Last 24 Hr 98 F-98.8 F 60-80 18-20 114-136/51-76 96-98 Gen: NAD at rest Heart: RRR Lung: decreased breath sounds at the bases Abd: soft, nontender Ext: no edema CBC, BMP 12/05/18 05:58 12/05/18 05:58 Active Medications Albuterol/Ipratropium (Duoneb -) 1 amp NEB Q4H PRN PRN Reason: SHORTNESS OF BREATH Last Admin: 12/04/18 21:30 Dose: 1 amp Anastrozole (Arimidex -) 1 mg PO DAILY [facility] Last Admin: 12/05/18 09:52 Dose: 1 mg Budesonide/Formoterol Fumarate (Symbicort 160/4.5mcg -) 2 puff IH BID [facility] Last Admin: 12/05/18 09:53 Dose: 2 puff Digoxin (Lanoxin -) 0.125 mg PO DAILY [facility] Last Admin: 12/05/18 09:52 Dose: 0.125 mg Donepezil HCl (Aricept -) 5 mg PO HS [facility] Last Admin: 12/04/18 22:35 Dose: 5 mg Escitalopram Oxalate (Lexapro -) 10 mg PO DAILY [facility] Last Admin: 12/05/18 09:52 Dose: 10 mg Furosemide (Lasix Injection -) 40 mg IVPUSH DAILY [facility] Last Admin: 12/05/18 09:53 Dose: 40 mg Levothyroxine Sodium (Synthroid -) 50 mcg PO DAILY@0700 [facility] Last Admin: 12/05/18 06:28 Dose: 50 mcg Pantoprazole Sodium (Protonix -) 40 mg PO BID [facility] Last Admin: 12/05/18 09:52 Dose: 40 mg Risperidone (Risperdal -) 0.25 mg PO DAILY [facility] Last Admin: 12/05/18 11:48 Dose: 0.25 mg Warfarin Sodium (Coumadin -) 5 mg PO DAILY@1800 [facility] Zolpidem Tartrate (Ambien -) 5 mg PO HS PRN PRN Reason: INSOMNIA Last Admin: 12/04/18 22:35 Dose: 5 mg A/P Acute on Chronic Diastolic Heart Failure Pulmonary HTN Chronic Pleural Effusion Chronic Hypoxic Respiratory Failure Atrial Fibrillation Mechanical MVR COPD - continue lasix - monitor urine output, creatinine - O2 to keep SpO2 >90% - inhaled bronchodilators - rate controlled - continue anticoagulation
[2018-12-05] MEDS ORDERED: WARFARIN NA 5 MG TABLET (UD) PO SCH (18:00)
[2018-12-05] MEDS: ZOLPIDEM TARTRATE 5 MG TABLET PO PRN (19:02)
[2018-12-05] MEDS: DONEPEZIL HCL 5 MG TABLET (FP) PO SCH (21:31)
[2018-12-06] MEDS: LEVOTHYROXINE NA 50 MCG TABLET (FP) PO SCH (06:17)
[2018-12-06] MEDS: ESCITALOPRAM OXALATE 10 MG TABLET (FP) PO SCH (09:45)
[2018-12-06] MEDS: DIGOXIN 0.125 MG TABLET (FP) PO SCH (09:45)
[2018-12-06] MEDS: PANTOPRAZOLE 40 MG TABLET (FP) PO SCH (09:45)
[2018-12-06] MEDS: risperiDONE 0.25 MG TABLET (FP) PO SCH (09:45)
[2018-12-06] MEDS: FUROSEMIDE 40 MG/4 ML INJECTABLE VIAL IVPUSH SCH (09:45)
[2018-12-06] MEDS: ANASTROZOLE 1 MG TABLET PO SCH (09:47)
[2018-12-06 10:06] LABS: INR 2.54 (0.83-1.09); PROTHROMBIN TIME (PATIENT) 30.3 SEC (9.7-13.0)
[2018-12-06 11:34] LABS: BLOOD UREA NITROGEN 23.8 mg/dL (7-18); CALCIUM 8.6 mg/dL (8.5-10.1); CREATININE 0.9 mg/dL (0.55-1.3); POTASSIUM 3.8 mmol/L (3.5-5.1)
[2018-12-06] MEDS: BUDESONIDE/FORMETEROL FUMARATE 160/4.5 mcg INHALER IH SCH (11:41)
--- NOTE | 2018-12-06 11:57 | PN ---
Teaching Attending Note Name of Resident: Jewel Minaya ATTENDING PHYSICIAN STATEMENT I saw and evaluated the patient. I reviewed the resident's note and discussed the case with the resident. I agree with the resident's findings and plan as documented. SUBJECTIVE: SOB resolved. No longer requiring BiPAP. No fever/chills. No cough/ sputum. Still confused. OBJECTIVE: Afebrile, Hemodynamically Stable. SpO2 97% on 3 L via NC. Confused ( at baseline), emotionally labile. Last Vital Signs Temp Pulse Resp BP Pulse Ox 98.2 F 74 16 153/62 97 12/06/18 08:42 12/06/18 09:45 12/06/18 08:42 12/06/18 08:42 12/05/18 20:34 Heart - S1, S2, SM Lungs - decreased air entry bibasally, crackles resolved. Abdomen - soft, non-tender. Bowel Sounds normal. Extremities - no calf tenderness. Trace edema/venous stasis skin changes. Laboratory Results - last 24 hr 12/06/18 12/06/18 09:35 09:35 PT with INR 30.30 H INR 2.54 H Sodium 145 Potassium 3.8 Chloride 95 L Carbon Dioxide 45 H Anion Gap 5 L BUN 23.8 H Creatinine 0.9 Est GFR (CKD-EPI)AfAm 70.48 Est GFR (CKD-EPI)NonAf 60.81 Random Glucose 102 Calcium 8.6 Current Medications Generic Name Dose Route Start Last Admin Trade Name Freq PRN Reason Stop Dose Admin Albuterol/Ipratropium 1 amp 12/03/18 11:50 12/04/18 21:30 Duoneb - NEB 1 amp Q4H PRN Administration SHORTNESS OF BREATH Anastrozole 1 mg 12/04/18 10:00 12/06/18 09:47 Arimidex - PO 1 mg DAILY MIA Administration Budesonide/Formoterol Fumarate 2 puff 12/03/18 10:00 12/06/18 11:41 Symbicort 160/4.5mcg - IH 2 puff BID MIA Administration Digoxin 0.125 mg 12/04/18 10:12/06/18 09:45 Lanoxin - PO 0.125 mg DAILY MIA Administration Donepezil HCl 5 mg 12/03/18 22:00 12/05/18 21:31 Aricept - PO 5 mg HS MIA Administration Escitalopram Oxalate 10 mg 12/04/18 10:00 12/06/18 09:45 Lexapro - PO 10 mg DAILY MIA Administration Furosemide 40 mg 12/03/18 10:00 12/06/18 09:45 Lasix Injection - IVPUSH 40 mg DAILY MIA Administration Levothyroxine Sodium 50 mcg 12/04/18 07:00 12/06/18 06:17 Synthroid - PO 50 mcg DAILY@0700 MIA Administration Pantoprazole Sodium 40 mg 12/03/18 22:00 12/06/18 09:45 Protonix - PO 40 mg BID MIA Administration Risperidone 0.25 mg 12/05/18 11:00 12/06/18 09:45 Risperdal - PO 0.25 mg DAILY MIA Administration Warfarin Sodium 5 mg 12/05/18 18:00 12/05/18 17:42 Coumadin - PO 5 mg DAILY@1800 MIA Administration Zolpidem Tartrate 5 mg 12/03/18 22:00 12/05/18 19:02 Ambien - PO 5 mg HS PRN Administration INSOMNIA Home Medications Medication Instructions Recorded Anastrozole [Arimidex -] 1 mg PO DAILY 08/02/15 Levothyroxine [Synthroid -] 50 mcg PO DAILY@0700 08/06/17 Potassium Chloride [K-Dur -] 20 meq PO BID 08/06/17 Digoxin [Lanoxin -] 0.125 mg PO DAILY #30 tablet 08/24/17 Acetaminophen [Tylenol] 325 mg PO PRN 07/27/18 Donepezil HCl [Aricept -] 5 mg PO HS 07/27/18 Escitalopram Oxalate [Lexapro -] 10 mg PO DAILY 07/27/18 Ferrous Sulfate [Iron] 325 mg PO TID 07/27/18 Pantoprazole Sodium [Protonix] 40 mg PO BID 07/27/18 Zolpidem Tartrate [Ambien] 5 mg PO HS 07/27/18 Dronabinol [Marinol -] 5 mg PO BID 12/03/18 Furosemide [Lasix -] 60 mg PO DAILY 12/03/18 Prednisolone 1% Ophthalmic [Pred 1 drop OS QID 12/03/18 Forte 1% -] Umeclidinium [place] [Incruse 1 puff IH BID 12/03/18 Ellipta] Warfarin Na [Coumadin] 5 mg PO DAILY 12/03/18 ASSESSMENT AND PLAN: 77 year old female with history of Dementia, Depression, hypothyroidism, hyperlipidemia, Atrial Fibrillation (on coumadin), Chronic Diastolic CHF, CAD, s /p MVR (metallic), CRF sec to COPD(on 4 L of O2 at home), Breast cancer (s/p lumpectomy), Hx of Lower GI bleed from from Dieulafoy's lesion in the colon, presents with 1 week history of worsening SOB. In ED, she was found to be hypercapneic requiring BiPAP, with elevated 2676.6. 1. Acute Hypercapneic Respiratory Failure secondary to Acute on Chronic Diastolic CHF - resolved. Responded well to BiPAP and Lasix diuresis Echo - Mod , Mechanical MV, Mod/Severe TR with RV systolic pressure > 60mmHg, normal EF 50-55% CTA: no PE / pulmonary vascular congestion / large partially loculated pleural effusion Repeat CXR - moderate R pleural effusion with pleural thickening. Continue IV Lasix diuresis. Daily weights, I/Os. Cardiology/Pulm following - to consider diagnostic/ therapeutic thoracentesis (hx Breast ca). IR consulted. 2. Mechanical MVR, on Coumadin INR today 2.54. Continue Coumadin at home dose of 5mg unless thoracentesis is planned. 3. CRF sec to COPD - on home O2 via NC 3-4L. No evidence of acute exacerbation. Patient back at baseline O2 requirements. Pulmonary following. 4. Hx Breast Ca s/p lumpectomy - on Arimidex 5. Hypothyroidism - continue Levothyroxine 6. Atrial Fibrillation - Continue Digoxin and Coumadin. Digoxin level 1.41 7. Dementia/Depression/Behavioral Disturbance - continue Aricept, Lexapro. Started on low dose Risperidone for mild agitation, emotional labililty, restlessness. 8. Pulmonary HTN - on Home O2. Pulm following. DVT Px - on Coumadin
--- NOTE | 2018-12-06 12:09 | PN ---
Progress Note, Physician Chief Complaint: sob History of Present Illness: denies sob or orthopnea. no palpit, cp, syncope - Current Medication List Current Medications: Active Medications Albuterol/Ipratropium (Duoneb -) 1 amp NEB Q4H PRN PRN Reason: SHORTNESS OF BREATH Last Admin: 12/04/18 21:30 Dose: 1 amp Anastrozole (Arimidex -) 1 mg PO DAILY [facility] Last Admin: 12/06/18 09:47 Dose: 1 mg Budesonide/Formoterol Fumarate (Symbicort 160/4.5mcg -) 2 puff IH BID [facility] Last Admin: 12/06/18 11:41 Dose: 2 puff Digoxin (Lanoxin -) 0.125 mg PO DAILY [facility] Last Admin: 12/06/18 09:45 Dose: 0.125 mg Donepezil HCl (Aricept -) 5 mg PO HS [facility] Last Admin: 12/05/18 21:31 Dose: 5 mg Escitalopram Oxalate (Lexapro -) 10 mg PO DAILY [facility] Last Admin: 12/06/18 09:45 Dose: 10 mg Furosemide (Lasix Injection -) 40 mg IVPUSH DAILY [facility] Last Admin: 12/06/18 09:45 Dose: 40 mg Levothyroxine Sodium (Synthroid -) 50 mcg PO DAILY@0700 [facility] Last Admin: 12/06/18 06:17 Dose: 50 mcg Pantoprazole Sodium (Protonix -) 40 mg PO BID [facility] Last Admin: 12/06/18 09:45 Dose: 40 mg Risperidone (Risperdal -) 0.25 mg PO DAILY [facility] Last Admin: 12/06/18 09:45 Dose: 0.25 mg Warfarin Sodium (Coumadin -) 5 mg PO DAILY@1800 [facility] Last Admin: 12/05/18 17:42 Dose: 5 mg Zolpidem Tartrate (Ambien -) 5 mg PO HS PRN PRN Reason: INSOMNIA Last Admin: 12/05/18 19:02 Dose: 5 mg - Objective Vital Signs: Vital Signs Temperature 98.2 F 12/06/18 08:42 Pulse Rate 74 12/06/18 09:45 Respiratory Rate 16 12/06/18 08:42 Blood Pressure 153/62 12/06/18 08:42 O2 Sat by Pulse Oximetry (%) 97 12/05/18 20:34 Constitutional: Yes: Well Nourished, No Distress, Calm Cardiovascular: Yes: Pulse Irregular (mech click). No: JVD, Gallop, Murmur Respiratory: Yes: Regular, CTA Bilaterally, Diminished (R base). No: Accessory Muscle Use, Rales Extremities: No: Cold Edema: No Neurological: Yes: Alert. No: Seizure Psychiatric: No: Agitated Labs: CBC, BMP 12/05/18 05:58 12/06/18 09:35 INR, PTT INR 2.54 (0.83-1.09) H 12/06/18 09:35 Assessment/Plan ECG: AFib, R qrs axis. diffuse ST-T changes--no change vs 09/2017 CTA chest: no PE. dilated PA c/w pulm HTN. vascular congestion. large, partially -loculated R pleural effusion. Echo 11/27: postop septal motion, flattened septum in pattern c/w RV pressure overload. nl LVEF (50-55%). severe RV dilation, moderate RV hypokinesis. mild- mod , mild AI. [facility] MVR present. poor TV leaflet coaptation with mod-severe TR. severe pulm HTN (RVSP > 60). Echo 07/2017: nl LVSF, postop septal motion. mild RV dilation, mild RV hypo. ball -in-cage mechanical MVR, mild MR. mod-severe TR, RVSP > 60. tele: AF, HRs good. artifact. acute on chronic HFpEF, known chronic R pleural effusion, severe pulm HTN with severe RV failure: -BNP 2600 (prior range 900-1500), congestion on CXR - BUN/creat rising slightly -treated with lasix 40 iv qd here. renal fxn stable. repeat CXR shows R effusion slightly improved vs DOA--remains slightly larger than prior study 2017 on my review. 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 suspected, per pulm [facility] MVR: -cont AC (warfarin). INR goal 2.5-3.5 (cgue-ha-evlj mechanical MVR + Afib)-- would slightly reduce home dose for inr today 3.6 permanent AF: -cont AC
--- NOTE | 2018-12-06 12:23 | PN ---
Progress Note (short form) - Note Progress Note: States breathing is improving. No cough or chest pain. CXR: improving bilateral vascular congestion / right effusion minimally improved Intake & Output 12/03/18 12/04/18 12/05/18 12/06/18 23:59 23:59 23:59 23:59 Intake Total 130 420 910 100 Balance 130 420 910 100 Weight 131 lb 9.6 oz 130 lb 8.218 oz Last Vital Signs Temp Pulse Resp BP Pulse Ox 98.2 F 74 16 153/62 97 12/06/18 08:42 12/06/18 09:45 12/06/18 08:42 12/06/18 08:42 12/05/18 20:34 Active Medications Albuterol/Ipratropium (Duoneb -) 1 amp NEB Q4H PRN PRN Reason: SHORTNESS OF BREATH Last Admin: 12/04/18 21:30 Dose: 1 amp Anastrozole (Arimidex -) 1 mg PO DAILY [facility] Last Admin: 12/06/18 09:47 Dose: 1 mg Budesonide/Formoterol Fumarate (Symbicort 160/4.5mcg -) 2 puff IH BID [facility] Last Admin: 12/06/18 11:41 Dose: 2 puff Digoxin (Lanoxin -) 0.125 mg PO DAILY [facility] Last Admin: 12/06/18 09:45 Dose: 0.125 mg Donepezil HCl (Aricept -) 5 mg PO HS [facility] Last Admin: 12/05/18 21:31 Dose: 5 mg Escitalopram Oxalate (Lexapro -) 10 mg PO DAILY [facility] Last Admin: 12/06/18 09:45 Dose: 10 mg Furosemide (Lasix -) 80 mg PO DAILY [facility] Levothyroxine Sodium (Synthroid -) 50 mcg PO DAILY@0700 [facility] Last Admin: 12/06/18 06:17 Dose: 50 mcg Pantoprazole Sodium (Protonix -) 40 mg PO BID [facility] Last Admin: 12/06/18 09:45 Dose: 40 mg Risperidone (Risperdal -) 0.25 mg PO DAILY [facility] Last Admin: 12/06/18 09:45 Dose: 0.25 mg Warfarin Sodium (Coumadin -) 5 mg PO DAILY@1800 [facility] Last Admin: 12/05/18 17:42 Dose: 5 mg Zolpidem Tartrate (Ambien -) 5 mg PO HS PRN PRN Reason: INSOMNIA Last Admin: 12/05/18 19:02 Dose: 5 mg Gen: NAD at rest Heart: RRR Lung: decreased breath sounds at the bases Abd: soft, nontender Ext: no edema Laboratory Results - last 24 hr 12/06/18 12/06/18 09:35 09:35 PT with INR 30.30 H INR 2.54 H Sodium 145 Potassium 3.8 Chloride 95 L Carbon Dioxide 45 H Anion Gap 5 L BUN 23.8 H Creatinine 0.9 Est GFR (CKD-EPI)AfAm 70.48 Est GFR (CKD-EPI)NonAf 60.81 Random Glucose 102 Calcium 8.6 A/P Acute on Chronic Diastolic Heart Failure Pulmonary HTN Chronic Pleural Effusion Chronic Hypoxic Respiratory Failure Atrial Fibrillation Mechanical MVR COPD - continue lasix - monitor urine output, creatinine - O2 to keep SpO2 >90% - inhaled bronchodilators - rate controlled - continue anticoagulation - As she is clinically improving and can be combative, would defer thoracentesis for now, follow CXR in 2 weeks as an outpatient - DC planning Dr Gill Problem List - Problems (1) COPD (chronic obstructive pulmonary disease) Code(s): J44.9 - CHRONIC OBSTRUCTIVE PULMONARY DISEASE, UNSPECIFIED (2) Mitral valve replaced Code(s): Z95.2 - PRESENCE OF PROSTHETIC HEART VALVE (3) SOB (shortness of breath) Code(s): R06.02 - SHORTNESS OF BREATH (4) Acute CHF Code(s): I50.9 - HEART FAILURE, UNSPECIFIED (5) Acute on chronic diastolic (congestive) heart failure Code(s): I50.33 - ACUTE ON CHRONIC DIASTOLIC (CONGESTIVE) HEART FAILURE (6) Afib Code(s): I48.91 - UNSPECIFIED ATRIAL FIBRILLATION (7) Breast cancer Code(s): C50.919 - MALIGNANT NEOPLASM OF UNSP SITE OF UNSPECIFIED FEMALE BREAST Qualifiers: Laterality: unspecified laterality (8) CHF exacerbation Code(s): I50.9 - HEART FAILURE, UNSPECIFIED (9) COPD (chronic obstructive pulmonary disease) with chronic bronchitis Code(s): J44.9 - CHRONIC OBSTRUCTIVE PULMONARY DISEASE, UNSPECIFIED (10) Dementia Code(s): F03.90 - UNSPECIFIED DEMENTIA WITHOUT BEHAVIORAL DISTURBANCE (11) Dieulafoy lesion of large intestine Code(s): K63.81 - DIEULAFOY LESION OF INTESTINE (12) Edema Code(s): R60.9 - EDEMA, UNSPECIFIED (13) History of mitral valve replacement with mechanical valve Code(s): Z95.2 - PRESENCE OF PROSTHETIC HEART VALVE (14) Hypertension Code(s): I10 - ESSENTIAL (PRIMARY) HYPERTENSION (15) Hypothyroid Code(s): E03.9 - HYPOTHYROIDISM, UNSPECIFIED Qualifiers: Hypothyroidism type: acquired Qualified Code(s): E03.9 - Hypothyroidism, unspecified (16) Pleural effusion Code(s): J90 - PLEURAL EFFUSION, NOT ELSEWHERE CLASSIFIED
[2018-12-06 14:14] VITALS: BP 125/81; PULSE 82; TEMP 98.3
--- NOTE | 2018-12-06 14:42 | DS ---
Physical Exam: SUBJECTIVE: Patient seen and examined OBJECTIVE: Vital Signs Period Temp Pulse Resp BP Sys/Garza Pulse Ox Last 24 Hr 97.9 F-98.4 F 60-82 16-18 114-153/51-81 97 PHYSICAL EXAM GENERAL: NAD. HEAD: NC/AT EYES: sclera anicteric, conjunctiva clear. No ptosis. ENT: moist mucosal membranes NECK: Trachea midline, full range of motion, supple. LUNGS: On 3L NC. Mildly expiratory wheezes b/l, no crackles, no accessory muscle use. HEART: Regular rate and rhythm, S1, S2 without murmur, rub or gallop. ABDOMEN: Soft, nontender, nondistended, no guarding, no rebound. EXTREMITIES: 1+ DP warm, well-perfused, non-pitting edema to BLE. NEUROLOGICAL: Normal speech, gait not observed. PSYCH: agitated SKIN: Warm, dry, normal turgor, no rashes or lesions noted LABS Laboratory Results - last 24 hr 12/06/18 12/06/18 09:35 09:35 PT with INR 30.30 H INR 2.54 H Sodium 145 Potassium 3.8 Chloride 95 L Carbon Dioxide 45 H Anion Gap 5 L BUN 23.8 H Creatinine 0.9 Est GFR (CKD-EPI)AfAm 70.48 Est GFR (CKD-EPI)NonAf 60.81 Random Glucose 102 Calcium 8.6 HOSPITAL COURSE: Date of Admission:12/03/18 Date of Discharge: 12/06/18 Discharge Summary Problems reviewed: Yes Reason For Visit: ACUTE RESPIRATORY FAILURE WITH HYPERCAPNIA Current Active Problems Pleural effusion (Acute) Acute delirium (Acute) Acute CHF (Acute) Mitral valve replaced (Acute) COPD (chronic obstructive pulmonary disease) (Chronic) CHF exacerbation (Acute) Afib (Chronic) Breast cancer (Chronic) Condition: Stable - Instructions Diet, Activity, Other Instructions: You were evaluated for shortness of breath. Labwork and imaging was suggestive of congestive heart failure. You received medications to help promote urination of excessive water from your body. Your breathing improved. It is important that you follow up with primary care doctor in 1-2 weeks for a repeat chest xray for monitoring of pleural fluid. Medications: - NEW medications: Risperidone 0.25mg, once daily - Your Lasix dose was increased to 80mg daily. - continue with your regular home medications Please follow-up with the Physicians below: - PCP: for follow-up labwork to check your electrolytes, hemoglobin, INR (keep level between 2.5-3.5), repeat Chest Xray to monitor pleural fluid - Equip Maint Eng(Dr Mckeon): for continued management of your weak heart - Healthcare Applications Analyst(Dr Gill): for continued management of your COPD Additional instructions: - please limit your daily salt and water intake Please seek immediate medical evaluation or go to the Emergency Department if you experience: - severe shortness of breath, trouble breathing, unresolving cough, chest palpitations, chest pain, chest pressure Referrals: Rolly Tanner MD [Staff Physician] - Chet Mckeon MD [Staff Physician] - Wilfred Juarez MD [Primary Care Provider] - Disposition: HOME - Home Medications Comprehensive Discharge Medication List: Ambulatory Orders Anastrozole [Arimidex -] 1 mg PO DAILY 08/02/15 Levothyroxine [Synthroid -] 50 mcg PO DAILY@0700 08/06/17 Potassium Chloride [K-Dur -] 20 meq PO BID 08/06/17 Digoxin [Lanoxin -] 0.125 mg PO DAILY #30 tablet 08/24/17 Acetaminophen [Tylenol] 325 mg PO PRN 07/27/18 Donepezil HCl [Aricept -] 5 mg PO HS 07/27/18 Escitalopram Oxalate [Lexapro -] 10 mg PO DAILY 07/27/18 Ferrous Sulfate [Iron] 325 mg PO TID 07/27/18 Pantoprazole Sodium [Protonix] 40 mg PO BID 07/27/18 Zolpidem Tartrate [Ambien] 5 mg PO HS 07/27/18 Dronabinol [Marinol -] 5 mg PO BID 12/03/18 Prednisolone 1% Ophthalmic [Pred Forte 1% -] 1 drop OS QID 12/03/18 Umeclidinium [place] [Incruse Ellipta] 1 puff IH BID 12/03/18 Warfarin Na [Coumadin -] 5 mg PO DAILY 12/03/18 Furosemide [Lasix -] 80 mg PO DAILY #60 tablet 12/06/18 Risperidone [Risperdal -] 0.25 mg PO DAILY #30 tablet 12/06/18 - Discharge Referral Referred to [facility] No ATTENDING PHYSICIAN STATEMENT I saw and evaluated the patient. I reviewed the resident's note and discussed the case with the resident. I agree with the resident's findings and plan as documented. SUBJECTIVE: OBJECTIVE: ASSESSMENT AND PLAN:
[2018-12-07] MEDS ORDERED: FUROSEMIDE 40 MG TABLET (FP) PO SCH (10:00)
== END 2018-12-06 15:40 | disposition home or self-care (01) | DRG 194 ==
LOC: JER 18:37 → JERBED 12-03 02:47 → J4S 12-03 14:51
PROVIDERS: ADMIT Internal Medicine
DX: I11.0 Hypertensive heart disease with heart failure (principal); I50.33 Acute on chronic diastolic (congestive) heart failure; I25.10 Atherosclerotic heart disease of native coronary artery without angina pectoris; J44.9 Chronic obstructive pulmonary disease, unspecified; J98.11 Atelectasis; J90 Pleural effusion, not elsewhere classified; F03.91 Unspecified dementia, unspecified severity, with behavioral disturbance; E03.9 Hypothyroidism, unspecified; I27.20 Pulmonary hypertension, unspecified; F41.8 Other specified anxiety disorders; I48.21 Permanent atrial fibrillation; J44.1 Chronic obstructive pulmonary disease with (acute) exacerbation; E87.2 Acidosis; J96.02 Acute respiratory failure with hypercapnia; E87.3 Alkalosis; K63.81 Dieulafoy lesion of intestine; R60.9 Edema, unspecified; Z79.01 Long term (current) use of anticoagulants; Z85.3 Personal history of malignant neoplasm of breast; Z95.2 Presence of prosthetic heart valve; Z99.81 Dependence on supplemental oxygen
CPT/HCPCS: 36415; 36600; 71045-TC-FY; 71275-TC; 80048; 80053; 80162; 82140; 82375; 82550; 82803; 82962; 83050; 83735; 83880; 84100; 84439; 84443; 84481; 84484; 85025; 85027; 85610; 87040; 93005; 93010; 93306-TC; 94640; 94660; 97116-GP; 97161-GP; 99284-25

== ENCOUNTER 2018-12-13 02:06 | Inpatient (IN) | payer OTHER ==
[2018-12-13 02:48] LABS: BASO % 0.2 % (0-2.0); HEMATOCRIT 31.2 % (32.4-45.2); HEMOGLOBIN 10.7 GM/dL (10.7-15.3); LYMPH % 10.4 % (8-40); MCH 33.3 pg (25.7-33.7); MCHC 34.2 g/dl (32.0-36.0); MEAN CELL VOLUME 97.4 fl (80-96); MEAN PLT VOLUME 9.9 fl (7.5-11.1); MONO % 10.2 % (3.8-10.2); NEUT % 78.2 % (42.8-82.8); PLATELET COUNT 150 K/MM3 (134-434); WHITE BLOOD COUNT 7.5 K/mm3 (4.0-10.0)
--- NOTE | 2018-12-13 02:51 | PDOC ---
Attending Attestation - Resident Resident Name: Greer Brewster - ED Attending Attestation I have performed the following: I have examined & evaluated the patient, The case was reviewed & discussed with the resident, I agree w/resident's findings & plan - HPI HPI: 12/13/18 03:43 Pt comes with a sundowning episode at home; son called EMS; pt is here with no complaints. - Physicial Exam PE: 12/13/18 03:43 Agree with resident exam - Medical Decision Making 12/13/18 03:44 Labs demonstrate that pt ahs elevated TSH which is new. Chem is normal; INR is therapeutic for AFIB Pt's CBC is normal. 12/13/18 03:45 CXR shows an enlarged heart silhouete.
--- NOTE | 2018-12-13 02:55 | PDOC ---
History of Present Illness - General Chief Complaint: Altered Mental Status Stated Complaint: DEMENTIA Time Seen by Provider: 12/13/18 02:14 History Source: Patient, EMS - History of Present Illness Initial Comments: 12/13/18 02:56 The patient is a 78 yo F with a PMH of depression, HTN, HLD, A-fib (on coumadin ), CHF, CAD, MVR (bovine vs metal?) , COPD (on 4 L of O2 at home), breast cancer (s/p lumpectomy), lower GI bleed from from dieulafoy's lesion in the colon and dementia presenting to ED with worsening AMS. pt was BIBEMS who stated that the son called EMS. The son states that pt is acting altered as she keeps opening their door and screaming outside. Pt herself states she is confused why she was brought to the hospital. She states that her only complaint is that she becomes short of breath while using the restroom. While examining pt, pt starts telling elaborate stories and does not make sense. Denies CP, headache, n/v. Tried reaching out to son. [phone], no answer- left instructions to call back. 12/13/18 03:06 Past History - Past Medical History Allergies/Adverse Reactions: Allergies Allergy/AdvReac Type Severity Reaction Status Date / Time No Known Allergies Allergy Verified 12/13/18 02:18 Home Medications: Ambulatory Orders Anastrozole [Arimidex -] 1 mg PO DAILY 08/02/15 Levothyroxine [Synthroid -] 50 mcg PO DAILY@0700 08/06/17 Potassium Chloride [K-Dur -] 20 meq PO BID 08/06/17 Digoxin [Lanoxin -] 0.125 mg PO DAILY #30 tablet 08/24/17 Acetaminophen [Tylenol] 325 mg PO PRN 07/27/18 Donepezil HCl [Aricept -] 5 mg PO HS 07/27/18 Escitalopram Oxalate [Lexapro -] 10 mg PO DAILY 07/27/18 Ferrous Sulfate [Iron] 325 mg PO TID 07/27/18 Pantoprazole Sodium [Protonix] 40 mg PO BID 07/27/18 Zolpidem Tartrate [Ambien] 5 mg PO HS 07/27/18 Dronabinol [Marinol -] 5 mg PO BID 12/03/18 Prednisolone 1% Ophthalmic [Pred Forte 1% -] 1 drop OS QID 12/03/18 Umeclidinium [place] [Incruse Ellipta] 1 puff IH BID 12/03/18 Warfarin Na [Coumadin -] 5 mg PO DAILY 12/03/18 Furosemide [Lasix -] 80 mg PO DAILY #60 tablet 12/06/18 Risperidone [Risperdal -] 0.25 mg PO DAILY #30 tablet 12/06/18 Anemia: Yes Asthma: No Cancer: Yes Cardiac Disorders: Yes (a fib, mechanical mitral valve replacement) CVA: No COPD: Yes (3L) CHF: Yes Dementia: Yes Diabetes: No GI Disorders: Yes (COLON SX) Disorders: No HTN: Yes Hypercholesterolemia: No Liver Disease: No Seizures: No Thyroid Disease: Yes - Surgical History Abdominal Surgery: No Appendectomy: No Cardiac Surgery: Yes Cholecystectomy: Yes Lung Surgery: No Neurologic Surgery: No Orthopedic Surgery: No - Immunization History Immunization Up to Date: Yes - Psycho Social/Smoking Cessation Hx Smoking Status: No Smoking History: Never smoked Have you smoked in the past 12 months: No Number of Cigarettes Smoked Daily: 0 If you are a former smoker, when did you quit?: 15YR Hx Alcohol Use: No Drug/Substance Use Hx: No Substance Use Type: None Hx Substance Use Treatment: No Review of Systems - Review of Systems Able to Perform ROS?: Yes Constitutional: No: Chills, Fever Respiratory: Yes: Shortness of Breath, SOB with Exertion Cardiac (ROS): Yes: Palpitations. No: Chest Pain ABD/GI: No: Nausea, Vomiting Musculoskeletal: Yes: Back Pain Integumentary: No: Pruritus, Rash *Physical Exam - Vital Signs Last Vital Signs Temp Pulse Resp BP Pulse Ox 98.1 F 69 16 129/55 L 99 12/13/18 02:09 12/13/18 02:09 12/13/18 02:09 12/13/18 02:09 12/13/18 02:09 - Physical Exam General Appearance: Yes: Nourished, Appropriately Dressed Neck: positive: Normal Thyroid Respiratory/Chest: positive: Lungs Clear, Normal Breath Sounds. negative: Respiratory Distress, Accessory Muscle Use Cardiovascular: positive: S1, S2, Irregularly Irregular. negative: JVD Gastrointestinal/Abdominal: positive: Normal Bowel Sounds. negative: Tender, Soft, Distended, Guarding, Rebound, Tenderness, Hepatomegaly Musculoskeletal: negative: CVA Tenderness Extremity: positive: Normal Inspection. negative: Calf Tenderness Integumentary: positive: Normal Color, Dry, Warm Neurologic: positive: Fully Oriented. negative: Facial Droop ED Treatment Course - LABORATORY CBC & Chemistry Diagram: 12/13/18 02:10 12/13/18 02:10 - RADIOLOGY Radiology Studies Ordered: Category Date Time Status CHEST X-RAY PORTABLE* [RAD] Stat Radiology 12/13/18 02:54 Ordered Medical Decision Making - Medical Decision Making 12/13/18 03:03 78 yo F presenting with AMS -CBC, CMP -BCx. UA -CXR -EKG reviewed. no acute ST changes , Afib -attempted to contact son, will try again -TSH 12/13/18 03:51 Labs reviewed, TSH 7.95. likrly 2/ med non compliance awaiting T3, T4 Admit to med surg 12/13/18 03:52 Discharge - Discharge Information Problems reviewed: Yes Clinical Impression/Diagnosis: Hypothyroid, Afib, Chronic diastolic (congestive) heart failure Condition: Stable - Admission Yes - Follow up/Referral Referrals: Justino Juarez [Primary Care Provider] - - Patient Discharge Instructions - Post Discharge Activity
[2018-12-13 03:27] LABS: ALBUMIN 3.7 g/dl (3.4-5.0); BILIRUBIN,TOTAL 0.8 mg/dL (0.2-1); BLOOD UREA NITROGEN 27.1 mg/dL (7-18); CALCIUM 8.7 mg/dL (8.5-10.1); POTASSIUM 3.9 mmol/L (3.5-5.1); TOT PROT 6.9 g/dl (6.4-8.2)
[2018-12-13 03:27] LABS: EPI CELLS 1.2 /HPF (0-5/HPF); HYALINE CASTS 1 /lpf (0-8); URINE APPEARANCE CLEAR; URINE BACTERIA 4.1 /hpf (NEGATIVE); URINE BILIRUBIN NEGATIVE (NEGATIVE); URINE COLOR YELLOW; URINE GLUCOSE (UA) NEGATIVE (NEGATIVE); URINE KETONE NEGATIVE (NEGATIVE); URINE LEUK ESTERASE TRACE (NEGATIVE); URINE NITRITE NEGATIVE (NEGATIVE); URINE PROTEIN 1+ (NEGATIVE); URINE WBC 4 /hpf (0-5)
[2018-12-13 03:29] LABS: MAGNESIUM 2.2 mg/dL (1.8-2.4); PHOSPHOROUS 2.7 mg/dL (2.5-4.9)
[2018-12-13 05:10] VITALS: BMI 23.6
[2018-12-13] MEDS ORDERED: ALBUTEROL SO4 2.5/IPRATROPIUM 0.5 INH SOL 3 ML VIAL.NEB. NEB PRN (07:24)
[2018-12-13 08:38] LABS: INR 3.24 (0.83-1.09); PROTHROMBIN TIME (PATIENT) 38.7 SEC (9.7-13.0)
[2018-12-13] MEDS ORDERED: DIGOXIN 0.125 MG TABLET (FP) PO ONE (10:00)
[2018-12-13] MEDS ORDERED: risperiDONE 0.25 MG TABLET (FP) PO SCH (10:00)
[2018-12-13] MEDS ORDERED: DIGOXIN 0.125 MG TABLET (FP) PO SCH (10:00)
--- NOTE | 2018-12-13 10:01 | EKG ---
Test Reason : Blood Pressure : / mmHG Vent. Rate : 070 BPM Atrial Rate : 064 BPM P-R Int : 000 ms QRS Dur : 092 ms QT Int : 374 ms P-R-T Axes : 000 113 -56 degrees QTc Int : 403 ms ATRIAL FIBRILLATION RIGHT AXIS DEVIATION INCOMPLETE RIGHT BUNDLE BRANCH BLOCK RIGHT VENTRICULAR HYPERTROPHY WITH REPOLARIZATION ABNORMALITY NONSPECIFIC ST AND T WAVE ABNORMALITY ABNORMAL ECG WHEN COMPARED WITH ECG OF 02-DEC-2018 23:07, LIKELY NO SIGNIFICANT CHANGES Confirmed by BEV KHANNA MD ([id number]) on 12/13/2018 10:00:34 AM Referred By: Confirmed By:BEV KHANNA MD
[2018-12-13] MEDS: ANASTROZOLE 1 MG TABLET PO SCH (11:01)
--- NOTE | 2018-12-13 11:44 | CONSULT ---
Consult - text type - Consultation Consultation Note: NEUROlOGY CONSULT GREATLY APPRECIATED: Events reviewed. Patient examined. This 78 yo RH woman lives with family. PMH sig for: hypothyroid, afib on coumadin, depression, dementia, GERD, COPD, Breast CA s/p R lumpectomy, Iron anemia, valve replacement. Also On: Anastrozole, levothyroxine, digoxin, donepezil 5 mg, lexapro 10 mg, FeSO4, pantoprazole, zolpidem, marinol, furosemide, risperdal 0.25HS Admitted after episode of increased confusion and agitation witnessed by her son. Pt unable to provide cogent history. Head CT (reviewed): Moderate diffuse cerebral atrophy with mod ventricular dilation. Deep sulcal widening. Calcified intracranial vessels. WBC= 7.5K; INR= 3.24; TSH= 7.95! UA WBC= 4 TANJA: IV/V CLARIBEL. No bruit. Neck supple. Area of ecchymosis to R knee/shoulder. S/ P Sternotomy. 3+ pretibial edema, mottled. Arthritic hands. NEURO: Awake, alert, responsive and perseverative. Speech fluent in [place]. Ox "place where people are sick." Month 2. Year 2. No president. No recall. +glabella, snout CNII-CNXII: Sl masked. Motor: Intermittent tremor R hand and jaw tremor. + Cogwheeling R > L. Decreased MARILEE's B/L. No drift. Brisk reflexes arms, and present KJS and AJ's. Plantars silent. Coordination: No FTN dystaxia. Sensation: Feels vibration. Romberg - Gait: Sl flexed, but ambulates indecently. Can walk on heels, toes. Impression: Moderately severe B/L cerebral dysfunciton (OMS, Chronic) c/w Alzheimer's Disease Some Extrapyramidal features R > L Possible toxic-metabolic exacerbation if Hypothyroid Suggest: Increase and change Donepezil to 10 mg po QAM D/C risperdol 0.25 mg HS as may worsened extrapyramidal features Instead, start quetiapine 25 mg HS Adjust and Rx for hypothyrodism. Check T4, B12, RPR food and nutrition services assistant PT eval for gait safety Thank you very much, Juan C Guy MD
[2018-12-13] MEDS: FUROSEMIDE 40 MG TABLET (FP) PO SCH (11:51)
[2018-12-13] MEDS: POTASSIUM CHLORIDE TABS 20 MEQ TABLET.ER (FP) PO SCH ×2 (11:51→21:34)
[2018-12-13] MEDS: ESCITALOPRAM OXALATE 10 MG TABLET (FP) PO SCH (11:51)
[2018-12-13] MEDS: prednisoLONE ACETATE 1% OPHTH SUSP 5 ML BOTTLE OS SCH ×3 (11:52→21:55)
[2018-12-13] MEDS: PANTOPRAZOLE 40 MG TABLET (FP) PO SCH ×2 (13:50→21:34)
[2018-12-13] MEDS: WARFARIN NA 5 MG TABLET (UD) PO SCH (18:01)
[2018-12-13] MEDS: FERROUS SO4 325 MG TABLET (FP) PO SCH (19:55)
--- NOTE | 2018-12-13 21:32 | HP ---
Admitting History and Physical - Admission History of Present Illness: Pt is a 78 y/o female with PMH significant for depression, HTN, HLD, A-fib (on coumadin), CHF, CAD, MVR (bovine vs metal?) , COPD (on 4 L of O2 at home), breast cancer (s/p lumpectomy), lower GI bleed from dieulafoy's lesion in the colon and dementia presenting to ED with worsening AMS. Pt was BIBEMS who stated that the son called EMS. The son stated that pt was acting altered as she kept opening their door and screaming outside. Pt herself reported that she is confused why she was brought to the hospital. She reported that her only complaint is that she becomes short of breath while using the restroom. CT scan head was done wc did not show any acute pathology - Past Medical History Cardiovascular: Yes: AFIB, Pulmonary Hypertension, CHF, HTN, Hyperlipdemia, Other Pulmonary: Yes: Bronchitis, COPD, O2 Dependent, Pneumonia, Other (pulmonary hypertension on O-2) Gastrointestinal: Yes: GI Bleed Heme/Onc: Yes: Cancer (breast) Psych: Yes: Depression Endocrine: Yes: Hypothyroidism - Past Surgical History Past Surgical History: Yes: Cholecystectomy, Valve Replacement (mechanical mitral) - Smoking History Smoking history: Former smoker Have you smoked in the past 12 months: No Aproximately how many cigarettes per day: 0 If you are a former smoker, when did you quit?: 15YR - Alcohol/Substance Use Hx Alcohol Use: No - Social History ADL: Independent History of Recent Travel: No Home Medications - Allergies Allergies/Adverse Reactions: Allergies Allergy/AdvReac Type Severity Reaction Status Date / Time No Known Allergies Allergy Verified 12/13/18 02:18 - Home Medications Home Medications: Ambulatory Orders Anastrozole [Arimidex -] 1 mg PO DAILY 08/02/15 Levothyroxine [Synthroid -] 50 mcg PO DAILY@0700 08/06/17 Potassium Chloride [K-Dur -] 20 meq PO BID 08/06/17 Digoxin [Lanoxin -] 0.125 mg PO DAILY #30 tablet 08/24/17 Acetaminophen [Tylenol] 325 mg PO PRN 07/27/18 Escitalopram Oxalate [Lexapro -] 10 mg PO DAILY 07/27/18 Ferrous Sulfate [Iron] 325 mg PO TID 07/27/18 Pantoprazole Sodium [Protonix] 40 mg PO BID 07/27/18 Prednisolone 1% Ophthalmic [Pred Forte 1% -] 1 drop OS QID 12/03/18 Umeclidinium [place] [Incruse Ellipta] 1 puff IH BID 12/03/18 Warfarin Na [Coumadin -] 5 mg PO DAILY 12/03/18 Furosemide [Lasix -] 80 mg PO DAILY #60 tablet 12/06/18 Donepezil HCl [Aricept -] 10 mg PO DAILY #30 tablet 12/15/18 Levothyroxine [Synthroid -] 75 mcg PO DAILY@0700 tablet 12/15/18 Quetiapine Fumarate [Seroquel -] 50 mg PO HS #30 tablet 12/15/18 Family Medical History Family History: Unable to Obtain Review of Systems - Review of Systems Constitutional: reports: No Symptoms Eyes: reports: No Symptoms HENT: reports: No Symptoms Neck: reports: No Symptoms Cardiovascular: reports: No Symptoms Respiratory: reports: No Symptoms Gastrointestinal: reports: No Symptoms Genitourinary: reports: No Symptoms Physical Examination Vital Signs: Vital Signs Temperature 98.2 F 12/13/18 14:27 Pulse Rate 76 12/13/18 14:27 Respiratory Rate 20 12/13/18 09:00 Blood Pressure 155/59 L 12/13/18 14:27 O2 Sat by Pulse Oximetry (%) 98 12/13/18 09:00 Constitutional: Yes: No Distress Eyes: Yes: WNL HENT: Yes: WNL Neck: Yes: WNL, Supple Cardiovascular: Yes: WNL, Regular Rate and Rhythm Respiratory: Yes: WNL, Regular, CTA Bilaterally Gastrointestinal: Yes: WNL, Normal Bowel Sounds, Soft Musculoskeletal: Yes: WNL Extremities: Yes: WNL Edema: No Neurological: Yes: Confusion ...Motor Strength: WNL Labs: CBC, BMP 12/13/18 02:10 12/13/18 02:10 Problem List - Problems (1) Altered mental state Assessment/Plan: Toxic metabolic encephalopathy vs dementia Neuro consult noted Code(s): R41.82 - ALTERED MENTAL STATUS, UNSPECIFIED (2) Breast cancer in female Code(s): C50.919 - MALIGNANT NEOPLASM OF UNSP SITE OF UNSPECIFIED FEMALE BREAST Qualifiers: Laterality: unspecified laterality (3) COPD (chronic obstructive pulmonary disease) with chronic bronchitis Code(s): J44.9 - CHRONIC OBSTRUCTIVE PULMONARY DISEASE, UNSPECIFIED (4) Dementia Assessment/Plan: Cont seroquel Code(s): F03.90 - UNSPECIFIED DEMENTIA WITHOUT BEHAVIORAL DISTURBANCE (5) Chronic diastolic (congestive) heart failure Code(s): I50.32 - CHRONIC DIASTOLIC (CONGESTIVE) HEART FAILURE (6) Hypothyroid Assessment/Plan: Cont levothyroxine TSH improved Code(s): E03.9 - HYPOTHYROIDISM, UNSPECIFIED Qualifiers: (7) Afib Assessment/Plan: Heart rate controlled Cont coumadin Follow PT/INR Code(s): I48.91 - UNSPECIFIED ATRIAL FIBRILLATION (8) Hypertension Assessment/Plan: BP stable Code(s): I10 - ESSENTIAL (PRIMARY) HYPERTENSION (9) COPD (chronic obstructive pulmonary disease) Code(s): J44.9 - CHRONIC OBSTRUCTIVE PULMONARY DISEASE, UNSPECIFIED (10) Anxiety and depression Code(s): F41.9 - ANXIETY DISORDER, UNSPECIFIED; F32.9 - MAJOR DEPRESSIVE DISORDER, SINGLE EPISODE, UNSPECIFIED (11) History of mitral valve replacement with mechanical valve Code(s): Z95.2 - PRESENCE OF PROSTHETIC HEART VALVE
[2018-12-13] MEDS: QUEtiapine FUMARATE 25 MG TABLET (FP) PO SCH (21:34)
[2018-12-13] MEDS ORDERED: DONEPEZIL HCL 5 MG TABLET (FP) PO SCH (22:00)
[2018-12-13 22:27] LABS: EPI CELLS 0.5 /HPF (0-5/HPF); HYALINE CASTS 1 /lpf (0-8); PH,URINE 7.5 (5.0-8.0); URINE APPEARANCE CLEAR; URINE BACTERIA 10.5 /hpf (NEGATIVE); URINE BILIRUBIN NEGATIVE (NEGATIVE); URINE COLOR YELLOW; URINE GLUCOSE (UA) NEGATIVE (NEGATIVE); URINE KETONE NEGATIVE (NEGATIVE); URINE LEUK ESTERASE NEGATIVE (NEGATIVE); URINE NITRITE NEGATIVE (NEGATIVE); URINE PROTEIN NEGATIVE (NEGATIVE); URINE RBC 2 /hpf (0-4); URINE WBC 0 /hpf (0-5)
[2018-12-14] MEDS: LEVOTHYROXINE NA 75 MCG TABLET (FP) PO SCH (06:04)
[2018-12-14] MEDS ORDERED: LEVOTHYROXINE NA 75 MCG TABLET (FP) PO SCH (07:00)
[2018-12-14 07:57] LABS: BASO % 0.5 % (0-2.0); EOS % 1.6 % (0-4.5); HEMATOCRIT 34.1 % (32.4-45.2); HEMOGLOBIN 11.2 GM/dL (10.7-15.3); LYMPH % 15.6 % (8-40); MCH 31.7 pg (25.7-33.7); MCHC 32.9 g/dl (32.0-36.0); MEAN CELL VOLUME 96.5 fl (80-96); MEAN PLT VOLUME 9.7 fl (7.5-11.1); MONO % 10.7 % (3.8-10.2); NEUT % 71.6 % (42.8-82.8); PLATELET COUNT 165 K/MM3 (134-434); RBC 3.53 M/mm3 (3.60-5.2); WHITE BLOOD COUNT 6.2 K/mm3 (4.0-10.0)
[2018-12-14 08:07] LABS: INR 2.14 (0.83-1.09); PROTHROMBIN TIME (PATIENT) 25.5 SEC (9.7-13.0)
[2018-12-14] MEDS: FERROUS SO4 325 MG TABLET (FP) PO SCH ×3 (08:15→17:44)
[2018-12-14 08:45] LABS: ALBUMIN 3.6 g/dl (3.4-5.0); BILIRUBIN,TOTAL 1.7 mg/dL (0.2-1); BLOOD UREA NITROGEN 20.7 mg/dL (7-18); CALCIUM 8.8 mg/dL (8.5-10.1); CREATININE 0.9 mg/dL (0.55-1.3); POTASSIUM 4.2 mmol/L (3.5-5.1)
[2018-12-14] MEDS ORDERED: PT OWN MED DRAWER 7, Y5N ONE (09:14)
[2018-12-14] MEDS: ESCITALOPRAM OXALATE 10 MG TABLET (FP) PO SCH (09:15)
[2018-12-14] MEDS: DONEPEZIL HCL 10 MG TABLET (FP) PO SCH (09:15)
[2018-12-14] MEDS: POTASSIUM CHLORIDE TABS 20 MEQ TABLET.ER (FP) PO SCH ×2 (09:15→21:03)
[2018-12-14] MEDS: FUROSEMIDE 40 MG TABLET (FP) PO SCH (09:15)
[2018-12-14] MEDS: PANTOPRAZOLE 40 MG TABLET (FP) PO SCH ×2 (09:16→21:03)
[2018-12-14] MEDS: ANASTROZOLE 1 MG TABLET PO SCH (09:16)
[2018-12-14] MEDS: prednisoLONE ACETATE 1% OPHTH SUSP 5 ML BOTTLE OS SCH ×4 (10:12→22:30)
[2018-12-14] MEDS: WARFARIN NA 5 MG TABLET (UD) PO SCH (17:44)
[2018-12-14] MEDS: QUEtiapine FUMARATE 25 MG TABLET (FP) PO SCH (21:03)
--- NOTE | 2018-12-14 22:15 | PN ---
Progress Note, Physician History of Present Illness: No new complaints - Current Medication List Current Medications: Active Medications Albuterol/Ipratropium (Duoneb -) 1 amp NEB Q6H PRN PRN Reason: SHORTNESS OF BREATH Anastrozole (Arimidex -) 1 mg PO DAILY [facility] Last Admin: 12/14/18 09:16 Dose: 1 mg Digoxin (Lanoxin -) 0.125 mg PO DAILY [facility] Donepezil HCl (Aricept -) 10 mg PO DAILY [facility] Last Admin: 12/14/18 09:15 Dose: 10 mg Escitalopram Oxalate (Lexapro -) 10 mg PO DAILY [facility] Last Admin: 12/14/18 09:15 Dose: 10 mg Ferrous Sulfate (Feosol -) 325 mg PO TIDCM [facility] Last Admin: 12/14/18 17:44 Dose: 325 mg Furosemide (Lasix -) 80 mg PO DAILY [facility] Last Admin: 12/14/18 09:15 Dose: 80 mg Levothyroxine Sodium (Synthroid -) 75 mcg PO DAILY@0700 [facility] Last Admin: 12/14/18 06:04 Dose: 75 mcg Pantoprazole Sodium (Protonix -) 40 mg PO BID [facility] Last Admin: 12/14/18 21:03 Dose: 40 mg Potassium Chloride (K-Dur -) 20 meq PO BID [facility] Last Admin: 12/14/18 21:03 Dose: 20 meq Prednisolone Acetate (Pred Forte 1% -) 1 drop OS QID [facility] Last Admin: 12/14/18 17:47 Dose: 1 drop Quetiapine Fumarate (Seroquel -) 25 mg PO HS [facility] Last Admin: 12/14/18 21:03 Dose: 25 mg Warfarin Sodium (Coumadin -) 5 mg PO DAILY@1800 [facility] Last Admin: 12/14/18 17:44 Dose: 5 mg - Objective Vital Signs: Vital Signs Temperature 98.4 F 12/14/18 19:00 Pulse Rate 74 12/14/18 19:00 Respiratory Rate 20 12/14/18 20:55 Blood Pressure 158/76 12/14/18 19:00 O2 Sat by Pulse Oximetry (%) 94 L 12/14/18 20:55 Neck: Yes: WNL, Supple Cardiovascular: Yes: WNL, Regular Rate and Rhythm Respiratory: Yes: WNL, Regular, CTA Bilaterally Gastrointestinal: Yes: WNL, Normal Bowel Sounds, Soft Labs: CBC, BMP 11/05/19 07:05 12/14/18 07:05 INR, PTT INR 2.14 (0.83-1.09) H 12/14/18 07:05 Problem List - Problems (1) Altered mental state Assessment/Plan: Toxic metabolic encephalopathy vs dementia PT eval Increase seroquel dose PT eval DC planning to STR Code(s): R41.82 - ALTERED MENTAL STATUS, UNSPECIFIED (2) Dementia Assessment/Plan: Cont seroquel Code(s): F03.90 - UNSPECIFIED DEMENTIA WITHOUT BEHAVIORAL DISTURBANCE (3) Hypothyroid Assessment/Plan: Cont levothyroxine TSH improved Code(s): E03.9 - HYPOTHYROIDISM, UNSPECIFIED Qualifiers: (4) Afib Assessment/Plan: Heart rate controlled Cont coumadin Follow PT/INR Code(s): I48.91 - UNSPECIFIED ATRIAL FIBRILLATION (5) COPD (chronic obstructive pulmonary disease) Code(s): J44.9 - CHRONIC OBSTRUCTIVE PULMONARY DISEASE, UNSPECIFIED (6) Hypertension Assessment/Plan: BP stable Code(s): I10 - ESSENTIAL (PRIMARY) HYPERTENSION (7) Anxiety and depression Code(s): F41.9 - ANXIETY DISORDER, UNSPECIFIED; F32.9 - MAJOR DEPRESSIVE DISORDER, SINGLE EPISODE, UNSPECIFIED (8) Breast cancer in female Code(s): C50.919 - MALIGNANT NEOPLASM OF UNSP SITE OF UNSPECIFIED FEMALE BREAST Qualifiers: Laterality: unspecified laterality
[2018-12-14] MEDS ORDERED: HALOPERIDOL LACTATE 5 MG/ML IM ONE (23:50)
[2018-12-15] MEDS: LEVOTHYROXINE NA 75 MCG TABLET (FP) PO SCH (06:39)
[2018-12-15 08:19] LABS: BASO % 0.3 % (0-2.0); EOS % 1.8 % (0-4.5); HEMATOCRIT 30.9 % (32.4-45.2); HEMOGLOBIN 10.3 GM/dL (10.7-15.3); LYMPH % 13.2 % (8-40); MCH 32.2 pg (25.7-33.7); MCHC 33.4 g/dl (32.0-36.0); MEAN CELL VOLUME 96.3 fl (80-96); MEAN PLT VOLUME 9.9 fl (7.5-11.1); MONO % 13.3 % (3.8-10.2); NEUT % 71.4 % (42.8-82.8); PLATELET COUNT 151 K/MM3 (134-434); RBC 3.21 M/mm3 (3.60-5.2); RDW 14.1 % (11.6-15.6); WHITE BLOOD COUNT 6.2 K/mm3 (4.0-10.0)
[2018-12-15 08:27] LABS: INR 1.69 (0.83-1.09); PROTHROMBIN TIME (PATIENT) 20.1 SEC (9.7-13.0)
[2018-12-15 08:55] LABS: ALBUMIN 3.4 g/dl (3.4-5.0); BILIRUBIN,TOTAL 1.6 mg/dL (0.2-1); BLOOD UREA NITROGEN 23.2 mg/dL (7-18); CALCIUM 8.6 mg/dL (8.5-10.1); POTASSIUM 3.8 mmol/L (3.5-5.1); TOT PROT 6.4 g/dl (6.4-8.2)
[2018-12-15] MEDS: ESCITALOPRAM OXALATE 10 MG TABLET (FP) PO SCH (09:34)
[2018-12-15] MEDS: prednisoLONE ACETATE 1% OPHTH SUSP 5 ML BOTTLE OS SCH ×4 (09:34→21:05)
[2018-12-15] MEDS: POTASSIUM CHLORIDE TABS 20 MEQ TABLET.ER (FP) PO SCH ×2 (09:34→21:04)
[2018-12-15] MEDS: PANTOPRAZOLE 40 MG TABLET (FP) PO SCH ×2 (09:34→21:04)
[2018-12-15] MEDS: FERROUS SO4 325 MG TABLET (FP) PO SCH ×3 (09:34→17:33)
[2018-12-15] MEDS: FUROSEMIDE 40 MG TABLET (FP) PO SCH (09:34)
[2018-12-15] MEDS: DONEPEZIL HCL 10 MG TABLET (FP) PO SCH (09:34)
[2018-12-15] MEDS: ANASTROZOLE 1 MG TABLET PO SCH (09:39)
[2018-12-15] MEDS: WARFARIN NA 5 MG TABLET (UD) PO SCH (17:33)
[2018-12-15] MEDS ORDERED: WARFARIN NA 5 MG TABLET (UD) PO ONE (18:15)
[2018-12-15] MEDS: QUEtiapine FUMARATE 50 MG TABLET PO SCH (21:04)
--- NOTE | 2018-12-15 22:30 | PN ---
Progress Note, Physician History of Present Illness: No new complaints - Current Medication List Current Medications: Active Medications Albuterol/Ipratropium (Duoneb -) 1 amp NEB Q6H PRN PRN Reason: SHORTNESS OF BREATH Last Admin: 12/15/18 20:45 Dose: 1 amp Anastrozole (Arimidex -) 1 mg PO DAILY [facility] Last Admin: 12/15/18 09:39 Dose: 1 mg Digoxin (Lanoxin -) 0.125 mg PO DAILY [facility] Donepezil HCl (Aricept -) 10 mg PO DAILY [facility] Last Admin: 12/15/18 09:34 Dose: 10 mg Escitalopram Oxalate (Lexapro -) 10 mg PO DAILY [facility] Last Admin: 12/15/18 09:34 Dose: 10 mg Ferrous Sulfate (Feosol -) 325 mg PO TIDCM [facility] Last Admin: 12/15/18 17:33 Dose: 325 mg Furosemide (Lasix -) 80 mg PO DAILY [facility] Last Admin: 12/15/18 09:34 Dose: 80 mg Levothyroxine Sodium (Synthroid -) 75 mcg PO DAILY@0700 [facility] Last Admin: 12/15/18 06:39 Dose: 75 mcg Pantoprazole Sodium (Protonix -) 40 mg PO BID [facility] Last Admin: 12/15/18 21:04 Dose: 40 mg Potassium Chloride (K-Dur -) 20 meq PO BID [facility] Last Admin: 12/15/18 21:04 Dose: 20 meq Prednisolone Acetate (Pred Forte 1% -) 1 drop OS QID [facility] Last Admin: 12/15/18 21:05 Dose: 1 drop Quetiapine Fumarate (Seroquel -) 50 mg PO HS [facility] Last Admin: 12/15/18 21:04 Dose: 50 mg Warfarin Sodium (Coumadin -) 5 mg PO DAILY@1800 [facility] Last Admin: 12/15/18 17:33 Dose: 5 mg - Objective Vital Signs: Vital Signs Temperature 98.3 F 12/15/18 20:53 Pulse Rate 67 12/15/18 20:53 Respiratory Rate 20 12/15/18 20:53 Blood Pressure 105/48 L 12/15/18 20:53 O2 Sat by Pulse Oximetry (%) 95 12/15/18 15:14 Neck: Yes: WNL, Supple Cardiovascular: Yes: WNL, Regular Rate and Rhythm Respiratory: Yes: WNL, Regular, CTA Bilaterally Gastrointestinal: Yes: WNL, Normal Bowel Sounds, Soft Musculoskeletal: Yes: WNL Extremities: Yes: WNL Labs: CBC, BMP 12/15/18 07:35 12/15/18 07:35 INR, PTT INR 1.69 (0.83-1.09) H 12/15/18 07:35 Problem List - Problems (1) Altered mental state Assessment/Plan: Toxic metabolic encephalopathy vs dementia PT eval Increase seroquel dose PT eval DC planning to STR Code(s): R41.82 - ALTERED MENTAL STATUS, UNSPECIFIED (2) Dementia Assessment/Plan: Cont seroquel Code(s): F03.90 - UNSPECIFIED DEMENTIA WITHOUT BEHAVIORAL DISTURBANCE (3) Hypothyroid Assessment/Plan: Cont levothyroxine TSH improved Code(s): E03.9 - HYPOTHYROIDISM, UNSPECIFIED Qualifiers: (4) Afib Assessment/Plan: Heart rate controlled Cont coumadin Follow PT/INR Code(s): I48.91 - UNSPECIFIED ATRIAL FIBRILLATION (5) COPD (chronic obstructive pulmonary disease) Code(s): J44.9 - CHRONIC OBSTRUCTIVE PULMONARY DISEASE, UNSPECIFIED (6) Hypertension Assessment/Plan: BP stable Code(s): I10 - ESSENTIAL (PRIMARY) HYPERTENSION (7) Anxiety and depression Code(s): F41.9 - ANXIETY DISORDER, UNSPECIFIED; F32.9 - MAJOR DEPRESSIVE DISORDER, SINGLE EPISODE, UNSPECIFIED (8) Breast cancer in female Code(s): C50.919 - MALIGNANT NEOPLASM OF UNSP SITE OF UNSPECIFIED FEMALE BREAST Qualifiers: Laterality: unspecified laterality
[2018-12-16] MEDS: LEVOTHYROXINE NA 75 MCG TABLET (FP) PO SCH (06:36)
[2018-12-16] MEDS: FERROUS SO4 325 MG TABLET (FP) PO SCH ×3 (09:00→17:17)
[2018-12-16] MEDS: DONEPEZIL HCL 10 MG TABLET (FP) PO SCH (09:00)
[2018-12-16] MEDS: PANTOPRAZOLE 40 MG TABLET (FP) PO SCH ×2 (09:00→21:06)
[2018-12-16] MEDS: FUROSEMIDE 40 MG TABLET (FP) PO SCH (09:00)
[2018-12-16] MEDS: ESCITALOPRAM OXALATE 10 MG TABLET (FP) PO SCH (09:00)
[2018-12-16] MEDS: POTASSIUM CHLORIDE TABS 20 MEQ TABLET.ER (FP) PO SCH ×2 (09:00→21:06)
[2018-12-16] MEDS: prednisoLONE ACETATE 1% OPHTH SUSP 5 ML BOTTLE OS SCH ×4 (09:03→21:07)
[2018-12-16 09:09] LABS: INR 2.1 (0.83-1.09)
[2018-12-16] MEDS: ANASTROZOLE 1 MG TABLET PO SCH (09:29)
[2018-12-16] MEDS: WARFARIN NA 5 MG TABLET (UD) PO SCH (17:17)
[2018-12-16] MEDS ORDERED: HALOPERIDOL LACTATE 5 MG/ML IM ONE (20:30)
--- NOTE | 2018-12-16 20:56 | PN ---
Progress Note, Physician History of Present Illness: No new complaints - Current Medication List Current Medications: Active Medications Albuterol/Ipratropium (Duoneb -) 1 amp NEB Q6H PRN PRN Reason: SHORTNESS OF BREATH Last Admin: 12/15/18 20:45 Dose: 1 amp Anastrozole (Arimidex -) [address] [facility] Last Admin: 12/16/18 09:29 Dose: 1 mg Digoxin (Lanoxin -) 0.[address] [facility] Donepezil HCl (Aricept -) [address] [facility] Last Admin: 12/16/18 09:00 Dose: 10 mg Escitalopram Oxalate (Lexapro -) [address] [facility] Last Admin: 12/16/18 09:00 Dose: 10 mg Ferrous Sulfate (Feosol -) [address] [facility] Last Admin: 12/16/18 17:17 Dose: 325 mg Furosemide (Lasix -) [address] [facility] Last Admin: 12/16/18 09:00 Dose: 80 mg Levothyroxine Sodium (Synthroid -) 75 mcg PO DAILY@0700 [facility] Last Admin: 12/16/18 06:36 Dose: 75 mcg Pantoprazole Sodium (Protonix -) [address] [facility] Last Admin: 12/16/18 09:00 Dose: 40 mg Potassium Chloride (K-Dur -) [address] [facility] Last Admin: 12/16/18 09:00 Dose: 20 meq Prednisolone Acetate (Pred Forte 1% -) [address] [facility] Last Admin: 12/16/18 17:17 Dose: 1 drop Quetiapine Fumarate (Seroquel -) [address] [facility] Last Admin: 12/15/18 21:04 Dose: 50 mg Warfarin Sodium (Coumadin -) 5 mg PO DAILY@1800 [facility] Last Admin: 12/16/18 17:17 Dose: 5 mg - Objective Vital Signs: Vital Signs Temperature 98.5 F 12/16/18 14:10 Pulse Rate 72 12/16/18 14:10 Respiratory Rate 18 12/16/18 09:34 Blood Pressure 123/51 L 12/16/18 14:10 O2 Sat by Pulse Oximetry (%) 94 L 12/16/18 09:00 Neck: Yes: WNL, Supple Cardiovascular: Yes: WNL, Regular Rate and Rhythm Respiratory: Yes: WNL, Regular, CTA Bilaterally Gastrointestinal: Yes: WNL, Normal Bowel Sounds, Soft Labs: CBC, BMP 12/15/18 07:35 12/15/18 07:35 INR, PTT INR 2.10 (0.83-1.09) H 12/16/18 08:25 Problem List - Problems (1) Altered mental state Assessment/Plan: Toxic metabolic encephalopathy(secondary diagnosis) vs dementia(primary diagnosis) Neuro consult noted Code(s): R41.82 - ALTERED MENTAL STATUS, UNSPECIFIED (2) Dementia Assessment/Plan: Cont seroquel Primary diagnosis DC planning to [facility] PT eval Code(s): F03.90 - UNSPECIFIED DEMENTIA WITHOUT BEHAVIORAL DISTURBANCE (3) Hypothyroid Code(s): E03.9 - HYPOTHYROIDISM, UNSPECIFIED Qualifiers: (4) Afib Code(s): I48.91 - UNSPECIFIED ATRIAL FIBRILLATION (5) COPD (chronic obstructive pulmonary disease) Code(s): J44.9 - CHRONIC OBSTRUCTIVE PULMONARY DISEASE, UNSPECIFIED (6) Hypertension Code(s): I10 - ESSENTIAL (PRIMARY) HYPERTENSION (7) Anxiety and depression Code(s): F41.9 - ANXIETY DISORDER, UNSPECIFIED; F32.9 - MAJOR DEPRESSIVE DISORDER, SINGLE EPISODE, UNSPECIFIED (8) Breast cancer in female Code(s): C50.919 - MALIGNANT NEOPLASM OF UNSP SITE OF UNSPECIFIED FEMALE BREAST Qualifiers: Laterality: unspecified laterality
[2018-12-16] MEDS: QUEtiapine FUMARATE 50 MG TABLET PO SCH (21:06)
[2018-12-16] MEDS: DIGOXIN 0.125 MG TABLET (FP) PO SCH ×2 (22:33→22:40)
[2018-12-17] MEDS: LEVOTHYROXINE NA 75 MCG TABLET (FP) PO SCH (06:10)
[2018-12-17] MEDS: FERROUS SO4 325 MG TABLET (FP) PO SCH ×3 (08:00→17:11)
[2018-12-17] MEDS ORDERED: PT OWN MED DRAWER 7, Y5N ONE (09:46)
[2018-12-17] MEDS: DIGOXIN 0.125 MG TABLET (FP) PO SCH (09:51)
[2018-12-17] MEDS: ESCITALOPRAM OXALATE 10 MG TABLET (FP) PO SCH (09:51)
[2018-12-17] MEDS: POTASSIUM CHLORIDE TABS 20 MEQ TABLET.ER (FP) PO SCH (09:51)
[2018-12-17] MEDS: ANASTROZOLE 1 MG TABLET PO SCH (09:51)
[2018-12-17] MEDS: DONEPEZIL HCL 10 MG TABLET (FP) PO SCH (09:51)
[2018-12-17] MEDS: FUROSEMIDE 40 MG TABLET (FP) PO SCH (09:51)
[2018-12-17] MEDS: PANTOPRAZOLE 40 MG TABLET (FP) PO SCH (09:52)
[2018-12-17] MEDS: prednisoLONE ACETATE 1% OPHTH SUSP 5 ML BOTTLE OS SCH ×2 (10:00→14:10)
[2018-12-17 14:27] VITALS: BP 117/58; PULSE 85; TEMP 98.5
--- NOTE | 2019-01-11 00:30 | DS ---
Physical Examination Vital Signs: Vital Signs Temperature 98.5 F 12/17/18 14:26 Pulse Rate 85 12/17/18 14:26 Respiratory Rate 18 12/17/18 14:26 Blood Pressure 117/58 L 12/17/18 14:26 O2 Sat by Pulse Oximetry (%) 98 12/17/18 09:00 Labs: CBC, BMP 12/15/18 07:35 12/15/18 07:35 Discharge Summary Problems reviewed: Yes Reason For Visit: ACUTE CONGESTIVE HEART FAILURE,HYPOTHYROIDISM Altered mental status Alzheimer's Dementia Metabolic encephalopathy Hypothyroidism HTN COPD AFIB Breast cancer CHF Hospital Course: Pt is a 78 y/o female with PMH significant for depression, HTN, HLD, A-fib (on coumadin), CHF, CAD, MVR (bovine vs metal?) , COPD (on 4 L of O2 at home), breast cancer (s/p lumpectomy), lower GI bleed from dieulafoy's lesion in the colon and dementia presenting to ED with worsening AMS. Pt was seen by neuro who felt that the altered mental status was due to Alzheimer's dementia(as primary diagnosis) and metabolic encephalopathy(as secondary diagnosis). Pt was found to have elevated TSH and levothyroxine dose was adjusted. Pt had ct scan head wc did not show any acute pathology. Pt was evaluated by physical therapy and was dc'ed to [facility]. Condition: Good - Instructions Diet, Activity, Other Instructions: 2 gram sodium diet See Dr Wilfred Juarez in 1 week Referrals: Justino Juarez [Primary Care Provider] - [facility]position[facility] - Home Medications Comprehensive Discharge Medication List: Ambulatory Orders Anastrozole [Arimidex -] 1 mg PO DAILY 08/02/15 Levothyroxine [Synthroid -] 50 mcg PO DAILY@0700 08/06/17 Potassium Chloride [K-Dur -] 20 meq PO BID 08/06/17 Digoxin [Lanoxin -] 0.125 mg PO DAILY #30 tablet 08/24/17 Acetaminophen [Tylenol] 325 mg PO PRN 07/27/18 Escitalopram Oxalate [Lexapro -] 10 mg PO DAILY 07/27/18 Ferrous Sulfate [Iron] 325 mg PO TID 07/27/18 Pantoprazole Sodium [Protonix] 40 mg PO BID 07/27/18 Prednisolone 1% Ophthalmic [Pred Forte 1% -] 1 drop OS QID 12/03/18 Umeclidinium [place] [Incruse Ellipta] 1 puff IH BID 12/03/18 Warfarin Na [Coumadin -] 5 mg PO DAILY 12/03/18 Furosemide [Lasix -] 80 mg PO DAILY #60 tablet 12/06/18 Donepezil HCl [Aricept -] 10 mg PO DAILY #30 tablet 12/15/18 Levothyroxine [Synthroid -] 75 mcg PO DAILY@0700 tablet 12/15/18 Quetiapine Fumarate [Seroquel -] 50 mg PO HS #30 tablet 12/15/18
== END 2018-12-17 18:40 | DRG 42 ==
LOC: JER 02:06 → JERBED 03:48 → J6S 05:19
PROVIDERS: ADMIT Internal Medicine; ATTEND Internal Medicine
DX: G30.9 Alzheimer's disease, unspecified (principal); E03.9 Hypothyroidism, unspecified; E78.5 Hyperlipidemia, unspecified; I48.91 Unspecified atrial fibrillation; I25.10 Atherosclerotic heart disease of native coronary artery without angina pectoris; J44.9 Chronic obstructive pulmonary disease, unspecified; F32.9 Major depressive disorder, single episode, unspecified; D64.9 Anemia, unspecified; K21.9 Gastro-esophageal reflux disease without esophagitis; I11.0 Hypertensive heart disease with heart failure; I50.9 Heart failure, unspecified; G93.41 Metabolic encephalopathy; D50.0 Iron deficiency anemia secondary to blood loss (chronic); I27.20 Pulmonary hypertension, unspecified; R41.82 Altered mental status, unspecified; Z99.81 Dependence on supplemental oxygen; Z85.3 Personal history of malignant neoplasm of breast; Z79.01 Long term (current) use of anticoagulants; Z95.2 Presence of prosthetic heart valve; Z91.14 Patient's other noncompliance with medication regimen
CPT/HCPCS: 36415; 70450-TC; 71045-TC-FY; 80053; 81003; 82607; 83735; 84100; 84436; 84443; 84479; 85025; 85610; 86593; 87040; 87077; 87086; 93005; 93010; 94640; 94761; 97116-GP; 97161-GP; 99283-25

== ENCOUNTER 2019-05-14 11:24 | Inpatient (IN) | payer OTHER ==
[2019-05-14 12:12] VITALS: BMI 26.5
[2019-05-14] MEDS ORDERED: ACETAMINOPHEN 1000 MG/100 ML VIAL (NON FORMULARY) IVPB ONE (12:21)
[2019-05-14] MEDS ORDERED: ACETAMINOPHEN INJECTION 100 ML IVPB ONE (12:30)
[2019-05-14 13:45] LABS: BASO % 0.2 % (0-2.0); EOS % 0.1 % (0-4.5); HEMATOCRIT 40.9 % (32.4-45.2); HEMOGLOBIN 13.2 GM/dL (10.7-15.3); LYMPH % 4.7 % (8-40); MCH 30.7 pg (25.7-33.7); MCHC 32.3 g/dl (32.0-36.0); MEAN CELL VOLUME 95.2 fl (80-96); MEAN PLT VOLUME 10.4 fl (7.5-11.1); MONO % 6.8 % (3.8-10.2); NEUT % 88.2 % (42.8-82.8); PLATELET COUNT 251 K/MM3 (134-434); RDW 13.9 % (11.6-15.6); WHITE BLOOD COUNT 12.8 K/mm3 (4.0-10.0)
[2019-05-14 14:02] LABS: INR 2.99 (0.83-1.09); PROTHROMBIN TIME (PATIENT) 35.7 SEC (9.7-13.0)
[2019-05-14 14:03] LABS: N-TERMINAL BNP 2889.3 pg/ml (5-450)
[2019-05-14 14:05] LABS: ACTIVATED PTT 60.8 SECONDS (25.2-36.5); ALBUMIN 2.7 g/dl (3.4-5.0); BILIRUBIN,DIRECT 0.4 mg/dL (0.0-0.2); BILIRUBIN,TOTAL 0.7 mg/dL (0.2-1); BLOOD UREA NITROGEN 43.3 mg/dL (7-18); CALCIUM 8.2 mg/dL (8.5-10.1); CREATININE 1.1 mg/dL (0.55-1.3); POTASSIUM 5.1 mmol/L (3.5-5.1); TOT PROT 7.7 g/dl (6.4-8.2)
[2019-05-14 14:13] LABS: VENOUS BASE EXCESS 13.6 meq/l (-2-2); VENOUS PC02 63.3 mmHg (38-52); VENOUS PH 7.43 (7.31-7.41)
[2019-05-14 14:14] LABS: VENOUS PO2 < 49 mmHg (28-48)
[2019-05-14] MEDS ORDERED: VANCOMYCIN 1,500 MG in DEXTROSE 5%-WATER - 250 ML IVPB ONE (14:14)
[2019-05-14] MEDS ORDERED: PIPERACILLIN/TAZOB 4.5 GM 4.5 GM in DEXTROSE 5%-WATER 100 ML IVPB ONE (14:15)
[2019-05-14] MEDS ORDERED: PIPERACILLIN/TAZOB 4.5 GM 4.5 GM/100 ML BAG IVPB ONE ×2 (15:37→20:06)
[2019-05-14] MEDS ORDERED: VANCOMYCIN HCL 1,500 MG in DEXTROSE 5%-WATER - 500 ML IVPB ONE (15:40)
[2019-05-14 18:17] LABS: PH,URINE 5.5 (5.0-8.0); URINE APPEARANCE CLEAR; URINE BILIRUBIN NEGATIVE (NEGATIVE); URINE COLOR YELLOW; URINE GLUCOSE (UA) NEGATIVE (NEGATIVE); URINE KETONE NEGATIVE (NEGATIVE); URINE NITRITE NEGATIVE (NEGATIVE); URINE PROTEIN 30 (NEGATIVE)
[2019-05-14 18:18] LABS: EPI CELLS 5 /uL (0-25.1); URINE LEUK ESTERASE NEGATIVE (NEGATIVE); URINE UROBILINOGEN 0.2 mg/dL (0.2-1.0)
[2019-05-14] MEDS ORDERED: PIPERACILLIN/TAZOB 4.5 GM 4.5 GM in DEXTROSE 5%-WATER 100 ML IVPB SCH (20:00)
[2019-05-14] MEDS ORDERED: ALBUTEROL SO4 HFA INHALER IH PRN (21:00)
[2019-05-14] MEDS ORDERED: QUEtiapine FUMARATE 25 MG TABLET ONE (23:33)
[2019-05-14] MEDS: QUEtiapine FUMARATE 50 MG TABLET PO SCH (23:40)
[2019-05-14] MEDS: prednisoLONE ACETATE 1% OPHTH SUSP 5 ML BOTTLE OS SCH (23:40)
[2019-05-15] MEDS ORDERED: PIPERACILLIN/TAZOBACTAM 3.375 GM VIAL IVPB ONE ×3 (02:23→16:13)
[2019-05-15] MEDS ORDERED: DEXTROSE 5%-WATER - 50 ML IVPB ONE ×3 (02:24→16:13)
[2019-05-15] MEDS: PIPERACILLIN/TAZOB 3.375 GM 3.375 GM in DEXTROSE 5%-WATER - 50 ML IVPB SCH ×3 (03:01→17:09)
[2019-05-15] MEDS: ACETAMINOPHEN 325 MG TABLET (FP) PO PRN ×2 (03:02→10:13)
[2019-05-15] MEDS: VANCOMYCIN 1 GM in D5W (PRE-DOCKED) 1,000 MG/250 ML IVPB SCH ×2 (05:09→17:29)
[2019-05-15] MEDS ORDERED: LEVOTHYROXINE NA 50 MCG TABLET (FP) PO SCH (07:00)
[2019-05-15 07:29] LABS: BASO % 0.3 % (0-2.0); EOS % 0.5 % (0-4.5); HEMOGLOBIN 12.3 GM/dL (10.7-15.3); LYMPH % 5.3 % (8-40); MCH 30.7 pg (25.7-33.7); MCHC 32.5 g/dl (32.0-36.0); MEAN CELL VOLUME 94.5 fl (80-96); MONO % 6.6 % (3.8-10.2); NEUT % 87.3 % (42.8-82.8); PLATELET COUNT 231 K/MM3 (134-434); RBC 4.02 M/mm3 (3.60-5.2); RDW 13.7 % (11.6-15.6); WHITE BLOOD COUNT 11.7 K/mm3 (4.0-10.0)
[2019-05-15 07:40] LABS: PROTHROMBIN TIME (PATIENT) 58.5 SEC (9.7-13.0)
[2019-05-15 08:09] LABS: ALBUMIN 2.4 g/dl (3.4-5.0); BLOOD UREA NITROGEN 45.8 mg/dL (7-18); CALCIUM 7.8 mg/dL (8.5-10.1); CREATININE 1.2 mg/dL (0.55-1.3); POTASSIUM 4.5 mmol/L (3.5-5.1); TOT PROT 6.8 g/dl (6.4-8.2)
[2019-05-15 09:48] LABS: INR 4.88 (0.83-1.09)
[2019-05-15] MEDS ORDERED: FUROSEMIDE 40 MG TABLET (FP) PO SCH (10:00)
[2019-05-15] MEDS: FUROSEMIDE 40 MG/4 ML INJECTABLE VIAL IVPUSH SCH (10:12)
[2019-05-15] MEDS: ESCITALOPRAM OXALATE 10 MG TABLET PO SCH (10:13)
[2019-05-15] MEDS: DIGOXIN 0.125 MG TABLET (FP) PO SCH (10:13)
[2019-05-15] MEDS: FERROUS SO4 325 MG TABLET (FP) PO SCH ×3 (10:13→17:10)
[2019-05-15] MEDS: DONEPEZIL HCL 10 MG TABLET (FP) PO SCH (10:13)
[2019-05-15] MEDS ORDERED: PT OWN MED DRAWER 7, Y5N ONE ×2 (11:08→11:44)
[2019-05-15] MEDS: ANASTROZOLE 1 MG TABLET PO SCH (13:28)
[2019-05-15] MEDS: prednisoLONE ACETATE 1% OPHTH SUSP 5 ML BOTTLE OS SCH ×5 (13:30→21:33)
[2019-05-15] MEDS ORDERED: VANCOMYCIN 1 GRAM (PRE-DOCKED) 1,000 MG/250 ML BAG IVPB SCH (17:00)
[2019-05-15] MEDS ORDERED: QUEtiapine FUMARATE 25 MG TABLET ONE (20:56)
[2019-05-15] MEDS: POTASSIUM CHLORIDE TABS 20 MEQ TABLET.ER (FP) PO SCH (21:33)
[2019-05-15] MEDS: QUEtiapine FUMARATE 50 MG TABLET PO SCH (21:33)
[2019-05-16] MEDS ORDERED: DEXTROSE 5%-WATER - 50 ML IVPB ONE ×3 (00:30→16:46)
[2019-05-16] MEDS ORDERED: PIPERACILLIN/TAZOBACTAM 3.375 GM VIAL IVPB ONE ×3 (00:30→16:46)
[2019-05-16] MEDS: PIPERACILLIN/TAZOB 3.375 GM 3.375 GM in DEXTROSE 5%-WATER - 50 ML IVPB SCH ×3 (01:28→17:47)
[2019-05-16] MEDS: VANCOMYCIN 1 GM in D5W (PRE-DOCKED) 1,000 MG/250 ML IVPB SCH ×2 (04:23→18:51)
[2019-05-16] MEDS ORDERED: PT OWN MED DRAWER 7, Y5N ONE ×2 (06:37→10:38)
[2019-05-16] MEDS: LEVOTHYROXINE NA 50 MCG TABLET (FP) PO SCH (07:22)
[2019-05-16 08:33] LABS: BASO % 0.4 % (0-2.0); EOS % 1.3 % (0-4.5); HEMATOCRIT 36.9 % (32.4-45.2); HEMOGLOBIN 12.2 GM/dL (10.7-15.3); LYMPH % 3.9 % (8-40); MCH 31.5 pg (25.7-33.7); MCHC 33.2 g/dl (32.0-36.0); MEAN CELL VOLUME 94.8 fl (80-96); MEAN PLT VOLUME 9.7 fl (7.5-11.1); MONO % 5.5 % (3.8-10.2); NEUT % 88.9 % (42.8-82.8); PLATELET COUNT 225 K/MM3 (134-434); RBC 3.89 M/mm3 (3.60-5.2); RDW 13.6 % (11.6-15.6); WHITE BLOOD COUNT 12.9 K/mm3 (4.0-10.0)
[2019-05-16 08:50] LABS: ALBUMIN 2.2 g/dl (3.4-5.0); BILIRUBIN,TOTAL 0.8 mg/dL (0.2-1); BLOOD UREA NITROGEN 46.6 mg/dL (7-18); CALCIUM 7.8 mg/dL (8.5-10.1); CREATININE 1.1 mg/dL (0.55-1.3); POTASSIUM 4.4 mmol/L (3.5-5.1)
[2019-05-16 09:06] LABS: PROTHROMBIN TIME (PATIENT) 86.2 SEC (9.7-13.0)
[2019-05-16] MEDS: ESCITALOPRAM OXALATE 10 MG TABLET PO SCH (10:27)
[2019-05-16] MEDS: POTASSIUM CHLORIDE TABS 20 MEQ TABLET.ER (FP) PO SCH ×2 (10:27→21:02)
[2019-05-16] MEDS: DONEPEZIL HCL 10 MG TABLET (FP) PO SCH (10:28)
[2019-05-16] MEDS: DIGOXIN 0.125 MG TABLET (FP) PO SCH (10:28)
[2019-05-16] MEDS: FUROSEMIDE 40 MG/4 ML INJECTABLE VIAL IVPUSH SCH (10:29)
[2019-05-16] MEDS: prednisoLONE ACETATE 1% OPHTH SUSP 5 ML BOTTLE OS SCH ×4 (10:33→21:01)
[2019-05-16] MEDS: FERROUS SO4 325 MG TABLET (FP) PO SCH ×3 (10:33→17:48)
[2019-05-16] MEDS: ANASTROZOLE 1 MG TABLET PO SCH (10:39)
[2019-05-16 11:11] LABS: INR 7.16 (0.83-1.09)
[2019-05-16] MEDS ORDERED: PHYTONADIONE 5 MG TABLET PO ONE (11:55)
[2019-05-16] MEDS ORDERED: PHYTONADIONE 10 MG/1 ML AMP IM ONE (12:30)
[2019-05-16] MEDS: AZITHROMYCIN 250 MG TABLET PO SCH (12:42)
[2019-05-16] MEDS ORDERED: QUEtiapine FUMARATE 25 MG TABLET ONE (20:23)
[2019-05-16] MEDS: QUEtiapine FUMARATE 50 MG TABLET PO SCH (21:02)
[2019-05-17] MEDS ORDERED: DEXTROSE 5%-WATER - 50 ML IVPB ONE ×3 (00:51→16:16)
[2019-05-17] MEDS ORDERED: PIPERACILLIN/TAZOBACTAM 3.375 GM VIAL IVPB ONE ×3 (00:51→16:15)
[2019-05-17] MEDS: PIPERACILLIN/TAZOB 3.375 GM 3.375 GM in DEXTROSE 5%-WATER - 50 ML IVPB SCH ×3 (01:00→18:29)
[2019-05-17] MEDS: LEVOTHYROXINE NA 50 MCG TABLET (FP) PO SCH (06:04)
[2019-05-17] MEDS: VANCOMYCIN 1 GM in D5W (PRE-DOCKED) 1,000 MG/250 ML IVPB SCH ×2 (06:04→16:42)
[2019-05-17 09:16] LABS: BASO % 0.1 % (0-2.0); EOS % 0.4 % (0-4.5); HEMATOCRIT 34.9 % (32.4-45.2); HEMOGLOBIN 11.4 GM/dL (10.7-15.3); LYMPH % 3.6 % (8-40); MCHC 32.6 g/dl (32.0-36.0); MEAN CELL VOLUME 95.2 fl (80-96); MEAN PLT VOLUME 9.7 fl (7.5-11.1); NEUT % 89.9 % (42.8-82.8); PLATELET COUNT 287 K/MM3 (134-434); RBC 3.67 M/mm3 (3.60-5.2); RDW 13.8 % (11.6-15.6); WHITE BLOOD COUNT 14.6 K/mm3 (4.0-10.0)
[2019-05-17 09:30] LABS: PROTHROMBIN TIME (PATIENT) 61.8 SEC (9.7-13.0)
[2019-05-17 09:33] LABS: ACTIVATED PTT 82.4 SECONDS (25.2-36.5)
[2019-05-17] MEDS: AZITHROMYCIN 250 MG TABLET PO SCH (09:51)
[2019-05-17] MEDS: DIGOXIN 0.125 MG TABLET (FP) PO SCH (09:52)
[2019-05-17] MEDS: ESCITALOPRAM OXALATE 10 MG TABLET PO SCH (09:53)
[2019-05-17] MEDS: DONEPEZIL HCL 10 MG TABLET (FP) PO SCH (09:53)
[2019-05-17] MEDS: FERROUS SO4 325 MG TABLET (FP) PO SCH ×3 (09:53→16:42)
[2019-05-17] MEDS: ANASTROZOLE 1 MG TABLET PO SCH (09:53)
[2019-05-17] MEDS: prednisoLONE ACETATE 1% OPHTH SUSP 5 ML BOTTLE OS SCH ×4 (09:54→22:44)
[2019-05-17] MEDS: FUROSEMIDE 40 MG/4 ML INJECTABLE VIAL IVPUSH SCH (09:54)
[2019-05-17] MEDS: POTASSIUM CHLORIDE TABS 20 MEQ TABLET.ER (FP) PO SCH ×2 (09:54→22:44)
[2019-05-17 09:57] LABS: ALBUMIN 2.1 g/dl (3.4-5.0); BILIRUBIN,TOTAL 0.9 mg/dL (0.2-1); BLOOD UREA NITROGEN 47.5 mg/dL (7-18); CREATININE 1.1 mg/dL (0.55-1.3); POTASSIUM 4.4 mmol/L (3.5-5.1)
[2019-05-17 10:57] LABS: INR 5.15 (0.83-1.09)
[2019-05-17] MEDS: ACETAMINOPHEN 325 MG TABLET (FP) PO PRN (14:50)
[2019-05-17] MEDS ORDERED: QUEtiapine FUMARATE 25 MG TABLET ONE (21:27)
[2019-05-17] MEDS: NYSTATIN 100000 UNIT/GM TOPICAL OINTMENT 15 GM TUBE TP SCH (22:44)
[2019-05-17] MEDS: QUEtiapine FUMARATE 50 MG TABLET PO SCH (22:44)
[2019-05-18] MEDS ORDERED: DEXTROSE 5%-WATER - 50 ML IVPB ONE ×3 (01:59→17:08)
[2019-05-18] MEDS ORDERED: PIPERACILLIN/TAZOBACTAM 3.375 GM VIAL IVPB ONE ×3 (01:59→17:08)
[2019-05-18] MEDS: PIPERACILLIN/TAZOB 3.375 GM 3.375 GM in DEXTROSE 5%-WATER - 50 ML IVPB SCH ×3 (02:41→17:36)
[2019-05-18] MEDS: LEVOTHYROXINE NA 50 MCG TABLET (FP) PO SCH (06:05)
[2019-05-18] MEDS: VANCOMYCIN 1 GM in D5W (PRE-DOCKED) 1,000 MG/250 ML IVPB SCH ×2 (06:05→18:11)
[2019-05-18 07:56] LABS: BASO % 0.1 % (0-2.0); EOS % 0.7 % (0-4.5); HEMATOCRIT 36.9 % (32.4-45.2); LYMPH % 4.3 % (8-40); MCH 31.3 pg (25.7-33.7); MCHC 32.6 g/dl (32.0-36.0); MONO % 7.2 % (3.8-10.2); NEUT % 87.7 % (42.8-82.8); PLATELET COUNT 345 K/MM3 (134-434); RBC 3.85 M/mm3 (3.60-5.2); RDW 13.6 % (11.6-15.6); WHITE BLOOD COUNT 15.3 K/mm3 (4.0-10.0)
[2019-05-18 08:03] LABS: INR 3.44 (0.83-1.09); PROTHROMBIN TIME (PATIENT) 41.1 SEC (9.7-13.0)
[2019-05-18 08:31] LABS: ALBUMIN 2.3 g/dl (3.4-5.0); BILIRUBIN,TOTAL 1.1 mg/dL (0.2-1); BLOOD UREA NITROGEN 45.7 mg/dL (7-18); CALCIUM 8.3 mg/dL (8.5-10.1); CREATININE 1.1 mg/dL (0.55-1.3); POTASSIUM 4.4 mmol/L (3.5-5.1); TOT PROT 7.6 g/dl (6.4-8.2)
[2019-05-18] MEDS ORDERED: PT OWN MED DRAWER 7, Y5N ONE (09:36)
[2019-05-18] MEDS: POTASSIUM CHLORIDE TABS 20 MEQ TABLET.ER (FP) PO SCH ×2 (09:39→22:41)
[2019-05-18] MEDS: FERROUS SO4 325 MG TABLET (FP) PO SCH ×3 (09:39→17:36)
[2019-05-18] MEDS: AZITHROMYCIN 250 MG TABLET PO SCH (09:39)
[2019-05-18] MEDS: DONEPEZIL HCL 10 MG TABLET (FP) PO SCH (09:39)
[2019-05-18] MEDS: prednisoLONE ACETATE 1% OPHTH SUSP 5 ML BOTTLE OS SCH ×4 (09:40→22:41)
[2019-05-18] MEDS: ANASTROZOLE 1 MG TABLET PO SCH (09:40)
[2019-05-18] MEDS: DIGOXIN 0.125 MG TABLET (FP) PO SCH (09:40)
[2019-05-18] MEDS: ESCITALOPRAM OXALATE 10 MG TABLET PO SCH (09:40)
[2019-05-18] MEDS: NYSTATIN 100000 UNIT/GM TOPICAL OINTMENT 15 GM TUBE TP SCH ×2 (09:42→22:41)
[2019-05-18] MEDS ORDERED: QUEtiapine FUMARATE 25 MG TABLET ONE (21:09)
[2019-05-18] MEDS: QUEtiapine FUMARATE 50 MG TABLET PO SCH (22:30)
[2019-05-19] MEDS ORDERED: PIPERACILLIN/TAZOBACTAM 3.375 GM VIAL IVPB ONE ×3 (01:43→17:15)
[2019-05-19] MEDS ORDERED: DEXTROSE 5%-WATER - 50 ML IVPB ONE ×3 (01:44→17:15)
[2019-05-19] MEDS: ACETAMINOPHEN 325 MG TABLET (FP) PO PRN (03:18)
[2019-05-19] MEDS: PIPERACILLIN/TAZOB 3.375 GM 3.375 GM in DEXTROSE 5%-WATER - 50 ML IVPB SCH ×3 (03:18→17:14)
[2019-05-19] MEDS: VANCOMYCIN 1 GM in D5W (PRE-DOCKED) 1,000 MG/250 ML IVPB SCH (05:48)
[2019-05-19] MEDS: LEVOTHYROXINE NA 50 MCG TABLET (FP) PO SCH (05:48)
[2019-05-19] MEDS ORDERED: PT OWN MED DRAWER 7, Y5N ONE ×3 (08:45→22:00)
[2019-05-19] MEDS: POTASSIUM CHLORIDE TABS 20 MEQ TABLET.ER (FP) PO SCH ×3 (10:02→22:21)
[2019-05-19] MEDS: ESCITALOPRAM OXALATE 10 MG TABLET PO SCH (10:02)
[2019-05-19] MEDS: ANASTROZOLE 1 MG TABLET PO SCH (10:02)
[2019-05-19] MEDS: FERROUS SO4 325 MG TABLET (FP) PO SCH ×3 (10:02→17:14)
[2019-05-19] MEDS: DONEPEZIL HCL 10 MG TABLET (FP) PO SCH (10:02)
[2019-05-19] MEDS: NYSTATIN 100000 UNIT/GM TOPICAL OINTMENT 15 GM TUBE TP SCH ×2 (10:03→22:21)
[2019-05-19] MEDS: DIGOXIN 0.125 MG TABLET (FP) PO SCH (10:03)
[2019-05-19] MEDS: prednisoLONE ACETATE 1% OPHTH SUSP 5 ML BOTTLE OS SCH ×4 (10:03→22:21)
[2019-05-19] MEDS: DOXYCYCLINE INJECTION 100 MG in DEXTROSE 5%-WATER - 100 ML IVPB SCH ×2 (12:14→22:21)
[2019-05-19] MEDS ORDERED: QUEtiapine FUMARATE 25 MG TABLET ONE (21:59)
[2019-05-19] MEDS: QUEtiapine FUMARATE 50 MG TABLET PO SCH (22:21)
[2019-05-20] MEDS ORDERED: PIPERACILLIN/TAZOBACTAM 3.375 GM VIAL IVPB ONE ×3 (01:17→17:00)
[2019-05-20] MEDS ORDERED: DEXTROSE 5%-WATER - 50 ML IVPB ONE ×3 (01:17→17:00)
[2019-05-20] MEDS: PIPERACILLIN/TAZOB 3.375 GM 3.375 GM in DEXTROSE 5%-WATER - 50 ML IVPB SCH ×3 (01:53→17:25)
[2019-05-20] MEDS: LEVOTHYROXINE NA 50 MCG TABLET (FP) PO SCH (06:22)
[2019-05-20 08:29] LABS: BASO % 0.3 % (0-2.0); EOS % 1.1 % (0-4.5); LYMPH % 4.2 % (8-40); MCH 32.1 pg (25.7-33.7); MCHC 33.3 g/dl (32.0-36.0); MEAN CELL VOLUME 96.4 fl (80-96); MEAN PLT VOLUME 8.7 fl (7.5-11.1); MONO % 8.7 % (3.8-10.2); NEUT % 85.7 % (42.8-82.8); PLATELET COUNT 412 K/MM3 (134-434); RBC 3.73 M/mm3 (3.60-5.2); RDW 13.9 % (11.6-15.6); WHITE BLOOD COUNT 17.9 K/mm3 (4.0-10.0)
[2019-05-20] MEDS ORDERED: PT OWN MED DRAWER 7, Y5N ONE ×4 (08:34→22:34)
[2019-05-20 08:42] LABS: INR 2.17 (0.83-1.09); PROTHROMBIN TIME (PATIENT) 25.8 SEC (9.7-13.0)
[2019-05-20 09:00] LABS: BILIRUBIN,TOTAL 1.2 mg/dL (0.2-1); BLOOD UREA NITROGEN 88.8 mg/dL (7-18); CALCIUM 8.6 mg/dL (8.5-10.1); CREATININE 4.4 mg/dL (0.55-1.3); POTASSIUM 4.9 mmol/L (3.5-5.1); TOT PROT 7.1 g/dl (6.4-8.2)
[2019-05-20] MEDS: ANASTROZOLE 1 MG TABLET PO SCH (09:26)
[2019-05-20] MEDS: DONEPEZIL HCL 10 MG TABLET (FP) PO SCH (09:26)
[2019-05-20] MEDS: FERROUS SO4 325 MG TABLET (FP) PO SCH ×3 (09:26→17:24)
[2019-05-20] MEDS: POTASSIUM CHLORIDE TABS 20 MEQ TABLET.ER (FP) PO SCH ×2 (09:27→21:00)
[2019-05-20] MEDS: NYSTATIN 100000 UNIT/GM TOPICAL OINTMENT 15 GM TUBE TP SCH ×2 (09:27→21:00)
[2019-05-20] MEDS: prednisoLONE ACETATE 1% OPHTH SUSP 5 ML BOTTLE OS SCH ×4 (09:27→22:42)
[2019-05-20] MEDS: ESCITALOPRAM OXALATE 10 MG TABLET PO SCH ×2 (10:00→13:09)
[2019-05-20] MEDS: DOXYCYCLINE INJECTION 100 MG in DEXTROSE 5%-WATER - 100 ML IVPB SCH ×2 (11:45→22:43)
[2019-05-20] MEDS ORDERED: ACETAMINOPHEN 1000 MG/100 ML VIAL (NON FORMULARY) IVPB PRN (13:01)
[2019-05-20] MEDS ORDERED: QUEtiapine FUMARATE 25 MG TABLET PO ONE (13:01)
[2019-05-20] MEDS ORDERED: WARFARIN NA 3 MG TABLET PO ONE (13:31)
[2019-05-20] MEDS ORDERED: HEPARIN NA (PORCINE) 5,000 UNITS/ML 1ML VIAL IVPUSH PRN ×2 (13:44)
[2019-05-20] MEDS: QUEtiapine FUMARATE 50 MG TABLET PO SCH (21:00)
[2019-05-20] MEDS: HEPARIN SOD,PORK IN 0.45% NACL 25,000 UNIT/500 ML INFUS.BAG IVPB SCH (22:41)
[2019-05-21] MEDS ORDERED: PIPERACILLIN/TAZOBACTAM 3.375 GM VIAL IVPB ONE ×3 (01:33→17:21)
[2019-05-21] MEDS ORDERED: DEXTROSE 5%-WATER - 50 ML IVPB ONE ×3 (01:33→17:21)
[2019-05-21] MEDS: PIPERACILLIN/TAZOB 3.375 GM 3.375 GM in DEXTROSE 5%-WATER - 50 ML IVPB SCH ×3 (01:48→17:22)
[2019-05-21] MEDS: LEVOTHYROXINE NA 50 MCG TABLET (FP) PO SCH (06:35)
[2019-05-21 08:09] LABS: INR 2.44 (0.83-1.09)
[2019-05-21 08:11] LABS: ACTIVATED PTT 61.9 SECONDS (25.2-36.5)
[2019-05-21] MEDS ORDERED: PT OWN MED DRAWER 7, Y5N ONE (09:47)
[2019-05-21] MEDS: NYSTATIN 100000 UNIT/GM TOPICAL OINTMENT 15 GM TUBE TP SCH ×2 (10:00→23:00)
[2019-05-21] MEDS ORDERED: DIGOXIN 0.125 MG TABLET (FP) PO SCH (10:00)
[2019-05-21] MEDS: DONEPEZIL HCL 10 MG TABLET (FP) PO SCH (10:00)
[2019-05-21] MEDS: POTASSIUM CHLORIDE TABS 20 MEQ TABLET.ER (FP) PO SCH ×2 (10:00→23:00)
[2019-05-21] MEDS: prednisoLONE ACETATE 1% OPHTH SUSP 5 ML BOTTLE OS SCH ×4 (10:00→23:00)
[2019-05-21] MEDS: FERROUS SO4 325 MG TABLET (FP) PO SCH ×3 (10:00→17:22)
[2019-05-21] MEDS: ESCITALOPRAM OXALATE 10 MG TABLET PO SCH (10:00)
[2019-05-21] MEDS: DOXYCYCLINE INJECTION 100 MG in DEXTROSE 5%-WATER - 100 ML IVPB SCH ×2 (10:45→23:00)
[2019-05-21] MEDS: ANASTROZOLE 1 MG TABLET PO SCH (13:00)
[2019-05-21] MEDS: HEPARIN SOD,PORK IN 0.45% NACL 25,000 UNIT/500 ML INFUS.BAG IVPB SCH (13:04)
[2019-05-21] MEDS ORDERED: QUEtiapine FUMARATE 25 MG TABLET ONE (22:39)
[2019-05-21] MEDS ORDERED: WARFARIN NA 3 MG TABLET PO ONE ×2 (22:45→23:15)
[2019-05-21] MEDS: QUEtiapine FUMARATE 50 MG TABLET PO SCH (23:00)
[2019-05-21] MEDS ORDERED: DEXTROSE 5%-0.45% SALINE 1,000 ML IV SCH (23:00)
[2019-05-22] MEDS: PIPERACILLIN/TAZOB 2.25 GM 2.25 GM in DEXTROSE 5%-WATER - 50 ML IVPB SCH ×3 (01:05→18:01)
[2019-05-22] MEDS ORDERED: DEXTROSE 5%-WATER - 50 ML IVPB ONE ×3 (01:46→17:59)
[2019-05-22] MEDS ORDERED: PIPERACILLIN/TAZOBACTAM 2.25 GM VIAL IVPB ONE ×3 (01:46→17:59)
[2019-05-22] MEDS: LEVOTHYROXINE NA 50 MCG TABLET (FP) PO SCH (06:05)
[2019-05-22] MEDS ORDERED: PT OWN MED DRAWER 7, Y5N ONE (09:58)
[2019-05-22] MEDS: prednisoLONE ACETATE 1% OPHTH SUSP 5 ML BOTTLE OS SCH ×4 (10:00→22:35)
[2019-05-22] MEDS: NYSTATIN 100000 UNIT/GM TOPICAL OINTMENT 15 GM TUBE TP SCH ×2 (10:00→22:35)
[2019-05-22] MEDS: DONEPEZIL HCL 10 MG TABLET (FP) PO SCH (10:00)
[2019-05-22] MEDS: ESCITALOPRAM OXALATE 10 MG TABLET PO SCH (10:00)
[2019-05-22] MEDS: ANASTROZOLE 1 MG TABLET PO SCH (10:00)
[2019-05-22] MEDS: FERROUS SO4 325 MG TABLET (FP) PO SCH ×3 (10:00→18:01)
[2019-05-22] MEDS: POTASSIUM CHLORIDE TABS 20 MEQ TABLET.ER (FP) PO SCH ×2 (10:02→22:22)
[2019-05-22] MEDS: DOXYCYCLINE INJECTION 100 MG in DEXTROSE 5%-WATER - 100 ML IVPB SCH ×2 (10:45→22:35)
[2019-05-22 12:27] LABS: BASO % 0.4 % (0-2.0); EOS % 0.4 % (0-4.5); HEMATOCRIT 32.8 % (32.4-45.2); HEMOGLOBIN 10.7 GM/dL (10.7-15.3); LYMPH % 3.1 % (8-40); MCH 30.5 pg (25.7-33.7); MCHC 32.5 g/dl (32.0-36.0); MEAN CELL VOLUME 93.9 fl (80-96); MEAN PLT VOLUME 8.4 fl (7.5-11.1); MONO % 7.9 % (3.8-10.2); NEUT % 88.2 % (42.8-82.8); PLATELET COUNT 419 K/MM3 (134-434); RDW 14.2 % (11.6-15.6); WHITE BLOOD COUNT 22.7 K/mm3 (4.0-10.0)
[2019-05-22 12:38] LABS: INR 3.69 (0.83-1.09); PROTHROMBIN TIME (PATIENT) 44.1 SEC (9.7-13.0)
[2019-05-22 12:40] LABS: ACTIVATED PTT 64.3 SECONDS (25.2-36.5)
[2019-05-22] MEDS ORDERED: SODIUM CHLORIDE 1,000 ML IV SCH (14:00)
[2019-05-22 14:02] LABS: ANISOCYTOSIS 1+; MACROCYTOSIS 0; OVALOCYTE 1+; PLATELET ESTIMATE NORMAL
[2019-05-22 15:38] LABS: CALCIUM 8.4 mg/dL (8.5-10.1); CREATININE 7.1 mg/dL (0.55-1.3)
[2019-05-22 15:54] LABS: BLOOD UREA NITROGEN 120.9 mg/dL (7-18)
[2019-05-22] MEDS ORDERED: QUEtiapine FUMARATE 25 MG TABLET ONE (22:24)
[2019-05-22] MEDS: QUEtiapine FUMARATE 50 MG TABLET PO SCH (22:35)
[2019-05-23] MEDS ORDERED: PIPERACILLIN/TAZOBACTAM 2.25 GM VIAL IVPB ONE (01:03)
[2019-05-23] MEDS ORDERED: DEXTROSE 5%-WATER - 50 ML IVPB ONE (01:04)
[2019-05-23] MEDS: PIPERACILLIN/TAZOB 2.25 GM 2.25 GM in DEXTROSE 5%-WATER - 50 ML IVPB SCH (02:15)
[2019-05-23] MEDS: LEVOTHYROXINE NA 50 MCG TABLET (FP) PO SCH (05:41)
[2019-05-23 06:33] VITALS: BP 118/51; PULSE 90; TEMP 97.3
[2019-05-23] MEDS ORDERED: PT OWN MED DRAWER 7, Y5N ONE (06:54)
== END 2019-05-23 07:50 | disposition expired | DRG 720 ==
LOC: EDBD → JER 11:24 → JERBED 14:12 → J4S 05-15 00:28
PROVIDERS: ADMIT Internal Medicine; ATTEND Internal Medicine
PROC: 8E0ZXY6 Isolation (ICD-10-PCS; principal; 2019-05-14)
DX: A41.89 Other specified sepsis (principal); U07.1 COVID-19; J96.21 Acute and chronic respiratory failure with hypoxia; I50.33 Acute on chronic diastolic (congestive) heart failure; N17.9 Acute kidney failure, unspecified; K63.81 Dieulafoy lesion of intestine; I11.0 Hypertensive heart disease with heart failure; I48.0 Paroxysmal atrial fibrillation; Z99.81 Dependence on supplemental oxygen; I27.20 Pulmonary hypertension, unspecified; J44.9 Chronic obstructive pulmonary disease, unspecified; K92.1 Melena; E78.5 Hyperlipidemia, unspecified; Z79.01 Long term (current) use of anticoagulants; I25.10 Atherosclerotic heart disease of native coronary artery without angina pectoris; Z85.3 Personal history of malignant neoplasm of breast; F03.90 Unspecified dementia, unspecified severity, without behavioral disturbance, psychotic disturbance, mood disturbance, and anxiety; Z95.2 Presence of prosthetic heart valve; F41.9 Anxiety disorder, unspecified
CPT/HCPCS: 36415; 71045-TC-FY; 80048; 80053; 80162; 81003; 82248; 82272; 82550; 82728; 82803; 83605; 83615; 83880; 84484; 85025; 85379; 85610; 85730; 86140; 87040; 87086; 87899; 93005; 93010; 99291; J0131